=== PATIENT | female | born 1955 | race Caucasian/White ===

== ENCOUNTER 2016-10-06 10:25 | Observation (INO) | payer OTHER ==
[~2016-10-06] VITALS: Ht 157.5 cm; Wt 32.4 kg
[~2016-10-06 10:25] MED LIST: ACET-1256 PO; ALBUAER2 INH; ATRIN INH; LISI10TA PO; MOME200A INH; PRLSR20 PO
[2016-10-06] MEDS ORDERED: ESOM20CA PO (11:04)
[2016-10-06] MEDS ORDERED: PRVHFAIN INH (11:07)
[2016-10-06] MEDS ORDERED: SODIUM CHLORIDE 0.9% 1000ML 1,000 ML IV STA (11:31)
[2016-10-06] MEDS ORDERED: ASPIRIN 81 MG CHEW PO STA (11:31)
[2016-10-06 11:42] LABS: BASO % 0.4 %; BASO ABS # 0.04 K/uL (0-0.2); COMPLETE YES; EOS % 0.3 %; HEMATOCRIT 50.5 % (37-47); IG% 0.5 %; LYMPH % 17.8 %; LYMPH ABS # 1.95 K/uL (1.2-3.4); MEAN CELL VOLUME 87.5 fL (80-100); MEAN CORPUSCULAR HEMOGLOBIN 30.2 pg (25-34); MEAN CORPUSCULAR HGB CONC 34.5 g/dl (32-36); MEAN PLATELET VOLUME 8.8 fL (7.4-10.4); MONO % 5.7 %; NEUT % 75.3 %; PLATELET COUNT 388 K/uL (130-400); RED BLOOD COUNT 5.77 M/uL (4.2-5.4); WHITE BLOOD COUNT 10.97 K/uL (4.8-10.8)
[2016-10-06] MEDS ORDERED: NITROGLYCERIN 0.4 MG SL PER TAB CHARGE SL PRN ×2 (11:45→15:15)
--- NOTE | 2016-10-06 12:05 | DIAGNOSTIC IMAGING REPORT ---
CHEST ONE VIEW PORTABLE CLINICAL HISTORY: Chest pain and shortness of breath. COMPARISON STUDY: Chest CT July 19, 2016. FINDINGS: Nipple shadows project over the chest. Emphysema is noted. There is no consolidation to suggest pneumonia. Biapical opacities are unchanged and likely reflect scarring. Cardiac size is normal. Mediastinal contours are normal. There is no evidence of pulmonary edema. IMPRESSION: 1. No acute findings. 2. Emphysema. Electronically signed by: Kenny Marks M.D. 10/06/2016 12:04 PM Dictated Date/Time: 10/06/2016 12:03 PM
[2016-10-06 12:07] LABS: ALT/SGPT 19 U/L (12-78); AST/SGOT 15 U/L (15-37); BLOOD UREA NITROGEN 10 mg/dl (7-18); CALCIUM 9.7 mg/dl (8.5-10.1); CARBON DIOXIDE 24 mmol/L (21-32); CHLORIDE 104 mmol/L (98-107); CREATININE 0.96 mg/dl (0.60-1.20); GLUCOSE 83 mg/dl (70-99); POTASSIUM 4.2 mmol/L (3.5-5.1); SODIUM 139 mmol/L (136-145)
[2016-10-06 12:12] LABS: ALKALINE PHOSPHATASE 69 U/L (45-117); CKMB/CK RATIO 2.6 (0-3.0)
[2016-10-06] MEDS ORDERED: ONDANSETRON INJ 2 MG/ML 2 ML VIAL IV PRN (15:15)
[2016-10-06] MEDS ORDERED: ALBUTEROL HFA 8 GM INHALER INH PRN (15:30)
--- NOTE | 2016-10-06 15:46 | History and Physical ---
History & Physical Date & Time of Service: Oct 06, 2016 at 15:21 Chief Complaint: Chest Heaviness, Sob, Heavy Left Arm Primary Care Physician: Ana Park M.D. History of Present Illness Source: patient THis is a 61 y/o female with PMHx of mod COPD with ongoing tobacco use, GERD and other problems as outlined below who presents to the ED c/o chest heaviness that began this morning. Pt reports that she was on the commode this morning around 0730 when she developed palpitations/ heart racing. She then developed heaviness in the center of her chest. After about 15 minutes the palpitations resolved however the chest discomfort persisted. The chest discomfort was aggravated with exertion and alleviated with rest. It was assoc with SOB (worse than baseline) and lightheadedness/dizziness. She went to work despite her sxs however the discomfort was getting worse and began radiating down the L arm. She did not take anything for her sxs. She estimates that discomfort lasted over 2 hours until she received the nitro in the ED. Pt has a history of similar sxs 4-5 years ago. She states she had a negative stress test at that time and she has not had any further issues until this morning. She denies FmHx of cardiovascular disease. Pt is a current tobacco user. She has a history of HTN however she was taken off her lisinopril 2 weeks ago due to issues with hypotension. Pt denies fever/chills, diaphoresis, wheezing, abd pain, N/V, bowel or bladder issues, LE edema or calf pain. In the ED, vitals are stable. Trop neg. EKG no evidence of ischemia. CXR + emphysema. Pt received 1 nitro in the ED and she is currently chest pain free. Pt will be admitted for further evaluation and treatment. Past Medical/Surgical History Medical Problems: (1) Emphysema lung Status: Chronic (2) GERD (gastroesophageal reflux disease) Status: Chronic (3) Tobacco abuse Status: Chronic Surgical Problems: (1) History of partial hysterectomy Permanent Comment: pt has one ovary Status: Resolved Social History Smoking Status: Current Every Day Smoker (1 ppd x 48 years ) Alcohol Use: none Drug Use: none Marital Status: Housing status: lives with family Occupational Status: employed (Works at [employer] ) Allergies Coded Allergies: Amoxicillin (Verified Adverse Reaction, Unknown, DIARRHEA, 10/06/16) Home Medications Scheduled Esomeprazole Magnesium (Nexium), 20 MG PO DAILY Ipratropium [place] (Atrovent Hfa), 2 PUFFS INH QID Mometasone Furoate-Formoterol (Dulera 200/5 Mcg), 2 PUFFS INH BID Scheduled PRN Acetaminophen (Tylenol), 1 TAB PO Q8 PRN for Pain Albuterol (Ventolin Hfa), 2 PUFFS INH Q4 PRN for SOB/Wheezing Review of Systems Constitutional: No chills, No fatigue, No fever, No sweats, No weakness Eyes: No worsening of vision ENT: No hearing loss Respiratory: + cough (chronic), + shortness of breath (resolved) Cardiovascular: + chest pain, + palpitations, No claudication, No edema Abdomen: No GI bleeding, No constipation, No diarrhea, No nausea, No pain, No vomiting Musculoskeletal: No calf pain, No swelling Genitourinary - Female: No dysuria Neurologic: + problem reported (lightheaded: resolved), No weakness Psychiatric: No depression symptoms Endocrine: No fatigue Hematologic / Lymphatic: No abnormal bleeding/bruising Integumentary: No new/changing skin lesions Physical Exam Vital Signs Date Time Temp Pulse Resp B/P Pulse Ox O2 Delivery O2 Flow Rate FiO2 10/06/16 14:25 82 21 10/06/16 14:20 82 22 10/06/16 14:15 80 21 10/06/16 14:10 85 16 10/06/16 13:40 92 17 97 10/06/16 13:35 80 15 95 Room Air 10/06/16 13:34 142/90 10/06/16 13:30 83 15 95 Room Air 10/06/16 13:28 136/84 10/06/16 13:25 87 15 95 Room Air 10/06/16 13:24 125/77 10/06/16 13:20 88 16 95 Room Air 10/06/16 13:19 145/81 10/06/16 13:15 86 1 95 10/06/16 13:13 140/87 10/06/16 13:10 87 20 96 10/06/16 13:09 121/89 10/06/16 13:05 85 17 95 10/06/16 13:04 132/85 10/06/16 13:00 86 20 96 10/06/16 12:59 130/79 10/06/16 12:55 86 19 96 10/06/16 12:54 125/72 10/06/16 12:50 85 19 96 10/06/16 12:49 132/78 10/06/16 12:45 83 17 95 10/06/16 12:44 123/72 10/06/16 12:40 90 21 95 10/06/16 12:35 89 20 129/79 95 Room Air 10/06/16 12:34 132/84 10/06/16 12:32 147/83 10/06/16 12:30 82 16 98 Room Air 10/06/16 12:29 145/96 10/06/16 12:25 85 23 97 10/06/16 12:20 85 20 96 10/06/16 12:17 95 Room Air 10/06/16 12:15 85 23 95 10/06/16 12:11 81/45 10/06/16 12:10 92 94 10/06/16 12:05 89 94 10/06/16 12:03 146/84 10/06/16 12:02 146/84 10/06/16 12:01 146/84 10/06/16 12:00 95 146/84 95 10/06/16 11:59 146/84 10/06/16 11:58 146/84 10/06/16 11:57 146/84 10/06/16 11:56 146/84 10/06/16 11:55 89 146/84 95 10/06/16 11:54 146/84 10/06/16 11:53 146/84 10/06/16 11:52 146/84 10/06/16 11:51 146/84 10/06/16 11:50 91 146/84 96 10/06/16 11:49 146/84 10/06/16 11:48 146/84 10/06/16 11:45 89 22 94 10/06/16 11:40 92 21 95 10/06/16 11:35 95 18 95 10/06/16 11:30 94 19 95 10/06/16 11:27 96 10/06/16 11:25 94 15 96 10/06/16 11:21 93 20 146/84 97 Room Air 10/06/16 11:20 146/84 10/06/16 11:19 146/84 10/06/16 10:31 36.5 112 18 143/86 96 Room Air General Appearance: WD/WN, no apparent distress, + thin, + pertinent finding ( Pt is sitting in bed with at bedside ) Head: normocephalic, atraumatic Eyes: normal inspection ENT: hearing grossly normal Neck: supple Respiratory/Chest: chest non-tender, lungs clear, normal breath sounds, no respiratory distress Cardiovascular: regular rate, rhythm, no edema, no murmur Abdomen/GI: normal bowel sounds, non tender, soft Back: normal inspection Extremities/Musculoskelatal: normal inspection, no calf tenderness, no pedal edema Neurologic/Psych: alert, normal mood/affect, oriented x 3 Skin: normal color, warm/dry Diagnostics Laboratory Results Results Past 24 Hours Test 10/06/16 11:15 10/06/16 11:30 Range/Units White Blood Count 10.97 4.8-10.8 K/uL Red Blood Count 5.77 4.2-5.4 M/uL Hemoglobin 17.4 12.0-16.0 g/dL Hematocrit 50.5 37-47 % Mean Corpuscular Volume 87.5 80-100 fL Mean Corpuscular Hemoglobin 30.2 25-34 pg Mean Corpuscular Hemoglobin Concent 34.5 32-36 g/dl Platelet Count 388 130-400 K/uL Mean Platelet Volume 8.8 7.4-10.4 fL Neutrophils (%) (Auto) 75.3 % Lymphocytes (%) (Auto) 17.8 % Monocytes (%) (Auto) 5.7 % Eosinophils (%) (Auto) 0.3 % Basophils (%) (Auto) 0.4 % Neutrophils # (Auto) 8.26 1.4-6.5 K/uL Lymphocytes # (Auto) 1.95 1.2-3.4 K/uL Monocytes # (Auto) 0.63 0.11-0.59 K/uL Eosinophils # (Auto) 0.03 0-0.5 K/uL Basophils # (Auto) 0.04 0-0.2 K/uL RDW Standard Deviation 45.6 36.4-46.3 fL RDW Coefficient of Variation 14.2 11.5-14.5 % Immature Granulocyte % (Auto) 0.5 % Immature Granulocyte # (Auto) 0.06 0.00-0.02 K/uL Sodium Level 139 136-145 mmol/L Potassium Level 4.2 3.5-5.1 mmol/L Chloride Level 104 98-107 mmol/L Carbon Dioxide Level 24 21-32 mmol/L Anion Gap 11.0 3-11 mmol/L Blood Urea Nitrogen 10 7-18 mg/dl Creatinine 0.96 0.60-1.20 mg/dl Est Creatinine Clear Calc Drug Dose 31.8 ml/min Estimated GFR () 74.0 Estimated GFR (Non- 63.8 BUN/Creatinine Ratio 10.0 10-20 Random Glucose 83 70-99 mg/dl Calcium Level 9.7 8.5-10.1 mg/dl Total Bilirubin 0.4 0.2-1 mg/dl Direct Bilirubin < 0.1 0-0.2 mg/dl Aspartate Amino Transf (AST/SGOT) 15 15-37 U/L Alanine Aminotransferase (ALT/SGPT) 19 12-78 U/L Alkaline Phosphatase 69 45-117 U/L Total Creatine Kinase 57 26-192 U/L Creatine Kinase MB 1.5 0.5-3.6 ng/ml Creatine Kinase MB Ratio 2.6 0-3.0 Total Protein 7.9 6.4-8.2 gm/dl Albumin 3.7 3.4-5.0 gm/dl Lipase 318 73-393 U/L Bedside Troponin I 0.000 0-0.045 ng/ml Diagnostic Radiology CXR IMPRESSION: 1. No acute findings. 2. Emphysema. EKG EKG: NSR at 95 bpm with poss L atrial enlargement but no acute ischemic changes ; no change when compared to EKG from 02/01/13 Impression Assessment and Plan CHEST PAIN R/O ACS pt presented with exertional chest heaviness assoc with SOB -observation status to telemetry -RFs include HTN and lifelong tobacco use -EKG no acute ischemic changes;repeat EKG PRN chest pain and in AM -Initial troponin is negative; continue to monitor with serial cardiac enzymes q6h -obtain echo to r/o cardiac wall motion abnormalities -start ASA -consult cardiology, Dr. Regalado-pending input -pt is currently chest pain free -continue to monitor MODERATE COPD WITH ONGOING TOBACCO ABUSE -stable; no evidence of acute exacerbation -pt counseled regarding the importance of smoking cessation -NicoDerm patch provided while in hospital -cont home inhalers GERD -cont Nexium HTN -BP stable -stopped lisinopril 2 weeks ago due to hypotension -monitor DVT PROPHYLAXIS -subq heparin CODE STATUS -FULL CODE per discussion with patient upon admission DISPO Observation status until further workup is complete. Pt seen in collaboration with Dr. Loza. Please see his addendum for further details. Thanks! Of note: patient will be followed by Dr. Silva starting tomorrow AM. VTE Prophylaxis VTE Risk Assessment Done? Y/N: Yes Risk Level: Moderate Note ATTENDING ADDENDUM Record reviewed. Patient interviewed and examined. Care coordinated with Nelly Coulter PA-C. Please refer to her documentation for patient's history. Briefly, 61 YO female with COPD. Experienced palpitations followed by chest pressure this morning. Symptoms lasted for about 45 min. EXAM: General- no acute distress VS- as noted Neck- no JVD Lungs- diffuse mild wheezing Heart- RRR, no murmur or gallop appreciated Extremities- no pretibial edema or calf tenderness Neuro- alert DATA: Troponin 0. Other lab studies as noted. CXR- emphysematous changes, no acute disease. EKG performed at 10:32 reviewed and demonstrated NSR at 95 / minute, short MT ( 104 msec), possible age-indeterminant septal infarct. ASSESSMENT AND PLAN: Chest pain, preceded by palpitations. Underlying COPD. Check serial cardiac markers. Monitor for arrhythmias. TSH in clinic 03/16/16 was 0.61. Recheck. Consult Cardiology. Please refer to TAMMY Coulter's documentation for discussion of other issues. Eduardo Loza MD .
[2016-10-06] MEDS ORDERED: NICOTINE 21 MG/24 HR TDSY ONE (16:15)
[2016-10-06 17:10] VITALS: BP 141/67; PULSE 94; TEMP 37; O2SAT 95; Ht 157.5 cm; Wt 32.4 kg
[2016-10-06 18:57] LABS: PROTHROMBIN TIME (PATIENT) 10.8 SECONDS (9.0-12.0)
[2016-10-06 19:36] VITALS: BP 133/79; PULSE 79; TEMP 36.8; O2SAT 95
[2016-10-06] MEDS: IPRATROPIUM BROMIDE HFA INHALER INH SCH ×2 (19:51→21:00)
[2016-10-06] MEDS: HEPARIN SOD 5000 UNIT/0.5 ML CARP SQ SCH (19:52)
[2016-10-06] MEDS: ACETAMINOPHEN 325 MG TAB PO PRN (19:55)
[2016-10-06] MEDS ORDERED: IV FLUIDS COMPLETED PRN (20:30)
--- NOTE | 2016-10-06 21:37 | EMERGENCY ROOM VISIT NOTE ---
ED Visit Note First contact with patient: 11:07 Chief Complaint: Chest heaviness. History of Present Illness: Ms. Parrish is a 61year-old white female who ambulates into the ED accompanied by her complaining of chest discomfort. Historically patient reports no personal or family history of cardiovascular disease. She does have risk factors of tobacco use and hypertension. Patient reports a acute onset of sensations of heart racing followed closely with chest discomfort that started approximately 3 hours ago. Her sensations of heart racing has resolved by her sensation of chest discomfort has been constant. The pain is currently described as midsternal heaviness sensation. The pain is radiating into the left shoulder and down the left arm. She has not identified any aggravating or alleviating factors related to her discomfort. She has not taken a medication for her discomfort prior to arrival at the hospital. has been taken for pain and relief has been achieved. Associated with the pain there has been a productive cough for the last 2 weeks ; diagnosed with bronchitis 2 weeks ago and on a Z-Neel and prednisone with slight improvement of symptoms, mild shortness of breath with activity. Patient denies fevers, chills, sweats, skin eruptions, skin color changes, wheezing, orthopnea, dependent edema, previous clots, claudication, cramping, recent surgery/inactivity/extended travel, abdominal pain, nausea, vomiting, diarrhea, constipation, rectal bleeding, black/tarry stools, urinary symptoms, back/flank pain. Review of Systems: As noted above in history of present illness. All body systems were reviewed and found to be negative as noted above. Past Medical History: As previously noted, bronchitis, emphysema, GERD, status post partial hysterectomy. Current Medications: Medications Dose Route/Sig Max Daily Dose Days Date Category Ventolin Hfa (Albuterol) 60 Puffs/5400 Mcg Aers 2 Puffs INH Q4 PRN 10/06/16 Reported Nexium (Esomeprazole Magnesium) 20 Mg Capcr 20 Mg PO DAILY 10/06/16 Reported Tylenol (Acetaminophen) 500 Mg Tab 1 Tab PO Q8 PRN 10/29/15 Reported Atrovent Hfa (Ipratropium [place]) 200 Puffs/3400 Mcg Aers 2 Puffs INH QID 01/30/15 Reported Dulera 200/5 Mcg (Mometasone Furoate-Formoterol) 1 Aer Aer 2 Puffs INH BID 01/30/15 Reported Allergies to Medications: Amoxicillin. Social History: Patient is currently employed; she feels safe in her environment ; she admits to tobacco use and denies alcohol use. Physical Examination: Vital Signs: Date Time Temp Pulse Resp B/P Pulse Ox O2 Delivery O2 Flow Rate FiO2 10/06/16 14:25 82 21 10/06/16 14:20 82 22 10/06/16 14:15 80 21 10/06/16 14:10 85 16 10/06/16 13:40 92 17 97 10/06/16 13:35 80 15 95 Room Air 10/06/16 13:34 142/90 10/06/16 13:30 83 15 95 Room Air 10/06/16 13:28 136/84 10/06/16 13:25 87 15 95 Room Air 10/06/16 13:24 125/77 10/06/16 13:20 88 16 95 Room Air 10/06/16 13:19 145/81 10/06/16 13:15 86 1 95 10/06/16 13:13 140/87 10/06/16 13:10 87 20 96 10/06/16 13:09 121/89 10/06/16 13:05 85 17 95 10/06/16 13:04 132/85 10/06/16 13:00 86 20 96 10/06/16 12:59 130/79 10/06/16 12:55 86 19 96 10/06/16 12:54 125/72 10/06/16 12:50 85 19 96 10/06/16 12:49 132/78 10/06/16 12:45 83 17 95 10/06/16 12:44 123/72 10/06/16 12:40 90 21 95 10/06/16 12:35 89 20 129/79 95 Room Air 10/06/16 12:34 132/84 10/06/16 12:32 147/83 10/06/16 12:30 82 16 98 Room Air 10/06/16 12:29 145/96 10/06/16 12:25 85 23 97 10/06/16 12:20 85 20 96 10/06/16 12:17 95 Room Air 10/06/16 12:15 85 23 95 10/06/16 12:11 81/45 10/06/16 12:10 92 94 10/06/16 12:05 89 94 10/06/16 12:03 146/84 10/06/16 12:02 146/84 10/06/16 12:01 146/84 10/06/16 12:00 95 146/84 95 10/06/16 11:59 146/84 10/06/16 11:58 146/84 10/06/16 11:57 146/84 10/06/16 11:56 146/84 10/06/16 11:55 89 146/84 95 10/06/16 11:54 146/84 10/06/16 11:53 146/84 10/06/16 11:52 146/84 10/06/16 11:51 146/84 10/06/16 11:50 91 146/84 96 10/06/16 11:49 146/84 10/06/16 11:48 146/84 10/06/16 11:45 89 22 94 10/06/16 11:40 92 21 95 10/06/16 11:35 95 18 95 10/06/16 11:30 94 19 95 10/06/16 11:27 96 10/06/16 11:25 94 15 96 10/06/16 11:21 93 20 146/84 97 Room Air 10/06/16 11:20 146/84 10/06/16 11:19 146/84 10/06/16 10:31 36.5 112 18 143/86 96 Room Air GENERAL: 61-year-old female in mild distress due to symptoms, chronically ill appearing, afebrile and hemodynamically stable. NEUROLOGICAL: Awake, alert and oriented to person, place and time. Answering questions appropriately and following commands. Normal gait. Good hand eye coordination. SKIN: Warm, dry and pink. No soft tissue eruptions or trauma noted. HEENT: Atraumatic and normocephalic. PERRLA. Sclera white and conjunctiva pink. Oral cavity moist and pink. Pharynx is nonerythematous or edematous. Speech normal. No lymphadenopathy. Trachea midline. No jugular venous distention. No carotid bruits. BACK: No tenderness over the bony spine. No CVA tenderness. THORAX: Lungs sounds are clear to auscultation and equal bilaterally with symmetrical chest wall. No wheezing, rales or rhonchi. No crepitus, tenderness , subcutaneous air or deformities noted. HEART: Regular rate and rhythm. Soft systolic murmur heard over the apex of the heart. No gallops or rubs are appreciated. No lifts, heaves or thrills. PMI is not displaced. ABDOMEN: Flat, soft and nontender. Positive bowel sounds in all quadrants. No guarding, rigidity or organomegaly. EXTREMITIES: Moves all extremities well on command and with purpose. All distal neurovascular statuses are intact and equal bilaterally. No dependent edema or calf tenderness/cords. ED Course: Patient is assessed as noted above. Laboratory Testing: Test 10/06/16 11:15 10/06/16 11:30 Range/Units White Blood Count 10.97 4.8-10.8 K/uL Red Blood Count 5.77 4.2-5.4 M/uL Hemoglobin 17.4 12.0-16.0 g/dL Hematocrit 50.5 37-47 % Mean Corpuscular Volume 87.5 80-100 fL Mean Corpuscular Hemoglobin 30.2 25-34 pg Mean Corpuscular Hemoglobin Concent 34.5 32-36 g/dl Platelet Count 388 130-400 K/uL Mean Platelet Volume 8.8 7.4-10.4 fL Neutrophils (%) (Auto) 75.3 % Lymphocytes (%) (Auto) 17.8 % Monocytes (%) (Auto) 5.7 % Eosinophils (%) (Auto) 0.3 % Basophils (%) (Auto) 0.4 % Neutrophils # (Auto) 8.26 1.4-6.5 K/uL Lymphocytes # (Auto) 1.95 1.2-3.4 K/uL Monocytes # (Auto) 0.63 0.11-0.59 K/uL Eosinophils # (Auto) 0.03 0-0.5 K/uL Basophils # (Auto) 0.04 0-0.2 K/uL RDW Standard Deviation 45.6 36.4-46.3 fL RDW Coefficient of Variation 14.2 11.5-14.5 % Immature Granulocyte % (Auto) 0.5 % Immature Granulocyte # (Auto) 0.06 0.00-0.02 K/uL Sodium Level 139 136-145 mmol/L Potassium Level 4.2 3.5-5.1 mmol/L Chloride Level 104 98-107 mmol/L Carbon Dioxide Level 24 21-32 mmol/L Anion Gap 11.0 3-11 mmol/L Blood Urea Nitrogen 10 7-18 mg/dl Creatinine 0.96 0.60-1.20 mg/dl Est Creatinine Clear Calc Drug Dose 31.8 ml/min Estimated GFR () 74.0 Estimated GFR (Non- 63.8 BUN/Creatinine Ratio 10.0 10-20 Random Glucose 83 70-99 mg/dl Calcium Level 9.7 8.5-10.1 mg/dl Total Bilirubin 0.4 0.2-1 mg/dl Direct Bilirubin < 0.1 0-0.2 mg/dl Aspartate Amino Transf (AST/SGOT) 15 15-37 U/L Alanine Aminotransferase (ALT/SGPT) 19 12-78 U/L Alkaline Phosphatase 69 45-117 U/L Total Creatine Kinase 57 26-192 U/L Creatine Kinase MB 1.5 0.5-3.6 ng/ml Creatine Kinase MB Ratio 2.6 0-3.0 Total Protein 7.9 6.4-8.2 gm/dl Albumin 3.7 3.4-5.0 gm/dl Lipase 318 73-393 U/L Bedside Troponin I 0.000 0-0.045 ng/ml Chest X-Ray: Was read by myself and the radiologist showing no acute infiltrates , effusions or pneumothorax. Normal heart silhouette. Patient does have emphysema changes. EKG: Was read by myself and reviewed with Dr. Davis; shows normal sinus rhythm with ventricular rate of 95 bpm. Short [place] interval with signs of left atrial enlargement. No acute ischemic changes. No previous to compare. Patient was hydrated with normal saline and she received a 324 mg aspirin chew by mouth and 0.4 mg of nitroglycerin sublingually for chest pain; after 1 dose of the nitroglycerin she was pain-free. Patient was reassessed multiple times during her stay in the emergency department. Patient's case was reviewed with Dr. Davis; we agreed on diagnostic approach, treatment, disposition and plan. Patient's case was consulted with case management and Dr. Landry, [facility], for medical observation/admission. Patient was educated about tonight's findings. Clinical Impression: Acute chest pain. Decision-Making: Initially my differential diagnosis I considered acute coronary syndrome, thoracic aneurysm, pneumothorax, GERD exacerbation, COPD exacerbation, pneumonia, pulmonary embolism, pericarditis and other causes. Disposition and Plan: Patient be brought in the hospital by [facility]; please see their notes and orders for final disposition and plan.
[2016-10-06 23:49] VITALS: BP_SYST 143; BP_SYST 155; BP_DIAS 78; BP_DIAS 83; PULSE 75; TEMP 36.9; O2SAT 96
[2016-10-07] VITALS (16 sets, daily range): BP systolic 122–176; BP diastolic 70–96; PULSE 76–93; TEMP 36.2–37.1; O2SAT 91–95
[2016-10-07] MEDS: ACETAMINOPHEN 325 MG TAB PO PRN ×2 (04:50→15:24)
[2016-10-07] MEDS: HEPARIN SOD 5000 UNIT/0.5 ML CARP SQ SCH ×3 (05:48→21:04)
[2016-10-07 06:20] LABS: HEMATOCRIT 44.7 % (37-47); MEAN CORPUSCULAR HEMOGLOBIN 29.9 pg (25-34); MEAN PLATELET VOLUME 8.6 fL (7.4-10.4); PLATELET COUNT 327 K/uL (130-400); RED BLOOD COUNT 5.08 M/uL (4.2-5.4); WHITE BLOOD COUNT 7.38 K/uL (4.8-10.8)
[2016-10-07 06:46] LABS: BUN/CREATININE RATIO 10.5 (10-20); CALCIUM 8.9 mg/dl (8.5-10.1); CREATININE 0.98 mg/dl (0.60-1.20); MAGNESIUM 2.1 mg/dl (1.8-2.4); POTASSIUM 4.2 mmol/L (3.5-5.1)
[2016-10-07 06:57] LABS: THYROID STIMULATING HORMONE 0.823 uIu/ml (0.300-4.500)
[2016-10-07] MEDS: IPRATROPIUM BROMIDE HFA INHALER INH SCH ×4 (10:00→21:03)
[2016-10-07] MEDS: PANTOprazole SOD 40 MG TAB PO SCH (10:00)
[2016-10-07] MEDS: ASPIRIN 81 MG ECTAB PO SCH (10:00)
[2016-10-07] MEDS: NICOTINE 21 MG/24 HR TDSY TD SCH (10:01)
--- NOTE | 2016-10-07 10:32 | ECHOCARDIOGRAM REPORT ---
*NOTICE TO RECEIVING REPUBLICAN AGENCY This information is strictly Confidential and protected under [place] law. [place] law prohibits you from making any further disclosure of this information unless further disclosure is expressly permitted by the written consent of the person to whom it pertains or is authorized by law. A general authorization for the release of medical or other information is not sufficient for this purpose. Hospital accepts no responsibility if the information is made available to any other person, INCLUDING THE PATIENT. Interpretation Summary * Name: YVONNE DENNIS Study Date: 10/07/2016 07:21 AM BP: 149/88 mmHg * Patient Location: C.2T\S\S230\S\2 HR: 81 * : 1955 (M/d/yyyy) Gender: Female Height: 62 in * Age: 61 yrs Ethnicity: [place] Weight: 72 lb * Ordering Physician: Nelly Coulter * Referring Physician: No Doctor, Assigned * Performed By: Nain Diane RCS * * Reason For Study: Chest Pain * BSA: 1.2 m2 * -- Conclusions -- * Aortic valve sclerosis mild, without significant aortic valvular stenosis. * The left ventricular wall motion is normal. * Ejection Fraction = 55-60%. * Left ventricular systolic function is normal. * The right ventricle is normal size. * The right ventricular systolic function is normal as assessed by tricuspid annular plane systolic excursion (TAPSE) (normal >1.5 cm). * Grade I diastolic dysfunction, (abnormal relaxation pattern). * The tricuspid regurgitaiton envelope is insufficient to allow calculation of the pulmonary artery systolic pressures. * There is a trace loculated pericardial effusion adjacent to the right ventricle on the subcostal views. * There are no echocardiographic indications of cardiac tamponade. Procedure Details * A complete two-dimensional transthoracic echocardiogram was performed (2D, M-mode, Doppler and color flow Doppler). Left Ventricle * The left ventricle is normal in size. * There is normal left ventricular wall thickness. * Ejection Fraction = 55-60%. * Left ventricular systolic function is normal. * The left ventricular wall motion is normal. Right Ventricle * The right ventricle is normal size. * The right ventricular systolic function is normal as assessed by tricuspid annular plane systolic excursion (TAPSE) (normal >1.5 cm). Atria * The left atrial size is normal. * Right atrial size is normal. * There is no evidence of atrial septal defect, but resolution does not allow assessment for a patent foramen ovale. Mitral Valve * The mitral valve is normal. * There is no mitral valve stenosis. * Significant mitral regurgitation is absent. Tricuspid Valve * The tricuspid valve is normal. * There is no tricuspid stenosis. * Significant tricuspid regurgitation is absent. * The tricuspid regurgitaiton envelope is insufficient to allow calculation of the pulmonary artery systolic pressures. Aortic Valve * The aortic valve is trileaflet. * Aortic valve sclerosis mild, without significant aortic valvular stenosis. * Aortic stenosis is absent. * There is no significant aortic regurgitation. Pulmonic Valve * The pulmonary valve is not well seen, but the Doppler examination is normal without significant regurgitation or stenosis. Great Vessels * The aortic root and proximal ascending aorta are normal sized. Pericardium/Pleural * There is a trace loculated pericardial effusion adjacent to the right ventricle on the subcostal views. * There are no echocardiographic indications of cardiac tamponade. Great Vessels * Normal inferior vena cava diameter and respiratory variation suggests normal central venous pressure. * Normal inferior vena cava size and collapsability with sniff indicates a normal right atrial pressure of 3 mmHg Left Ventricular Diastolic Function * Grade I diastolic dysfunction, (abnormal relaxation pattern). MMode 2D Measurements and Calculations IVSd 0.89 cm IVSs 0.94 cm LVIDd 3.3 cm LVIDs 2.3 cm LVPWd 0.72 cm LVPWs 0.95 cm IVS/LVPW 1.2 FS 30.4 % EDV(Teich) 44.4 ml ESV(Teich) 18.1 ml EF(Teich) 59.1 % EDV(cubed) 36.2 ml ESV(cubed) 12.2 ml EF(cubed) 66.3 % % IVS thick 5.4 % % LVPW thick 31.5 % LV mass(C)d 69.3 grams LV mass(C)dI 56.0 grams/m\S\2 LV mass(C)s 51.4 grams LV mass(C)sI 41.5 grams/m\S\2 CO(Teich) 2.0 l/min CI(Teich) 1.6 l/min/m\S\2 SV(Teich) 26.3 ml SI(Teich) 21.2 ml/m\S\2 CO(cubed) 1.8 l/min CI(cubed) 1.5 l/min/m\S\2 SV(cubed) 24.0 ml SI(cubed) 19.4 ml/m\S\2 Ao root diam 2.6 cm Ao root area 5.4 cm\S\2 ACS 1.6 cm LA dimension 2.6 cm LA/Ao 0.99 LVAd ap4 20.3 cm\S\2 LVLd ap4 6.9 cm EDV(MOD-sp4) 50.0 ml LVAs ap4 11.8 cm\S\2 LVLs ap4 5.9 cm ESV(MOD-sp4) 20.0 ml EF(MOD-sp4) 60.0 % LVAd ap2 16.6 cm\S\2 LVLd ap2 6.7 cm EDV(MOD-sp2) 36.0 ml LVAs ap2 9.5 cm\S\2 LVLs ap2 5.2 cm ESV(MOD-sp2) 16.0 ml EF(MOD-sp2) 55.6 % CO(MOD-sp4) 2.3 l/min CI(MOD-sp4) 1.8 l/min/m\S\2 SV(MOD-sp4) 30.0 ml SI(MOD-sp4) 24.2 ml/m\S\2 CO(MOD-sp2) 1.5 l/min CI(MOD-sp2) 1.2 l/min/m\S\2 SV(MOD-sp2) 20.0 ml SI(MOD-sp2) 16.2 ml/m\S\2 Doppler Measurements and Calculations MV E max cindy 62.4 cm/sec MV A max cindy 55.9 cm/sec MV E/A 1.1 MV P1/2t max cindy 74.3 cm/sec MV P1/2t 79.9 msec MVA(P1/2t) 2.8 cm\S\2 MV dec slope 272.3 cm/sec\S\2 MV dec time 0.21 sec Ao V2 max 94.3 cm/sec Ao max PG 3.6 mmHg Ao max PG (full) 1.9 mmHg LV V1 max PG 1.6 mmHg LV V1 max 64.1 cm/sec PA V2 max 78.3 cm/sec PA max PG 2.5 mmHg
[2016-10-07] MEDS ORDERED: METOPROLOL TARTRATE 25 MG TAB PO ONE (10:36)
[2016-10-07] MEDS ORDERED: ATORVASTATIN 10 MG TAB PO ONE (10:45)
--- NOTE | 2016-10-07 10:46 | EXERCISE STRESS ECHO ---
*NOTICE TO RECEIVING DEMOCRAT AGENCY This information is strictly Confidential and protected under [place] law. [place] law prohibits you from making any further disclosure of this information unless further disclosure is expressly permitted by the written consent of the person to whom it pertains or is authorized by law. A general authorization for the release of medical or other information is not sufficient for this purpose. Hospital accepts no responsibility if the information is made available to any other person, INCLUDING THE PATIENT. Interpretation Summary * Name: YVONNE DENNIS Study Date: 10/07/2016 09:03 AM BP: 188/87 mmHg * Patient Location: C.2T\S\S230\S\2 HR: 90 * : 1955 (M/d/yyy) Gender: Female Height: 62 in * Age: 61 yrs Ethnicity: [place] Weight: 72 lb * Ordering Physician: Freddie Regalado * Referring Physician: No Doctor, Assigned * Performed By: Nain Diane RCS * * Reason For Study: Chest Pain * BSA: 1.2 m2 * -- Conclusions -- * The exercise stress echocardiogram is abnormal and consistent with inducible ischemia in the LAD coronary artery territory. * Two brief episodes of nonsustained ventricular tachycardia were observed. * The patient's exercise capacity is severely diminished. * The exercise test was terminated due to fatigue and shortness of breath. * The post exercise echo images were technically limited due to patient characterisitcs. Only the parasternal long axis and parasternal short axis views are of adequate diagnostic quality on the post exercise images, but were abnormal compared to the resting images and therefore the test is technically limited but adequate for the referral indication. * Results were discussed with Dr Silva by telephone. Procedure Details * ECHOEX, CPT #03859 * A contrast injection of Definity was performed to improve assessment of LV function. * Contrast was injected into an intravenous site in the left arm. * One vial of Definity ultrasound contrast was diluted in normal saline to a total volume of 10 ml. A total of '4' ml of solution was administered during imaging. * Lot # [id number] of Definity utilized for procedure. * Expiration date . * The attending nurse who injected the contrast agent was Theodore Romero RN. Left Ventricle * The left ventricle is normal in size. * The left ventricular wall motion is normal at rest. There is a moderate sized anteroseptal wall motion abnormality with hypokinesis of the segments on the stress images consistent with ischemia in the LAD coronary territory. * There is normal left ventricular wall thickness. * Left ventricular systolic function is normal. * Ejection Fraction = 55-60%. Stress Parameters * Normal baseline electrocardiogram. * The stress EKG revealed no significant ST depression. Two salvos of nonsustained ventricular tachycardia occured, one was 3 beats in duration and one was 7 beats in duration. * The stress portion of this study was personally supervised by the undersigned interpreting physician. * Rest heart rate was '90' BPM. * Rest blood pressure was '188/87' * Maximum heart rate achieved was 173 bpm. * Maximum heart rate was 108 % of maximum age-predicted heart rate. * Maximum blood pressure was '201/66' * Total exercise time was '2:27' * Maximum exercise MET level achieved was '4.6' METS * Maximum treadmill speed was '1.6' miles per hour. * Maximum treadmill elevation was '10'% grade. * Exercise was terminated due to 'fatigue'
--- NOTE | 2016-10-07 11:48 | CARDIOLOGY CONSULTATION ---
DATE OF CONSULTATION: 10/07/2016 HISTORY OF PRESENT ILLNESS: Jemal Parrish is a 61-year-old female seen in cardiology consultation per the request of Nelly Coulter PA-C for the evaluation of chest discomfort. The patient's primary care provider is Dr. Park of [facility]. She has not followed with cardiology in the past. The patient has a history of significant underlying lung disease and ongoing cigarette smoking. She was in her normal state of health yesterday when she was sitting on the commode, urinating at 07:30 in the morning and developed palpitations. The palpitations persisted for several minutes. She then developed associated chest heaviness in the center of her chest that lasted 15 minutes. The palpitations subsequently resolved, but the chest discomfort persisted with associated upper arm discomfort. She felt that the chest discomfort was worse when she got up and exerted herself. She felt more short of breath than her typical baseline. She went to work and had pain radiating down her left arm. She therefore presented to the Emergency Department. Her initial EKG revealed normal sinus rhythm with no significant ST segment changes. Cardiac enzymes have been drawn and her troponin was negative x2 overnight. The patient was seen by the undersigned in cardiopulmonary after her resting echocardiogram had revealed normal left ventricular wall motion. She was feeling well with no recurrence of her palpitations. It was determined that the next best course of action would be to proceed with an exercise stress echocardiogram. PAST MEDICAL HISTORY: 1. Chronic obstructive pulmonary disease/emphysema, with chronic cough and ongoing cigarette smoking. 2. Gastroesophageal reflux disease. PAST SURGICAL HISTORY: History of partial hysterectomy. SOCIAL HISTORY: The patient is a current every day smoker. She has smoked 1 pack per day for the last 48 years. She is and lives with her family. FAMILY HISTORY: Father with a history of COPD. COMPREHENSIVE REVIEW OF SYSTEMS: A 10-point review of systems was reviewed and is negative with the exception of palpitations and chronic cough and chronic shortness of breath. PHYSICAL EXAMINATION: VITAL SIGNS: Temperature 36.6, heart rate 78, blood pressure 156/88, and pulse oximetry 93%-96% on room air. GENERAL APPEARANCE: Awake and oriented x3 in no acute distress, the patient is thin and weighs 32.8 kilograms with a BMI of 13.2 kilograms per meter squared. GENERAL APPEARANCE: Appears somewhat frail and undernourished. NECK: No bruits. CARDIOVASCULAR: Regular rhythm. No murmurs. LUNGS: Coarse breath sounds at bases. ABDOMEN: Soft, nontender, and nondistended. EXTREMITIES: No clubbing, cyanosis or edema. NEUROLOGIC: No focal deficits. PSYCHIATRIC: Appropriate affect and insight. DIAGNOSTIC DATA: EKG performed on arrival revealed normal sinus rhythm at 95 beats per minute with short ME interval. Repeat EKG this morning revealed continued sinus rhythm with sinus arrhythmia. No significant ST changes. Troponin negative x2. Sodium 144, BUN 110, and creatinine 0.98. TSH within normal limits. Electrolytes within normal limits. Hemoglobin 15.2, hematocrit 44.7, and platelet count 327. Chest x-ray, no acute findings. Underlying emphysema. HOME MEDICATIONS: 1. Nexium. 2. Gabapentin. 3. Zithromax rescue pack. 4. Albuterol. 5. Atrovent. 6. Dulera. Exercise stress echocardiogram results: The patient exercised into stage I of the Alex protocol. Her exercise capacity was significantly diminished. Exercise was terminated due to fatigue and shortness of breath. Two episodes of nonsustained ventricular tachycardia were noted with exercise. No significant ST-segment depression is noted on the EKG. The resting wall motion on echocardiographic assessment was normal, the post-exercise assessment was technically limited, but the parasternal long axis and parasternal short axis were well visualized and were technically adequate revealing LAD territory wall motion abnormality suggestive of ischemia. FINAL IMPRESSION: A 61-year-old female, 1. Presented with palpitations, suggestive for possible atrial arrhythmia, although given 2 brief episodes of nonsustained ventricular tachycardia with exercise, ventricular arrhythmia must be entertained. Her palpitation symptoms were not reproduced with exercise. 2. Abnormal exercise stress echocardiogram at low level of exercise suggestive of LAD territory ischemia. 3. Significant underlying emphysematous lung disease, chronic cough. 4. Ongoing cigarette smoking. DISCUSSION AND RECOMMENDATIONS: The patient had a previous lipid panel performed in 2013, at which time her LDL cholesterol was 65 mg per deciliter. Given her findings on stress testing, however, I am going to start her on a low dose of atorvastatin. The patient will be started on aspirin therapy. We will initiate low-dose metoprolol tartrate, a cardioselective beta bernadine while she is in the hospital and we will watch her carefully for symptoms of increased wheezing given the significance of her underlying lung disease. It was recommended that the patient undergo a coronary angiography for definitive diagnosis of coronary artery disease during this hospital stay. She is agreeable. DELFIN
--- NOTE | 2016-10-07 12:38 | Progress Note ---
Subjective Date of Service: Oct 07, 2016. Subjective Pt evaluation today including: conversation w/ patient, conversation w/ family , physical exam, chart review, lab review, review of studies, conversation w/ cosmetic sales consultant, review of inpatient medication list Saw/examined the patient in room 230 She is a 61 year old female with PMH of COPD and current ongoing tobacco use presented with chest pain and palpitations. Had a stress echo done which revealed LAD ischemia; patient also had episodes of nonsustained VT. I saw the patient after the stress in the room, she is doing fine, denies chest pain or palpitations currently; no other symptoms at this time. Problem List Medical Problems: (1) Acute chest pain Status: Acute (2) Nausea Status: Acute (3) Right lower quadrant abdominal pain Status: Acute Review of Systems Constitutional: No chills, No fever Respiratory: + cough, + shortness of breath (baseline, chronic), + sputum, No dyspnea at rest, No dyspnea on exertion, No hemoptysis Cardiac: No chest pain (no chest pain currently), No edema, No palpitations Abdomen: No diarrhea, No nausea, No pain, No vomiting Heme: No abnormal bleeding/bruising Medications Current Inpatient Medications Medications (Trade) Dose Ordered Sig/[place] Route Start Time Stop Time Status Last Admin Dose Admin Heparin Sodium (Porcine) (Heparin Sq 5000 Unit/0.5ml) 5,000 unit Q8 SQ 10/06/16 22:00 11/05/16 21:59 Acetaminophen (Tylenol Tab) 650 mg Q4H PRN PO 10/06/16 15:15 11/05/16 15:14 10/07/16 04:50 650 MG Ondansetron HCl (Zofran Inj) 4 mg Q6H PRN IV 10/06/16 15:15 11/05/16 15:14 Nitroglycerin (Nitrostat Tab) 0.4 mg UD PRN SL 10/06/16 15:15 11/05/16 15:14 Albuterol (Ventolin Hfa Inhaler) 2 puffs Q4 PRN INH 10/06/16 15:30 11/05/16 15:29 Ipratropium [place] (Atrovent Hfa Inhaler) 2 puffs QID INH 10/06/16 17:00 11/05/16 16:59 10/07/16 10:00 2 PUFFS Pantoprazole Sodium (Protonix Tab) 40 mg DAILY PO 10/07/16 09:00 11/06/16 08:59 10/07/16 10:00 40 MG Miscellaneous Information (Order Awaiting Action) 1 ea QS N/A 10/07/16 00:00 11/06/16 00:00 Nicotine (Nicoderm Cq 21MG Patch) 1 patch QAM TD 10/07/16 09:00 11/06/16 08:59 10/07/16 10:01 1 PATCH Miscellaneous (Remove Nicoderm Patch) 1 ea HS N/A 10/06/16 21:00 11/05/16 20:59 10/07/16 10:01 1 EA Aspirin (Ecotrin Tab) 81 mg DAILY PO 10/07/16 09:00 11/06/16 08:59 10/07/16 10:00 81 MG Miscellaneous (Iv Fluids Completed) 1 ea PRN PRN N/A 10/06/16 20:30 10/06/17 20:29 Metoprolol Tartrate (Lopressor Tab) 12.5 mg BID PO 10/07/16 21:00 11/06/16 20:59 Atorvastatin Calcium (Lipitor Tab) 10 mg QAM PO 10/08/16 09:00 11/07/16 08:59 Objective Vital Signs Date Time Temp Pulse Resp B/P Pulse Ox O2 Delivery O2 Flow Rate FiO2 10/07/16 11:42 36.2 86 20 176/96 92 Room Air 10/07/16 08:01 36.6 78 18 156/88 93 Room Air 10/07/16 04:16 37.1 81 18 149/88 95 10/07/16 04:00 Room Air 10/07/16 00:00 Room Air 10/06/16 23:49 36.9 75 18 155/83 96 143/78 10/06/16 20:00 Room Air 10/06/16 19:36 36.8 79 16 133/79 95 Room Air 10/06/16 17:10 37.0 94 18 141/67 95 Room Air 10/06/16 17:10 37.0 94 18 141/67 95 Room Air 10/06/16 16:54 36.5 80 18 163/82 97 10/06/16 16:28 80 18 163/82 97 Room Air 10/06/16 14:25 82 21 10/06/16 14:20 82 22 10/06/16 14:15 80 21 10/06/16 14:10 85 16 10/06/16 13:40 92 17 97 10/06/16 13:35 80 15 95 Room Air 10/06/16 13:34 142/90 10/06/16 13:30 83 15 95 Room Air 10/06/16 13:28 136/84 10/06/16 13:25 87 15 95 Room Air 10/06/16 13:24 125/77 10/06/16 13:20 88 16 95 Room Air 10/06/16 13:19 145/81 10/06/16 13:15 86 1 95 10/06/16 13:13 140/87 10/06/16 13:10 87 20 96 10/06/16 13:09 121/89 10/06/16 13:05 85 17 95 10/06/16 13:04 132/85 10/06/16 13:00 86 20 96 10/06/16 12:59 130/79 10/06/16 12:55 86 19 96 10/06/16 12:54 125/72 10/06/16 12:50 85 19 96 10/06/16 12:49 132/78 10/06/16 12:45 83 17 95 10/06/16 12:44 123/72 10/06/16 12:40 90 21 95 10/06/16 12:35 89 20 129/79 95 Room Air 10/06/16 12:34 132/84 10/06/16 12:32 147/83 10/06/16 12:30 82 16 98 Room Air Physical Exam General Appearance: no apparent distress, + cachetic, + thin Respiratory/Chest: no respiratory distress, no accessory muscle use, + decreased breath sounds, + wheezing (diffuse) Cardiovascular: regular rate, rhythm, no edema, no murmur Abdomen: normal bowel sounds, non tender, soft Extremities: normal inspection, no pedal edema Neurologic/Psychiatric: no motor/sensory deficits, alert, normal mood/affect Skin: normal color Lymphatic: no adenopathy Laboratory Results Last 24 Hours Test 10/06/16 17:00 10/06/16 17:33 10/06/16 18:15 10/06/16 23:00 Creatine Kinase MB Ratio Creatine Kinase MB 1.3 ng/ml Troponin I < 0.015 ng/ml Prothrombin Time 10.8 SECONDS Prothromb Time International Ratio 1.0 Activated Partial Thromboplast Time 25.0 SECONDS Partial Thromboplastin Ratio 1.0 Test 10/06/16 23:15 10/07/16 05:40 Creatine Kinase MB 1.1 ng/ml Troponin I < 0.015 ng/ml White Blood Count 7.38 K/uL Red Blood Count 5.08 M/uL Hemoglobin 15.2 g/dL Hematocrit 44.7 % Mean Corpuscular Volume 88.0 fL Mean Corpuscular Hemoglobin 29.9 pg Mean Corpuscular Hemoglobin Concent 34.0 g/dl RDW Standard Deviation 46.2 fL RDW Coefficient of Variation 14.3 % Platelet Count 327 K/uL Mean Platelet Volume 8.6 fL Sodium Level 144 mmol/L Potassium Level 4.2 mmol/L Chloride Level 110 mmol/L Carbon Dioxide Level 26 mmol/L Anion Gap 8.0 mmol/L Blood Urea Nitrogen 10 mg/dl Creatinine 0.98 mg/dl Est Creatinine Clear Calc Drug Dose 31.2 ml/min Estimated GFR () 72.2 Estimated GFR (Non- 62.3 BUN/Creatinine Ratio 10.5 Random Glucose 74 mg/dl Calcium Level 8.9 mg/dl Magnesium Level 2.1 mg/dl Thyroid Stimulating Hormone (TSH) 0.823 uIu/ml Assessment and Plan This is a 61 year old female with PMH of COPD and ongoing tobacco use presents with chest pain/palpitations Chest Pain likely palpitations, as patient had some palpitations during stress echo, including possibly non-sustained v-tach stress echo abnormal - suggestive of LAD ischemia patient given aspirin, statin, b-bernadine plan is for cardiac cath either later today 10/07 or 10/08 AM monitor in tele for any ventricular arrhythmias TSH is wnl cardiac enzymes negative x 3 currently in NSR @ 80bpm COPD/Tobacco Use nicotine patch no acute exacerbation will monitor breathing status with b-bernadine use counseled on smoking cessation with both the patient and her DVT ppx Lovenox FULL CODE
[2016-10-07] MEDS ORDERED: HEPARIN SOD (PORCINE) 1000 UNIT/ML 10 ML VIAL ONE (14:17)
[2016-10-07] MEDS ORDERED: NiCARDipine HCL INJ 2.5 MG/ML 10 ML AMP ONE (14:17)
[2016-10-07] MEDS ORDERED: MIDAZOLAM HCL 1 MG/ML 2ML VIAL ONE (14:18)
[2016-10-07] MEDS ORDERED: FENTANYL CITRATE INJ 50 MCG/1 ML 2 ML VIAL ONE (14:18)
--- NOTE | 2016-10-07 15:07 | Procedure Note ---
Pre-Mod Sedation Assessment General Date of Moderate Sedation: Oct 07, 2016. Vital Signs: Vital Signs Past 12 Hours Date Time Temp Pulse Resp B/P Pulse Ox O2 Delivery O2 Flow Rate FiO2 10/07/16 15:03 75 16 144/83 99 Room Air 10/07/16 14:58 79 16 159/95 99 Room Air 10/07/16 13:05 Room Air 10/07/16 12:59 36.6 85 20 156/89 93 Room Air 10/07/16 12:00 Room Air 10/07/16 11:42 36.2 86 20 176/96 92 Room Air 10/07/16 08:01 36.6 78 18 156/88 93 Room Air 10/07/16 08:00 Room Air 10/07/16 04:16 37.1 81 18 149/88 95 10/07/16 04:00 Room Air Review Cardiovascular: regular rate, rhythm, no edema, no gallop Abdomen: normal bowel sounds, non tender, no organomegaly Lungs: chest non-tender, lungs clear Pre-Sedation Airway Assessment Oral Cavity: Dentures Smoking Status: Current Every Day Smoker Mallampati Classification: Class II ASA Classification: Class II Procedure Planning Contraindications-for Mod Sed: None Yes Notes The planned sedation has been discussed with the patient and consent obtained. I have identified the patient, determined the appropriateness of sedation and have assessed the patient immediately prior to the procedure. All medicine(s) and interventions are by my order.
--- NOTE | 2016-10-07 15:10 | Procedure Note ---
Post-Mod Sedation Assessment General Date of Moderate Sedation Oct 07, 2016. Vital Signs: Vital Signs Past 12 Hours Date Time Temp Pulse Resp B/P Pulse Ox O2 Delivery O2 Flow Rate FiO2 10/07/16 15:03 75 16 144/83 99 Room Air 10/07/16 14:58 79 16 159/95 99 Room Air 10/07/16 13:05 Room Air 10/07/16 12:59 36.6 85 20 156/89 93 Room Air 10/07/16 12:00 Room Air 10/07/16 11:42 36.2 86 20 176/96 92 Room Air 10/07/16 08:01 36.6 78 18 156/88 93 Room Air 10/07/16 08:00 Room Air 10/07/16 04:16 37.1 81 18 149/88 95 10/07/16 04:00 Room Air Review - Discharge Criteria Vital Signs Stable: Yes Alert/Oriented/Conversant: Yes Returned to Baseline Mental St: Yes Nausea Absent/Minimal: Yes Pain/Discomfort/Absent/Minimal: Yes Normal/Baseline Respirations: Yes Active Bleeding?: No Pt Received D/C Instructions: N/A Prescriptions Given: None Specific Proced. D/C Criteria Distal Pulses Present (Cardiac: Yes Groin site assessed-Card Cath: N/A Voided Prior To Discharge: N/A Discharged Patients Adult Escort/Transportation: N/A
--- NOTE | 2016-10-07 15:16 | Cardiac Catheterization ---
Procedure Note Procedure Date Oct 07, 2016. Pre-Procedure Diagnosis Angina, Positive Stress Test AUC Score 7 Post-Procedure Diagnosis Normal Coronary Arteries Procedure(s) Performed Coronary Angiography (Start time 1436, end time 1458), Left Heart Cath Master R[facility] Spec(s) Yoan RTR Estimated Blood Loss 5cc Medication(s) Fentanyl (12.5mcg), Heparin, Nicardipine, Nitroglycerin, Versed (1mg), Lidocaine 1% Summary of Findings Normal coronary arteries Hemodynamics Rest Ao: 148/89/115 Final Ao: 160/89/119 LV: 148/-4/3 Recommendations None Specimens None Radiation Exposure (mGy) 39 Contrast (mls) 45 Procedural Complication(s) None Disposition PCU ACC Data Cardiac Status Clinical evaluation leading to the procedure CAD Presntation: Positive Stress Test Anginal Classification: CCS II Heart Failure: No Stress Echocardiogram: Yes - Positive, Risk/Extent of Ischemia (Intermediate) Coronary Anatomy Dominant: Right Left Main (% Stenosis): Normal LAD (% Stenosis): Normal D1 (% Stenosis): Normal D2 (% Stenosis): Normal Circumflex (% Stenosis): Normal OM1 (% Stenosis): Normal OM2 (% Stenosis): Normal RCA (% Stenosis): Normal R PDA (% Stenosis): Normal R PL1 (% Stenosis): Normal R PL2 (% Stenosis): Normal AM (% Stenosis): Normal Diagnostic Status: Elective Closure Device Percutaneous Entry Location: Radial Closure Device: Radial Band Recommendations: None Intraprocedure Events Significant Dissection: No Perforation: No
--- NOTE | 2016-10-07 16:01 | Cardiology Progress Note ---
Cardiology Progress Note Date of Service Oct 07, 2016. Cardiology Progress Note No significant CAD on cardiac catheterization. Question if abnormal stress test was false positive or perhaps due to global myocardial ischemia from exercise induced hypoxia related to lung disease. Plan: remain on telemetry for arrhythmia overnight. A 14 day Zio digital production operator will be placed as outpt next week at [facility] to follow up arrhythmia. No emperic beta bernadine therapy due to concerns of bronchospasm with pt's significant lung disease, baseline cough, SOB, wheezing. I have arranged outpt cardiology follow up in about 1 month to review progress and digital production operator results.
[2016-10-07] MEDS ORDERED: METOPROLOL TARTRATE 25 MG TAB PO SCH (21:00)
[2016-10-08] MEDS: ACETAMINOPHEN 325 MG TAB PO PRN ×2 (00:06→11:15)
[2016-10-08 03:25] VITALS: BP 156/79; PULSE 76; TEMP 36.7; O2SAT 94
[2016-10-08] MEDS: HEPARIN SOD 5000 UNIT/0.5 ML CARP SQ SCH (05:42)
[2016-10-08 06:29] LABS: BUN/CREATININE RATIO 15.9 (10-20); CALCIUM 9.1 mg/dl (8.5-10.1); CREATININE 0.89 mg/dl (0.60-1.20); POTASSIUM 4.1 mmol/L (3.5-5.1)
[2016-10-08 06:32] LABS: CHOLESTEROL/HDL RATIO 2.2
[2016-10-08] MEDS: ASPIRIN 81 MG ECTAB PO SCH (07:59)
[2016-10-08] MEDS: IPRATROPIUM BROMIDE HFA INHALER INH SCH (07:59)
[2016-10-08] MEDS: NICOTINE 21 MG/24 HR TDSY TD SCH (08:00)
[2016-10-08] MEDS: PANTOprazole SOD 40 MG TAB PO SCH (08:00)
[2016-10-08 08:02] VITALS: BP 116/77; PULSE 81; TEMP 36.7; O2SAT 98
[2016-10-08] MEDS ORDERED: ATORVASTATIN 10 MG TAB PO SCH (09:00)
--- NOTE | 2016-10-08 10:14 | Progress Note ---
Subjective Date of Service: Oct 08, 2016. Subjective Pt evaluation today including: conversation w/ patient, physical exam, lab review, review of studies, review of inpatient medication list Saw/examined the patient in room 230 She is doing okay today; no chest pain/palpitations noted overnight had cath yesterday with no coronary artery disease found breathing status at baseline - using inhalers this morning Problem List Medical Problems: (1) Acute chest pain Status: Acute (2) Nausea Status: Acute (3) Right lower quadrant abdominal pain Status: Acute Review of Systems Respiratory: + shortness of breath (baseline), No cough, No dyspnea at rest, No dyspnea on exertion, No hemoptysis, No sputum, No wheezing Cardiac: No PND, No chest pain, No edema, No orthopnea, No palpitations Heme: No abnormal bleeding/bruising Medications Current Inpatient Medications Medications (Trade) Dose Ordered Sig/[place] Route Start Time Stop Time Status Last Admin Dose Admin Heparin Sodium (Porcine) (Heparin Sq 5000 Unit/0.5ml) 5,000 unit Q8 SQ 10/06/16 22:00 11/05/16 21:59 Acetaminophen (Tylenol Tab) 650 mg Q4H PRN PO 10/06/16 15:15 11/05/16 15:14 10/08/16 00:06 650 MG Ondansetron HCl (Zofran Inj) 4 mg Q6H PRN IV 10/06/16 15:15 11/05/16 15:14 10/07/16 15:23 4 MG Nitroglycerin (Nitrostat Tab) 0.4 mg UD PRN SL 10/06/16 15:15 11/05/16 15:14 Albuterol (Ventolin Hfa Inhaler) 2 puffs Q4 PRN INH 10/06/16 15:30 11/05/16 15:29 Ipratropium [place] (Atrovent Hfa Inhaler) 2 puffs QID INH 10/06/16 17:00 11/05/16 16:59 10/08/16 07:59 2 PUFFS Pantoprazole Sodium (Protonix Tab) 40 mg DAILY PO 10/07/16 09:00 11/06/16 08:59 10/08/16 08:00 40 MG Miscellaneous Information (Order Awaiting Action) 1 ea QS N/A 10/07/16 00:00 11/06/16 00:00 Nicotine (Nicoderm Cq 21MG Patch) 1 patch QAM TD 10/07/16 09:00 11/06/16 08:59 10/08/16 08:00 1 PATCH Miscellaneous (Remove Nicoderm Patch) 1 ea HS N/A 10/06/16 21:00 11/05/16 20:59 10/08/16 08:00 1 EA Aspirin (Ecotrin Tab) 81 mg DAILY PO 10/07/16 09:00 11/06/16 08:59 10/08/16 07:59 81 MG Miscellaneous (Iv Fluids Completed) 1 ea PRN PRN N/A 10/06/16 20:30 10/06/17 20:29 Atorvastatin Calcium (Lipitor Tab) 10 mg QAM PO 10/08/16 09:00 11/07/16 08:59 10/08/16 08:00 10 MG Objective Vital Signs Date Time Temp Pulse Resp B/P Pulse Ox O2 Delivery O2 Flow Rate FiO2 10/08/16 08:02 36.7 81 16 116/77 98 Room Air 10/08/16 05:44 Room Air 10/08/16 04:00 Room Air 10/08/16 03:25 36.7 76 16 156/79 94 Room Air 10/07/16 23:59 Room Air 10/07/16 23:15 36.8 83 16 150/78 94 Room Air 10/07/16 20:00 95 Room Air 10/07/16 19:19 36.7 93 16 146/76 93 Room Air 10/07/16 18:30 91 17 124/70 93 Room Air 10/07/16 17:30 86 18 122/70 93 Room Air 10/07/16 17:00 88 18 125/71 93 Room Air 10/07/16 16:30 82 18 143/82 94 Room Air 10/07/16 16:12 36.8 80 24 128/80 93 Room Air 10/07/16 16:00 94 Room Air 10/07/16 15:45 76 18 145/85 93 Room Air 10/07/16 15:30 80 17 138/91 91 Room Air 10/07/16 15:14 36.4 85 17 157/96 93 Room Air 10/07/16 15:03 75 16 144/83 99 Room Air 10/07/16 14:58 79 16 159/95 99 Room Air 10/07/16 13:05 Room Air 10/07/16 12:59 36.6 85 20 156/89 93 Room Air 10/07/16 12:00 Room Air 10/07/16 11:42 36.2 86 20 176/96 92 Room Air Physical Exam General Appearance: no apparent distress, + cachetic, + thin, + pertinent finding (appears older than stated age) Respiratory/Chest: lungs clear, normal breath sounds, no respiratory distress, no accessory muscle use Cardiovascular: regular rate, rhythm, no edema, no murmur Abdomen: normal bowel sounds, non tender, soft Extremities: normal range of motion, non-tender, normal inspection, no pedal edema, no calf tenderness Neurologic/Psychiatric: no motor/sensory deficits, alert, normal mood/affect Skin: normal color Lymphatic: no adenopathy Laboratory Results Last 24 Hours Test 10/08/16 05:10 Sodium Level 141 mmol/L Potassium Level 4.1 mmol/L Chloride Level 107 mmol/L Carbon Dioxide Level 26 mmol/L Anion Gap 8.0 mmol/L Blood Urea Nitrogen 14 mg/dl Creatinine 0.89 mg/dl Est Creatinine Clear Calc Drug Dose 34.0 ml/min Estimated GFR () 81.1 Estimated GFR (Non- 70.0 BUN/Creatinine Ratio 15.9 Random Glucose 75 mg/dl Calcium Level 9.1 mg/dl Triglycerides Level 136 mg/dl Cholesterol Level 155 mg/dl HDL Cholesterol 71 mg/dl LDL Cholesterol, Calculated 57 mg/dl VLDL Cholesterol, Calculated 27 mg/dl Cholesterol/HDL Ratio 2.2 Assessment and Plan This is a 61 year old female with PMH of COPD and ongoing tobacco use presents with chest pain/palpitations Chest Pain 10/08 cardiac cath performed, no CAD noted plan for d/c today, Zio patch as outpatient 10/07 likely palpitations, as patient had some palpitations during stress echo, including possibly non-sustained v-tach stress echo abnormal - suggestive of LAD ischemia patient given aspirin, statin, b-bernadine plan is for cardiac cath either later today 10/07 or 10/08 AM monitor in tele for any ventricular arrhythmias TSH is wnl cardiac enzymes negative x 3 currently in NSR @ 80bpm COPD/Tobacco Use nicotine patch no acute exacerbation will monitor breathing status with b-bernadine use counseled on smoking cessation with both the patient and her DVT ppx Lovenox FULL CODE
[2016-10-08] MEDS ORDERED: ASPEC81 PO (10:18)
[2016-10-08] MEDS ORDERED: LPT10 PO (10:18)
--- NOTE | 2016-10-08 10:29 | Discharge Instructions ---
Discharge Instructions Admission Reason for Admission: Acute Chest Pain Discharge Discharge Diagnosis / Problem: Palpitations/Chest Pain Discharge Goals Goal(s): Decrease discomfort, Improve function Activity Recommendations Activity Limitations: resume your previous activity . Instructions / Follow-Up Instructions / Follow-Up Please follow-up with Dr. Park on October 14 @ 10:50AM * You will be started on aspirin and Lipitor * continue your home inhalers * You must stop smoking * You will have a Zio patch (a heart monitor) placed for around 2 weeks Current Hospital Diet Patient's current hospital diet: AHA Diet (Heart Healthy) Discharge Diet Recommended Diet: AHA Diet (Heart Healthy) Pending Studies Studies pending at discharge: no Laboratory Results Lipid Panel Test 10/08/16 05:10 Range/Units Triglycerides Level 136 0-150 mg/dl Cholesterol Level 155 0-200 mg/dl HDL Cholesterol 71 mg/dl Cholesterol/HDL Ratio 2.2 LDL Cholesterol, Calculated 57 mg/dl Medical Emergencies . Who to Call and When: Medical Emergencies: If at any time you feel your situation is an emergency, please call 911 immediately. . Non-Emergent Contact Non-Emergency issues call your: Primary Care Provider . . "Provider Documentation" section prepared by Cadence Silva. VTE Core Measure Inpt VTE Proph given/why not?: Unfractionated heparin SQ
--- NOTE | 2016-10-08 10:30 | Discharge Summary ---
Discharge Summary Date of Service Oct 08, 2016. Discharge Summary Admission Date: Oct 06, 2016 at 15:12 Discharge Date: Oct 08, 2016 Discharge Disposition: Home Principal Diagnosis: Palpitations, Chest Pain; negative cardiac cath Medication Reconciliation New Medications: Aspirin (Aspirin EC Low Dose) 81 Mg Ectab 81 MG PO DAILY for 30 Days, #30 TABS Atorvastatin (Atorvastatin Calcium) 10 Mg Tab 10 MG PO QAM for 30 Days, #30 TAB Continued Medications: Acetaminophen (Tylenol) 500 Mg Tab 1 TAB PO Q8 PRN for Pain, TAB Albuterol (Ventolin Hfa) 60 Puffs/5400 Mcg Aers 2 PUFFS INH Q4 PRN for SOB/Wheezing Esomeprazole Magnesium (Nexium) 20 Mg Capcr 20 MG PO DAILY, CAP Ipratropium [place] (Atrovent Hfa) 200 Puffs/3400 Mcg Aers 2 PUFFS INH QID Mometasone Furoate-Formoterol (Dulera 200/5 Mcg) 1 Aer Aer 2 PUFFS INH BID Admission Information HPI (per Admitting provider): THis is a 61 y/o female with PMHx of mod COPD with ongoing tobacco use, GERD and other problems as outlined below who presents to the ED c/o chest heaviness that began this morning. Pt reports that she was on the commode this morning around 0730 when she developed palpitations/ heart racing. She then developed heaviness in the center of her chest. After about 15 minutes the palpitations resolved however the chest discomfort persisted. The chest discomfort was aggravated with exertion and alleviated with rest. It was assoc with SOB (worse than baseline) and lightheadedness/dizziness. She went to work despite her sxs however the discomfort was getting worse and began radiating down the L arm. She did not take anything for her sxs. She estimates that discomfort lasted over 2 hours until she received the nitro in the ED. Pt has a history of similar sxs 4-5 years ago. She states she had a negative stress test at that time and she has not had any further issues until this morning. She denies FmHx of cardiovascular disease. Pt is a current tobacco user. She has a history of HTN however she was taken off her lisinopril 2 weeks ago due to issues with hypotension. Pt denies fever/chills, diaphoresis, wheezing, abd pain, N/V, bowel or bladder issues, LE edema or calf pain. In the ED, vitals are stable. Trop neg. EKG no evidence of ischemia. CXR + emphysema. Pt received 1 nitro in the ED and she is currently chest pain free. Pt will be admitted for further evaluation and treatment. Physical Exam (per Admitting): General Appearance: WD/WN, no apparent distress, + thin, + pertinent finding (Pt is sitting in bed with at bedside ) Head: normocephalic, atraumatic Eyes: normal inspection ENT: hearing grossly normal Neck: supple Respiratory/Chest: chest non-tender, lungs clear, normal breath sounds, no respiratory distress Cardiovascular: regular rate, rhythm, no edema, no murmur Abdomen/GI: normal bowel sounds, non tender, soft Back: normal inspection Extremities/Musculoskelatal: normal inspection, no calf tenderness, no pedal edema Neurologic/Psych: alert, normal mood/affect, oriented x 3 Skin: normal color, warm/dry Hospital Course This is a 61 year old female with PMH of COPD and ongoing tobacco use presents with chest pain/palpitations Chest Pain 10/08 cardiac cath performed, no CAD noted plan for d/c today, Zio patch as outpatient 10/07 likely palpitations, as patient had some palpitations during stress echo, including possibly non-sustained v-tach stress echo abnormal - suggestive of LAD ischemia patient given aspirin, statin, b-bernadien plan is for cardiac cath either later today 10/07 or 10/08 AM monitor in tele for any ventricular arrhythmias TSH is wnl cardiac enzymes negative x 3 currently in NSR @ 80bpm COPD/Tobacco Use nicotine patch no acute exacerbation will monitor breathing status with b-bernadine use counseled on smoking cessation with both the patient and her DVT ppx Lovenox FULL CODE Total time spent on discharge = 25 minutes This includes examination of the patient, discharge planning, medication reconciliation, and communication with other providers. Discharge Instructions Please follow-up with Dr. Park on October 14 @ 10:50AM * You will be started on aspirin and Lipitor * continue your home inhalers * You must stop smoking * You will have a Zio patch (a heart monitor) placed for around 2 weeks
--- NOTE | 2016-10-08 11:34 | Cardiology Follow-Up ---
Subjective General Date of Service: Oct 08, 2016. Chief Complaint: follow up palpitations Pt evaluation today including: conversation w/ patient, physical exam History of Present Illness The patient is a 61 year old female seen in follow up. Pt felt well overnight. No chest pain or palpitations. No arrhythmias on telemetry. Allergies Coded Allergies: Amoxicillin (Verified Adverse Reaction, Unknown, DIARRHEA, 10/06/16) Social History Smoking Status: Current Every Day Smoker Hx Tobacco Use In Past Year?: Yes (CIGARETTES <1 PACK/DAY) Hx Alcohol Use - Type And Amou: No Hx Substance Use - Type And Am: No Problem List Medical Problems: (1) Acute chest pain Status: Acute (2) Nausea Status: Acute (3) Right lower quadrant abdominal pain Status: Acute Physical Exam Vital Signs Last Vital Signs Documentation Date Time Temp Pulse Resp B/P Pulse Ox O2 Delivery O2 Flow Rate FiO2 10/08/16 08:02 36.7 81 16 116/77 98 Room Air Physical Exam Constitutional: Level of Distress: NAD Neck: supple Lungs: Auscultation: no rales/crackles, pertinent finding (mild wheezing ) Cardiovascular: Heart Auscultation: RRR, no murmurs Extremities: no cyanosis, no edema Neurologic: Gait & Station: pertinent finding (no focal deficits) Additional Comments: Right radial artery catheterization site, clean dry and intact. Assessment and Plan Assessment and Plan Impression: 1. Chest pressure, normal cardiac cath. -abnormal stress echo, possibly false positive, or echo changes due global myocardial ischemia from underlying lung disease, hypoxia with excursion. 2. Palpitations, brief NSVT on stress test, no arrhythmias otherwise Plan: Stable for discharge. DC metoprolol, concerned it will cause worsening wheezing with her baseline severe COPD / emphysema / cough/ wheezing. Proceed with 2 week outpt Zio cafeteria monitor which I have arranged with office. Cardio follow up as outpt after monitor. Follow up BP as outpt. No statin, LDL is low. Laboratory Results Last 24 Hours Test 10/08/16 05:10 Sodium Level 141 mmol/L Potassium Level 4.1 mmol/L Chloride Level 107 mmol/L Carbon Dioxide Level 26 mmol/L Anion Gap 8.0 mmol/L Blood Urea Nitrogen 14 mg/dl Creatinine 0.89 mg/dl Est Creatinine Clear Calc Drug Dose 34.0 ml/min Estimated GFR () 81.1 Estimated GFR (Non- 70.0 BUN/Creatinine Ratio 15.9 Random Glucose 75 mg/dl Calcium Level 9.1 mg/dl Triglycerides Level 136 mg/dl Cholesterol Level 155 mg/dl HDL Cholesterol 71 mg/dl LDL Cholesterol, Calculated 57 mg/dl VLDL Cholesterol, Calculated 27 mg/dl Cholesterol/HDL Ratio 2.2
[2016-10-08 11:37] VITALS: BP 126/75; PULSE 88; TEMP 36.8; O2SAT 90
[2016-10-08 11:56] VITALS: BP 126/75; PULSE 88; TEMP 36.8; O2SAT 90
== END 2016-10-08 13:00 | disposition home or self-care (01) ==
LOC: ENRESERVDT → ENRESERVTM → C.EDB 10:28 → C.2T 15:12
PROVIDERS: ADMIT Hospitalist; ATTEND Family Medicine
DX: R07.9 Chest pain, unspecified (principal); R00.2 Palpitations; J44.9 Chronic obstructive pulmonary disease, unspecified; I10 Essential (primary) hypertension; K21.9 Gastro-esophageal reflux disease without esophagitis; F17.210 Nicotine dependence, cigarettes, uncomplicated; Z90.710 Acquired absence of both cervix and uterus

== ENCOUNTER 2017-08-09 09:38 | Inpatient (IN) | payer OTHER ==
[~2017-08-09] VITALS: Ht 157.5 cm; Wt 32.5 kg
[~2017-08-09 09:38] MED LIST changes: -ALBUAER2 INH; +ASPI-320 PO; +ESOM20CA PO; -LISI10TA PO; +LPT10 PO; -PRLSR20 PO; +PRVHFAIN INH
[2017-08-09] MEDS ORDERED: ALBUT/IPRATROP 3MG/0.5MG NEB 3 ML VIAL INH STA (10:01)
[2017-08-09] MEDS ORDERED: CEFTRIAXONE SOD INJ 1 GM ADDVIAL IV STA (10:01)
[2017-08-09] MEDS ORDERED: METHYLPREDNISOLONE 125 MG VIAL IV STA (10:01)
--- NOTE | 2017-08-09 10:16 | DIAGNOSTIC IMAGING REPORT ---
SINGLE VIEW CHEST CLINICAL HISTORY: Dyspnea. FINDINGS: An AP, portable, upright chest radiograph is compared to study dated 10/06/16 and correlated with chest CT 07/19/2016. The examination is degraded by portable technique and patient rotation. The cardiomediastinal silhouette is unremarkable. There is atherosclerotic calcification of the thoracic aorta. Advanced emphysema and chronic interstitial thickening are similar to previous. No airspace consolidation or pleural effusion is identified. Apical scarring is observed. No pneumothorax is seen. Nipple shadows project over the chest. The skeletal structures are osteopenic. The bony thorax is grossly intact. The patient is cachectic. IMPRESSION: Advanced emphysema with no acute cardiopulmonary abnormality. Electronically signed by: Alexis Russ M.D. 08/09/2017 10:14 AM Dictated Date/Time: 08/09/2017 10:13 AM
--- NOTE | 2017-08-09 10:40 | EMERGENCY ROOM VISIT NOTE ---
History Report prepared by Toyin: Guillaume Ch Under the Supervision of: Dr. Alexis Villaseñor M.D. First contact with patient: 09:54 Chief Complaint: SHORTNESS OF BREATH Stated Complaint: SOB Nursing Triage Summary: "I can't breathe. I was seen by my PCP this week, dx with bronchitis, started on Zpak and prednisone, no improvement". Current smoker, hx copd, does not wear O2 at home, sats 87-89% in triage. 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 She notes exertion worsens her breathing. She notes productive cough with yellow sputum. She went to her PCP who diagnosed her with bronchitis and prescribed her prednisone and Zithromax. She has a history of COPD. She notes that she has taken two doses of her inhaler today, though they have not provided any relief. She denies any hospitalizations for shortness of breath. She does not use at home oxygen. She notes possible sick contacts. She denies any fevers. She notes that she has not received the flu shot this year. 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 A total of 10 systems reviewed and were otherwise negative. Past Medical & Surgical Medical Problems: (1) Bronchitis (2) COPD exacerbation (3) Emphysema, unspecified (4) GERD (gastroesophageal reflux disease) (5) HTN (hypertension) (6) Hypertriglyceridemia (7) Pulmonary nodules (8) Stomach problems (9) Tobacco abuse (10) Urinary problem Surgical Problems: (1) History of partial hysterectomy Family History Cancer FHx: lung disease Hypertension Social History Smoking Status: Current Every Day Smoker Drug Use: none Marital Status: Housing Status: lives with family Occupation Status: employed Current/Historical Medications Scheduled Aspirin (Aspirin EC Low Dose), 81 MG PO DAILY Atorvastatin (Atorvastatin Calcium), 10 MG PO QAM Azithromycin (Zithromax), 1 TAB PO UD Cholecalciferol (Vitamin D), 1 TAB PO DAILY Esomeprazole Magnesium (Nexium), 20 MG PO DAILY Fexofenadine Hcl (Patrizia), 180 MG PO DAILY Ipratropium [place] (Atrovent Hfa), 2 PUFFS INH QID Lisinopril (Lisinopril), 5 MG PO DAILY Mometasone Furoate-Formoterol (Dulera 200/5 Mcg), 2 PUFFS INH BID Prednisone (Prednisone), 20 MG PO UD Scheduled PRN Acetaminophen (Tylenol), 1 TAB PO Q8 PRN for Pain Albuterol (Ventolin Hfa), 2 PUFFS INH Q4 PRN for SOB/Wheezing Ondansetron Hcl (Zofran), 4 MG PO Q8 PRN for Nausea Allergies Coded Allergies: Amoxicillin (Verified Adverse Reaction, Unknown, DIARRHEA, 08/09/17) Physical Exam Vital Signs Date Time Temp Pulse Resp B/P (MAP) Pulse Ox O2 Delivery O2 Flow Rate FiO2 08/09/17 11:50 92 Nasal Cannula 1.5 08/09/17 11:26 36.8 90 20 150/70 92 Nasal Cannula 1.5 08/09/17 10:31 Room Air 08/09/17 10:29 79 08/09/17 09:46 36.6 97 18 175/91 88 Room Air 08/09/17 09:46 87 Room Air Physical Exam GENERAL: Patient is in no acute distress. HEENT: No acute trauma, normocephalic atraumatic, mucous membranes moist, no nasal congestion, no scleral icterus. NECK: No stridor, no adenopathy, no meningismus, trachea is midline. LUNGS: Decreased breath sounds bilaterally, much worse on the right. Bilateral wheezing. Moist cough noted. HEART: Without murmurs gallops or rubs, regular rate and rhythm. ABDOMEN: Soft, nontender, bowel sounds positive, no hernias, no peritonitis. EXTREMITIES: No cyanosis or edema, full range of motion of all the joints without pain or difficulty, no signs for acute trauma. NEUROLOGIC: Oriented x 3, no acute motor or sensory deficits, no focal weakness. SKIN: No rash, no jaundice, no diaphoresis. Medical Decision & Procedures ER Provider Diagnostic Interpretation: Radiology results as stated below per my review and radiologist interpretation: SINGLE VIEW CHEST CLINICAL HISTORY: Dyspnea. FINDINGS: An AP, portable, upright chest radiograph is compared to study dated 10/06/16 and correlated with chest CT 07/19/2016. The examination is degraded by portable technique and patient rotation. The cardiomediastinal silhouette is unremarkable. There is atherosclerotic calcification of the thoracic aorta. Advanced emphysema and chronic interstitial thickening are similar to previous. No airspace consolidation or pleural effusion is identified. Apical scarring is observed. No pneumothorax is seen. Nipple shadows project over the chest. The skeletal structures are osteopenic. The bony thorax is grossly intact. The patient is cachectic. IMPRESSION: Advanced emphysema with no acute cardiopulmonary abnormality. Electronically signed by: Alexis Russ M.D. 08/09/2017 10:14 AM Dictated Date/Time: 08/09/2017 10:13 AM Laboratory Results 08/09/17 10:40 Red Blood Count 5.19, Mean Corpuscular Volume 89.8, Mean Corpuscular Hemoglobin 30.6, Mean Corpuscular Hemoglobin Concent 34.1, Mean Platelet Volume 9.4, Neutrophils (%) (Auto) 88.1, Lymphocytes (%) (Auto) 4.3, Monocytes (%) (Auto) 7.2, Eosinophils (%) (Auto) 0.0, Basophils (%) (Auto) 0.1, Neutrophils # (Auto) 12.57, Lymphocytes # (Auto) 0.61, Monocytes # (Auto) 1.02, Eosinophils # (Auto) 0.00, Basophils # (Auto) 0.01 08/09/17 10:40 Test 08/09/17 10:40 White Blood Count 14.25 K/uL (4.8-10.8) Red Blood Count 5.19 M/uL (4.2-5.4) Hemoglobin 15.9 g/dL (12.0-16.0) Hematocrit 46.6 % (37-47) Mean Corpuscular Volume 89.8 fL (80-100) Mean Corpuscular Hemoglobin 30.6 pg (25-34) Mean Corpuscular Hemoglobin Concent 34.1 g/dl (32-36) Platelet Count 291 K/uL (130-400) Mean Platelet Volume 9.4 fL (7.4-10.4) Neutrophils (%) (Auto) 88.1 % Lymphocytes (%) (Auto) 4.3 % Monocytes (%) (Auto) 7.2 % Eosinophils (%) (Auto) 0.0 % Basophils (%) (Auto) 0.1 % Neutrophils # (Auto) 12.57 K/uL (1.4-6.5) Lymphocytes # (Auto) 0.61 K/uL (1.2-3.4) Monocytes # (Auto) 1.02 K/uL (0.11-0.59) Eosinophils # (Auto) 0.00 K/uL (0-0.5) Basophils # (Auto) 0.01 K/uL (0-0.2) RDW Standard Deviation 46.3 fL (36.4-46.3) RDW Coefficient of Variation 14.0 % (11.5-14.5) Immature Granulocyte % (Auto) 0.3 % Immature Granulocyte # (Auto) 0.04 K/uL (0.00-0.02) Prothrombin Time 10.0 SECONDS (9.0-12.0) Prothromb Time International Ratio 1.0 (0.9-1.1) Activated Partial Thromboplast Time 23.1 SECONDS (21.0-31.0) Partial Thromboplastin Ratio 0.9 Anion Gap 10.0 mmol/L (3-11) Est Creatinine Clear Calc Drug Dose 38.6 ml/min Estimated GFR () 95.9 Estimated GFR (Non- 82.8 BUN/Creatinine Ratio 23.9 (10-20) Calcium Level 9.2 mg/dl (8.5-10.1) Total Bilirubin 0.4 mg/dl (0.2-1) Aspartate Amino Transf (AST/SGOT) 20 U/L (15-37) Alanine Aminotransferase (ALT/SGPT) 28 U/L (12-78) Alkaline Phosphatase 72 U/L (45-117) Troponin I < 0.015 ng/ml (0-0.045) Total Protein 7.4 gm/dl (6.4-8.2) Albumin 3.7 gm/dl (3.4-5.0) Globulin 3.7 gm/dl (2.5-4.0) Albumin/Globulin Ratio 1.0 (0.9-2) Influenza Type A (RT-PCR) Neg for Influ A (NEG) Influenza Type B (RT-PCR) Neg for Influ B (NEG) Laboratory results reviewed by me. Medications Administered Medications (Trade) Dose Ordered Sig/[place] Route Start Time Stop Time Status Last Admin Dose Admin Methylprednisolone Sodium Succinate (Solu-Medrol IV) 60 mg NOW STAT IV 08/09/17 10:01 08/09/17 10:03 DC 08/09/17 10:52 60 MG Albuterol/ Ipratropium (Duoneb) 12 ml NOW STAT INH 08/09/17 10:01 08/09/17 10:03 DC 08/09/17 10:30 12 ML Ceftriaxone Sodium (Rocephin Inj) 1 gm NOW STAT IV 08/09/17 10:01 08/09/17 10:03 DC 08/09/17 10:52 1 GM ECG Indication: SOB/dyspnea Rate (beats per minute): 78 Rhythm: normal sinus Findings: no acute ischemic change, no ectopy ED Course 0955: The patient was evaluated in room A9B. A complete history and physical exam was performed. 1001: Ordered Rocephin 1 gm IV, Duoneb 12 ml INH, and Solu-Medrol 60 mg IV 1135: I reassessed the patient at this time. She is resting comfortably. The patient will be further evaluated. 1150: I spoke with Chano Howe PA-C. We discussed the patients case. The patient will be evaluated by the [facility] for further management. Medical Decision The patient is a 62 year old female who presents to the ED with complaints of shortness of breath. Differential diagnoses considered include bronchitis, PNA , CHF, PNX, influenza, hypoxia, anemia, electrolyte imbalance, and cardiac ischemia. There is a mild leukocytosis at 14,000, this could be consistent with infection or her recent steroid use. No concerning anemia. No significant electrolyte abnormality, kidney failure or hepatitis. Chest x-ray shows COPD, no pneumonia or CHF, no pneumothorax. EKG shows a normal sinus rhythm, no acute ischemia. Cardiac enzyme testing 1 is not consistent with acute cardiac injury. Blood cultures are pending. Influenza testing is negative. The patient received a 1 hour DuoNeb, she received IV Solu-Medrol and IV ceftriaxone. She remains hypoxic despite the above treatment. She is requiring O2 supplementation. Given the failed outpatient treatment, given the hypoxia and her complaints, a hospital stay is warranted. She appears to have acute bronchitis with a flare of COPD. I did speak to the patient at length. The on-call hospitalist was consulted. Case management has been involved. Medication Reconcilliation Current Medication List: was personally reviewed by me Blood Pressure Screening Patient's blood pressure: Elevated blood pressure Blood pressure disposition: Referred to PCP Consults Time Called: 1140 Consulting Physician: Chano Howe PA-C Returned Call: 1150 I spoke with Chano Howe PA-C. We discussed the patients case. The patient will be evaluated by the [facility] for further management. Impression Primary Impression: Hypoxia Additional Impressions: Acute bronchitis COPD exacerbation Scribe Attestation The scribe's documentation has been prepared under my direction and personally reviewed by me in its entirety. I confirm that the note above accurately reflects all work, treatment, procedures, and medical decision making performed by me. Departure Information Dispostion Being Evaluated By Hospitalist Referrals Ana Park M.D. (PCP) Patient Instructions My [facility] Problem Qualifiers
[2017-08-09 11:08] LABS: BASO % 0.1 %; BASO ABS # 0.01 K/uL (0-0.2); HEMATOCRIT 46.6 % (37-47); HEMOGLOBIN 15.9 g/dL (12.0-16.0); IG# 0.04 K/uL (0.00-0.02); LYMPH % 4.3 %; LYMPH ABS # 0.61 K/uL (1.2-3.4); MEAN CELL VOLUME 89.8 fL (80-100); MEAN CORPUSCULAR HEMOGLOBIN 30.6 pg (25-34); MEAN CORPUSCULAR HGB CONC 34.1 g/dl (32-36); MEAN PLATELET VOLUME 9.4 fL (7.4-10.4); MONO % 7.2 %; MONO ABS # 1.02 K/uL (0.11-0.59); NEUT % 88.1 %; NEUT ABS # 12.57 K/uL (1.4-6.5); PLATELET COUNT 291 K/uL (130-400); RED CELL DISTRIBUTION WIDTH SD 46.3 fL (36.4-46.3); WHITE BLOOD COUNT 14.25 K/uL (4.8-10.8)
[2017-08-09 11:11] LABS: PTT PATIENT 23.1 SECONDS (21.0-31.0)
[2017-08-09] MEDS ORDERED: LISI-730 PO (11:11)
[2017-08-09] MEDS ORDERED: AZIT-60 PO (11:11)
[2017-08-09] MEDS ORDERED: PRED20TA PO (11:11)
[2017-08-09 11:25] LABS: ALBUMIN 3.7 gm/dl (3.4-5.0); ALT/SGPT 28 U/L (12-78); BLOOD UREA NITROGEN 18 mg/dl (7-18); CALCIUM 9.2 mg/dl (8.5-10.1); CARBON DIOXIDE 23 mmol/L (21-32); CREATININE 0.77 mg/dl (0.60-1.20); GLUCOSE 96 mg/dl (70-99); SODIUM 136 mmol/L (136-145)
[2017-08-09 11:29] LABS: ALKALINE PHOSPHATASE 72 U/L (45-117); AST/SGOT 20 U/L (15-37); TOTAL PROTEIN 7.4 gm/dl (6.4-8.2)
[2017-08-09 11:50] VITALS: O2SAT 92; Ht 157.5 cm; Wt 32.5 kg
--- NOTE | 2017-08-09 11:50 | NUR ---
A/ID: 62 year old female in ED. c/o worsening shortness of breath. Possible admission/observation. Admission Assessment done. Code Word/Fall Agreement reviewed with patient and daughter and completed. Continued care in ED by COLBY Pineda>
[2017-08-09] MEDS ORDERED: ACETAMINOPHEN 325 MG TAB PO PRN (12:15)
[2017-08-09] MEDS ORDERED: ONDANSETRON INJ 2 MG/ML 2 ML VIAL IV PRN (12:15)
[2017-08-09] MEDS ORDERED: FEXO1TAB46 PO (12:25)
[2017-08-09] MEDS ORDERED: CHOL100010 PO (12:25)
[2017-08-09] MEDS ORDERED: ONDA4TAB46 PO (12:25)
[2017-08-09] MEDS ORDERED: LEVALBUTEROL/IPRATROPIUM NEB INH PRN (12:30)
[2017-08-09] MEDS ORDERED: LEVALBUTEROL/IPRATROPIUM NEB INH SCH (13:00)
--- NOTE | 2017-08-09 13:22 | History and Physical ---
History & Physical Date & Time of Service: Aug 09, 2017 at 12:40 Chief Complaint: SOB Primary Care Physician: Ana Park M.D. History of Present Illness Source: patient, family, clinic records, hospital records Pt is 62 y/o F with PMH COPD, pulmonary nodules, HTN, hypertriglyceridemia, GERD presented to ER with c/o increased SOB and cough. Pt states over one week ago started with sore throat, rhinorrhea and cough. Sore throat resolved, still with some rhinorrhea. [place] feverish one day last week. for over one week with cough productive of yellow sputum. Reports hx chronic cough of white sputum, but cough increased and sputum production and color increased. Usually uses Albuterol inhaler 4 times a day with relief of SOB. States past couple of days only getting temporary relief from albuterol and has SOB, wheezing and chest tightness, with walking a few steps which is very unusual for her. Does not use home O2. Reports using her Dulera BID as directed. Hx pulmonary nodules and followed with Dr Hardwick -pulmonology yearly and has yearly Chest CT scan. Last CT one year ago. She saw PCP on 08/05/17 and was started on Zithromax and prednisone. Pt states continues with worsening symptoms. Reports daughter and granddaughter had some URI symptoms also. Denies diaphoresis, N/V/D/C, M[place]A, dizziness, syncope, vision changes, neck pain, orthopnea, palpitations, choking , otalgia, epistaxis, abdominal pain, paresthesias, weakness, extremity weakness , extremity edema, rashes, urinary symptoms. Denies influenza vaccine this season. In ER pt afebrile, O2 87% on RA increased to 92% on 2L NC. R: 20. BP: 150/70. WBC: 14, pending blood cultures and influenza swab. Negative troponin. CXR: no infiltrate. Pt given hour long duoneb tx, Rocephin, and Solumedrol 60mg IV. Past Medical/Surgical History Medical Problems: (1) Emphysema, unspecified Status: Chronic (2) GERD (gastroesophageal reflux disease) Status: Chronic (3) HTN (hypertension) Status: Chronic (4) Hypertriglyceridemia Status: Chronic (5) Pulmonary nodules Status: Chronic (6) Stomach problems Status: Chronic (7) Tobacco abuse Status: Chronic (8) Urinary problem Status: Chronic Surgical Problems: (1) History of partial hysterectomy Permanent Comment: pt has one ovary Status: Resolved Family History Cancer BROTHER (prostate CA) SISTER (cervical CA) FHx: lung disease FATHER (COPD) Hypertension MOTHER Social History Smoking Status: Current Every Day Smoker (1ppd x 45 years) Smokeless Tobacco Use: No Alcohol Use: none Drug Use: none Marital Status: Housing status: lives with family Occupational Status: employed Allergies Coded Allergies: Amoxicillin (Verified Adverse Reaction, Unknown, DIARRHEA, 08/09/17) Home Medications Scheduled Aspirin (Aspirin EC Low Dose), 81 MG PO DAILY Atorvastatin (Atorvastatin Calcium), 10 MG PO QAM Azithromycin (Zithromax), 1 TAB PO UD Cholecalciferol (Vitamin D), 1 TAB PO DAILY Esomeprazole Magnesium (Nexium), 20 MG PO DAILY Fexofenadine Hcl (Patrizia), 180 MG PO DAILY Ipratropium [place] (Atrovent Hfa), 2 PUFFS INH QID Lisinopril (Lisinopril), 5 MG PO DAILY Mometasone Furoate-Formoterol (Dulera 200/5 Mcg), 2 PUFFS INH BID Prednisone (Prednisone), 20 MG PO UD Scheduled PRN Acetaminophen (Tylenol), 1 TAB PO Q8 PRN for Pain Albuterol (Ventolin Hfa), 2 PUFFS INH Q4 PRN for SOB/Wheezing Ondansetron Hcl (Zofran), 4 MG PO Q8 PRN for Nausea Review of Systems Constitutional: + fatigue, No weight loss Eyes: No worsening of vision, No eye pain, No redness, No discharge ENT: + problem reported (see HPI), No hearing loss, No tinnitus, No trouble swallowing Respiratory: + wheezing, + problem reported (see HPI), No hemoptysis Cardiovascular: No chest pain, No orthopnea, No PND, No edema, No palpitations Abdomen: No pain, No nausea, No vomiting, No diarrhea, No constipation, No GI bleeding Musculoskeletal: No joint pain, No muscle pain, No swelling, No calf pain Genitourinary - Female: No dysuria, No urinary frequency, No urinary urgency, No urinary retention, No hematuria Neurologic: No memory loss, No paralysis, No numbness/tingling, No vertigo Psychiatric: No depression symptoms, No anxiety Endocrine: No excessive thirst, No excessive urination Hematologic / Lymphatic: + swollen lymph nodes, No abnormal bleeding/bruising, No clotting problems, No night sweats Integumentary: No rash, No itch Physical Exam Vital Signs Date Time Temp Pulse Resp B/P (MAP) Pulse Ox O2 Delivery O2 Flow Rate FiO2 08/09/17 12:30 121 08/09/17 11:26 36.8 90 20 150/70 92 Nasal Cannula 1.5 08/09/17 10:31 Room Air 08/09/17 10:29 79 08/09/17 09:46 36.6 97 18 175/91 88 Room Air 08/09/17 09:46 87 Room Air General Appearance: no apparent distress (sitting upright in bed with O2 NC on without apparent distress ), + thin Head: normocephalic, atraumatic Eyes: PERRL, EOMI, sclerae normal ENT: hearing grossly normal, pharynx normal, + pertinent finding (TM's dull, non-erythematous, non-bulging bilaterally. Nares mild erythema bilaterally, no significant rhinorrhea) Neck: supple, no adenopathy, no JVD, trachea midline Respiratory/Chest: chest non-tender, + decreased breath sounds (throughout, faint scattered wheezing throughout, no rales or rhonchi noted) Cardiovascular: regular rate, rhythm, no edema, normal peripheral pulses Abdomen/GI: normal bowel sounds, non tender, soft Extremities/Musculoskelatal: no calf tenderness, normal capillary refill, no pedal edema, normal range of motion, non-tender Neurologic/Psych: alert, normal mood/affect, oriented x 3 Skin: normal color, warm/dry, no rash Diagnostics Laboratory Results Results Past 24 Hours Test 08/09/17 10:40 Range/Units White Blood Count 14.25 4.8-10.8 K/uL Red Blood Count 5.19 4.2-5.4 M/uL Hemoglobin 15.9 12.0-16.0 g/dL Hematocrit 46.6 37-47 % Mean Corpuscular Volume 89.8 80-100 fL Mean Corpuscular Hemoglobin 30.6 25-34 pg Mean Corpuscular Hemoglobin Concent 34.1 32-36 g/dl Platelet Count 291 130-400 K/uL Mean Platelet Volume 9.4 7.4-10.4 fL Neutrophils (%) (Auto) 88.1 % Lymphocytes (%) (Auto) 4.3 % Monocytes (%) (Auto) 7.2 % Eosinophils (%) (Auto) 0.0 % Basophils (%) (Auto) 0.1 % Neutrophils # (Auto) 12.57 1.4-6.5 K/uL Lymphocytes # (Auto) 0.61 1.2-3.4 K/uL Monocytes # (Auto) 1.02 0.11-0.59 K/uL Eosinophils # (Auto) 0.00 0-0.5 K/uL Basophils # (Auto) 0.01 0-0.2 K/uL RDW Standard Deviation 46.3 36.4-46.3 fL RDW Coefficient of Variation 14.0 11.5-14.5 % Immature Granulocyte % (Auto) 0.3 % Immature Granulocyte # (Auto) 0.04 0.00-0.02 K/uL Prothrombin Time 10.0 9.0-12.0 SECONDS Prothromb Time International Ratio 1.0 0.9-1.1 Activated Partial Thromboplast Time 23.1 21.0-31.0 SECONDS Partial Thromboplastin Ratio 0.9 Sodium Level 136 136-145 mmol/L Potassium Level 4.0 3.5-5.1 mmol/L Chloride Level 103 98-107 mmol/L Carbon Dioxide Level 23 21-32 mmol/L Anion Gap 10.0 3-11 mmol/L Blood Urea Nitrogen 18 7-18 mg/dl Creatinine 0.77 0.60-1.20 mg/dl Est Creatinine Clear Calc Drug Dose 38.6 ml/min Estimated GFR () 95.9 Estimated GFR (Non- 82.8 BUN/Creatinine Ratio 23.9 10-20 Random Glucose 96 70-99 mg/dl Calcium Level 9.2 8.5-10.1 mg/dl Total Bilirubin 0.4 0.2-1 mg/dl Aspartate Amino Transf (AST/SGOT) 20 15-37 U/L Alanine Aminotransferase (ALT/SGPT) 28 12-78 U/L Alkaline Phosphatase 72 45-117 U/L Troponin I < 0.015 0-0.045 ng/ml Total Protein 7.4 6.4-8.2 gm/dl Albumin 3.7 3.4-5.0 gm/dl Globulin 3.7 2.5-4.0 gm/dl Albumin/Globulin Ratio 1.0 0.9-2 Microbiology Results 08/09/17 Blood Culture, Received Pending 08/09/17 Blood Culture, Ordered Pending Diagnostic Radiology CXR: IMPRESSION: Advanced emphysema with no acute cardiopulmonary abnormality. EKG EKG: NSR, rate 78, no ST elevations noted Impression Assessment and Plan COPD EXACERBATION/HYPOXIA/BRONCHITIS Pt with hx emphysema, Not home O2 dependent. increased productive purulent cough x 1 week. On Zithromax, prednisone out patient x 4 days without relief. Today in ER O2: 87% on RA, increases to 92% on 2L NC. R: 20. Pt SOB with walking to bathroom. WBC: 14.(pt was on prednisone) Negative Troponin. EKG: NSR , rate 78, no ST elevations noted. CXR: no infiltrate. Pt given Rocephin IV, hour long Duoneb treatment and Solumedrol 60mg IV in ER. -pending influenza swab -pending blood cultures -sputum culture -MRSA swab -NSS 100ml/hr -O2 per protocol -Solumedrol 40mg IV Q8H -Xopenex/Atrovent neb Q6H with prn Q2H -Levaquin IV -repeat CBC, prp in am -Continue Dulera -Consider pulmonology consult if no improvement or worsening HTN Stable, will continue to monitor -Continue lisinopril TOBACCO USE -smoking cessation encouraged -nicotine patch HYPERTRIGLYCERIDEMIA Lipid panel on 04/07/17 - Total: 150, LDL: 37, HDL: 94, Triglycerides: 94 -continue atorvastatin GERD -continue PPI -zofran prn nausea DVT PROPHYLAXIS -heparin SQ DISPOSITION -admit tele -Full Code as per discussion with pt -Follows with Dr Adhikari for routine care Pt was seen with Dr Adhikari. See addendum Attending Addendum: The patient was seen and examined Failed OP treatment for an Exacerbation of COPD Moderate SOB at Rest and severe SOB with minimal exertion No Fever ,has cough with yellowing sputum O/E Moderate distress at rest Chest-decreased breath sound bilaterally Very poor air entry No crackle Heart -regular Abdomen-benign,no masses,bowel sound present Extremities-no edema Labs and Imaging studies were reviewed Agree with the assessment and plan. Dr Clay Adhikari Level of Care Telemetry Resuscitation Status FULL RESUSCITATION VTE Prophylaxis VTE Risk Assessment Done? Y/N: Yes Risk Level: Moderate Given or contraindicated: Unfractionated heparin SQ Additional Copies To Ana Park M.D.
[2017-08-09 13:29] VITALS: BP 139/90; PULSE 86; TEMP 36.7; O2SAT 96
--- NOTE | 2017-08-09 13:30 | NUR ---
Patient arrives into room 222 from ED. AxOx4. BLAKELY. Telemetry lead applied. SR on the monitor. No edema. Lungs coarse on 2LNC. Desaturates with movement. Abdomen soft, non-tender. Voiding in the toilet. Skin intact. IV site intact, saline locked. Call vazquez within reach, encouraged to ring for assistance. Will continue to monitor.
[2017-08-09 13:47] LABS: INFLUENZA A PCR Neg for Influ A (NEG); INFLUENZA B PCR Neg for Influ B (NEG)
[2017-08-09] MEDS ORDERED: SODIUM CHLORIDE 0.9% 1000ML 1,000 ML IV SCH (13:59)
[2017-08-09] MEDS ORDERED: METHYLPREDNISOLONE IV 60 MG in SYRINGE 0 ML IV SCH (14:00)
[2017-08-09] MEDS ORDERED: IPRATROPIUM BROMIDE NEB SOLN 0.02% 2.5 ML VIAL INH PRN (14:15)
[2017-08-09] MEDS ORDERED: LEVALBUTEROL 0.63MG/3 ML NEB INH PRN (14:15)
[2017-08-09] MEDS: NICOTINE 14 MG/24 HR TDSY TD SCH (14:28)
[2017-08-09] MEDS: LEVALBUTEROL 1.25MG/0.5ML NEB INH SCH ×2 (14:38→19:32)
[2017-08-09] MEDS: IPRATROPIUM BROMIDE NEB SOLN 0.02% 2.5 ML VIAL INH SCH ×2 (14:38→19:32)
[2017-08-09 14:39] VITALS: PULSE 102; O2SAT 92
[2017-08-09] MEDS ORDERED: LEVOFLOXACIN / D5W 500 MG in PREMIXED IN D5W 100 ML IV SCH (15:00)
--- NOTE | 2017-08-09 15:15 | NUR ---
Notified by another RN that patient's IV site/vein reddened up entire arm after Levofloxacin infusion had started. Infusion stopped and flushed with NSS. No signs of respiratory distress. Zuleyka PALMER made aware. Stated to continue to monitor.
--- NOTE | 2017-08-09 15:20 | NUR ---
Spoke to pharmacist regarding new order for PO Levofloxacin and potential allergy from IV Levofloxacin. Stated she will speak to MINNIE
[2017-08-09 15:27] VITALS: BP 148/76; PULSE 101; TEMP 36.5; O2SAT 92
[2017-08-09] MEDS ORDERED: LEVOFLOXACIN 500 MG TAB PO SCH (15:45)
[2017-08-09] MEDS ORDERED: DULERA~ORDER AWAITING ACTION SCH (16:00)
--- NOTE | 2017-08-09 16:00 | NUR ---
Patient reassessed, see EMR for full details. VSS. Remains BLAKELY, on 1LNC. Call vazquez within reach. Will continue to monitor.
[2017-08-09] MEDS: METHYLPREDNISOLONE IV 40 MG in SYRINGE 0 ML IV SCH (17:29)
[2017-08-09 19:32] VITALS: PULSE 96; O2SAT 93
[2017-08-09 19:34] VITALS: BP 136/84; PULSE 97; TEMP 36.6; O2SAT 94
--- NOTE | 2017-08-09 20:00 | NUR ---
A/ID: Patient alert and oriented x4. Denies pain or SOB at this time. Complains of dyspnea with a lot of exertion. VSS. Wearing 1L NC O2, lungs are diminished. Harsh, non-productive, dry cough. Sinus rhythm on monitor. IV intact. NSS infusing at 100mL/hr. Please see EMR for further assessment documentation. All needs met, call vazquez within reach before leaving room, yellow socks on.
[2017-08-09] MEDS: DOXYCYCLINE IV 100 MG in DEXTROSE 5% 100ML 100 ML IV SCH (20:21)
[2017-08-09] MEDS: HEPARIN SOD 5000 UNIT/0.5 ML CARP SQ SCH (20:24)
--- NOTE | 2017-08-09 21:00 | NUR ---
Patient c/o pain at IV site. No redness or signs of infiltration or phlebitis noted. IV removed. New 22 gauge in the left anterior forearm placed with good blood return, flushed with ease. NSS infusing at 100mL/hr.
[2017-08-10] VITALS (11 sets, daily range): BP systolic 142–160; BP diastolic 78–91; PULSE 86–102; TEMP 36.8–36.9; O2SAT 90–97
--- NOTE | 2017-08-10 | NUR ---
Assessment completed; see emr. SR per telemetry. VSS. Denies chest pain or sob. Remains on R/A. Lungs diminished throughout. Resp even and unlabored at rest. Call vazquez within touch. Continue to monitor. Addendum: 08/11/17 at 0159 by Rukhsana Burciaga RN Singh amador note was for 1999 on 08/10/17.
--- NOTE | 2017-08-10 | NUR ---
A: Patient resting comfortably in bed at this time. Assessment remains unchanged. Please see EMR for further assessment documentation. All needs met, call vazquez within reach before leaving room.
[2017-08-10] MEDS: IPRATROPIUM BROMIDE NEB SOLN 0.02% 2.5 ML VIAL INH SCH ×4 (02:15→19:20)
[2017-08-10] MEDS: LEVALBUTEROL 1.25MG/0.5ML NEB INH SCH ×4 (02:15→19:20)
[2017-08-10] MEDS: METHYLPREDNISOLONE IV 40 MG in SYRINGE 0 ML IV SCH ×3 (02:44→20:23)
--- NOTE | 2017-08-10 04:00 | NUR ---
A: Patient requests Tylenol for headache. Otherwise, assessment remains unchanged. Please see EMR for further assessment documentation. All needs met, call vazquez within reach before leaving room.
[2017-08-10 05:43] LABS: HEMATOCRIT 43.7 % (37-47); HEMOGLOBIN 14.8 g/dL (12.0-16.0); IG# 0.04 K/uL (0.00-0.02); LYMPH % 5.8 %; LYMPH ABS # 0.58 K/uL (1.2-3.4); MEAN CELL VOLUME 89.9 fL (80-100); MEAN CORPUSCULAR HEMOGLOBIN 30.5 pg (25-34); MEAN CORPUSCULAR HGB CONC 33.9 g/dl (32-36); MEAN PLATELET VOLUME 9.1 fL (7.4-10.4); MONO % 4.2 %; MONO ABS # 0.42 K/uL (0.11-0.59); NEUT % 89.6 %; NEUT ABS # 9.02 K/uL (1.4-6.5); PLATELET COUNT 255 K/uL (130-400); WHITE BLOOD COUNT 10.06 K/uL (4.8-10.8)
[2017-08-10 06:18] LABS: CALCIUM 8.9 mg/dl (8.5-10.1); CREATININE 0.86 mg/dl (0.60-1.20); POTASSIUM 4.3 mmol/L (3.5-5.1)
--- NOTE | 2017-08-10 08:00 | NUR ---
A/ID: AxOx4. Denies pain at this time. SR - ST on the monitor. No edema. Lungs coarse on room air. BLAKELY. Abdomen soft, non-tender. Voiding clear, yellow urine. Skin intact. IV site intact, saline locked. Call vazquez within reach, encouraged to ring for assistance. Will continue to monitor.
[2017-08-10] MEDS: FEXOFENADINE HCL 180 MG TAB PO SCH (08:14)
[2017-08-10] MEDS: CHOLECALCIFEROL 1000 INTER.UNIT TAB PO SCH (08:14)
[2017-08-10] MEDS: DOXYCYCLINE IV 100 MG in DEXTROSE 5% 100ML 100 ML IV SCH (08:14)
[2017-08-10] MEDS: ATORVASTATIN 10 MG TAB PO SCH (08:14)
[2017-08-10] MEDS: ASPIRIN 81 MG ECTAB PO SCH (08:15)
[2017-08-10] MEDS: MOMETASONE/FORMOTEROL (DULERA) INH INH SCH ×2 (08:15→20:23)
[2017-08-10] MEDS: LISINOPRIL 5 MG TAB PO SCH (08:15)
[2017-08-10] MEDS: PANTOprazole SOD 40 MG TAB PO SCH (08:16)
[2017-08-10] MEDS: NICOTINE 14 MG/24 HR TDSY TD SCH (08:16)
[2017-08-10] MEDS: HEPARIN SOD 5000 UNIT/0.5 ML CARP SQ SCH ×2 (08:25→20:27)
[2017-08-10] MEDS ORDERED: LEVOFLOXACIN 250 MG TAB PO SCH (11:00)
--- NOTE | 2017-08-10 11:17 | Pulmonary Consultation ---
History General Date of Service: Aug 10, 2017. Stated Complaint: Bronchitis,Copd Exacerbation HPI Patient is a 62 yo female with history of COPD with emphysema, HTN, Hypertriglyceridemia, GERD, and increasing cough and SOB prior to admission. She states that approximately 1 weeks ago, she began to feel very ill with sore throat, SOB, and cough. The patient was evaluated by her PCP at the time and was given PO Prednisone and a Z-Neel. She feels that her symptoms slightly improved but overall did not get better. She continued to have worsening nasal congestion, green/yellow nasal discharge, yellow/white sputum production with cough, and SOB. Patient states that she has been told she has allergies but is unsure of what her allergies are. She does have a dog and cat at home. She denies exposure to brick dust or asbestos. She did have a coal stove when she was a little girl. She has smoked cigarettes since she was 13 years old and smoked approximately 1 PPD. She has not smoked for about 1 week. She denies history of TB exposure or of recent travel. She does work in the public, and her grandson & daughter had been sick recently so she may have had sick contacts. She states that when she is up moving around, she feels very short of breath. She is not SOB at rest currently. The nebulizer treatments she has been receiving do not seem to improve her symptoms. She has never used nasal sprays at home. She has been using her albuterol inhaler 4 times per day at home without much relief. She does not use home O2. She also uses Dulera BID and had previously been seeing Dr. Hardwick for Pulmonary problems. Chest X-Ray 08/09: Viewed by me Advanced emphysema with no acute disease PFTs 08/17/16: Severe obstruction with no change in air flow after albuterol Air trapping and reduced DLCO. Consistent with severe emphysema. PRE POST FVC 2.40/85% 2.42/85% FEV1 1.16/51% 1.18/49% FEV1/FVC 48% 49% RV/TLC 52/130% ERV 0.96/124% DLCO 28% DL/VA 86% CT of Chest 10/05/16: No suspicious pulmonary nodules. Previous RLL density seen was noted to be consistent with possible prominent costal cartilage. Extensive centrilobular emphysema noted. Historian: patient Review of Systems Constitutional: reports: chills (one day last week), other (night sweats- severe one night last week) Eyes: denies: eye pain, itching ENT: denies: loss of hearing Cardiovascular: denies: chest pain, chest pressure, chest tightness, edema Respiratory: reports: cough, shortness of breath, sputum production, BLAKELY Gastrointestinal: denies: diarrhea, nausea, vomiting Genitourinary - Female: denies: dysuria Integumentary: denies: rash Neurologic: reports: headache (band-like across forehead last night), general weakness All Other Symptoms All Other Systems: Reviewed and Negative Past Medical History Past Medical History: Medical Problems: (1) Bronchitis (2) COPD exacerbation (3) Emphysema, unspecified (4) GERD (gastroesophageal reflux disease) (5) HTN (hypertension) (6) Hypertriglyceridemia (7) Pulmonary nodules (8) Stomach problems (9) Tobacco abuse (10) Urinary problem Surgical Problems: (1) History of partial hysterectomy Family History Cancer BROTHER (prostate CA) SISTER (cervical CA) FHx: lung disease FATHER (COPD) Hypertension MOTHER Social History Hx Tobacco Use In Past Year?: Yes (CIGARETTES <1 PACK/DAY) Smoking Status: Current Every Day Smoker (1ppd x 45 years) Marital status: Housing status: lives with family Occupational Status: employed Allergies Coded Allergies: Amoxicillin (Verified Adverse Reaction, Mild, DIARRHEA, 08/09/17) Levofloxacin (Verified Adverse Reaction, Mild, Erythema at IV site, ) Current Medications Reported Home Medications Medications Dose Route/Sig Max Daily Dose Days Date Category Zofran (Ondansetron HCl) 4 Mg Tab 4 Mg PO Q8 PRN 08/09/17 Reported Patrizia (Fexofenadine Hcl) 180 Mg Tab 180 Mg PO DAILY 08/09/17 Reported Vitamin D (Cholecalciferol) 1,000 Unit Tab 1 Tab PO DAILY 08/09/17 Reported Lisinopril 5 Mg Tab 5 Mg PO DAILY 08/09/17 Reported Prednisone 20 Mg Tab 20 Mg PO UD 08/09/17 Reported Zithromax (Azithromycin) 250 Mg Tab 1 Tab PO UD 08/09/17 Reported Aspirin EC Low Dose (Aspirin) 81 Mg Ectab 81 Mg PO DAILY 30 10/08/16 Rx Atorvastatin Calcium (Atorvastatin) 10 Mg Tab 10 Mg PO QAM 30 10/08/16 Rx Ventolin Hfa (Albuterol) 60 Puffs/5400 Mcg Aers 2 Puffs INH Q4 PRN 10/06/16 Reported Nexium (Esomeprazole Magnesium) 20 Mg Capcr 20 Mg PO DAILY 10/06/16 Reported Tylenol (Acetaminophen) 500 Mg Tab 1 Tab PO Q8 PRN 10/29/15 Reported Atrovent Hfa (Ipratropium Jewell) 200 Puffs/3400 Mcg Aers 2 Puffs INH QID 01/30/15 Reported Dulera 200/5 Mcg (Mometasone Furoate-Formoterol) 1 Aer Aer 2 Puffs INH BID 01/30/15 Reported Physical Physical Exam Vital Signs: Date Time Temp Pulse Resp B/P (MAP) Pulse Ox O2 Delivery O2 Flow Rate FiO2 08/10/17 08:00 Room Air 08/10/17 07:42 36.8 90 24 160/81 (107) 92 Room Air 08/10/17 07:06 98 16 95 Nasal Cannula 1.0 08/10/17 04:00 Nasal Cannula 1.0 08/10/17 03:45 36.8 94 17 160/83 (108) 95 Nasal Cannula 2.0 08/10/17 02:15 91 16 97 Nasal Cannula 1.0 08/10/17 00:18 36.9 86 17 142/79 (100) 95 Nasal Cannula 2.0 08/10/17 00:00 Nasal Cannula 1.0 08/09/17 20:00 Nasal Cannula 1.0 08/09/17 19:34 36.6 97 22 136/84 (101) 94 Nasal Cannula 0.5 08/09/17 19:32 96 16 93 Nasal Cannula 1.0 08/09/17 16:00 Nasal Cannula 1.0 08/09/17 15:27 36.5 101 22 148/76 (100) 92 Nasal Cannula 1.0 08/09/17 14:39 102 16 92 Nasal Cannula 1.0 08/09/17 13:29 36.8 121 20 150/70 92 08/09/17 13:29 36.7 86 18 139/90 (106) 96 Nasal Cannula 2.0 08/09/17 12:30 121 08/09/17 11:50 92 Nasal Cannula 1.5 08/09/17 11:26 36.8 90 20 150/70 92 Nasal Cannula 1.5 General Appearance: NO APPARENT DISTRESS, cachetic Head: NORMOCEPHALIC, ATRAUMATIC Eyes: NO DISCHARGE, SCLERAE NORMAL Neck: NORMAL RANGE OF MOTION, TRACHEA MIDLINE, NO STRIDOR Respiratory: other (decreased breath sounds throughout b/l lungs. No adventitious sounds noted otherwise. ) Cardiovasular: REGULAR RATE/RHYTHM, NO MURMUR Abdomen: NORMAL BOWEL SOUNDS Back: NORMAL INSPECTION Upper Extremities: NO EDEMA Lower Extremities: NO EDEMA Neuro: ALERT Psychiatric: NORMAL AFFECT Diagnostics Labs Results Past 24 Hours Test 08/10/17 05:21 Range/Units White Blood Count 10.06 4.8-10.8 K/uL Red Blood Count 4.86 4.2-5.4 M/uL Hemoglobin 14.8 12.0-16.0 g/dL Hematocrit 43.7 37-47 % Mean Corpuscular Volume 89.9 80-100 fL Mean Corpuscular Hemoglobin 30.5 25-34 pg Mean Corpuscular Hemoglobin Concent 33.9 32-36 g/dl Platelet Count 255 130-400 K/uL Mean Platelet Volume 9.1 7.4-10.4 fL Neutrophils (%) (Auto) 89.6 % Lymphocytes (%) (Auto) 5.8 % Monocytes (%) (Auto) 4.2 % Eosinophils (%) (Auto) 0.0 % Basophils (%) (Auto) 0.0 % Neutrophils # (Auto) 9.02 1.4-6.5 K/uL Lymphocytes # (Auto) 0.58 1.2-3.4 K/uL Monocytes # (Auto) 0.42 0.11-0.59 K/uL Eosinophils # (Auto) 0.00 0-0.5 K/uL Basophils # (Auto) 0.00 0-0.2 K/uL RDW Standard Deviation 46.0 36.4-46.3 fL RDW Coefficient of Variation 14.0 11.5-14.5 % Immature Granulocyte % (Auto) 0.4 % Immature Granulocyte # (Auto) 0.04 0.00-0.02 K/uL Sodium Level 137 136-145 mmol/L Potassium Level 4.3 3.5-5.1 mmol/L Chloride Level 105 98-107 mmol/L Carbon Dioxide Level 26 21-32 mmol/L Anion Gap 6.0 3-11 mmol/L Blood Urea Nitrogen 16 7-18 mg/dl Creatinine 0.86 0.60-1.20 mg/dl Est Creatinine Clear Calc Drug Dose 34.6 ml/min Estimated GFR () 83.9 Estimated GFR (Non- 72.4 BUN/Creatinine Ratio 18.1 10-20 Random Glucose 108 70-99 mg/dl Calcium Level 8.9 8.5-10.1 mg/dl Microbiology Results 08/09/17 Blood Culture, Received Pending 08/09/17 MRSA DNA Surveillance Screen - Final, Complete Specimen Negative for MRSA by DNA Probe Diagnostic Radiology CLINICAL HISTORY: Dyspnea. FINDINGS: An AP, portable, upright chest radiograph is compared to study dated 10/06/16 and correlated with chest CT 07/19/2016. The examination is degraded by portable technique and patient rotation. The cardiomediastinal silhouette is unremarkable. There is atherosclerotic calcification of the thoracic aorta. Advanced emphysema and chronic interstitial thickening are similar to previous. No airspace consolidation or pleural effusion is identified. Apical scarring is observed. No pneumothorax is seen. Nipple shadows project over the chest. The skeletal structures are osteopenic. The bony thorax is grossly intact. The patient is cachectic. IMPRESSION: Advanced emphysema with no acute cardiopulmonary abnormality. EKG Normal sinus rhythm noted. EKG viewed. Impression Assessment and Plan COPD Severe Emphysema Rhinosinusitis- Allergic? Infectious? Shortness of breath with hypoxia- resolved Chronic tobacco use Patient with continued nasal congestion, post nasal drip, throat clearing, cough , and mild headache who appears to have persistent symptoms since admission. Feel that this patient may have sinusitis causing her persistent cough and continued SOB. She does not appear to have pneumonia on CXR or exam. Recommend starting Flonase nasal spray. Will change IV Doxycycline to PO Doxycycline as it may be irritating the patient's arm in IV form and continue coverage for atypical infection. Will add IV Clindamycin for concerns of anaerobic/sinus infection. Recommend checking X-Ray of the sinuses Continue nebulizers scheduled and PRN pending further workup and improvement. Continue O2 supplementation PRN to maintain SaO2 >90% or for worsening SOB. Will begin tapering steroids. Decreased to IV SoluMedrol 40 mg Q12h today. Likely can transition to PO prednisone tomorrow. Pulmonary will follow.
[2017-08-10] MEDS: CLINDAMYCIN IV 600 MG in DEXTROSE 5% 50ML 50 ML IV SCH ×2 (11:44→20:22)
--- NOTE | 2017-08-10 12:00 | NUR ---
Patient reassessed, see EMR for full details. VSS. Call vazquez within reach. Will continue to monitor.
--- NOTE | 2017-08-10 13:17 | NUR ---
PT screen: pt was completely independ at admission. no acute PT needs indicated at this time
--- NOTE | 2017-08-10 16:00 | NUR ---
Patient reassessed, see EMR for full details. VSS. Call vazquez within reach. Will continue to monitor.
--- NOTE | 2017-08-10 17:10 | NUR ---
RD At Risk Screen completed, see linked note for details. Level of care I. Addendum: 08/10/17 at [address] Amended: Links added.
--- NOTE | 2017-08-10 17:59 | Progress Note ---
Internal Med Progress Note Date of Service: Aug 10, 2017. Provider Documentation: SUBJECTIVE: Patient has been comfortable and breathing on room air while at the bed. She reports that she has been able to ambulate from her room to hallway of hospital OBJECTIVE: Exam: General- no acute distress Eyes- EOMI Neck- trachea midline, no JVD Lungs-CTABL, no wheezing Heart- Regular rate Abdomen- soft, nontender, + bowel sounds Extremities- no edema Neuro- no focal neurological deficits ASSESSMENT & PLAN: COPD EXACERBATION/HYPOXIA/BRONCHITIS Pt with hx emphysema, Not home O2 dependent. increased productive purulent cough x 1 week. On Zithromax, prednisone out patient x 4 days without relief. Today in ER O2: 87% on RA, increases to 92% on 2L NC. R: 20. Pt SOB with walking to bathroom. WBC: 14.(pt was on prednisone) Negative Troponin. EKG: NSR , rate 78, no ST elevations noted. CXR: no infiltrate. Pt given Rocephin IV, hour long Duoneb treatment and Solumedrol 60mg IV in ER. Pulmonary consultation 08/10/17 "Recommend starting Flonase nasal spray. Will change IV Doxycycline to PO Doxycycline as it may be irritating the patient's arm in IV form and continue coverage for atypical infection. Will add IV Clindamycin for concerns of anaerobic/sinus infection. Recommend checking X-Ray of the sinuses Continue nebulizers scheduled and PRN pending further workup and improvement. Continue O2 supplementation PRN to maintain SaO2 >90% or for worsening SOB. Will begin tapering steroids. Decreased to IV SoluMedrol 40 mg Q12h today. Likely can transition to PO prednisone tomorrow" Following pulmonary recommendations, will re-assess patient tomorrow TOBACCO USE -smoking cessation encouraged -nicotine patch HTN Stable, will continue to monitor -Continue lisinopril HYPERTRIGLYCERIDEMIA Lipid panel on 04/07/17 - Total: 150, LDL: 37, HDL: 94, Triglycerides: 94 -continue atorvastatin GERD -continue PPI -zofran prn nausea DVT PROPHYLAXIS -heparin SQ Vital Signs: Date Time Temp Pulse Resp B/P (MAP) Pulse Ox O2 Delivery O2 Flow Rate FiO2 08/10/17 16:00 Room Air 08/10/17 15:29 36.8 101 22 147/84 (105) 90 Room Air 08/10/17 14:26 102 16 94 Room Air 08/10/17 12:00 Room Air 08/10/17 11:30 36.9 96 20 153/78 (103) 91 Room Air Nasal Cannula 08/10/17 11:21 97 16 93 Room Air 08/10/17 08:00 Room Air 08/10/17 07:42 36.8 90 24 160/81 (107) 92 Room Air 08/10/17 07:06 98 16 95 Nasal Cannula 1.0 08/10/17 04:00 Nasal Cannula 1.0 08/10/17 03:45 36.8 94 17 160/83 (108) 95 Nasal Cannula 2.0 08/10/17 02:15 91 16 97 Nasal Cannula 1.0 08/10/17 00:18 36.9 86 17 142/79 (100) 95 Nasal Cannula 2.0 08/10/17 00:00 Nasal Cannula 1.0 08/09/17 20:00 Nasal Cannula 1.0 08/09/17 19:34 36.6 97 22 136/84 (101) 94 Nasal Cannula 0.5 08/09/17 19:32 96 16 93 Nasal Cannula 1.0 Lab Results: Results Past 24 Hours Test 08/10/17 05:21 Range/Units White Blood Count 10.06 4.8-10.8 K/uL Red Blood Count 4.86 4.2-5.4 M/uL Hemoglobin 14.8 12.0-16.0 g/dL Hematocrit 43.7 37-47 % Mean Corpuscular Volume 89.9 80-100 fL Mean Corpuscular Hemoglobin 30.5 25-34 pg Mean Corpuscular Hemoglobin Concent 33.9 32-36 g/dl Platelet Count 255 130-400 K/uL Mean Platelet Volume 9.1 7.4-10.4 fL Neutrophils (%) (Auto) 89.6 % Lymphocytes (%) (Auto) 5.8 % Monocytes (%) (Auto) 4.2 % Eosinophils (%) (Auto) 0.0 % Basophils (%) (Auto) 0.0 % Neutrophils # (Auto) 9.02 1.4-6.5 K/uL Lymphocytes # (Auto) 0.58 1.2-3.4 K/uL Monocytes # (Auto) 0.42 0.11-0.59 K/uL Eosinophils # (Auto) 0.00 0-0.5 K/uL Basophils # (Auto) 0.00 0-0.2 K/uL RDW Standard Deviation 46.0 36.4-46.3 fL RDW Coefficient of Variation 14.0 11.5-14.5 % Immature Granulocyte % (Auto) 0.4 % Immature Granulocyte # (Auto) 0.04 0.00-0.02 K/uL Sodium Level 137 136-145 mmol/L Potassium Level 4.3 3.5-5.1 mmol/L Chloride Level 105 98-107 mmol/L Carbon Dioxide Level 26 21-32 mmol/L Anion Gap 6.0 3-11 mmol/L Blood Urea Nitrogen 16 7-18 mg/dl Creatinine 0.86 0.60-1.20 mg/dl Est Creatinine Clear Calc Drug Dose 34.6 ml/min Estimated GFR () 83.9 Estimated GFR (Non- 72.4 BUN/Creatinine Ratio 18.1 10-20 Random Glucose 108 70-99 mg/dl Calcium Level 8.9 8.5-10.1 mg/dl
[2017-08-10] MEDS: FLUTICASONE PROPIONATE NA SPR 16 GM BTL NAE SCH (20:22)
[2017-08-10] MEDS: DOXYCYCLINE HYCLATE 100 MG CAP PO SCH (20:24)
--- NOTE | 2017-08-10 21:28 | DIAGNOSTIC IMAGING REPORT ---
PARANASAL SINUSES 4 VIEWS CLINICAL HISTORY: Sinus congestion. FINDINGS: 4 views of the paranasal sinuses are obtained. No prior studies are available for comparison at the time of dictation. The bony orbits are grossly intact. There is a large air-fluid level present within the right maxillary antrum. The remaining paranasal sinuses are clear as imaged. The mastoid air cells appear well-pneumatized. The visualized calvarium appears intact. IMPRESSION: There is a large air-fluid level in the right maxillary antrum. Correlate clinically for evidence of acute sinusitis. Electronically signed by: Alexis Russ M.D. 08/10/2017 9:26 PM Dictated Date/Time: 08/10/2017 9:26 PM
[2017-08-11] VITALS (8 sets, daily range): BP systolic 139–160; BP diastolic 76–83; PULSE 80–100; TEMP 36.7–37; O2SAT 92–98
--- NOTE | 2017-08-11 | NUR ---
Pt awake. Assessment completed; see emr. SR per telemetry. VSS. Lungs remains diminished throughout. No resp distress present; resp even and unlabored at rest. No needs voiced. Call vazquez within touch. Continue to monitor.
[2017-08-11] MEDS: LEVALBUTEROL 1.25MG/0.5ML NEB INH SCH ×3 (01:46→14:05)
[2017-08-11] MEDS: IPRATROPIUM BROMIDE NEB SOLN 0.02% 2.5 ML VIAL INH SCH ×3 (01:46→14:05)
[2017-08-11] MEDS: CLINDAMYCIN IV 600 MG in DEXTROSE 5% 50ML 50 ML IV SCH ×2 (03:57→11:58)
--- NOTE | 2017-08-11 04:00 | NUR ---
Pt awake. Assessment completed; see emr. SR per telemetry. VSS. Pt reports BLAKELY continues with some improvement. Lungs remain diminished. remains on R/A. Call vazquez within touch. Continue to monitor.
--- NOTE | 2017-08-11 08:00 | NUR ---
Pt in bed, alert and oriented. No complaints at this time. Assessment complete, for details see EMR. NSR on cardiac strip. Call vazquez within reach, encouraged to ring for assistance. Will continue to monitor.
[2017-08-11] MEDS: CHOLECALCIFEROL 1000 INTER.UNIT TAB PO SCH (09:33)
[2017-08-11] MEDS: PANTOprazole SOD 40 MG TAB PO SCH (09:33)
[2017-08-11] MEDS: MOMETASONE/FORMOTEROL (DULERA) INH INH SCH (09:33)
[2017-08-11] MEDS: ATORVASTATIN 10 MG TAB PO SCH (09:33)
[2017-08-11] MEDS: ASPIRIN 81 MG ECTAB PO SCH (09:33)
[2017-08-11] MEDS: FEXOFENADINE HCL 180 MG TAB PO SCH (09:34)
[2017-08-11] MEDS: NICOTINE 14 MG/24 HR TDSY TD SCH (09:34)
[2017-08-11] MEDS: METHYLPREDNISOLONE IV 40 MG in SYRINGE 0 ML IV SCH (09:34)
[2017-08-11] MEDS: DOXYCYCLINE HYCLATE 100 MG CAP PO SCH (09:34)
[2017-08-11] MEDS: FLUTICASONE PROPIONATE NA SPR 16 GM BTL NAE SCH (09:34)
[2017-08-11] MEDS: LISINOPRIL 5 MG TAB PO SCH (09:34)
[2017-08-11] MEDS: HEPARIN SOD 5000 UNIT/0.5 ML CARP SQ SCH (09:36)
--- NOTE | 2017-08-11 12:00 | NUR ---
Pt in bed, alert and oriented. No complaints. Call vazquez within reach, will continue to monitor.
--- NOTE | 2017-08-11 12:23 | PULMONARY PROGRESS NOTE ---
DATE: 08/11/2017 DATE: 08/11/2017 TIME: 11:50 a.m. SUBJECTIVE: The patient generally feels better. She is less short of breath. She has less cough. She is still afraid of having a panic attack from getting short of breath. That had been happening at home apparently. OBJECTIVE: GENERAL: The patient looks comfortable. Temperature was 36.7. She has been afebrile for at least 48 hours. EARS, NOSE, THROAT: Unremarkable. VITAL SIGNS: Heart rate is 93 per minute. The rhythm is regular. Blood pressure 139/78. CHEST: Auscultation of the lung sierra revealed them to be severely diminished. No active wheezing was heard. There was prolongation to the expiratory phase of respiration. Oxygen saturation on room air was 96%. EXTREMITIES: Showed no cyanosis, clubbing or edema. X-ray of the sinuses showed a large air-fluid level in the right maxillary antrum. She likely has acute sinusitis. This may be exacerbating her respiratory status. No laboratory studies were done today. IMPRESSIONS: 1. Chronic obstructive pulmonary disease with exacerbation. 2. Severe emphysema. 3. Nicotine addiction. 4. Sinusitis. COMMENTS AND RECOMMENDATIONS: The patient seems to be doing reasonably well. She likely can be discharged soon. I would change the steroids to oral. Would taper these slowly as an outpatient. Perhaps 40 mg daily for 3 days, 30 for 3, etc. Would send her home with doxycycline and with oral clindamycin for 7-10 days for the sinus infection. The patient takes Dulera at home. I would suggest the Dulera be the 200/5 dosage to be taken 2 puffs b.i.d. She has Atrovent inhaler that she has been using about 3 times per day. She likely would be better served with Spiriva Respimat 2 puffs daily. She states she would be willing to get this if her insurance will pay. She does have an appointment to follow back up with me a week from tomorrow. She was tentatively scheduled for a CAT scan of the chest, which was made by Dr. Hardwick a year ago. However, she subsequently had another CAT scan through [facility] as an outpatient last September. This did not show any nodules reported at all. Thus, she likely does not need another CAT scan done at present. She may ultimately be a candidate for low dose screening CT based upon her smoking history.
[2017-08-11] MEDS ORDERED: SPRIN INH (14:13)
[2017-08-11] MEDS ORDERED: CLC150 PO (14:13)
[2017-08-11] MEDS ORDERED: FLNIN NAE (14:13)
[2017-08-11] MEDS ORDERED: DXY100 PO (14:13)
[2017-08-11] MEDS ORDERED: PRD20 PO (14:17)
--- NOTE | 2017-08-11 14:36 | Progress Note ---
Internal Med Progress Note Date of Service: Aug 11, 2017. Provider Documentation: SUBJECTIVE: Patient has been comfortable and breathing on room air while at the bed. Also ambulating on room air OBJECTIVE: Exam: General- no acute distress Eyes- EOMI Neck- trachea midline, no JVD Lungs-CTABL, no wheezing Heart- Regular rate Abdomen- soft, nontender, + bowel sounds Extremities- no edema Neuro- no focal neurological deficits ASSESSMENT & PLAN: Pt with hx emphysema, Not home O2 dependent. increased productive purulent cough x 1 week. On Zithromax, prednisone out patient x 4 days without relief. Today in ER O2: 87% on RA, increases to 92% on 2L NC. R: 20. Pt SOB with walking to bathroom. WBC: 14.(pt was on prednisone) Negative Troponin. EKG: NSR , rate 78, no ST elevations noted. CXR: no infiltrate. Pt given Rocephin IV, hour long Duoneb treatment and Solumedrol 60mg IV in ER. Chest X ray: Advanced emphysema with no acute cardiopulmonary abnormality Sinus X ray: There is a large air-fluid level in the right maxillary antrum. Sinusitis Patient was evaluated in the hospital for COPD exacerbation and while patient has history of COPD and Emphysema, she likely has exacerbation of the breathing with sinus infection Patient has been given Doxycycline and Clindamycin in the hospital and to be discharged with 7 day prescription to complete the antibiotics Patient also to be discharged with Flonase Nasal [place] for sinusitis In the hospital, patient was given IV solumedrol for dyspnea; Patient to be discharged home with prescription for prednisone taper 40 mg daily for 3 days, 30 mg daily for 3 days, 20 mg daily for 3 days, and 10 mg daily for 3 days. Patient can take Spiriva in place of Atrovent Patient should avoid tobacco products Patient was seen and evaluated by the [facility] Pulmonology team and will follow up with Dr. Silver in the first week of August 2017 Patient should also follow up with primary care doctor 08/16/2017 11:00 AM Ana Park MD Internal Medicine [facility] Patient also had prior scheduled appointment for 09/09/2017 2:00 PM Kandis Watters PA-C Rheumatology [facility] Vital Signs: Date Time Temp Pulse Resp B/P (MAP) Pulse Ox O2 Delivery O2 Flow Rate FiO2 08/11/17 14:06 100 16 94 Room Air 08/11/17 12:00 Room Air 08/11/17 11:44 36.7 93 18 139/78 (98) 96 Room Air 08/11/17 08:00 37.0 90 20 144/76 (98) 98 Room Air 08/11/17 08:00 Room Air 08/11/17 07:04 94 16 94 Room Air 08/11/17 04:00 Room Air 08/11/17 03:57 37.0 87 17 160/83 (108) 92 Room Air 08/11/17 01:48 80 16 93 Room Air 08/11/17 00:31 36.7 97 17 150/80 (103) 94 Room Air 08/11/17 00:00 Room Air 08/10/17 20:00 Room Air 08/10/17 19:21 95 16 93 Room Air 08/10/17 19:16 36.8 95 22 156/91 (112) 91 Room Air 08/10/17 16:00 Room Air 08/10/17 15:29 36.8 101 22 147/84 (105) 90 Room Air
--- NOTE | 2017-08-11 14:41 | Discharge Instructions ---
Discharge Instructions Date of Service Aug 11, 2017. Admission Reason for Admission: Bronchitis,Copd Exacerbation Discharge Discharge Diagnosis / Problem: COPD exacerbation, Sinusitis, Emphysema Discharge Goals Goal(s): Improve function, Improve disease control Activity Recommendations Activity Limitations: per Instructions/Follow-up section Lifting Limitations: until after follow-up appointment Exercise/Sports Limitations: until after follow-up appointment Shower/Bathe: no limitations . Instructions / Follow-Up Instructions / Follow-Up Pt with hx emphysema, Not home O2 dependent. increased productive purulent cough x 1 week. On Zithromax, prednisone out patient x 4 days without relief. Today in ER O2: 87% on RA, increases to 92% on 2L NC. R: 20. Pt SOB with walking to bathroom. WBC: 14.(pt was on prednisone) Negative Troponin. EKG: NSR , rate 78, no ST elevations noted. CXR: no infiltrate. Pt given Rocephin IV, hour long Duoneb treatment and Solumedrol 60mg IV in ER. Chest X ray: Advanced emphysema with no acute cardiopulmonary abnormality Sinus X ray: There is a large air-fluid level in the right maxillary antrum. Sinusitis Patient was evaluated in the hospital for COPD exacerbation and while patient has history of COPD and Emphysema, she likely has exacerbation of the breathing with sinus infection Patient has been given Doxycycline and Clindamycin in the hospital and to be discharged with 7 day prescription to complete the antibiotics Patient also to be discharged with Flonase Nasal [place] for sinusitis In the hospital, patient was given IV solumedrol for dyspnea; Patient to be discharged home with prescription for prednisone taper 40 mg daily for 3 days, 30 mg daily for 3 days, 20 mg daily for 3 days, and 10 mg daily for 3 days. Patient can take Spiriva in place of Atrovent Patient should avoid tobacco products Patient was seen and evaluated by the [facility] Pulmonology team and will follow up with Dr. Silver in the first week of August 2017 Patient should also follow up with primary care doctor 08/16/2017 11:00 AM Ana Park MD Internal Medicine [facility] Patient also had prior scheduled appointment for 09/09/2017 2:00 PM Kandis Watters PA-C Rheumatology [facility] Current Hospital Diet Patient's current hospital diet: AHA Diet (Heart Healthy) Discharge Diet Recommended Diet: AHA Diet (Heart Healthy) Pending Studies Studies pending at discharge: no Laboratory Results 08/10/17 05:21 Red Blood Count 4.86, Mean Corpuscular Volume 89.9, Mean Corpuscular Hemoglobin 30.5, Mean Corpuscular Hemoglobin Concent 33.9, Mean Platelet Volume 9.1, Neutrophils (%) (Auto) 89.6, Lymphocytes (%) (Auto) 5.8, Monocytes (%) (Auto) 4.2, Eosinophils (%) (Auto) 0.0, Basophils (%) (Auto) 0.0, Neutrophils # (Auto) 9.02, Lymphocytes # (Auto) 0.58, Monocytes # (Auto) 0.42, Eosinophils # (Auto) 0.00, Basophils # (Auto) 0.00 08/10/17 05:21 Test 08/09/17 10:40 08/10/17 05:21 Prothrombin Time 10.0 SECONDS (9.0-12.0) Prothromb Time International Ratio 1.0 (0.9-1.1) Activated Partial Thromboplast Time 23.1 SECONDS (21.0-31.0) Partial Thromboplastin Ratio 0.9 Total Bilirubin 0.4 mg/dl (0.2-1) Aspartate Amino Transf (AST/SGOT) 20 U/L (15-37) Alanine Aminotransferase (ALT/SGPT) 28 U/L (12-78) Alkaline Phosphatase 72 U/L (45-117) Troponin I < 0.015 ng/ml (0-0.045) Total Protein 7.4 gm/dl (6.4-8.2) Albumin 3.7 gm/dl (3.4-5.0) Globulin 3.7 gm/dl (2.5-4.0) Albumin/Globulin Ratio 1.0 (0.9-2) Influenza Type A (RT-PCR) Neg for Influ A (NEG) Influenza Type B (RT-PCR) Neg for Influ B (NEG) White Blood Count 10.06 K/uL (4.8-10.8) Red Blood Count 4.86 M/uL (4.2-5.4) Hemoglobin 14.8 g/dL (12.0-16.0) Hematocrit 43.7 % (37-47) Mean Corpuscular Volume 89.9 fL (80-100) Mean Corpuscular Hemoglobin 30.5 pg (25-34) Mean Corpuscular Hemoglobin Concent 33.9 g/dl (32-36) Platelet Count 255 K/uL (130-400) Mean Platelet Volume 9.1 fL (7.4-10.4) Neutrophils (%) (Auto) 89.6 % Lymphocytes (%) (Auto) 5.8 % Monocytes (%) (Auto) 4.2 % Eosinophils (%) (Auto) 0.0 % Basophils (%) (Auto) 0.0 % Neutrophils # (Auto) 9.02 K/uL (1.4-6.5) Lymphocytes # (Auto) 0.58 K/uL (1.2-3.4) Monocytes # (Auto) 0.42 K/uL (0.11-0.59) Eosinophils # (Auto) 0.00 K/uL (0-0.5) Basophils # (Auto) 0.00 K/uL (0-0.2) RDW Standard Deviation 46.0 fL (36.4-46.3) RDW Coefficient of Variation 14.0 % (11.5-14.5) Immature Granulocyte % (Auto) 0.4 % Immature Granulocyte # (Auto) 0.04 K/uL (0.00-0.02) Anion Gap 6.0 mmol/L (3-11) Est Creatinine Clear Calc Drug Dose 34.6 ml/min Estimated GFR () 83.9 Estimated GFR (Non- 72.4 BUN/Creatinine Ratio 18.1 (10-20) Calcium Level 8.9 mg/dl (8.5-10.1) Date/Time Source Procedure Growth Status 08/09/17 12:55 Blood Blood Culture - Preliminary NO GROWTH TO DATE. Resulted 08/09/17 14:35 Nasal MRSA DNA Surveillance Screen - Final Specimen Negative for MRSA by DNA Probe Complete Medical Emergencies . Who to Call and When: Medical Emergencies: If at any time you feel your situation is an emergency, please call 911 immediately. . Non-Emergent Contact Non-Emergency issues call your: Primary Care Provider, Fun House Operator . . "Provider Documentation" section prepared by Orestes Nguyen. . VTE Core Measure Inpt VTE Proph given/why not?: Unfractionated heparin SQ
--- NOTE | 2017-08-11 14:42 | Discharge Summary ---
Discharge Summary Date of Service Aug 11, 2017. Discharge Summary Admission Date: Aug 09, 2017 at 12:17 Discharge Date: Aug 11, 2017 Discharge Disposition: Home Principal Diagnosis: Chronic obstructive pulmonary disease with exacerbation. Emphysema. Sinusitis. Consultations: pulmonary Medication Reconciliation New Medications: Clindamycin HCl (Clindamycin HCl) 150 Mg Cap 150 MG PO Q6 for 7 Days, #28 CAP Doxycycline Hyclate (Doxycycline Hyclate) 100 Mg Cap 100 MG PO BID for 7 Days, #14 CAP Fluticasone Propionate (Fluticasone Propionate) 50 Mcg/Act Spr 2 SPRAYS NATY BID for 10 Days, #1 BTL Prednisone (Prednisone) 20 Mg Tab 20 MG PO DIRECTED for 9 Days, #15 TAB Tiotropium [place] (Spiriva Handihaler) 5 Puff/90 Mcg Aerp 2 PUFF INH QAM for 30 Days, #1 INHALER 1 Refill Continued Medications: Acetaminophen (Tylenol) 500 Mg Tab 1 TAB PO Q8 PRN for Pain, TAB Albuterol (Ventolin Hfa) 60 Puffs/5400 Mcg Aers 2 PUFFS INH Q4 PRN for SOB/Wheezing Aspirin (Aspirin EC Low Dose) 81 Mg Ectab 81 MG PO DAILY for 30 Days, #30 TABS Atorvastatin (Atorvastatin Calcium) 10 Mg Tab 10 MG PO QAM for 30 Days, #30 TAB Cholecalciferol (Vitamin D) 1,000 Unit Tab 1 TAB PO DAILY Esomeprazole Magnesium (Nexium) 20 Mg Capcr 20 MG PO DAILY, CAP Fexofenadine Hcl (Patrizia) 180 Mg Tab 180 MG PO DAILY, TAB Lisinopril (Lisinopril) 5 Mg Tab 5 MG PO DAILY Mometasone Furoate-Formoterol (Dulera 200/5 Mcg) 1 Aer Aer 2 PUFFS INH BID Ondansetron Hcl (Zofran) 4 Mg Tab 4 MG PO Q8 PRN for Nausea, TAB Discontinued Medications: Azithromycin (Zithromax) 250 Mg Tab 1 TAB PO UD Ipratropium Eden (Atrovent Hfa) 200 Puffs/3400 Mcg Aers 2 PUFFS INH QID Prednisone (Prednisone) 20 Mg Tab 20 MG PO UD Admission Information HPI (per Admitting provider): Pt is 62 y/o F with PMH COPD, pulmonary nodules, HTN, hypertriglyceridemia, GERD presented to ER with c/o increased SOB and cough. Pt states over one week ago started with sore throat, rhinorrhea and cough. Sore throat resolved, still with some rhinorrhea. [place] feverish one day last week. for over one week with cough productive of yellow sputum. Reports hx chronic cough of white sputum, but cough increased and sputum production and color increased. Usually uses Albuterol inhaler 4 times a day with relief of SOB. States past couple of days only getting temporary relief from albuterol and has SOB, wheezing and chest tightness, with walking a few steps which is very unusual for her. Does not use home O2. Reports using her Dulera BID as directed. Hx pulmonary nodules and followed with Dr Hardwick -pulmonology yearly and has yearly Chest CT scan. Last CT one year ago. She saw PCP on 08/05/17 and was started on Zithromax and prednisone. Pt states continues with worsening symptoms. Reports daughter and granddaughter had some URI symptoms also. Denies diaphoresis, N/V/D/C, [place], dizziness, syncope, vision changes, neck pain, orthopnea, palpitations, choking , otalgia, epistaxis, abdominal pain, paresthesias, weakness, extremity weakness , extremity edema, rashes, urinary symptoms. Denies influenza vaccine this season. In ER pt afebrile, O2 87% on RA increased to 92% on 2L NC. R: 20. BP: 150/70. WBC: 14, pending blood cultures and influenza swab. Negative troponin. CXR: no infiltrate. Pt given hour long duoneb tx, Rocephin, and Solumedrol 60mg IV. Physical Exam (per Admitting): General Appearance: no apparent distress (sitting upright in bed with O2 NC on without apparent distress ), + thin Head: normocephalic, atraumatic Eyes: PERRL, EOMI, sclerae normal ENT: hearing grossly normal, pharynx normal, + pertinent finding (TM's dull , non-erythematous, non-bulging bilaterally. Nares mild erythema bilaterally, no significant rhinorrhea) Neck: supple, no adenopathy, no JVD, trachea midline Respiratory/Chest: chest non-tender, + decreased breath sounds (throughout, faint scattered wheezing throughout, no rales or rhonchi noted) Cardiovascular: regular rate, rhythm, no edema, normal peripheral pulses Abdomen/GI: normal bowel sounds, non tender, soft Extremities/Musculoskelatal: no calf tenderness, normal capillary refill, no pedal edema, normal range of motion, non-tender Neurologic/Psych: alert, normal mood/affect, oriented x 3 Skin: normal color, warm/dry, no rash Hospital Course Pt with hx emphysema, Not home O2 dependent. increased productive purulent cough x 1 week. On Zithromax, prednisone out patient x 4 days without relief. Today in ER O2: 87% on RA, increases to 92% on 2L NC. R: 20. Pt SOB with walking to bathroom. WBC: 14.(pt was on prednisone) Negative Troponin. EKG: NSR , rate 78, no ST elevations noted. CXR: no infiltrate. Pt given Rocephin IV, hour long Duoneb treatment and Solumedrol 60mg IV in ER. Chest X ray: Advanced emphysema with no acute cardiopulmonary abnormality Sinus X ray: There is a large air-fluid level in the right maxillary antrum. Sinusitis Patient was evaluated in the hospital for COPD exacerbation and while patient has history of COPD and Emphysema, she likely has exacerbation of the breathing with sinus infection Patient has been given Doxycycline and Clindamycin in the hospital and to be discharged with 7 day prescription to complete the antibiotics Patient also to be discharged with Flonase Nasal [place] for sinusitis In the hospital, patient was given IV solumedrol for dyspnea; Patient to be discharged home with prescription for prednisone taper 40 mg daily for 3 days, 30 mg daily for 3 days, 20 mg daily for 3 days, and 10 mg daily for 3 days. Patient can take Spiriva in place of Atrovent Patient should avoid tobacco products Patient was seen and evaluated by the [facility] Pulmonology team and will follow up with Dr. Silver in the first week of August 2017 Patient should also follow up with primary care doctor 08/16/2017 11:00 AM Ana Park MD Internal Medicine [facility] Patient also had prior scheduled appointment for 09/09/2017 2:00 PM Kandis Watters PA-C Rheumatology [facility] Total time spent on discharge = 60 minutes This includes examination of the patient, discharge planning, medication reconciliation, and communication with other providers. Discharge Instructions see above
--- NOTE | 2017-08-11 15:45 | NUR ---
A: Discharge instructions provided to patient. All medications reviewed. New prescriptions given. Nasal spray and inhalers given to patient. All questions answered. Saline lock and surveillance system monitor removed. Awaiting arrival of family member for discharge home.
[2017-08-11] MEDS ORDERED: CLINDAMYCIN HCL 150 MG CAP PO SCH (18:00)
[2017-08-12] MEDS ORDERED: TIOTROPIUM BROMIDE 5 PUFF/90 MCG INH INH SCH (09:00)
== END 2017-08-11 16:21 | disposition home or self-care (01) | DRG 192 ==
LOC: C.EDB 09:40 → C.2T 12:17 → ENRESERV 12:42
PROVIDERS: ADMIT Internal Medicine; ATTEND Hospitalist
DX: J44.1 Chronic obstructive pulmonary disease with (acute) exacerbation (principal); R09.02 Hypoxemia; J32.9 Chronic sinusitis, unspecified; I10 Essential (primary) hypertension; K21.9 Gastro-esophageal reflux disease without esophagitis; E78.1 Pure hyperglyceridemia; L27.1 Localized skin eruption due to drugs and medicaments taken internally; F17.210 Nicotine dependence, cigarettes, uncomplicated; T36.8X5A Adverse effect of other systemic antibiotics, initial encounter; Z79.52 Long term (current) use of systemic steroids; Z79.82 Long term (current) use of aspirin; Z79.899 Other long term (current) drug therapy; Z88.1 Allergy status to other antibiotic agents

== ENCOUNTER 2021-04-12 22:47 | Inpatient (IN) ==
[2021-04-12] MEDS ORDERED: ONDANSETRON INJ 2 MG/ML 2 ML VIAL IV STA (23:52)
[2021-04-12] MEDS ORDERED: SODIUM CHLORIDE 0.9% 500 ML IV STA (23:52)
[2021-04-13 00:01] LABS: Basophils # (auto) 0.02 K/uL (0-0.2); Basophils % (auto) 0.2 %; Eosinophils # (auto) 0.13 K/uL (0-0.5); Eosinophils % (auto) 1.2 %; Hematocrit (blood only) 42.5 % (37-47); Hemoglobin 13.9 g/dL (12.0-16.0); Immature Granulocytes # (auto) 0.03 K/uL (0.00-0.02); Immature Granulocytes % (auto) 0.3 %; Lymphocytes # (auto) 0.74 K/uL (1.2-3.4); Lymphocytes % (auto) 6.7 %; Mean Corpuscular Hemoglobin 26.6 pg (25-34); Mean Corpuscular Hgb Conc 32.7 g/dL (32-36); Mean Corpuscular Volume 81.4 fL (80-100); Mean Platelet Volume 9.8 fL (7.4-10.4); Monocytes # (auto) 0.91 K/uL (0.11-0.59); Monocytes % (auto) 8.2 %; Neutrophils # (auto) 9.27 K/uL (1.4-6.5); Neutrophils % (auto) 83.4 %; Platelet Count 337 K/uL (130-400); RDW Coefficient of Variation 16.8 % (11.5-14.5); RDW Standard Deviation 50.1 fL (36.4-46.3); Red Blood Count 5.22 M/uL (4.2-5.4)
[2021-04-13 00:03] LABS: Appearance Urine Clear (Clear); Bacteria Urine Automated Negative (Negative); Bilirubin Urine Negative (Negative); Blood Urine Negative (Negative); Color Urine Yellow; Glucose Urine UA Negative (Negative); Ketones Urine 1+ (Negative); Leukocyte Esterase Urine Negative (Negative); Nitrite Urine Negative (Negative); RBC Urine Automated 0-4 /hpf (0-4); Specific Gravity Urine 1.012 (1.000-1.030); Urobilinogen Urine Negative (Negative); WBC Urine Automated 0 /hpf (0-5); pH Urine 7.5 (4.5-7.5)
[2021-04-13 00:06] LABS: Protein Urine Trace (Negative)
[2021-04-13 00:16] LABS: Albumin Globulin Ratio 0.8 (0.9-2); Albumin Level 3.2 gm/dl (3.4-5.0); BUN Creatinine Ratio 13.2 (10-20); Bilirubin,Total 0.6 mg/dl (0.2-1); Creatinine Clr Calc Pharmacy 46.5 ml/min; Est GFR (African American) 111.5 ml/min; Est GFR (Non-African American) 96.2 ml/min; Globulin 4.1 gm/dl (2.5-4.0); Total Protein 7.3 gm/dl (6.4-8.2)
[2021-04-13] MEDS ORDERED: OPTIRAY 320 100ml IV ONE (00:47)
--- NOTE | 2021-04-13 02:38 | Emergency Department Note ---
ED Visit Note ED Physician Sign Out Note: 65 yr old female with colonoscopy 4 days ago arrived with continued abdominal pain and discomfort left abdomen. Initial work-up and evaluation by Dr Bird. Initial CT read concern for perforation/abscess however requested rectal contrast admission. Signed out to me pending this second CT a/p with rectal contrast. Repeat CT notes concern for neoplasm. Patient just had Colonscopy with no report of concern for neoplasm. I am concerned that what is being read as neoplasm is actually perforation with abscess. Gen Surg evaluated patient and are equally concerned. We will start IV abx, given fluids, keep NPO and admit. Given complex PMH hospitalist consulted for admission. I ordered pre-op labs/i maging/xray as well. Per My Interpretation: Indication Pre-Op: NSR 85 bpm, qtc 461. No Ectopy. No Ischemia. Compared to EKG 08/11/17, no significant changes. Thor Hanson MD
--- NOTE | 2021-04-13 02:47 | Emergency Department Note ---
History of Present Illness General Chief complaint: GI Assessment Stated complaint: STOMACH PAINS Time Seen by Provider: 04/12/21 23:44 History of Present Illness Maximum Pain Intensity: 8 65-year-old female who presents to the ED with a chief complaint of lower abdominal pain on the left. Her symptoms started after a colonoscopy. The patient states that she had some associated nausea. Her pain is worse with pushing on the area. No vomiting. No diarrhea. No blood in the stools. No additional complaints at this time. Nothing makes her symptoms better. The patient's colonoscopy was normal. Home Medications Medication Instructions Recorded Confirmed Type albuterol sulfate 90 mcg/actuation 2 puffs INHALATION Q4H PRN gm 03/27/19 04/13/21 History aerosol inhaler mometasone-formoterol HFA 200 2 puffs INHALATION BID gm 03/27/19 04/13/21 History mcg-5 mcg/actuation aerosol inhaler famotidine 20 mg tablet (Pepcid) 20 mg PO PM 09/25/19 04/13/21 History tiotropium bromide 2.5 2 puff INHALATION QAM #3 inhaler 11/12/20 04/13/21 Rx mcg/actuation mist for inhalation (Spiriva Respimat) acetaminophen 500 mg tablet 500 - 1,000 mg PO Q6H PRN 04/13/21 04/13/21 History (Tylenol Extra Strength) atorvastatin 10 mg tablet 10 mg PO DAILY 04/13/21 04/13/21 History esomeprazole magnesium 20 mg 20 mg PO BID 04/13/21 04/13/21 History capsule,delayed release lisinopril 5 mg tablet 5 mg PO DAILY 04/13/21 04/13/21 History Allergies Allergy/AdvReac Type Severity Reaction Status Date / Time latex Allergy Mild blisters Verified 04/13/21 01:21 amoxicillin AdvReac Mild DIARRHEA Verified 04/13/21 01:21 levofloxacin AdvReac Mild Erythema Verified 04/13/21 01:21 at IV site Past Med/Surg History Medical History Abdominal pain COPD (chronic obstructive pulmonary disease) inhaler daily/prn GERD (gastroesophageal reflux disease) History of anesthesia reaction DIFFICULT TO AWAKEN, N/V History of nicotine dependence History of osteoporosis HTN (hypertension) Pulmonary emphysema Severely underweight adult only weighs 69lbs Surgical History H/O colonoscopy H/O: hysterectomy History of cardiac cath NEGATIVE OG 2015- DR. WEST History of cataract surgery BOTH EYES History of esophagogastroduodenoscopy (EGD) (~07/08/20) Family History Mother Hypertension Sister Epilepsy Family history of reaction to anesthesia nausea/vomiting, difficulty waking Family/Other Osteoporosis Social History Smoking Status: Current every day smoker Age Started Using Tobacco: 13; packs per day: 1.0; Years Smoked: 51; Cigarettes Per Day: less than 20 a day; Second Hand Exposure: No; Hx Alcohol Use: No Hx Substance Use: No Preferred Language: Yoruba Communication Ability: Effective Associate Professor Of English Required: No Beliefs That Will Affect Care: None Current Living Situation: Spouse Feels Safe at Home: Yes Assistive Devices: Denture - Upper and Glasses Review of Systems A total of 10 systems reviewed and were otherwise negative Physical Exam Vital Signs Vital Signs - 24 hr 04/12/21 22:49 04/12/21 23:26 04/12/21 23:30 Temperature 37.5 C 37.1 C Temperature Source Temporal Artery Scan Oral Pulse Rate 98 H 87 Pulse Rate [Right Finger] 88 Pulse Rate from SpO2 Sensor Pulse Rhythm [Right Finger] Regular Pulse Strength [Right Finger] Normal Respiratory Rate 20 18 24 Respiratory Effort / Characteristics Non-Labored Spontaneous Non-Labored Spontaneous Respiratory Depth Normal Normal Respiratory Pattern Regular Regular Blood Pressure 177/89 H 168/84 H Blood Pressure [Left Arm] 181/88 H Blood Pressure Mean 118 112 Blood Pressure Mean [Left Arm] 119 Blood Pressure Position [Left Arm] Sitting Pulse Oximetry 93 93 94 Oxygen Delivery Method Room Air Room Air Sepsis Recent Fever Within 48 Hours No Sepsis New/Unexplained Change in Mental Status No Sepsis Action Taken by Nursing No Action Required 04/12/21 23:54 04/13/21 00:00 04/13/21 00:37 Temperature Temperature Source Pulse Rate 88 93 H Pulse Rate [Right Finger] Pulse Rate from SpO2 Sensor 88 93 H Pulse Rhythm [Right Finger] Pulse Strength [Right Finger] Respiratory Rate 21 22 Respiratory Effort / Characteristics Respiratory Depth Respiratory Pattern Blood Pressure 191/81 H Blood Pressure [Left Arm] Blood Pressure Mean 117 Blood Pressure Mean [Left Arm] Blood Pressure Position [Left Arm] Pulse Oximetry 95 94 93 Oxygen Delivery Method Room Air Sepsis Recent Fever Within 48 Hours Sepsis New/Unexplained Change in Mental Status Sepsis Action Taken by Nursing 04/13/21 01:00 04/13/21 01:30 Temperature Temperature Source Pulse Rate 89 Pulse Rate [Right Finger] Pulse Rate from SpO2 Sensor 89 87 Pulse Rhythm [Right Finger] Pulse Strength [Right Finger] Respiratory Rate 24 20 Respiratory Effort / Characteristics Respiratory Depth Respiratory Pattern Blood Pressure 174/82 H 192/94 H Blood Pressure [Left Arm] Blood Pressure Mean 112 126 Blood Pressure Mean [Left Arm] Blood Pressure Position [Left Arm] Pulse Oximetry 94 93 Oxygen Delivery Method Sepsis Recent Fever Within 48 Hours Sepsis New/Unexplained Change in Mental Status Sepsis Action Taken by Nursing CONSTITUTIONAL/VITAL SIGNS: Reviewed / noted above. GENERAL: Non-toxic in appearance. INTEGUMENTARY: Warm, dry, and [place]. HEAD: Normocephalic. EYES: without scleral icterus or trauma. ENT/OROPHARYNX: clear and moist. LYMPHADENOPATHY/NECK: Is supple without lymphadenopathy or meningismus. RESPIRATORY: Clear to auscultation bilaterally. No increased work of breathing. CARDIOVASCULAR: Regular rate and rhythm. GI/ABDOMEN: Soft and tender in the left lower quadrant. No organomegaly or pulsatile mass. EXTREMITIES: Warm and well perfused. BACK: No CVA tenderness. NEUROLOGICAL: Intact without focal deficits. PSYCHIATRIC: normal affect. MUSCULOSKELETAL: Normally developed with good muscle tone. TRIAGE NURSING DOCUMENTATION REVIEWED. Course Administered Medications Discontinued Medications Sodium Chloride (Nss) 500 mls @ 999 mls/hr IV .Q31M STA Stop: 04/13/21 00:22 Last Infusion: 04/13/21 00:36 Dose: 0 mls/hr Documented by: [id number] Admin: 04/12/21 23:59 Dose: 999 mls/hr Documented by: [id number] Ioversol (Optiray 320 100ml) 100 ml IV ONCE ONE Stop: 04/13/21 00:48 Last Admin: 04/13/21 00:48 Dose: 93 ml Documented by: [id number] Ondansetron HCl (Ondansetron Inj 2 Mg/Ml 2 Ml Vial) 4 mg IV NOW STA Stop: 04/12/21 23:53 Last Admin: 04/12/21 23:59 Dose: 4 mg Documented by: [id number] Medical Decision Making Differential Diagnosis Differential considered: pancreatitis, hepatitis, acute cholecystitis, AAA, UTI, pyelonephritis, kidney stones, appendicitis, diverticulitis, shingles, bowel obstruction, mesenteric ischemia, intussusception,hernia. Medical Records Attestation: I reviewed the patient's medical records. Home Medications Current Medication List: was personally reviewed by me Laboratory Data Attestation: I reviewed the patient's lab results. Result diagrams: 04/12/21 23:25 04/12/21 23:25 Lab Results 04/12/21 04/12/21 04/12/21 Range/Units 23:20 23:25 23:25 WBC 11.10 H (4.8-10.8) K/uL RBC 5.22 (4.2-5.4) M/uL Hgb 13.9 (12.0-16.0) g/dL Hct 42.5 (37-47) % MCV 81.4 (80-100) fL MCH 26.6 (25-34) pg MCHC 32.7 (32-36) g/dL RDW Std Deviation 50.1 H (36.4-46.3) fL RDW Coeff of Millicent 16.8 H (11.5-14.5) % Plt Count 337 (130-400) K/uL MPV 9.8 (7.4-10.4) fL Immature Gran % (Auto) 0.3 % Neut % (Auto) 83.4 % Lymph % (Auto) 6.7 % [place] % (Auto) 8.2 % Eos % (Auto) 1.2 % Baso % (Auto) 0.2 % Neut # (Auto) 9.27 H (1.4-6.5) K/uL Lymph # (Auto) 0.74 L (1.2-3.4) K/uL [place] # (Auto) 0.91 H (0.11-0.59) K/uL Eos # (Auto) 0.13 (0-0.5) K/uL Baso # (Auto) 0.02 (0-0.2) K/uL Immature Gran # (Auto) 0.03 H (0.00-0.02) K/uL Sodium 139 (136-145) mmol/L Potassium (3.5-5.1) mmol/L Chloride 106 (98-107) mmol/L Carbon Dioxide 24 (21-32) mmol/L Anion Gap 9.0 (3-11) BUN 8 (7-18) mg/dl Creatinine 0.59 L (0.6-1.2) mg/dl Est Cr Clr Drug Dosing 46.5 ml/min Est GFR ( Amer) 111.5 ml/min Est GFR (Non-Af Amer) 96.2 ml/min BUN/Creatinine Ratio 13.2 (10-20) Glucose 93 (70-99) mg/dl Calcium 9.0 (8.5-10.1) mg/dl Total Bilirubin 0.6 (0.2-1) mg/dl AST (15-37) U/L ALT 15 (12-78) U/L Alkaline Phosphatase 81 (45-117) U/L Total Protein 7.3 (6.4-8.2) gm/dl Albumin 3.2 L (3.4-5.0) gm/dl Globulin 4.1 H (2.5-4.0) gm/dl Albumin/Globulin Ratio 0.8 L (0.9-2) Lipase 121 (73-393) U/L Urine Color Yellow Urine Appearance Clear (Clear) Urine pH 7.5 (4.5-7.5) Ur Specific [place] 1.012 (1.000-1.030) Urine Protein Trace H (Negative) Urine Glucose (UA) Negative (Negative) Urine Ketones 1+ H (Negative) Urine Blood Negative (Negative) Urine Nitrite Negative (Negative) Urine Bilirubin Negative (Negative) Urine Urobilinogen Negative (Negative) Ur Leukocyte Esterase Negative (Negative) Urine WBC (Auto) 0 (0-5) /hpf Urine RBC (Auto) 0-4 (0-4) /hpf U Hyaline Cast (Auto) 1-5 (0-5) /lpf U Epithel Cells (Auto) 5-10 H (0-5) /lpf Urine Bacteria (Auto) Negative (Negative) Imaging Data Radiologist's Impression: CT scan of the abdomen pelvis with IV contrast. Thickened irregular descending colon on the left lower quadrant. 4 cm irregular shaped fluid containing structure with some gas bubbles. May be part of the descending colon versus an abscess adjacent to the descending colon. Recommended a study with rectal contrast to help delineate structures. MDM Narrative Patient presents with some left lower quadrant abdominal pain following colonoscopy on . CT scan as noted above. CBC and chemistry panel was unremarkable. Urine did not show infection. A CT scan with rectal contrast was ordered. This was signed out to Dr. Hanson. Impression & Plan Abdominal pain, LLQ Discharge Plan Visit Data Chief Complaint: GI Assessment Stated Complaint: STOMACH PAINS ED Provider: Addi Bird Discharge Problem: Abdominal pain, LLQ Forms Stand Alone Forms: [facility] [place] [employer] Prescriptions Prescriptions: No Action famotidine [Pepcid] 20 mg tablet 20 mg PO PM RF: 0 mometasone-formoterol 200-5 mcg/actuation HFA aerosol inhaler 2 puffs inhalation BID RF: 0 albuterol sulfate 90 mcg/actuation HFA aerosol inhaler 2 puffs inhalation Q4H PRN (Reason: shortness of breath or wheezing) RF: 0 Spiriva Respimat 2.5 mcg/actuation mist 2 puff inhalation QAM Qty: 3 RF: 1 atorvastatin 10 mg tablet 10 mg PO DAILY RF: 0 acetaminophen [Tylenol Extra Strength] 500 mg Tablet 500 - 1,000 mg PO Q6H PRN (Reason: Pain) RF: 0 lisinopril 5 mg tablet 5 mg PO DAILY RF: 0 esomeprazole magnesium 20 mg capsule,delayed release(DR/EC) 20 mg PO BID RF: 0 Referrals Referrals: Ana Park MD [Primary Care Provider] -
[2021-04-13] MEDS ORDERED: fentaNYL citrate 100 MCG/2 ML VIAL IV STA (04:05)
[2021-04-13] MEDS ORDERED: PIPERACILLIN/TAZOBACTAM 4.5 GM/120 ML BAG IV ONE (04:57)
[2021-04-13] MEDS ORDERED: PIPERACILL/TAZOBAC CONSULT ACTIVE PRN (04:57)
[2021-04-13] MEDS ORDERED: SODIUM CHLORIDE 0.9% 1000ML 1,000 ML IV SCH (05:15)
--- NOTE | 2021-04-13 05:25 | Surgery Consultation ---
Date of Consultation April 13, 2021 Assessment & Plan (1) Abdominal pain, LLQ: Due to the patient's abdominal pain to be admitted to the hospital. Certainly there is concern the patient has a colonic perforation with intra- abdominal abscess. We will proceed as follows: -Due to the patient's underlying medical comorbidities we will asked the hospitalist to admit the patient -We are currently awaiting the CT scan with rectal contrast for a more definitive delineation if the patient does indeed have a perforation and abscess -We will keep the patient n.p.o. -We will hydrate the patient with IV fluids -We will provide antibiotics. Zosyn has been initiated -A Covid test has been performed which is pending -We will check a baseline EKG -We will check a baseline chest x-ray -We will repeat a PRP as the patient's potassium was hemolyzed -We will check a lactic acid level I discussed the case with my attending physician Dr. Gillette. He agrees with the above plan and who will arrive shortly to personally review the CAT scan and discuss potential treatment options with this patient which may include conservative measures with fluids and antibiotics, potential drainage of abscess with interventional radiology, or potential surgical intervention. pt seen. relatively comfortable. LLQ specific discomfort. no peritonitis. +BM just this AM. vss. afebrile. no peritoneal signs reviewed CT with Drs. Russ and Francisca. no major free air...likely micro perforation with approx 3-4 cm abcess....not amenable to IR drainage. I do not believe she needs emergent OR...would like to try conservative approach similar to a diverticular abcess....will keep npo/ivf/antibiotics....if worsens may need laparoscopic washout vs knight's procedure. medicine to admit. will follow along closely. History of Present Illness Reason for Consultation: Colon perforation with abscess History of Present Illness This is a 65-year-old female who presented to [facility] emergency department secondary to abdominal pain. Patient notes that approximately 4 days ago she underwent a routine screening colonoscopy. She verified that this colonoscopy was a screening colonoscopy was not done to any underlying problems or pathology. The colonoscopy port was reviewed and patient's entire colon and rectal exam were noted to be normal. No biopsies were taken no polyps were excised. Patient notes that following her colonoscopy she immediately had pain in her upper abdomen following the procedure. Patient was ultimately discharged home and over the ensuing time since today's presentation she noted worsening abdominal pain. She notes that the pain does not radiate. She says it the pain is worse with moving and is slightly better when she lies still but no other palliative or provocative factors are identified. She has had nausea without vomiting. She notes that since her procedure she has introduced solid foods back in her diet but she has not had a bowel movement since her procedure. She denies any fevers, shakes, chills. Because of her worsening abdominal pain she presented to the emergency department. It is noteworthy to mention that the patient has had prior abdominal surgery in the form of a hysterectomy. In the emergency department patient did have labs and imaging which I independently reviewed. She did have a CT scan of the abdomen pelvis that did show concern for potential fluid-containing structure with gas bubbles in the descending colon. This was felt to potentially represent a small perforation and a potential abscess. She also had labs were CBC revealed her white blood cell count was 11.1. Her hemoglobin, hematocrit, and platelet count were all within the normal range. A chemistry profile showed her sodium was within the normal range. Her BUN was within normal range and her creatinine was actually low at 0.5. Potassium levels unable to be obtained as the specimen was reported to be hemolyzed. Urinalysis was not indicative of infection. A Covid test has been performed and is pending. As the interpreting radiologist could not definitively say if the patient had a perforation or abscess who suggested the patient undergo a CT scan with rectal contrast which was performed and is pending. I did question the patient about her activities of daily living. Patient notes that she is a current every day smoker smoking less than half pack a day but at her where she did smoke up to 2 pack cigarettes per day. She says that she is active at home able to walk around her house and yard which is limited by shortness of breath which is a chronic condition. She specifically denies any chest pain with her activities of daily living. At the time of my interview the patient was resting comfortably in bed. She did have some abdominal pain but was in no overt distress. Allergies Allergy/AdvReac Type Severity Reaction Status Date / Time latex Allergy Mild blisters Verified 04/13/21 01:21 amoxicillin AdvReac Mild DIARRHEA Verified 04/13/21 01:21 levofloxacin AdvReac Mild Erythema Verified 04/13/21 01:21 at IV site Home Medications Medication Instructions Recorded Confirmed Type albuterol sulfate 90 mcg/actuation 2 puffs INHALATION Q4H PRN gm 03/27/19 04/13/21 History aerosol inhaler mometasone-formoterol HFA 200 2 puffs INHALATION BID gm 03/27/19 04/13/21 History mcg-5 mcg/actuation aerosol inhaler famotidine 20 mg tablet (Pepcid) 20 mg PO PM 09/25/19 04/13/21 History tiotropium bromide 2.5 2 puff INHALATION QAM #3 inhaler 11/12/20 04/13/21 Rx mcg/actuation mist for inhalation (Spiriva Respimat) acetaminophen 500 mg tablet 500 - 1,000 mg PO Q6H PRN 04/13/21 04/13/21 History (Tylenol Extra Strength) atorvastatin 10 mg tablet 10 mg PO DAILY 04/13/21 04/13/21 History esomeprazole magnesium 20 mg 20 mg PO BID 04/13/21 04/13/21 History capsule,delayed release lisinopril 5 mg tablet 5 mg PO DAILY 04/13/21 04/13/21 History Patient History Medical History Abdominal pain COPD (chronic obstructive pulmonary disease) inhaler daily/prn GERD (gastroesophageal reflux disease) History of anesthesia reaction DIFFICULT TO AWAKEN, N/V History of nicotine dependence History of osteoporosis HTN (hypertension) Pulmonary emphysema Severely underweight adult only weighs 69lbs Surgical History H/O colonoscopy H/O: hysterectomy History of cardiac cath NEGATIVE [place] 2014- DR. 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 Required: No Beliefs That Will Affect Care: None Current Living Situation: Spouse Feels Safe at Home: Yes Assistive Devices: Denture - Upper and Glasses Review of Systems Constitutional: no fever and no chills Eyes: no diplopia Ear, Nose, Mouth, Throat: no ear pain Respiratory: no cough Cardiovascular: no chest pain Gastrointestinal: + abdominal pain and + nausea; no vomiting Genitourinary: no dysuria Musculoskeletal: no back pain Integumentary: no rash Neurologic: no localized weakness Physical Exam Constitutional: + thin; no acute distress Eyes: no corneal abnormality ENMT: Ears: no hearing impairment Mouth: no lip abnormality Neck: trachea midline Respiratory: normal respiratory effort; no respiratory distress and no labored breathing Cardiovascular: Rate/Rhythm: regular rate and regular rhythm Vessels: dorsalis pedis pulses present and radial pulses present Gastrointestinal (Abdomen): Patient's abdomen has slight distention. Her abdomen appears somewhat rigid. Bowel sounds are hypoactive to absent. Patient is tender to palpation in the right lower and left lower quadrants. The tenderness is greatest in the left lower quadrant. There is rebound tenderness with palpation noted in the left lower quadrant. The patient had a well-healed Pfannenstiel incision from previous hysterectomy. Musculoskeletal: No gross orthopedic abnormalities. No calf tenderness Skin: no rashes Neurologic: moves all extremities Results & Data ([facility] Vital Signs (Past 12 Hours) Vital Signs Temp Pulse Pulse Resp BP BP Pulse Ox 04/13/21 04:19 90 22 180/98 H 92 04/13/21 03:00 94 H 22 186/89 H 04/13/21 02:30 86 24 162/87 H 92 04/13/21 01:30 20 192/94 H 93 04/13/21 01:00 89 24 174/82 H 94 04/13/21 00:37 93 H 22 93 04/13/21 00:00 88 21 191/81 H 94 04/12/21 23:54 95 04/12/21 23:30 87 24 168/84 H 94 04/12/21 23:26 37.1 C 88 18 181/88 H 93 04/12/21 22:49 37.5 C 98 H 20 177/89 H 93 PG Care Time/CCT Total # of Minutes Spent Total Time Spent with Patient: Total time spent is greater than 50% in coordination of care (as documented) at patient's floor/unit and/or counseling patient: Coding Level of Care Code 37051 Inpt Consult Level 5 Diagnoses Abdominal pain, LLQ R10.32
[2021-04-13 05:44] LABS: Basophils # (auto) 0.02 K/uL (0-0.2); Basophils % (auto) 0.2 %; Eosinophils # (auto) 0.08 K/uL (0-0.5); Eosinophils % (auto) 0.7 %; Hematocrit (blood only) 40.7 % (37-47); Hemoglobin 13.3 g/dL (12.0-16.0); Immature Granulocytes # (auto) 0.03 K/uL (0.00-0.02); Immature Granulocytes % (auto) 0.3 %; Lymphocytes # (auto) 0.73 K/uL (1.2-3.4); Lymphocytes % (auto) 6.7 %; Mean Corpuscular Hemoglobin 26.6 pg (25-34); Mean Corpuscular Hgb Conc 32.7 g/dL (32-36); Mean Corpuscular Volume 81.4 fL (80-100); Mean Platelet Volume 9.1 fL (7.4-10.4); Monocytes # (auto) 0.79 K/uL (0.11-0.59); Monocytes % (auto) 7.2 %; Neutrophils # (auto) 9.29 K/uL (1.4-6.5); Neutrophils % (auto) 84.9 %; Platelet Count 315 K/uL (130-400); RDW Coefficient of Variation 16.7 % (11.5-14.5); RDW Standard Deviation 50.2 fL (36.4-46.3); White Blood Count 10.94 K/uL (4.8-10.8)
[2021-04-13] MEDS ORDERED: hydrALAZINE HCL 20 MG/ML VIAL IV STA (05:47)
[2021-04-13 05:56] LABS: Partial Thromboplastin Time 26.8 Seconds (21.0-31.0); Prothrombin Time 10.2 Seconds (9.0-12.0)
[2021-04-13 06:02] LABS: BUN Creatinine Ratio 10.9 (10-20); Calcium 8.4 mg/dl (8.5-10.1); Creatinine Clr Calc Pharmacy 43.6 ml/min; Est GFR (African American) 109.1 ml/min; Est GFR (Non-African American) 94.1 ml/min; Potassium 3.6 mmol/L (3.5-5.1)
[2021-04-13 06:12] LABS: Thyroid Stimulating Hormone 0.503 uIu/ml (0.300-4.500)
--- NOTE | 2021-04-13 06:17 | History & Physical Report ---
Date of Service April 13, 2021 Assessment & Plan (1) Asymptomatic hypertensive urgency: Plan: Secondary to abdominal pain from possible intra-abdominal abscess on initial CT read Possible colon perforation, recent outpatient colonoscopy COPD, pulmonary status at baseline ongoing tobacco abuse GERD, stable on regimen Malnutrition (low BMI) Medical telemetry given uncontrolled BP Analgesia IV Hydralazine as needed SBP > 160 while patient strictly n.p.o. due to concerns for bowel perforation Bowel rest, Zosyn Follow official CT read Surgery consult Re: Abnormal CT abdomen pelvis (Patient already seen at the ER by surgery provider spinneret person.) Nutrition consult once patient diet advanced for low BMI DVT prophylaxis. Heparin subcu Full code Text document was generated using [employer] voice recognition software. It may contain grammatical or spelling errors. Kindly contact undersigned for clarification of any documentation item in question. History of Present Illness Chief Complaint: Abdominal pain Primary Care Provider: Ana Park MD History obtained from patient, family, and records. Medical history significant for hypertension, hyperlipidemia, COPD, ongoing tobacco abuse, GERD. Last confinement 2016 for COPD exacerbation. Patient underwent outpatient surveillance colonoscopy at [facility] 4 days ago. Patient has history of adenomatous polyps and family history of colon cancer. Normal colon as per report. Hemorrhoids noted. Postprocedure, patient noted achy lower abdominal pain more on the left which patient found unusual. No fever no chills. No BM. Some nausea, no emesis. Patient denies chest pain, S OB, headache symptoms. Patient consulted ER last night for worsening symptoms. IV Zosyn given at the ER for a possible intra-abdominal abscess on CT initial read. 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 Allergies Allergy/AdvReac Type Severity Reaction Status Date / Time latex Allergy Mild blisters Verified 04/13/21 01:21 amoxicillin AdvReac Mild DIARRHEA Verified 04/13/21 01:21 levofloxacin AdvReac Mild Erythema Verified 04/13/21 01:21 at IV site Home Medications Medication Instructions Recorded Confirmed Type albuterol sulfate 90 mcg/actuation 2 puffs INHALATION Q4H PRN gm 03/27/19 04/13/21 History aerosol inhaler mometasone-formoterol HFA 200 2 puffs INHALATION BID gm 03/27/19 04/13/21 History mcg-5 mcg/actuation aerosol inhaler famotidine 20 mg tablet (Pepcid) 20 mg PO PM 09/25/19 04/13/21 History tiotropium bromide 2.5 2 puff INHALATION QAM #3 inhaler 11/12/20 04/13/21 Rx mcg/actuation mist for inhalation (Spiriva Respimat) acetaminophen 500 mg tablet 500 - 1,000 mg PO Q6H PRN 04/13/21 04/13/21 History (Tylenol Extra Strength) atorvastatin 10 mg tablet 10 mg PO DAILY 04/13/21 04/13/21 History esomeprazole magnesium 20 mg 20 mg PO BID 04/13/21 04/13/21 History capsule,delayed release lisinopril 5 mg tablet 5 mg PO DAILY 04/13/21 04/13/21 History Past Med/Surg History Medical History Abdominal pain COPD (chronic obstructive pulmonary disease) inhaler daily/prn GERD (gastroesophageal reflux disease) History of anesthesia reaction DIFFICULT TO AWAKEN, N/V History of nicotine dependence History of osteoporosis HTN (hypertension) Pulmonary emphysema Severely underweight adult only weighs 69lbs Surgical History H/O colonoscopy H/O: hysterectomy History of cardiac cath NEGATIVE OG 2014- DR. WEST History of cataract surgery BOTH EYES History of esophagogastroduodenoscopy (EGD) (~07/08/20) Family History Mother Hypertension Sister Epilepsy Family history of reaction to anesthesia nausea/vomiting, difficulty waking Family/Other Osteoporosis Social History Smoking Status: Current every day smoker Age Started Using Tobacco: 13; packs per day: 1.0; Years Smoked: 51; Cigarettes Per Day: less than 20 a day; Second Hand Exposure: No; Hx Alcohol Use: No Hx Substance Use: No Preferred Language: Moldovan Communication Ability: Effective Senior Principal Software Engineer Required: No Beliefs That Will Affect Care: None Current Living Situation: Spouse Feels Safe at Home: Yes Assistive Devices: Denture - Upper and Glasses Review of Systems Review of Systems: As per HPI, all 10 systems reviewed, all other ROS negative Physical Exam Physical Exam: GENERAL: Comfortable, underweight, no respiratory distress SKIN: Normal color, warm HEENT: Bespectacled, Martorell palpebral conjunctivae, no ptosis, dry buccal mucosa NECK : Supple, no tenderness CHEST : Decreased breath sounds, no tenderness HEART : RRR, no obvious murmurs ABDOMEN: Some distention, Hypogastric tenderness EXTREMITIES : No LE swelling/tenderness, no other conspicuous deformities noted NEUROLOGIC : Coherent, no facial asymmetry, no other gross focality Results & Data Results & Data ([facility]) Vital Signs (Past 12 Hours) Vital Signs Temp Pulse Pulse Resp BP BP Pulse Ox 04/13/21 05:30 87 22 174/90 H 93 04/13/21 05:20 85 20 178/102 H 93 04/13/21 05:00 94 H 24 189/94 H 94 04/13/21 04:30 86 18 179/88 H 91 04/13/21 04:19 90 22 180/98 H 92 04/13/21 03:00 94 H 22 186/89 H 04/13/21 02:30 86 24 162/87 H 92 04/13/21 01:30 20 192/94 H 93 04/13/21 01:00 89 24 174/82 H 94 04/13/21 00:37 93 H 22 93 04/13/21 00:00 88 21 191/81 H 94 04/12/21 23:54 95 04/12/21 23:30 87 24 168/84 H 94 04/12/21 23:26 37.1 C 88 18 181/88 H 93 04/12/21 22:49 37.5 C 98 H 20 177/89 H 93 Laboratory Results Laboratory Results WBC 10.94 K/uL (4.8-10.8) H 04/13/21 05:33 RBC 5.00 M/uL (4.2-5.4) 04/13/21 05:33 Hgb 13.3 g/dL (12.0-16.0) 04/13/21 05:33 Hct 40.7 % (37-47) 04/13/21 05:33 MCV 81.4 fL (80-100) 04/13/21 05:33 MCH 26.6 pg (25-34) 04/13/21 05:33 MCHC 32.7 g/dL (32-36) 04/13/21 05:33 RDW Std Deviation 50.2 fL (36.4-46.3) H 04/13/21 05:33 RDW Coeff of Millicent 16.7 % (11.5-14.5) H 04/13/21 05:33 Plt Count 315 K/uL (130-400) 04/13/21 05:33 MPV 9.1 fL (7.4-10.4) 04/13/21 05:33 Immature Gran % (Auto) 0.3 % 04/13/21 05:33 Neut % (Auto) 84.9 % 04/13/21 05:33 Lymph % (Auto) 6.7 % 04/13/21 05:33 Rankin % (Auto) 7.2 % 04/13/21 05:33 Eos % (Auto) 0.7 % 04/13/21 05:33 Baso % (Auto) 0.2 % 04/13/21 05:33 Neut # (Auto) 9.29 K/uL (1.4-6.5) H 04/13/21 05:33 Lymph # (Auto) 0.73 K/uL (1.2-3.4) L 04/13/21 05:33 Rankin # (Auto) 0.79 K/uL (0.11-0.59) H 04/13/21 05:33 Eos # (Auto) 0.08 K/uL (0-0.5) 04/13/21 05:33 Baso # (Auto) 0.02 K/uL (0-0.2) 04/13/21 05:33 Immature Gran # (Auto) 0.03 K/uL (0.00-0.02) H 04/13/21 05:33 PT 10.2 Seconds (9.0-12.0) 04/13/21 05:33 INR 1.0 (0.9-1.1) 04/13/21 05:33 APTT 26.8 Seconds (21.0-31.0) 04/13/21 05:33 PTT Ratio 1.0 04/13/21 05:33 Sodium 136 mmol/L (136-145) 04/13/21 05:33 Potassium 3.6 mmol/L (3.5-5.1) 04/13/21 05:33 Chloride 108 mmol/L (98-107) H 04/13/21 05:33 Carbon Dioxide 26 mmol/L (21-32) 04/13/21 05:33 Anion Gap 2.0 (3-11) L 04/13/21 05:33 BUN 7 mg/dl (7-18) 04/13/21 05:33 Creatinine 0.63 mg/dl (0.6-1.2) 04/13/21 05:33 Est Cr Clr Drug Dosing 43.6 ml/min 04/13/21 05:33 Est GFR ( Amer) 109.1 ml/min 04/13/21 05:33 Est GFR (Non-Af Amer) 94.1 ml/min 04/13/21 05:33 BUN/Creatinine Ratio 10.9 (10-20) 04/13/21 05:33 Glucose 109 mg/dl (70-99) H 04/13/21 05:33 Lactate 0.9 mmol/L (0.4-2.0) 04/13/21 05:33 Calcium 8.4 mg/dl (8.5-10.1) L 04/13/21 05:33 Magnesium 2.0 mg/dl (1.8-2.4) 04/13/21 05:33 Total Bilirubin 0.6 mg/dl (0.2-1) 04/12/21 23:25 AST U/L (15-37) 04/12/21 23:25 ALT 15 U/L (12-78) 04/12/21 23:25 Alkaline Phosphatase 81 U/L (45-117) 04/12/21 23:25 Total Protein 7.3 gm/dl (6.4-8.2) 04/12/21 23:25 Albumin 3.2 gm/dl (3.4-5.0) L 04/12/21 23:25 Globulin 4.1 gm/dl (2.5-4.0) H 04/12/21 23:25 Albumin/Globulin Ratio 0.8 (0.9-2) L 04/12/21 23:25 Lipase 121 U/L (73-393) 04/12/21 23:25 TSH 0.503 uIu/ml (0.300-4.500) 04/13/21 05:33 Urine Color Yellow 04/12/21 23:20 Urine Appearance Clear (Clear) 04/12/21 23:20 Urine pH 7.5 (4.5-7.5) 04/12/21 23:20 Ur Specific [place] 1.012 (1.000-1.030) 04/12/21 23:20 Urine Protein Trace (Negative) H 04/12/21 23:20 Urine Glucose (UA) Negative (Negative) 04/12/21 23:20 Urine Ketones 1+ (Negative) H 04/12/21 23:20 Urine Blood Negative (Negative) 04/12/21 23:20 Urine Nitrite Negative (Negative) 04/12/21 23:20 Urine Bilirubin Negative (Negative) 04/12/21 23:20 Urine Urobilinogen Negative (Negative) 04/12/21 23:20 Ur Leukocyte Esterase Negative (Negative) 04/12/21 23:20 Urine WBC (Auto) 0 /hpf (0-5) 04/12/21 23:20 Urine RBC (Auto) 0-4 /hpf (0-4) 04/12/21 23:20 U Hyaline Cast (Auto) 1-5 /lpf (0-5) 04/12/21 23:20 U Epithel Cells (Auto) 5-10 /lpf (0-5) H 04/12/21 23:20 Urine Bacteria (Auto) Negative (Negative) 04/12/21 23:20 COVID-19 Eval Order Covid19 at [facility] 04/13/21 05:[address] abdomen pelvis with IV contrast initial read: Querythickened irregular descending colon in the left lower quadrant. Approximately4 cmirregular shaped fluid containing structure with some gas bubbles. Maybe part of the descending colon versus an abscess adjacent to the descending colon. Difficult to followthe loops. mild adjacent fat stranding adjacent to the above described structure between the left psoas and iliacus musculature in the left pelvis. Series 2, images 38, 43 etc. Queryextraluminal gas bubble in this area. Series 2 image 45. DDX includes diverticulitis/malignancy/other etiologywith perforation and adjacent abscess. Alternativelyfluid containing structure maybe part of colonic loop. Recommend further workup. Studywith rectal contrast mayhelp to delineate structures. Hyperdense material/enhancement at the anorectal junction. Maycorrelate with hemorrhoids Emphysema CT of pelvis with oral contrast initial read: Concern for neoplasminvolving the inferior aspect of the descending colon as described. Follow-up with colonoscopyrecommended. Normal cardiac size. Emphysematous changeswith otherwise clear lung bases. Normal liver, gallbladder and biliarysystem. Normal spleen and visualized pancreas and bilateral adrenal glands. Normal bilateral kidneys. Unremarkable stomach. Nonspecific small bowel. The colon is distended with questionable area of marked narrowing along the descending colon raising the concern of the apple core lesion/neoplasm. This is seen on axial images 37 through 40, series 3 and 4 mm43 8 through 38, series 4. Calcified atherosclerotic disease of aorta. Contrast within the urinarybladder is normallydistended. Arectal tube in place. Multiple confluent small bowel loops in the posterior pelvis seen difficult to distinguish. EKG as per my interpretation rate 85, NSR, normal axis, T wave flattening septal leads, low voltage
[2021-04-13] MEDS ORDERED: POTASSIUM CHLORIDE 40 MEQ in SODIUM CHLORIDE 0.9% 1000ML 1,000 ML IV SCH (07:00)
--- NOTE | 2021-04-13 07:14 | CT Scan Report ---
CT SCAN OF THE ABDOMEN AND PELVIS WITH IV CONTRAST CLINICAL HISTORY: Generalized abdominal pain. Recent colonoscopy. COMPARISON STUDY: Abdominal CT dated 07/19/2015. TECHNIQUE: Following the IV administration of 93 cc of Optiray 320, CT scan of the abdomen and pelvi s is performed from the lung bases to the proximal femora. Images are reviewed in the axial, sagittal , and coronal planes. IV contrast was administered without complication. A dose lowering technique wa s utilized adhering to the principles of ALARA. CT DOSE: 226.57 mGy.cm FINDINGS: Lung bases: The heart is normal in size and without pericardial effusion. Advanced emphysematous bey ge is noted at the lung bases. There is no airspace consolidation or pleural effusion. Liver: The contrast-enhanced liver is normal in size, contour, and attenuation. There is no intrahepa tic biliary ductal dilatation. The hepatic veins and portal veins are patent. Gallbladder: Unremarkable. Spleen: Normal in size and attenuation. Pancreas: Unremarkable. Adrenal glands: Unremarkable. Kidneys: The contrast enhanced kidneys are normal in size and without hydronephrosis. The kidneys enh ance symmetrically. There is a 6 mm nonobstructing calculus noted on the right. Abdominal vasculature: The abdominal aorta is normal in course and caliber noting moderate atheroscle rotic calcification. Bowel: There is an approximately 2 x 4.5 x 4 cm gas and fluid containing collection seen along the po sterior aspect of the descending colon on image #189. This likely represents abscess. There is surrou nding inflammation and trace fluid. The adjacent colon appears inflamed and hyperemic. The upstream r ight colon is distended with gas and stool. The small bowel loops are normal in caliber. The appendix is not visualized. Peritoneum: A tiny focus of intraperitoneal free air are suggested within a left inguinal hernia on i mage #[id number]. An additional focus of intraperitoneal free air is suggested in the left lower quadrant on image #222. There is no abdominal ascites.. Lymphadenopathy: None. Pelvic viscera: The bladder is normal as visualized. The uterus is surgically absent. No adnexal lesi on is seen. Skeletal structures: The skeletal structures are osteopenic. Mild lumbosacral spondylosis is noted. T here is grade 1 anterolisthesis at L4-L5. No lytic or blastic lesions are seen. Soft tissues: The patient is cachectic. IMPRESSION: 1. There is a 4.5 cm gas and fluid containing collection seen along the posterior aspect of the desce nding colon typical in appearance for abscess. Additionally, there are tiny foci of intraperitoneal f ree air. Given the history of a recent colonoscopy the abscess is likely related to a contained perfo ration. Underlying mass lesion is considered much less likely. Correlate with the colonoscopy finding s. 2. The left colon is inflamed and hyperemic, and there is infiltration and trace fluid around the col lection. 3. The upstream colon is dilated and filled with gas/stool. This likely represents mild colonic obstr uction secondary to the perforation/abscess. The small bowel is normal in caliber. 4. Right-sided nephrolithiasis. 5. Advanced emphysema. 6. Additional findings as above. ACT 112: Negative or not required by law. Electronically signed by: Alexis Russ M.D. 04/13/2021 7:13 AM
--- NOTE | 2021-04-13 07:23 | CT Scan Report ---
CT SCAN OF THE ABDOMEN AND PELVIS WITHOUT IV CONTRAST CLINICAL HISTORY: Generalized abdominal pain. Recent colonoscopy. COMPARISON STUDY: Abdominal CT performed earlier the same day 04/13/2021. TECHNIQUE: Unenhanced CT scan of the abdomen and pelvis is performed from the lung bases to the proxi mal femora. Images are reviewed in the axial, sagittal, and coronal planes. IV contrast was not admin istered for this examination. Rectal contrast was utilized. A dose lowering technique was utilized ad jose raul to the principles of ALARA. CT DOSE: 235.02 mGy.cm FINDINGS: Lung bases: The heart is normal in size and without pericardial effusion. Advanced emphysematous bey ge is noted at the lung bases. There is no airspace consolidation or pleural effusion. Liver: The unenhanced liver is normal in size, contour, and attenuation. There is no intrahepatic zay iary ductal dilatation. Gallbladder: Unremarkable. Spleen: Normal in size and attenuation. Pancreas: Unremarkable. Adrenal glands: Unremarkable. Kidneys: The unenhanced kidneys are normal in size and without hydronephrosis. No evidence of contour deforming mass lesion is seen. The renal collecting system is filled with excreted IV contrast. A 6 mm nonobstructing calculus is again seen on the right. Abdominal vasculature: The abdominal aorta is normal in course and caliber noting moderate atheroscle rotic calcification. Bowel: A rectal tube is in place, and the left colon is well opacified with enteric contrast. Again s een is an approximately 2 x 4.5 x 4 cm gas and fluid containing collection seen along the posterior a spect of the descending colon adjacent to the left psoas muscle on image #[id number]. This likely represents abscess. There is surrounding inflammation and trace fluid. The adjacent colon appears is thick-wall ed and inflamed. The upstream right colon is distended with gas and stool. The small bowel loops are normal in caliber. The appendix is not visualized. Peritoneum: Small foci of intraperitoneal free air are seen in the left lower quadrant and within a l eft inguinal hernia. There is no abdominal ascites.. Lymphadenopathy: None. Pelvic viscera: The bladder is normal as visualized, and filled with excreted IV contrast. The uterus is surgically absent. No adnexal lesion is seen. Skeletal structures: The skeletal structures are osteopenic. Mild lumbosacral spondylosis is noted. T here is grade 1 anterolisthesis at L4-L5. No lytic or blastic lesions are seen. Soft tissues: The patient is cachectic. IMPRESSION: 1. Again seen is a 4.5 cm gas and fluid containing collection seen along the posterior aspect of the descending colon as detailed above typical in appearance for abscess. Additionally, there are tiny fo ci of intraperitoneal free air. Given the history of a recent colonoscopy the abscess is likely relat ed to a contained perforation. Underlying mass lesion is considered much less likely. Correlate with the colonoscopy findings. 2. The left colon is thick-walled and inflamed with surrounding infiltration and fluid. 3. The upstream colon is dilated and filled with gas/stool. This likely represents mild colonic obstr uction secondary to the perforation/abscess. The small bowel is normal in caliber. 4. Right-sided nephrolithiasis. 5. Advanced emphysema. 6. Additional findings as above. ACT 112: Negative or not required by law. Electronically signed by: Alexis Russ M.D. 04/13/2021 7:21 AM
[2021-04-13] MEDS ORDERED: PROMETHAZINE HCL 6.25 MG in SODIUM CHLORIDE 0.9% 50 ML IV PRN (09:17)
[2021-04-13] MEDS ORDERED: XOPENEX/ATROVENT 1.25mg/0.5MG NEB COMBO NEB PRN (09:17)
[2021-04-13] MEDS ORDERED: MoRPHine SULFATE 2 MG/ML CARP IV PRN (09:17)
[2021-04-13] MEDS: PANTOprazole 40 MG in SYRINGE 0 ML IV SCH ×2 (10:46→20:15)
[2021-04-13] MEDS: PIPERACILLIN/TAZOBACTAM 3.375 GM in DEXTROSE 5% 100 ML IV SCH ×2 (10:47→18:17)
[2021-04-13] MEDS: FLUTICASONE/VILANTEROL 200/25MCG 14 PUFFS/INHALER INH SCH (10:49)
[2021-04-13] MEDS: SODIUM CHLORIDE 0.9% 500 ML IV SCH ×3 (11:10→19:02)
--- NOTE | 2021-04-13 11:44 | XRay Report ---
XR chest 1V portable CLINICAL HISTORY: pre-op COMPARISON STUDY: August 09, 2017 FINDINGS: No pneumothorax. No pleural effusion. No large infiltrates or consolidative lesions are seen. Lung volumes are increased with flattening of right and left hemidiaphragm. Few linear densities are seen at the left base which is unchanged sinc e 2017 and likely represent scarring. Cardiomediastinal silhouette is within normal limits in size. No significant pulmonary vascular congestion.. Osseous structures: unremarkable IMPRESSION: 1. COPD pattern. ACT 112: Negative or not required by law. The above report was generated using voice recognition software. It may contain grammatical, syntax o r spelling errors. Electronically signed by: Blanca Solis DO 04/13/2021 11:43 AM
--- NOTE | 2021-04-13 12:41 | Electrocardiogram Report ---
Test Reason : Blood Pressure : / mmHG Vent. Rate : 085 BPM Atrial Rate : 086 BPM P-R Int : 124 ms QRS Dur : 098 ms QT Int : 388 ms P-R-T Axes : 073 070 068 degrees QTc Int : 461 ms Normal sinus rhythm Normal ECG When compared with ECG of 11-AUG-2017 06:34, QT has lengthened Confirmed by Kendrick Gutiérrez ([id number]) on 04/13/2021 12:41:25 PM Referred By: REFERRED SELF Confirmed By:Kendrick Gutiérrez
[2021-04-13] MEDS: ACETAMINOPHEN 65 ML IV PRN ×2 (12:54→22:30)
[2021-04-13] MEDS: HEPARIN SOD 5,000 UNIT/0.5 ML VIAL SQ SCH ×2 (14:18→21:44)
[2021-04-13] MEDS: IPRATROPIUM BROMIDE NEB SOLN 0.02% 2.5 ML VIAL INH PRN ×2 (15:30→21:48)
[2021-04-13] MEDS: LEVALBUTEROL 1.25MG/0.5ML NEB INH PRN ×2 (15:30→21:48)
--- NOTE | 2021-04-13 15:47 | Communication Note ---
Date of Service: April 13, 2021 Patient was seen and examined this morning. Reports currently her abdominal pain is better. Denies any nausea or vomiting. Denies any diarrhea. Continue conservative management. N.p.o. except meds. We will continue maintenance IV fluids. Continue with Zosyn. Surgery on board.
[2021-04-13] MEDS: POTASSIUM CHLORIDE 40 MEQ in SODIUM CHLORIDE 0.9% 1000ML 1,000 ML IV SCH ×2 (20:17→23:54)
[2021-04-13] MEDS ORDERED: traMADol HCL 50 MG TABLET PO PRN (22:42)
[2021-04-14] MEDS: PIPERACILLIN/TAZOBACTAM 3.375 GM in DEXTROSE 5% 100 ML IV SCH ×3 (01:05→17:28)
[2021-04-14] MEDS ORDERED: Nursing to Pharmacy Communication SCH (04:45)
[2021-04-14] MEDS: HEPARIN SOD 5,000 UNIT/0.5 ML VIAL SQ SCH ×3 (05:33→21:41)
[2021-04-14] MEDS: LEVALBUTEROL 1.25MG/0.5ML NEB INH PRN ×2 (05:40→16:20)
[2021-04-14] MEDS: IPRATROPIUM BROMIDE NEB SOLN 0.02% 2.5 ML VIAL INH PRN ×2 (05:40→16:21)
[2021-04-14 06:54] LABS: Basophils # (auto) 0.02 K/uL (0-0.2); Basophils % (auto) 0.3 %; Eosinophils # (auto) 0.09 K/uL (0-0.5); Eosinophils % (auto) 1.2 %; Hematocrit (blood only) 39.2 % (37-47); Hemoglobin 12.8 g/dL (12.0-16.0); Immature Granulocytes # (auto) 0.04 K/uL (0.00-0.02); Immature Granulocytes % (auto) 0.5 %; Lymphocytes # (auto) 0.93 K/uL (1.2-3.4); Lymphocytes % (auto) 12.4 %; Mean Corpuscular Hemoglobin 26.7 pg (25-34); Mean Corpuscular Hgb Conc 32.7 g/dL (32-36); Mean Corpuscular Volume 81.8 fL (80-100); Mean Platelet Volume 9.6 fL (7.4-10.4); Monocytes # (auto) 0.65 K/uL (0.11-0.59); Monocytes % (auto) 8.7 %; Neutrophils # (auto) 5.76 K/uL (1.4-6.5); Neutrophils % (auto) 76.9 %; Platelet Count 298 K/uL (130-400); RDW Coefficient of Variation 16.8 % (11.5-14.5); RDW Standard Deviation 50.6 fL (36.4-46.3); Red Blood Count 4.79 M/uL (4.2-5.4); White Blood Count 7.49 K/uL (4.8-10.8)
[2021-04-14 07:29] LABS: BUN Creatinine Ratio 11.9 (10-20); Calcium 8.5 mg/dl (8.5-10.1); Creatinine Clr Calc Pharmacy 48.2 ml/min; Est GFR (African American) 111.5 ml/min; Est GFR (Non-African American) 96.2 ml/min; Potassium 4.8 mmol/L (3.5-5.1)
[2021-04-14] MEDS ORDERED: DEXTROSE 50% 50 ML SYRINGE IV STA (07:34)
--- NOTE | 2021-04-14 08:23 | Surgery Progress Note ---
Date of Service April 14, 2021 Assessment & Plan (1) Perforation of colon as colonoscopy complication: Plan: doing well clinically wbc now normal. pain improved. afebrile will let her have clears.... consider repeat ct tomorrow or . Admission and Anticipated Discharge Date Admission Date: April 13, 2021 Subjective pt seen. abdominal pain improved. Physical Exam Constitutional: WD/WN, vitals as above no acute distress and not ill appear ing Eyes: PERRL, conjunctivae normal, anicteric sclerae EOM intact bilaterally ENMT: external ear and nose normal, oropharynx normal Ears: no hearing impairment Neck: trachea midline, no thyromegaly Respiratory: normal respiratory effort; no respiratory distress and does not use accessory muscles Cardiovascular: Rate/Rhythm: regular rate and regular rhythm Gastrointestinal (Abdomen): soft. mild LLQ ttp. no g/r/r. improved from yesterday. Skin: no rashes, warm and dry Psychiatric: Orientation: alert, oriented x 3 and cooperative Results & Data ([facility]) Vital Signs (Past 12 Hours) Vital Signs Temp Pulse Pulse Resp BP BP Pulse Ox 04/14/21 08:01 36.5 C 95 H 20 165/79 H 93 04/14/21 07:00 89 04/14/21 05:40 89 12 94 04/14/21 03:17 36.8 C 89 16 151/78 H 94 04/13/21 22:29 37 C 90 18 145/74 H 92 04/13/21 22:19 89 04/13/21 21:50 88 20 94 PG Care Time/CCT Total # of Minutes Spent Total Time Spent with Patient: Total time spent is greater than 50% in coordination of care (as documented) at patient's floor/unit and/or counseling patient: Coding Level of Care Code 99028 Subseq Hosp Care Lvl 3 Diagnoses Perforation of colon as colonoscopy complication K63.1; K91.71
[2021-04-14] MEDS: UMECLIDINIUM BROMIDE 62.5MCG/BLISTER 7 PUFFS/INHALER INH SCH (09:00)
[2021-04-14] MEDS: FLUTICASONE/VILANTEROL 200/25MCG 14 PUFFS/INHALER INH SCH (09:00)
[2021-04-14] MEDS: PANTOprazole 40 MG TAB PO SCH ×2 (09:01→21:39)
[2021-04-14] MEDS: lisinopril 5 MG TAB PO SCH (09:01)
[2021-04-14] MEDS: ATORVASTATIN 10 MG TAB PO SCH (09:01)
[2021-04-14] MEDS: ACETAMINOPHEN 325 MG TAB PO PRN ×2 (09:04→17:31)
[2021-04-14] MEDS: POTASSIUM CHLORIDE 40 MEQ in SODIUM CHLORIDE 0.9% 1000ML 1,000 ML IV SCH (10:20)
--- NOTE | 2021-04-14 12:03 | Hospitalist Progress Note ---
Date of Service April 14, 2021 Assessment & Plan (1) Asymptomatic hypertensive urgency: Plan: Secondary to abdominal pain from possible intra-abdominal abscess on initial CT read Possible colonic perforation with intra-abdominal abscess with recent colonoscopy Hypoglycemic this morning - resolved COPD, pulmonary status at baseline Ongoing tobacco abuse GERD, stable on regimen Malnutrition (low BMI) History of recent C. difficile Overall patient appears to be doing okay. Hemodynamically doing fine. WBC is within normal limit. Patient remains afebrile. Appreciate general surgery input. Continue conservative management. Plan for repeat CT tomorrow or as per surgery. Continue with Zosyn. Continue clear liquid diet. Discontinue IV fluids today. Will consult nutrition given low BMI. DVT prophylaxis. Heparin subcu Full code Text document was generated using [employer] voice recognition software. It may contain grammatical or spelling errors. Kindly contact undersigned for clarification of any documentation item in que stion. Admission and Anticipated Discharge Date Admission Date: April 13, 2021 Subjective Patient reports she is doing okay. However does have 5 out of 10 central abdominal pain. Patient denies any radiation. Denies any episodes of nausea or vomiting. Not had a bowel movement. Tolerating clear liquid diet. Patient was hypoglycemic this morning. Review of Systems Review of Systems: All systems reviewed & are unremarkable except as noted in HPI & below Physical Exam Physical Exam: General: A&Ox3 HENT: NCAT, MMM, EOMI Eyes: PERRLA Neck: Supple, normal range of motion CVS: normal rate and rhythm Resp: b/l good breath sounds Abdomen: Soft, nondistended, minimal central tenderness Extremities: No c/c/e Neuro: face symmetric, no focal deficit Skin: warm and dry, no rashes/lesions/errythema MSK: normal ROM, no joint swelling/erythema Results & Data Results & Data ([facility]) Vital Signs (Past 12 Hours) Vital Signs Temp Pulse Pulse Resp BP Pulse Ox 04/14/21 11:40 37.0 C 84 20 144/75 H 93 04/14/21 08:01 36.5 C 95 H 20 165/79 H 93 04/14/21 07:00 89 04/14/21 05:40 89 12 94 04/14/21 03:17 36.8 C 89 16 151/78 H 94
[2021-04-14] MEDS: FAMOTIDINE 20 MG TAB PO SCH (21:39)
[2021-04-15] MEDS ORDERED: hydrALAZINE HCL 20 MG/ML VIAL IV ONE ×2 (02:41→05:30)
[2021-04-15] MEDS: PIPERACILLIN/TAZOBACTAM 3.375 GM in DEXTROSE 5% 100 ML IV SCH ×4 (02:46→17:24)
[2021-04-15] MEDS: HEPARIN SOD 5,000 UNIT/0.5 ML VIAL SQ SCH ×3 (05:47→22:12)
[2021-04-15] MEDS: ACETAMINOPHEN 325 MG TAB PO PRN ×3 (05:53→19:41)
[2021-04-15 06:11] LABS: Hematocrit (blood only) 40.8 % (37-47); Hemoglobin 13.1 g/dL (12.0-16.0); Mean Corpuscular Hemoglobin 26.1 pg (25-34); Mean Corpuscular Hgb Conc 32.1 g/dL (32-36); Mean Corpuscular Volume 81.3 fL (80-100); Mean Platelet Volume 9.2 fL (7.4-10.4); Platelet Count 327 K/uL (130-400); RDW Coefficient of Variation 16.9 % (11.5-14.5); RDW Standard Deviation 50.2 fL (36.4-46.3); Red Blood Count 5.02 M/uL (4.2-5.4); White Blood Count 7.72 K/uL (4.8-10.8)
[2021-04-15 06:50] LABS: Phosphorus 2.5 mg/dl (2.5-4.9)
[2021-04-15 06:52] LABS: BUN Creatinine Ratio 7.2 (10-20); Calcium 8.8 mg/dl (8.5-10.1); Creatinine Clr Calc Pharmacy 41.1 ml/min; Est GFR (African American) 107.4 ml/min; Est GFR (Non-African American) 92.7 ml/min
[2021-04-15] MEDS: IPRATROPIUM BROMIDE NEB SOLN 0.02% 2.5 ML VIAL INH PRN ×2 (06:56→21:21)
[2021-04-15] MEDS: LEVALBUTEROL 1.25MG/0.5ML NEB INH PRN ×2 (06:56→21:21)
--- NOTE | 2021-04-15 08:41 | Hospitalist Progress Note ---
Date of Service April 15, 2021 Assessment & Plan (1) Asymptomatic hypertensive urgency: Plan: Secondary to abdominal pain from possible intra-abdominal abscess Possible colonic perforation with intra-abdominal abscess with recent colonoscopy CT abd./ pelvis IMPRESSION: 1. Again seen is a 4.5 cm gas and fluid containing collection seen along the posterior aspect of the descending colon as detailed above typical in appearance for abscess. Additionally, there are tiny foci of intraperitoneal free air. Given the history of a recent colonoscopy the abscess is likely related to a contained perforation. Underlying mass lesion is considered much less likely. Correlate with the colonoscopy findings. 2. The left colon is thick-walled and inflamed with surrounding infiltration and fluid. 3. The upstream colon is dilated and filled with gas/stool. This likely represents mild colonic obstruction secondary to the perforation/abscess. The small bowel is normal in caliber. 4. Right-sided nephrolithiasis. 5. Advanced emphysema. Surgery consulted and following - repeat CT abd./ pelvis today (04/15) Currently patient improving, no surgical intervention at this time planned Continue with IV Zosyn. WBC is within normal limit. Currently on clear liquid diet, seems to be tolerating Hypoglycemic yesterday AM - resolved COPD, - pulmonary status at baseline - stable on regimen - Ongoing tobacco abuse, counseling provided Malnutrition (low BMI) - consult nutrition given low BMI - Pt reports always being thin, her whole life History of recent C. difficile - s/p treatment DVT prophylaxis. Heparin subcu Full code Admission and Anticipated Discharge Date Admission Date: April 13, 2021 Subjective Patient seen in follow-up of abdominal pain, concern for perforation, intra- abdominal abscess Currently sitting up in bed, in no acute distress, eating breakfast, she is on clear liquid diet, tolerating Small liquid BM yesterday Reports 3 out of 10 central abdominal pain/ LLQ pain, reports this is much improved since her admission No chest pain shortness of breath, however she does have COPD and gets short of breath with mild exertion-reports this is her normal Denies any episodes of nausea or vomiting. Surgery following, plan to repeat CT today Review of Systems Review of Systems: All systems reviewed & are unremarkable except as noted in Subjective Physical Exam Physical Exam: General: A&Ox3, thin F in NAD HEENT: NCAT, MMM, EOMI, PERRL Neck: Supple, normal range of motion CVS: normal rate and rhythm Resp: decreased breath sounds Abdomen: Soft, nondistended, minimal central / LLQ tenderness to palp. Extremities: No c/c/e Neuro: face symmetric, no focal deficit Skin: warm and dry, no rashes/lesions/erythema MSK: normal ROM, no joint swelling/erythema Results & Data Results & Data ([facility]) Vital Signs (Past 12 Hours) Vital Signs Temp Pulse Pulse Resp BP BP Pulse Ox 04/15/21 07:50 36.7 C 77 18 156/77 H 91 04/15/21 07:00 71 04/15/21 06:56 78 18 94 04/15/21 03:22 36.7 C 76 17 172/84 H 92 04/15/21 03:01 74 04/14/21 22:28 37 C 74 18 145/75 H 94 Laboratory Results 04/15/21 04/15/21 04/15/21 Range/Units 05:44 05:44 05:44 WBC 7.72 (4.8-10.8) K/uL RBC 5.02 (4.2-5.4) M/uL Hgb 13.1 (12.0-16.0) g/dL Hct 40.8 (37-47) % MCV 81.3 (80-100) fL MCH 26.1 (25-34) pg MCHC 32.1 (32-36) g/dL RDW Std Deviation 50.2 H (36.4-46.3) fL RDW Coeff of Millicent 16.9 H (11.5-14.5) % Plt Count 327 (130-400) K/uL MPV 9.2 (7.4-10.4) fL Sodium 137 (136-145) mmol/L Potassium 4.0 D (3.5-5.1) mmol/L Chloride 109 H (98-107) mmol/L Carbon Dioxide 23 (21-32) mmol/L Anion Gap 5.0 (3-11) BUN 5 L (7-18) mg/dl Creatinine 0.66 (0.6-1.2) mg/dl Est Cr Clr Drug Dosing 41.1 ml/min Est GFR ( Amer) 107.4 ml/min Est GFR (Non-Af Amer) 92.7 ml/min BUN/Creatinine Ratio 7.2 L (10-20) Glucose 77 (70-99) mg/dl Calcium 8.8 (8.5-10.1) mg/dl Phosphorus 2.5 (2.5-4.9) mg/dl Magnesium 2.0 (1.8-2.4) mg/dl Medications Administered Current Inpatient Medications Acetaminophen (Acetaminophen 325 Mg Tab) 325 mg PO Q6H PRN PRN Reason: Mild Pain Stop: 05/13/21 22:40 Last Admin: 04/15/21 05:53 Dose: 325 mg Documented by: Atorvastatin Calcium (Atorvastatin 10 Mg Tab) 10 mg PO DAILY MARIANNE Stop: 05/14/21 08:59 Last Admin: 04/14/21 09:01 Dose: 10 mg Documented by: Famotidine (Famotidine 20 Mg Tab) 20 mg PO PM MARIANNE Stop: 05/14/21 20:59 Last Admin: 04/14/21 21:39 Dose: 20 mg Documented by: Fluticasone/Vilanterol (Fluticasone/Vilanterol 200/25mcg 14 Puffs/Inhaler) 1 puffs INH DAILY MARIANNE Stop: 05/13/21 09:59 Last Admin: 04/14/21 09:00 Dose: 1 puffs Documented by: Heparin Sodium (Porcine) (Heparin Sod 5,000 Unit/0.5 Ml Vial) 5,000 units SQ Q8 MARIANNE Stop: 05/13/21 13:59 Last Admin: 04/15/21 05:47 Dose: 5,000 units Documented by: Promethazine HCl 6.25 mg/ (Sodium Chloride) 50.25 mls @ 201 mls/hr IV Q6H PRN PRN Reason: Nausea And Vomiting Stop: 05/13/21 09:16 Piperacillin Sod/Tazobactam (Sod 3.375 gm/ Dextrose) 115 mls @ 28.75 mls/hr IV Q8H MARIANNE; Protocol Stop: 04/23/21 09:44 Last Infusion: 04/15/21 07:42 Dose: Infused Documented by: Ipratropium Woodland (Ipratropium [place] Neb Soln 0.02% 2.5 Ml Vial) 0.5 mg INH Q4R PRN PRN Reason: Shortness Of Breath Or Wheezing Stop: 05/13/21 09:16 Last Admin: 04/15/21 06:56 Dose: 0.5 mg Documented by: Levalbuterol HCl (Levalbuterol 1.25mg/0.5ml Neb) 1.25 mg INH Q4R PRN PRN Reason: Shortness Of Breath Or Wheezing Stop: 05/13/21 09:16 Last Admin: 04/15/21 06:56 Dose: 1.25 mg Documented by: Lisinopril (Lisinopril 5 Mg Tab) 5 mg PO DAILY MARIANNE Stop: 05/14/21 08:59 Last Admin: 04/14/21 09:01 Dose: 5 mg Documented by: Miscellaneous Information (Piperacill/Tazobac Consult Active) 1 ea N/A UD PRN PRN Reason: Consult Stop: 05/13/21 04:56 Morphine Sulfate (Morphine Sulfate 2 Mg/Ml Carp) 2 mg IV Q3H PRN PRN Reason: Pain Stop: 04/27/21 09:16 Pantoprazole Sodium (Pantoprazole 40 Mg Tab) 40 mg PO BID [facility]; Protocol Stop: 05/14/21 08:59 Last Admin: 04/14/21 21:39 Dose: 40 mg Documented by: Tramadol HCl (Tramadol Hcl 50 Mg Tablet) 25 - 50 mg PO Q4H PRN PRN Reason: Pain Stop: 05/13/21 22:41 Last Admin: 04/14/21 18:29 Dose: 25 mg Documented by: Umeclidinium Woodland (Umeclidinium [place]land 62.5mcg/Blister 7 Puffs/Inhaler) 1 puffs INH QAM [facility]; Protocol Stop: 05/14/21 08:59 Last Admin: 04/14/21 09:00 Dose: 1 puffs Documented by:
[2021-04-15] MEDS: UMECLIDINIUM BROMIDE 62.5MCG/BLISTER 7 PUFFS/INHALER INH SCH (08:51)
[2021-04-15] MEDS: FLUTICASONE/VILANTEROL 200/25MCG 14 PUFFS/INHALER INH SCH (08:51)
[2021-04-15] MEDS: PANTOprazole 40 MG TAB PO SCH ×2 (08:52→20:43)
[2021-04-15] MEDS: ATORVASTATIN 10 MG TAB PO SCH (08:52)
[2021-04-15] MEDS: lisinopril 5 MG TAB PO SCH (08:52)
--- NOTE | 2021-04-15 08:53 | Surgery Progress Note ---
Date of Service April 15, 2021 Assessment & Plan (1) Perforation of colon as colonoscopy complication: Plan: stable. will repeat ct scan to evaluate injured portion of colon/abcess wbc normal afebrile no indication for urgent OR. continue conservative management. Admission and Anticipated Discharge Date Admission Date: April 13, 2021 Subjective pt seen. having some mid-abd "crampy" type pain....was worse after eating last night. states it is still much better than when she came in. Physical Exam Physical Exam: alert. nad abd: soft. mild LLQ ttp. no peritoneal signs. Results & Data ([facility]) Vital Signs (Past 12 Hours) Vital Signs Temp Pulse Pulse Resp BP BP Pulse Ox 04/15/21 07:50 36.7 C 77 18 156/77 H 91 04/15/21 07:00 71 04/15/21 06:56 78 18 94 04/15/21 03:22 36.7 C 76 17 172/84 H 92 04/15/21 03:01 74 04/14/21 22:28 37 C 74 18 145/75 H 94 PG Care Time/CCT Total # of Minutes Spent Total Time Spent with Patient: Total time spent is greater than 50% in coordination of care (as documented) at patient's floor/unit and/or counseling patient: Coding Level of Care Code 53508 Subseq Hosp Care Lvl 3 Diagnoses Perforation of colon as colonoscopy complication K63.1; K91.71
[2021-04-15] MEDS ORDERED: OPTIRAY 320 100ml IV ONE (11:24)
--- NOTE | 2021-04-15 12:18 | CT Scan Report ---
CT OF THE ABDOMEN AND PELVIS WITH CONTRAST CLINICAL HISTORY: evaluate colon perforation/abscess COMPARISON STUDY: CT of the abdomen and pelvis April 13, 2021. TECHNIQUE: Following IV administration of 94 mL of Optiray, axial images of the abdomen and pelvis we re obtained from the lung bases to the proximal femurs. Images were reviewed in the axial, sagittal, and coronal planes. IV contrast was administered without complication. Automated exposure control wa s utilized for the study. A dose lowering technique was utilized adhering to the principles of ALARA . Oral contrast was administered. CT DOSE: 190.71 mGycm FINDINGS: Emphysema is noted within the lung bases. No pneumatosis, free air or portal venous gas is present. Small bilateral adrenal nodules are unchanged since CT of July 19, 2015. These are benign . The liver, spleen, adrenal glands, kidneys and pancreas are unremarkable with the exception of righ t renal calculi. There is no biliary or pancreatic ductal dilatation. Note is again made of a fluid a nd gas containing collection along the posterior aspect of the mid descending colon with peripheral e nhancement. This collection measures 3.4 x 3.3 cm. This has mildly decreased in size since initial CT of April 13, 2021 when it measured 4.4 x 3.8 cm. Adjacent inflammation has also mildly decreased. T here is persistent mild colonic dilatation. There is no evidence for a high-grade obstruction. No add itional fluid collections are present. Moderate plaque of the abdominal aorta is noted. There is no l ymphadenopathy. IMPRESSION: Mild decrease in size of a peripherally enhancing fluid and gas containing collection al ryan the posterior wall of the descending colon, measuring 3.4 x 3.3 cm. This may reflect a contained colonic perforation with abscess. Interval decrease in adjacent inflammation. Persistent mild colonic dilatation. ACT 112: Negative or not required by law. Electronically signed by: Kenny Marks M.D. 04/15/2021 12:17 PM
[2021-04-15] MEDS: FAMOTIDINE 20 MG TAB PO SCH (20:42)
[2021-04-16] MEDS: PIPERACILLIN/TAZOBACTAM 3.375 GM in DEXTROSE 5% 100 ML IV SCH ×3 (01:47→17:41)
[2021-04-16] MEDS: HEPARIN SOD 5,000 UNIT/0.5 ML VIAL SQ SCH ×3 (05:45→21:42)
[2021-04-16 07:23] LABS: Hematocrit (blood only) 39.7 % (37-47); Hemoglobin 12.8 g/dL (12.0-16.0); Mean Corpuscular Hgb Conc 32.2 g/dL (32-36); Mean Corpuscular Volume 80.5 fL (80-100); Platelet Count 306 K/uL (130-400); RDW Coefficient of Variation 16.9 % (11.5-14.5); RDW Standard Deviation 49.2 fL (36.4-46.3); Red Blood Count 4.93 M/uL (4.2-5.4); White Blood Count 7.84 K/uL (4.8-10.8)
[2021-04-16] MEDS: IPRATROPIUM BROMIDE NEB SOLN 0.02% 2.5 ML VIAL INH PRN ×2 (07:24→20:36)
[2021-04-16] MEDS: LEVALBUTEROL 1.25MG/0.5ML NEB INH PRN ×2 (07:24→20:36)
[2021-04-16 07:59] LABS: BUN Creatinine Ratio 5.4 (10-20); Est GFR (African American) 89.7 ml/min; Est GFR (Non-African American) 77.4 ml/min; Magnesium 1.9 mg/dl (1.8-2.4); Potassium 3.6 mmol/L (3.5-5.1)
[2021-04-16 08:03] LABS: Phosphorus 3.7 mg/dl (2.5-4.9)
[2021-04-16] MEDS: ATORVASTATIN 10 MG TAB PO SCH (08:30)
[2021-04-16] MEDS: FLUTICASONE/VILANTEROL 200/25MCG 14 PUFFS/INHALER INH SCH (08:30)
[2021-04-16] MEDS: UMECLIDINIUM BROMIDE 62.5MCG/BLISTER 7 PUFFS/INHALER INH SCH (08:30)
[2021-04-16] MEDS: lisinopril 5 MG TAB PO SCH (08:30)
[2021-04-16] MEDS ORDERED: POTASSIUM CHLORIDE CRTAB 20 MEQ TABCR PO STA (08:33)
--- NOTE | 2021-04-16 08:33 | Hospitalist Progress Note ---
Date of Service April 16, 2021 Assessment & Plan (1) Asymptomatic hypertensive urgency: Plan: Secondary to abdominal pain from possible intra-abdominal abscess Possible colonic perforation with intra-abdominal abscess with recent colonoscopy CT abd./ pelvis IMPRESSION: 1. Again seen is a 4.5 cm gas and fluid containing collection seen along the posterior aspect of the descending colon as detailed above typical in appearance for abscess. Additionally, there are tiny foci of intraperitoneal free air. Given the history of a recent colonoscopy the abscess is likely related to a contained perforation. Underlying mass lesion is considered much less likely. Correlate with the colonoscopy findings. 2. The left colon is thick-walled and inflamed with surrounding infiltration and fluid. 3. The upstream colon is dilated and filled with gas/stool. This likely represents mild colonic obstruction secondary to the perforation/abscess. The small bowel is normal in caliber. 4. Right-sided nephrolithiasis. 5. Advanced emphysema. Surgery consulted and following - repeat CT abd./ pelvis (04/15) Currently patient improving, no surgical intervention at this time planned Continue with IV Zosyn. WBC is within normal limit. Currently on clear liquid diet,tolerating, advance to full liquid COPD, - pulmonary status at baseline - stable on regimen - Ongoing tobacco abuse, counseling provided Malnutrition (low BMI) - consult nutrition given low BMI - Pt reports always being thin, her whole life History of recent C. difficile - s/p treatment DVT prophylaxis. Heparin subcu Full code Admission and Anticipated Discharge Date Admission Date: April 13, 2021 Subjective Patient seen in follow-up of abdominal pain, concern for perforation, intra-abdominal abscess Currently sitting up in bed, in no acute distress She is tolerating clear liquid diet, will advance to full liquid Had some loose stools yesterday and this morning, likely from contrast LLQ pain resolved, reports some tenderness in the suprapubic area, says that has been bothering her even before endoscopy reports this is much improved since her admission No chest pain shortness of breath, however she does have COPD and gets short of breath with mild exertion-reports this is her normal Denies any episodes of nausea or vomiting. Surgery following, repeated CT yesterday Review of Systems Review of Systems: All systems reviewed & are unremarkable except as noted in Subjective Physical Exam Physical Exam: General: A&Ox3, thin F in NAD HEENT: NCAT, MMM, EOMI, PERRL Neck: Supple, normal range of motion CVS: normal rate and rhythm Resp: decreased breath sounds Abdomen: Soft, nondistended, minimal central/ suprapubic tenderness to palp. Extremities: No c/c/e Neuro: face symmetric, no focal deficit Skin: warm and dry, no rashes/lesions/erythema MSK: normal ROM, no joint swelling/erythema Results & Data Results & Data ([facility]) Vital Signs (Past 12 Hours) Vital Signs Temp Pulse Pulse Resp BP Pulse Ox 04/16/21 07:25 91 H 16 95 04/16/21 07:00 78 04/16/21 06:59 37.0 C 88 20 124/64 97 04/16/21 04:03 37.2 C 80 20 123/53 L 94 04/15/21 23:39 36.6 C 96 H 20 111/64 92 04/15/21 23:00 79 04/15/21 21:23 82 18 92 Laboratory Results 04/16/21 04/16/21 04/16/21 Range/Units 07:35 07:10 07:10 WBC 7.84 (4.8-10.8) K/uL RBC 4.93 (4.2-5.4) M/uL Hgb 12.8 (12.0-16.0) g/dL Hct 39.7 (37-47) % MCV 80.5 (80-100) fL MCH 26.0 (25-34) pg MCHC 32.2 (32-36) g/dL RDW Std Deviation 49.2 H (36.4-46.3) fL RDW Coeff of Millicent 16.9 H (11.5-14.5) % Plt Count 306 (130-400) K/uL MPV 9.0 (7.4-10.4) fL Sodium 139 (136-145) mmol/L Potassium 3.6 (3.5-5.1) mmol/L Chloride 107 (98-107) mmol/L Carbon Dioxide 24 (21-32) mmol/L Anion Gap 8.0 (3-11) BUN 4 L (7-18) mg/dl Creatinine 0.80 (0.6-1.2) mg/dl Est Cr Clr Drug Dosing 34.0 ml/min Est GFR ( Amer) 89.7 ml/min Est GFR (Non-Af Amer) 77.4 ml/min BUN/Creatinine Ratio 5.4 L (10-20) Glucose 75 (70-99) mg/dl POC Glucose 85 (70-99) mg/dl Calcium 9.0 (8.5-10.1) mg/dl Phosphorus 3.7 D (2.5-4.9) mg/dl Magnesium 1.9 (1.8-2.4) mg/dl 04/15/21 Range/Units 20:31 WBC (4.8-10.8) K/uL RBC (4.2-5.4) M/uL Hgb (12.0-16.0) g/dL Hct (37-47) % MCV (80-100) fL MCH (25-34) pg MCHC (32-36) g/dL RDW Std Deviation (36.4-46.3) fL RDW Coeff of Millicent (11.5-14.5) % Plt Count (130-400) K/uL MPV (7.4-10.4) fL Sodium (136-145) mmol/L Potassium (3.5-5.1) mmol/L Chloride (98-107) mmol/L Carbon Dioxide (21-32) mmol/L Anion Gap (3-11) BUN (7-18) mg/dl Creatinine (0.6-1.2) mg/dl Est Cr Clr Drug Dosing ml/min Est GFR ( Amer) ml/min Est GFR (Non-Af Amer) ml/min BUN/Creatinine Ratio (10-20) Glucose (70-99) mg/dl POC Glucose 90 (70-99) mg/dl Calcium (8.5-10.1) mg/dl Phosphorus (2.5-4.9) mg/dl Magnesium (1.8-2.4) mg/dl Medications Administered Current Inpatient Medications Acetaminophen (Acetaminophen 325 Mg Tab) 325 mg PO Q6H PRN PRN Reason: Mild Pain Stop: 05/13/21 22:40 Last Admin: 04/15/21 19:41 Dose: 325 mg Documented by: Atorvastatin Calcium (Atorvastatin 10 Mg Tab) 10 mg PO DAILY [facility]IANNE Stop: 05/14/21 08:59 Last Admin: 04/16/21 08:30 Dose: 10 mg Documented by: Famotidine (Famotidine 20 Mg Tab) 20 mg PO PM MARIANNE Stop: 05/14/21 20:59 Last Admin: 04/15/21 20:42 Dose: 20 mg Documented by: Fluticasone/Vilanterol (Fluticasone/Vilanterol 200/25mcg 14 Puffs/Inhaler) 1 puffs INH DAILY [facility] Stop: 05/13/21 09:59 Last Admin: 04/16/21 08:30 Dose: 1 puffs Documented by: Heparin Sodium (Porcine) (Heparin Sod 5,000 Unit/0.5 Ml Vial) 5,000 units SQ Q8 MARIANNE Stop: 05/13/21 13:59 Last Admin: 04/16/21 05:45 Dose: 5,000 units Documented by: Promethazine HCl 6.25 mg/ (Sodium Chloride) 50.25 mls @ 201 mls/hr IV Q6H PRN PRN Reason: Nausea And Vomiting Stop: 05/13/21 09:16 Piperacillin Sod/Tazobactam (Sod 3.375 gm/ Dextrose) 115 mls @ 28.75 mls/hr IV Q8H [facility]; Protocol Stop: 04/23/21 09:44 Last Infusion: 04/16/21 05:44 Dose: Infused Documented by: Ipratropium [place] (Ipratropium [place] Neb Soln 0.02% 2.5 Ml Vial) 0.5 mg INH Q4R PRN PRN Reason: Shortness Of Breath Or Wheezing Stop: 05/13/21 09:16 Last Admin: 04/16/21 07:24 Dose: 0.5 mg Documented by: Levalbuterol HCl (Levalbuterol 1.25mg/0.5ml Neb) 1.25 mg INH Q4R PRN PRN Reason: Shortness Of Breath Or Wheezing Stop: 05/13/21 09:16 Last Admin: 04/16/21 07:24 Dose: 1.25 mg Documented by: Lisinopril (Lisinopril 5 Mg Tab) 5 mg PO DAILY [facility] Stop: 05/14/21 08:59 Last Admin: 04/16/21 08:30 Dose: 5 mg Documented by: Miscellaneous Information (Piperacill/Tazobac Consult Active) 1 ea N/A UD PRN PRN Reason: Consult Stop: 05/13/21 04:56 Morphine Sulfate (Morphine Sulfate 2 Mg/Ml Carp) 2 mg IV Q3H PRN PRN Reason: Pain Stop: 04/27/21 09:16 Pantoprazole Sodium (Pantoprazole 40 Mg Tab) 40 mg PO BID [facility]; Protocol Stop: 05/14/21 08:59 Last Admin: 04/15/21 20:43 Dose: 40 mg Documented by: Tramadol HCl (Tramadol Hcl 50 Mg Tablet) 25 - 50 mg PO Q4H PRN PRN Reason: Pain Stop: 05/13/21 22:41 Last Admin: 04/14/21 18:29 Dose: 25 mg Documented by: Umeclidinium [place] (Umeclidinium [place] 62.5mcg/Blister 7 Puffs/Inhaler) [facility] Protocol Stop: 05/14/21 08:59 Last Admin: 04/16/21 08:30 Dose: 1 puffs Documented by:
[2021-04-16] MEDS: ACETAMINOPHEN 325 MG TAB PO PRN ×2 (08:53→17:42)
[2021-04-16] MEDS: PANTOprazole 40 MG TAB PO SCH ×2 (09:05→21:59)
--- NOTE | 2021-04-16 10:23 | Surgery Progress Note ---
Date of Service April 16, 2021 Assessment & Plan (1) Perforation of colon as colonoscopy complication: Plan: clinically continues to improve will try full liquid diet CT shows slight improvement continue IV antibiotics. if she continues to improve could consider d/c home sat on oral antibiotics will consult director of medicare for home low residue diet instruction Admission and Anticipated Discharge Date Admission Date: April 13, 2021 Subjective doing well. no major complaints. abdomen continues to improve. mild suprapubic "pressure" at times. Physical Exam Constitutional: WD/WN, vitals as above no acute distress and not ill appearing Eyes: PERRL, conjunctivae normal, anicteric sclerae EOM intact bilaterally ENMT: external ear and nose normal, oropharynx normal Ears: no hearing impairment Neck: trachea midline, no thyromegaly Respiratory: normal respiratory effort; no respiratory distress and does not use accessory muscles Cardiovascular: Rate/Rhythm: regular rate and regular rhythm Gastrointestinal (Abdomen): soft. mild suprapubic ttp. no peritoneal signs. Skin: no rashes, warm and dry Psychiatric: Orientation: alert, oriented x 3 and cooperative Results & Data ([facility]) Vital Signs (Past 12 Hours) Vital Signs Temp Pulse Pulse Resp BP Pulse Ox 04/16/21 07:25 91 H 16 95 04/16/21 07:00 78 04/16/21 06:59 37.0 C 88 20 124/64 97 04/16/21 04:03 37.2 C 80 20 123/53 L 94 04/15/21 23:39 36.6 C 96 H 20 111/64 92 04/15/21 23:00 79 PG Care Time/CCT Total # of Minutes Spent Total Time Spent with Patient: Total time spent is greater than 50% in coordination of care (as documented) at patient's floor/unit and/or counseling patient: Coding Level of Care Code 01246 Subseq Hosp Care Lvl 2 Diagnoses Perforation of colon as colonoscopy complication K63.1; K91.71
[2021-04-16] MEDS: FAMOTIDINE 20 MG TAB PO SCH (21:23)
[2021-04-17] MEDS: PIPERACILLIN/TAZOBACTAM 3.375 GM in DEXTROSE 5% 100 ML IV SCH ×3 (02:00→17:34)
[2021-04-17] MEDS: ACETAMINOPHEN 325 MG TAB PO PRN ×3 (04:37→20:15)
[2021-04-17] MEDS: HEPARIN SOD 5,000 UNIT/0.5 ML VIAL SQ SCH ×3 (06:21→20:11)
[2021-04-17 06:38] LABS: Hematocrit (blood only) 39.5 % (37-47); Hemoglobin 12.5 g/dL (12.0-16.0); Mean Corpuscular Hemoglobin 25.8 pg (25-34); Mean Corpuscular Hgb Conc 31.6 g/dL (32-36); Mean Corpuscular Volume 81.4 fL (80-100); Mean Platelet Volume 9.3 fL (7.4-10.4); Platelet Count 356 K/uL (130-400); RDW Coefficient of Variation 17.1 % (11.5-14.5); RDW Standard Deviation 50.9 fL (36.4-46.3); Red Blood Count 4.85 M/uL (4.2-5.4)
[2021-04-17 07:05] LABS: BUN Creatinine Ratio 4.5 (10-20); Calcium 8.6 mg/dl (8.5-10.1); Creatinine Clr Calc Pharmacy 31.7 ml/min; Est GFR (African American) 84.5 ml/min; Est GFR (Non-African American) 72.9 ml/min; Magnesium 2.1 mg/dl (1.8-2.4); Phosphorus 4.2 mg/dl (2.5-4.9); Potassium 3.7 mmol/L (3.5-5.1)
[2021-04-17] MEDS ORDERED: POTASSIUM CHLORIDE CRTAB 20 MEQ TABCR PO STA (08:07)
--- NOTE | 2021-04-17 08:07 | Hospitalist Progress Note ---
Date of Service April 17, 2021 Assessment & Plan (1) Asymptomatic hypertensive urgency: Plan: Secondary to abdominal pain from possible intra-abdominal abscess Possible colonic perforation with intra-abdominal abscess with recent colonoscopy CT abd./ pelvis IMPRESSION: 1. Again seen is a 4.5 cm gas and fluid containing collection seen along the posterior aspect of the descending colon as detailed above typical in appearance for abscess. Additionally, there are tiny foci of intraperitoneal free air. Given the history of a recent colonoscopy the abscess is likely related to a contained perforation. Underlying mass lesion is considered much less likely. Correlate with the colonoscopy findings. 2. The left colon is thick-walled and inflamed with surrounding infiltration and fluid. 3. The upstream colon is dilated and filled with gas/stool. This likely represents mild colonic obstruction secondary to the perforation/abscess. The small bowel is normal in caliber. 4. Right-sided nephrolithiasis. 5. Advanced emphysema. Surgery consulted and following - repeat CT abd./ pelvis (04/15) Currently patient improving, no surgical intervention at this time planned Continue with IV Zosyn. WBC is within normal limit. Currently tolerating full liquid diet, advance to low fiber diet Patient clinically much improved, likely discharge tomorrow on p.o. antibiotics, follow-up with surgery within 2 weeks COPD, - pulmonary status at baseline - stable on regimen - Ongoing tobacco abuse, counseling provided Malnutrition (low BMI) - consult nutrition given low BMI - Pt reports always being thin, her whole life History of recent C. difficile - s/p treatment DVT prophylaxis. Heparin subcu Full code Admission and Anticipated Discharge Date Admission Date: April 13, 2021 Subjective Patient seen in follow-up of abdominal pain, concern for perforation, intra- abdominal abscess Currently sitting up in bed, in no acute distress She is tolerating full liquid, advance to low fiber LLQ pain resolved, reports some mild tenderness in the suprapubic area, says that has been bothering her even before endoscopy Reports feeling much improved since her admission No chest pain shortness of breath, however she does have COPD and gets short of breath with mild exertion-reports this is her normal Denies any episodes of nausea or vomiting. Surgery following Plan for likely discharge tomorrow, patient feels comfortable with the plan Review of Systems Review of Systems: All systems reviewed & are unremarkable except as noted in Subjective Physical Exam Physical Exam: General: A&Ox3, thin F in NAD HEENT: NCAT, MMM, EOMI, PERRL Neck: Supple, normal range of motion CVS: normal rate and rhythm Resp: decreased breath sounds Abdomen: Soft, nondistended, minimal central/ suprapubic tenderness to palp. Extremities: No c/c/e Neuro: face symmetric, no focal deficit Skin: warm and dry, no rashes/lesions/erythema MSK: normal ROM, no joint swelling/erythema Results & Data Results & Data ([facility]) Vital Signs (Past 12 Hours) Vital Signs Temp Pulse Pulse Resp BP BP Pulse Ox 04/17/21 07:40 36.6 C 81 18 148/80 H 91 04/17/21 03:05 36.9 C 74 18 137/71 94 04/17/21 01:30 68 04/16/21 22:57 36.9 C 76 18 122/69 93 04/16/21 20:36 77 18 96 Laboratory Results 04/17/21 04/17/21 04/16/21 Range/Units 05:33 05:33 20:08 WBC 5.40 (4.8-10.8) K/uL RBC 4.85 (4.2-5.4) M/uL Hgb 12.5 (12.0-16.0) g/dL Hct 39.5 (37-47) % MCV 81.4 (80-100) fL MCH 25.8 (25-34) pg MCHC 31.6 L (32-36) g/dL RDW Std Deviation 50.9 H (36.4-46.3) fL RDW Coeff of Millicent 17.1 H (11.5-14.5) % Plt Count 356 (130-400) K/uL MPV 9.3 (7.4-10.4) fL Sodium 141 (136-145) mmol/L Potassium 3.7 (3.5-5.1) mmol/L Chloride 111 H (98-107) mmol/L Carbon Dioxide 26 (21-32) mmol/L Anion Gap 4.0 (3-11) BUN 4 L (7-18) mg/dl Creatinine 0.84 (0.6-1.2) mg/dl Est Cr Clr Drug Dosing 31.7 ml/min Est GFR ( Amer) 84.5 ml/min Est GFR (Non-Af Amer) 72.9 ml/min BUN/Creatinine Ratio 4.5 L (10-20) Glucose 80 (70-99) mg/dl POC Glucose 98 (70-99) mg/dl Calcium 8.6 (8.5-10.1) mg/dl Phosphorus 4.2 (2.5-4.9) mg/dl Magnesium 2.1 (1.8-2.4) mg/dl 04/16/21 Range/Units 11:39 WBC (4.8-10.8) K/uL RBC (4.2-5.4) M/uL Hgb (12.0-16.0) g/dL Hct (37-47) % MCV (80-100) fL MCH (25-34) pg MCHC (32-36) g/dL RDW Std Deviation (36.4-46.3) fL RDW Coeff of Millicent (11.5-14.5) % Plt Count (130-400) K/uL MPV (7.4-10.4) fL Sodium (136-145) mmol/L Potassium (3.5-5.1) mmol/L Chloride (98-107) mmol/L Carbon Dioxide (21-32) mmol/L Anion Gap (3-11) BUN (7-18) mg/dl Creatinine (0.6-1.2) mg/dl Est Cr Clr Drug Dosing ml/min Est GFR ( Amer) ml/min Est GFR (Non-Af Amer) ml/min BUN/Creatinine Ratio (10-20) Glucose (70-99) mg/dl POC Glucose 77 (70-99) mg/dl Calcium (8.5-10.1) mg/dl Phosphorus (2.5-4.9) mg/dl Magnesium (1.8-2.4) mg/dl Medications Administered Current Inpatient Medications Acetaminophen (Acetaminophen 325 Mg Tab) 325 mg PO Q6H PRN PRN Reason: Mild Pain Stop: 05/13/21 22:40 Last Admin: 04/17/21 04:37 Dose: 325 mg Documented by: Atorvastatin Calcium (Atorvastatin 10 Mg Tab) 10 mg PO DAILY [facility] Stop: 05/14/21 08:59 Last Admin: 04/16/21 08:30 Dose: 10 mg Documented by: Famotidine (Famotidine 20 Mg Tab) 20 mg PO PM [facility]NE Stop: 05/14/21 20:59 Last Admin: 04/16/21 21:23 Dose: 20 mg Documented by: Fluticasone/Vilanterol (Fluticasone/Vilanterol 200/25mcg 14 Puffs/Inhaler) 1 puffs INH DAILY [facility] Stop: 05/13/21 09:59 Last Admin: 04/16/21 08:30 Dose: 1 puffs Documented by: Heparin Sodium (Porcine) (Heparin Sod 5,000 Unit/0.5 Ml Vial) 5,000 units SQ Q8 [facility]NE Stop: 05/13/21 13:59 Last Admin: 04/17/21 06:21 Dose: 5,000 units Documented by: Promethazine HCl 6.25 mg/ (Sodium Chloride) 50.25 mls @ 201 mls/hr IV Q6H PRN PRN Reason: Nausea And Vomiting Stop: 05/13/21 09:16 Piperacillin Sod/Tazobactam (Sod 3.375 gm/ Dextrose) 115 mls @ 28.75 mls/hr IV Q8H [facility]; Protocol Stop: 04/23/21 09:44 Last Infusion: 04/17/21 06:43 Dose: Infused Documented by: Ipratropium [place] (Ipratropium [place] Neb Soln 0.02% 2.5 Ml Vial) 0.5 mg INH Q4R PRN PRN Reason: Shortness Of Breath Or Wheezing Stop: 05/13/21 09:16 Last Admin: 04/16/21 20:36 Dose: 0.5 mg Documented by: Levalbuterol HCl (Levalbuterol 1.25mg/0.5ml Neb) 1.25 mg INH Q4R PRN PRN Reason: Shortness Of Breath Or Wheezing Stop: 05/13/21 09:16 Last Admin: 04/16/21 20:36 Dose: 1.25 mg Documented by: Lisinopril (Lisinopril 5 Mg Tab) 5 mg PO DAILY [facility] Stop: 05/14/21 08:59 Last Admin: 04/16/21 08:30 Dose: 5 mg Documented by: Miscellaneous Information (Piperacill/Tazobac Consult Active) 1 ea N/A UD PRN PRN Reason: Consult Stop: 05/13/21 04:56 Morphine Sulfate (Morphine Sulfate 2 Mg/Ml Carp) 2 mg IV Q3H PRN PRN Reason: Pain Stop: 04/27/21 09:16 Pantoprazole Sodium (Pantoprazole 40 Mg Tab) 40 mg PO BID [facility]; Protocol Stop: 05/14/21 08:59 Last Admin: 04/16/21 21:59 Dose: 40 mg Documented by: Tramadol HCl (Tramadol Hcl 50 Mg Tablet) 25 - 50 mg PO Q4H PRN PRN Reason: Pain Stop: 05/13/21 22:41 Last Admin: 04/14/21 18:29 Dose: 25 mg Documented by: Umeclidinium [place] (Umeclidinium [place] 62.5mcg/Blister 7 Puffs/Inhaler) [facility] Protocol Stop: 05/14/21 08:59 Last Admin: 04/16/21 08:30 Dose: 1 puffs Documented by:
--- NOTE | 2021-04-17 08:55 | Surgery Progress Note ---
Date of Service April 17, 2021 Assessment & Plan (1) Perforation of colon as colonoscopy complication: Plan: stable WBC 5 continue IV antibiotics advance to low fiber diet prior to d/c as above. doing well. advance diet. if tolerates, can be d/c'd tomorrow from my standpoint f/u with me in [address] Gupta from [facility] surgeons covering for weekend. Admission and Anticipated Discharge Date Admission Date: April 13, 2021 Subjective having loose BMs after meals, no pain but overall feels back to baseline with some suprapubic pressure and loose BMs Physical Exam Gastrointestinal (Abdomen): Inspection/Auscultation: abdomen not distended Percussion/Palpation: abdomen soft; abdomen nontender Results & Data ([facility]) Vital Signs (Past 12 Hours) Vital Signs Temp Pulse Pulse Resp BP BP Pulse Ox 04/17/21 07:40 36.6 C 81 18 148/80 H 91 04/17/21 03:05 36.9 C 74 18 137/71 94 04/17/21 01:30 68 04/16/21 22:57 36.9 C 76 18 122/69 93 PG Care Time/CCT Total # of Minutes Spent Total Time Spent with Patient: Total time spent is greater than 50% in coordination of care (as documented) at patient's floor/unit and/or counseling patient: Coding Level of Care Code 35973 Subseq Hosp Care Lvl 2 Diagnoses Perforation of colon as colonoscopy complication K63.1; K91.71
[2021-04-17] MEDS: LEVALBUTEROL 1.25MG/0.5ML NEB INH PRN ×2 (09:06→20:37)
[2021-04-17] MEDS: IPRATROPIUM BROMIDE NEB SOLN 0.02% 2.5 ML VIAL INH PRN ×2 (09:06→20:37)
[2021-04-17] MEDS: UMECLIDINIUM BROMIDE 62.5MCG/BLISTER 7 PUFFS/INHALER INH SCH (09:45)
[2021-04-17] MEDS: PANTOprazole 40 MG TAB PO SCH ×2 (09:46→20:10)
[2021-04-17] MEDS: ATORVASTATIN 10 MG TAB PO SCH (09:46)
[2021-04-17] MEDS: lisinopril 5 MG TAB PO SCH (09:47)
[2021-04-17] MEDS: FLUTICASONE/VILANTEROL 200/25MCG 14 PUFFS/INHALER INH SCH (09:47)
[2021-04-17] MEDS: FAMOTIDINE 20 MG TAB PO SCH (20:11)
[2021-04-18] MEDS: PIPERACILLIN/TAZOBACTAM 3.375 GM in DEXTROSE 5% 100 ML IV SCH ×2 (01:57→09:17)
[2021-04-18] MEDS: HEPARIN SOD 5,000 UNIT/0.5 ML VIAL SQ SCH (05:44)
[2021-04-18 06:47] LABS: Hematocrit (blood only) 40.8 % (37-47); Hemoglobin 12.9 g/dL (12.0-16.0); Mean Corpuscular Hemoglobin 25.7 pg (25-34); Mean Corpuscular Hgb Conc 31.6 g/dL (32-36); Mean Corpuscular Volume 81.4 fL (80-100); Mean Platelet Volume 8.9 fL (7.4-10.4); Platelet Count 351 K/uL (130-400); RDW Coefficient of Variation 17.1 % (11.5-14.5); RDW Standard Deviation 50.8 fL (36.4-46.3); Red Blood Count 5.01 M/uL (4.2-5.4); White Blood Count 6.51 K/uL (4.8-10.8)
[2021-04-18 07:20] LABS: BUN Creatinine Ratio 8.8 (10-20); Calcium 9.3 mg/dl (8.5-10.1); Est GFR (Non-African American) 75.1 ml/min; Magnesium 1.9 mg/dl (1.8-2.4); Phosphorus 4.1 mg/dl (2.5-4.9); Potassium 4.1 mmol/L (3.5-5.1)
[2021-04-18] MEDS: ACETAMINOPHEN 325 MG TAB PO PRN (07:39)
[2021-04-18] MEDS: LEVALBUTEROL 1.25MG/0.5ML NEB INH PRN (07:43)
[2021-04-18] MEDS: IPRATROPIUM BROMIDE NEB SOLN 0.02% 2.5 ML VIAL INH PRN (07:43)
--- NOTE | 2021-04-18 08:37 | Hospitalist Progress Note ---
Date of Service April 18, 2021 Assessment & Plan (1) Asymptomatic hypertensive urgency: Plan: Secondary to abdominal pain from possible intra-abdominal abscess Possible colonic perforation with intra-abdominal abscess with recent colonoscopy CT abd./ pelvis IMPRESSION: 1. Again seen is a 4.5 cm gas and fluid containing collection seen along the posterior aspect of the descending colon as detailed above typical in appearance for abscess. Additionally, there are tiny foci of intraperitoneal free air. Given the history of a recent colonoscopy the abscess is likely related to a contained perforation. Underlying mass lesion is considered much less likely. Correlate with the colonoscopy findings. 2. The left colon is thick-walled and inflamed with surrounding infiltration and fluid. 3. The upstream colon is dilated and filled with gas/stool. This likely represents mild colonic obstruction secondary to the perforation/abscess. The small bowel is normal in caliber. 4. Right-sided nephrolithiasis. 5. Advanced emphysema. Surgery consulted and following - repeated CT abd./ pelvis (04/15) Currently patient improving, no surgical intervention at this time planned Continue with IV Zosyn. WBC is within normal limit. Currently tolerating low fiber diet Patient to be discharged today on p.o. antibiotics (Augmentin), and follow-up with surgery within 2 weeks COPD, - pulmonary status at baseline - stable on regimen - Ongoing tobacco abuse, counseling provided Malnutrition (low BMI) - consult nutrition given low BMI - Pt reports always being thin, her whole life History of recent C. difficile - s/p treatment DVT prophylaxis. Heparin subcu Full code Admission and Anticipated Discharge Date Admission Date: April 13, 2021 Subjective Patient seen in follow-up of abdominal pain, concern for perforation, intra- abdominal abscess Currently sitting up in bed, in no acute distress She is tolerating low fiber LLQ pain resolved Reports feeling much improved since her admission No chest pain shortness of breath Denies any episodes of nausea or vomiting. Surgery following Plan for DC today Review of Systems Review of Systems: All systems reviewed & are unremarkable except as noted in Subjective Physical Exam Physical Exam: General: A&Ox3, thin F in NAD HEENT: NCAT, MMM, EOMI, PERRL Neck: Supple, normal range of motion CVS: normal rate and rhythm Resp: decreased breath sounds, no wheezing, rhonchi, crackles Abdomen: Soft, nondistended, minimal central/ suprapubic tenderness to palp. Extremities: No c/c/e Neuro: face symmetric, no focal deficit Skin: warm and dry, no rashes/lesions/erythema MSK: normal ROM, no joint swelling/erythema Results & Data Results & Data ([facility]) Vital Signs (Past 12 Hours) Vital Signs Temp Pulse Pulse Resp BP BP Pulse Ox 04/18/21 07:45 81 18 92 04/18/21 07:24 36.7 C 80 20 148/75 H 93 04/18/21 04:21 36.6 C 71 18 123/60 93 04/17/21 23:40 91 H 04/17/21 23:38 36.8 C 78 18 108/60 94 04/17/21 20:38 70 16 95 Laboratory Results 04/18/21 04/18/21 04/18/21 Range/Units 07:43 06:26 06:26 WBC 6.51 (4.8-10.8) K/uL RBC 5.01 (4.2-5.4) M/uL Hgb 12.9 (12.0-16.0) g/dL Hct 40.8 (37-47) % MCV 81.4 (80-100) fL MCH 25.7 (25-34) pg MCHC 31.6 L (32-36) g/dL RDW Std Deviation 50.8 H (36.4-46.3) fL RDW Coeff of Millicent 17.1 H (11.5-14.5) % Plt Count 351 (130-400) K/uL MPV 8.9 (7.4-10.4) fL Sodium 139 (136-145) mmol/L Potassium 4.1 (3.5-5.1) mmol/L Chloride 107 (98-107) mmol/L Carbon Dioxide 26 (21-32) mmol/L Anion Gap 6.0 (3-11) BUN 7 (7-18) mg/dl Creatinine 0.82 (0.6-1.2) mg/dl Est Cr Clr Drug Dosing 33.0 ml/min Est GFR ( Amer) 87.0 ml/min Est GFR (Non-Af Amer) 75.1 ml/min BUN/Creatinine Ratio 8.8 L (10-20) Glucose 78 (70-99) mg/dl POC Glucose 83 (70-99) mg/dl Calcium 9.3 (8.5-10.1) mg/dl Phosphorus 4.1 (2.5-4.9) mg/dl Magnesium 1.9 (1.8-2.4) mg/dl 04/17/21 Range/Units 16:33 WBC (4.8-10.8) K/uL RBC (4.2-5.4) M/uL Hgb (12.0-16.0) g/dL Hct (37-47) % MCV (80-100) fL MCH (25-34) pg MCHC (32-36) g/dL RDW Std Deviation (36.4-46.3) fL RDW Coeff of Millicent (11.5-14.5) % Plt Count (130-400) K/uL MPV (7.4-10.4) fL Sodium (136-145) mmol/L Potassium (3.5-5.1) mmol/L Chloride (98-107) mmol/L Carbon Dioxide (21-32) mmol/L Anion Gap (3-11) BUN (7-18) mg/dl Creatinine (0.6-1.2) mg/dl Est Cr Clr Drug Dosing ml/min Est GFR ( Amer) ml/min Est GFR (Non-Af Amer) ml/min BUN/Creatinine Ratio (10-20) Glucose (70-99) mg/dl POC Glucose 110 H (70-99) mg/dl Calcium (8.5-10.1) mg/dl Phosphorus (2.5-4.9) mg/dl Magnesium (1.8-2.4) mg/dl Medications Administered Current Inpatient Medications Acetaminophen (Acetaminophen 325 Mg Tab) 325 mg PO Q6H PRN PRN Reason: Mild Pain Stop: 05/13/21 22:40 Last Admin: 04/18/21 07:39 Dose: 325 mg Documented by: Atorvastatin Calcium (Atorvastatin 10 Mg Tab) 10 mg PO DAILY MARIANNE Stop: 05/14/21 08:59 Last Admin: 04/17/21 09:46 Dose: 10 mg Documented by: Famotidine (Famotidine 20 Mg Tab) 20 mg PO PM MARIANNE Stop: 05/14/21 20:59 Last Admin: 04/17/21 20:11 Dose: 20 mg Documented by: Fluticasone/Vilanterol (Fluticasone/Vilanterol 200/25mcg 14 Puffs/Inhaler) 1 puffs INH DAILY [facility] Stop: 05/13/21 09:59 Last Admin: 04/17/21 09:47 Dose: 1 puffs Documented by: Heparin Sodium (Porcine) (Heparin Sod 5,000 Unit/0.5 Ml Vial) 5,000 units SQ Q8 MARIANNE Stop: 05/13/21 13:59 Last Admin: 04/18/21 05:44 Dose: 5,000 units Documented by: Promethazine HCl 6.25 mg/ (Sodium Chloride) 50.25 mls @ 201 mls/hr IV Q6H PRN PRN Reason: Nausea And Vomiting Stop: 05/13/21 09:16 Piperacillin Sod/Tazobactam (Sod 3.375 gm/ Dextrose) 115 mls @ 28.75 mls/hr IV Q8H [facility]; Protocol Stop: 04/23/21 09:44 Last Infusion: 04/18/21 06:05 Dose: Infused Documented by: Ipratropium Jal (Ipratropium Jal Neb Soln 0.02% 2.5 Ml Vial) 0.5 mg INH Q4R PRN PRN Reason: Shortness Of Breath Or Wheezing Stop: 05/13/21 09:16 Last Admin: 04/18/21 07:43 Dose: 0.5 mg Documented by: Levalbuterol HCl (Levalbuterol 1.25mg/0.5ml Neb) 1.25 mg INH Q4R PRN PRN Reason: Shortness Of Breath Or Wheezing Stop: 05/13/21 09:16 Last Admin: 04/18/21 07:43 Dose: 1.25 mg Documented by: Lisinopril (Lisinopril 5 Mg Tab) 5 mg PO DAILY [facility] Stop: 05/14/21 08:59 Last Admin: 04/17/21 09:47 Dose: 5 mg Documented by: Miscellaneous Information (Piperacill/Tazobac Consult Active) 1 ea N/A UD PRN PRN Reason: Consult Stop: 05/13/21 04:56 Morphine Sulfate (Morphine Sulfate 2 Mg/Ml Carp) 2 mg IV Q3H PRN PRN Reason: Pain Stop: 04/27/21 09:16 Pantoprazole Sodium (Pantoprazole 40 Mg Tab) 40 mg PO BID [facility]; Protocol Stop: 05/14/21 08:59 Last Admin: 04/17/21 20:10 Dose: 40 mg Documented by: Tramadol HCl (Tramadol Hcl 50 Mg Tablet) 25 - 50 mg PO Q4H PRN PRN Reason: Pain Stop: 05/13/21 22:41 Last Admin: 04/14/21 18:29 Dose: 25 mg Documented by: Umeclidinium Jal (Umeclidinium Jal 62.5mcg/Blister 7 Puffs/Inhaler) 1 puffs INH [facility]; Protocol Stop: 05/14/21 08:59 Last Admin: 04/17/21 09:45 Dose: 1 puffs Documented by:
[2021-04-18] MEDS: lisinopril 5 MG TAB PO SCH (08:53)
[2021-04-18] MEDS: PANTOprazole 40 MG TAB PO SCH (08:53)
[2021-04-18] MEDS: FLUTICASONE/VILANTEROL 200/25MCG 14 PUFFS/INHALER INH SCH (08:53)
[2021-04-18] MEDS: ATORVASTATIN 10 MG TAB PO SCH (08:53)
[2021-04-18] MEDS: UMECLIDINIUM BROMIDE 62.5MCG/BLISTER 7 PUFFS/INHALER INH SCH (08:54)
--- NOTE | 2021-04-18 09:57 | Discharge Summary ---
Date of Service April 18, 2021 Admission HPI Per Admitting Provider History obtained from patient, family, and records. Medical history significant for hypertension, hyperlipidemia, COPD, ongoing tobacco abuse, GERD. Last confinement 2016 for COPD exacerbation. Patient underwent outpatient surveillance colonoscopy at [facility] 4 days ago. Patient has history of adenomatous polyps and family history of colon cancer. Normal colon as per report. Hemorrhoids noted. Postprocedure, patient noted achy lower abdominal pain more on the left which patient found unusual. No fever no chills. No BM. Some nausea, no emesis. Patient denies chest pain, S OB, headache symptoms. Patient consulted ER last night for worsening symptoms. IV Zosyn given at the ER for a possible intra-abdominal abscess on CT initial read. 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 Admission Exam Per Admitting Provider GENERAL: Comfortable, underweight, no respiratory distress SKIN: Normal color, warm HEENT: Bespectacled, [place] palpebral conjunctivae, no ptosis, dry buccal mucosa NECK : Supple, no tenderness CHEST : Decreased breath sounds, no tenderness HEART : RRR, no obvious murmurs ABDOMEN: Some distention, Hypogastric tenderness EXTREMITIES : No LE swelling/tenderness, no other conspicuous deformities noted NEUROLOGIC : Coherent, no facial asymmetry, no other gross focality Principal Diagnosis Bowel perforation, intra-abdominal abscess, status post colonoscopy Discharge Exam General: A&Ox3, thin F in NAD HEENT: NCAT, MMM, EOMI, PERRL Neck: Supple, normal range of motion CVS: normal rate and rhythm Resp: decreased breath sounds, no wheezing, rhonchi, crackles Abdomen: Soft, nondistended, minimal central/ suprapubic tenderness to palp. Extremities: No c/c/e Neuro: face symmetric, no focal deficit Skin: warm and dry, no rashes/lesions/erythema MSK: normal ROM, no joint swelling/erythema Discharge Data Allergies Allergy/AdvReac Type Severity Reaction Status Date / Time latex Allergy Mild blisters Verified 04/13/21 01:21 amoxicillin AdvReac Mild DIARRHEA Verified 04/13/21 01:21 levofloxacin AdvReac Mild Erythema Verified 04/13/21 01:21 at IV site Consultations 04/13/21 05:07 Consult General Surgery Stat 04/13/21 05:28 ED Decision to Admit Stat Ordered Studies 04/12/21 23:52 CT abd pelvis IV con only Urgent IMPRESSION: 1. There is a 4.5 cm gas and fluid containing collection seen along the post erior aspect of the descending colon typical in appearance for abscess. Additionally, there are tiny foci of intraperitoneal free air. Given the history of a recent colonoscopy the abscess is likely related to a contained perforation. Underlying mass lesion is considered much less likely. Correlate with the colonoscopy findings. 2. The left colon is inflamed and hyperemic, and there is infiltration and trace fluid around the collection. 3. The upstream colon is dilated and filled with gas/stool. This likely represents mild colonic obstruction secondary to the perforation/abscess. The small bowel is normal in caliber. 4. Right-sided nephrolithiasis. 5. Advanced emphysema. 6. Additional findings in full report. 04/13/21 02:34 CT abd pelvis oral con only Stat IMPRESSION: 1. Again seen is a 4.5 cm gas and fluid containing collection seen along the posterior aspect of the descending colon as detailed above typical in appearance for abscess. Additionally, there are tiny foci of intraperitoneal free air. Given the history of a recent colonoscopy the abscess is likely related to a contained perforation. Underlying mass lesion is considered much less likely. Correlate with the colonoscopy findings. 2. The left colon is thick-walled and inflamed with surrounding infiltration and fluid. 3. The upstream colon is dilated and filled with gas/stool. This likely represents mild colonic obstruction secondary to the perforation/abscess. The small bowel is normal in caliber. 4. Right-sided nephrolithiasis. 5. Advanced emphysema. 6. Additional findings in full report. 04/15/21 08:49 CT abd pelvis oral and IV con Routine IMPRESSION: Mild decrease in size of a peripherally enhancing fluid and gas containing collection along the posterior wall of the descending colon, measuring 3.4 x 3.3 cm. This may reflect a contained colonic perforation with abscess. Interval decrease in adjacent inflammation. Persistent mild colonic d ilatation. Hospital Course (1) Asymptomatic hypertensive urgency: Secondary to abdominal pain from possible intra-abdominal abscess Possible colonic perforation with intra-abdominal abscess with recent colonoscopy CT abd./ pelvis IMPRESSION: 1. Again seen is a 4.5 cm gas and fluid containing collection seen along the posterior aspect of the descending colon as detailed above typical in appearance for abscess. Additionally, there are tiny foci of intraperitoneal free air. Given the history of a recent colonoscopy the abscess is likely related to a contained perforation. Underlying mass lesion is considered much less likely. Correlate with the colonoscopy findings. 2. The left colon is thick-walled and inflamed with surrounding infiltration and fluid. 3. The upstream colon is dilated and filled with gas/stool. This likely represents mild colonic obstruction secondary to the perforation/abscess. The small bowel is normal in caliber. 4. Right-sided nephrolithiasis. 5. Advanced emphysema. Surgery consulted and following - repeated CT abd./ pelvis (04/15) Currently patient improving, no surgical intervention at this time planned Continue with IV Zosyn. WBC is within normal limit. Currently tolerating low fiber diet Patient to be discharged today on p.o. antibiotics (Augmentin), and follow-up with surgery within 2 weeks COPD, - pulmonary status at baseline - stable on regimen - Ongoing tobacco abuse, counseling provided Malnutrition (low BMI) - consult nutrition given low BMI - Pt reports always being thin, her whole life History of recent C. difficile - s/p treatment Total Time Total Time Spent Total Time Spent (In Minutes): 35 Discharge Plan Discharge Items Patient Disposition: Home - Self-Care Reason For Visit: HTN URG,POSS INRAAB ABSCESS Discharge Diagnosis: Bowel perforation, intra-abdominal abscess, status post colonoscopy Activity: Per Instructions section Non-emergency contact: Primary Care Provider and Surgeon Call non-emergency contact if: you have any medication questions and your symptoms worsen Follow-up/Referrals: Connor Gillette, [Surgeon] - (Please call to make an appt in 1-2 weeks ) Ana Park MD [Primary Care Provider] - (Date & Time 04/24/2021 12:00 PM Provider Ana Park MD Department Family Medicine [facility] ) Diet: Low Fiber Addtl Attending Provider Instructions: Follow-up with your primary care doctor, the prescription for you for April 24. You will also need to follow-up with a surgeon, Dr. Gillette, within 2 weeks. In the meantime make sure you continue antibiotics, Augmentin, as prescribed. Recommend to continue with low fiber diet until instructed otherwise by your health care providers. Pending Studies at Discharge: No Stand-Alone Forms: My [facility] [address], Smoking Cessation Medications and DC Order Prescriptions: New amoxicillin-pot clavulanate [Augmentin] 875-125 mg tablet 1 tab PO BID 14 Days Qty: 28 RF: 0 Continued famotidine [Pepcid] 20 mg tablet 20 mg PO PM RF: 0 mometasone-formoterol 200-5 mcg/actuation HFA aerosol inhaler 2 puffs inhalation BID RF: 0 albuterol sulfate 90 mcg/actuation HFA aerosol inhaler 2 puffs inhalation Q4H PRN (Reason: shortness of breath or wheezing) RF: 0 Spiriva Respimat 2.5 mcg/actuation mist 2 puff inhalation QAM Qty: 3 RF: 1 atorvastatin 10 mg tablet 10 mg PO DAILY RF: 0 acetaminophen [Tylenol Extra Strength] 500 mg Tablet 500 - 1,000 mg PO Q6H PRN (Reason: Pain) RF: 0 lisinopril 5 mg tablet 5 mg PO DAILY RF: 0 esomeprazole magnesium 20 mg capsule,delayed release(DR/EC) 20 mg PO BID RF: 0 Discharge Orders: Discharge Order (Routine); Ordered 04/18/21 Ordered By: Stephon Zelaya Admission Data Admit Date/Time: 04/13/21 06:51 Attending Provider: Stephon Zelaya Admit Provider: Jonathon Bartlett Primary Care Provider: Ana Park Other Providers: Jonathon Bartlett ; Connor Gillette ; Mely Lopez
--- NOTE | 2021-04-18 10:19 | Surgery Progress Note ---
Date of Service April 18, 2021 Assessment & Plan (1) Perforation of colon as colonoscopy complication: (2) Abdominal pain, LLQ: Plan: She is doing well. She is tolerating her diet without nausea or vomiting. White count is normal. She denies any pain and has a benign exam. She has been on 6 days of antibiotics. Discharge to home today, follow-up with Dr. Gillette in 1 to 2 weeks. Admission and Anticipated Discharge Date Admission Date: April 13, 2021 Subjective 65-year-old woman with contained abscess status post colonoscopy last week. This morning she is tolerating her diet. She denies any pain or tenderness. She denies nausea and vomiting. She denies fevers and chills. She is anxious to go home. Review of Systems Review of Systems: All systems reviewed & are unremarkable except as noted in Subjective Physical Exam Constitutional: WD/WN, vitals as above Eyes: PERRL, conjunctivae normal, anicteric sclerae Gastrointestinal (Abdomen): normal bowel sounds, soft, nontender, no hepatosplenomegaly Musculoskeletal: Extremities: no cyanosis and no clubbing Skin: no rashes, warm and dry Psychiatric: A+Ox3, euthymic affect Results & Data ([facility]) Vital Signs (Past 12 Hours) Vital Signs Temp Pulse Pulse Resp BP BP Pulse Ox 04/18/21 07:45 81 18 92 04/18/21 07:24 36.7 C 80 20 148/75 H 93 04/18/21 04:21 36.6 C 71 18 123/60 93 04/17/21 23:40 91 H 04/17/21 23:38 36.8 C 78 18 108/60 94 Laboratory Results 04/18/21 04/18/21 04/18/21 Range/Units 07:43 06:26 06:26 WBC 6.51 (4.8-10.8) K/uL RBC 5.01 (4.2-5.4) M/uL Hgb 12.9 (12.0-16.0) g/dL Hct 40.8 (37-47) % MCV 81.4 (80-100) fL MCH 25.7 (25-34) pg MCHC 31.6 L (32-36) g/dL RDW Std Deviation 50.8 H (36.4-46.3) fL RDW Coeff of Millicent 17.1 H (11.5-14.5) % Plt Count 351 (130-400) K/uL MPV 8.9 (7.4-10.4) fL Sodium 139 (136-145) mmol/L Potassium 4.1 (3.5-5.1) mmol/L Chloride 107 (98-107) mmol/L Carbon Dioxide 26 (21-32) mmol/L Anion Gap 6.0 (3-11) BUN 7 (7-18) mg/dl Creatinine 0.82 (0.6-1.2) mg/dl Est Cr Clr Drug Dosing 33.0 ml/min Est GFR ( Amer) 87.0 ml/min Est GFR (Non-Af Amer) 75.1 ml/min BUN/Creatinine Ratio 8.8 L (10-20) Glucose 78 (70-99) mg/dl POC Glucose 83 (70-99) mg/dl Calcium 9.3 (8.5-10.1) mg/dl Phosphorus 4.1 (2.5-4.9) mg/dl Magnesium 1.9 (1.8-2.4) mg/dl 04/17/21 Range/Units 16:33 WBC (4.8-10.8) K/uL RBC (4.2-5.4) M/uL Hgb (12.0-16.0) g/dL Hct (37-47) % MCV (80-100) fL MCH (25-34) pg MCHC (32-36) g/dL RDW Std Deviation (36.4-46.3) fL RDW Coeff of Millicent (11.5-14.5) % Plt Count (130-400) K/uL MPV (7.4-10.4) fL Sodium (136-145) mmol/L Potassium (3.5-5.1) mmol/L Chloride (98-107) mmol/L Carbon Dioxide (21-32) mmol/L Anion Gap (3-11) BUN (7-18) mg/dl Creatinine (0.6-1.2) mg/dl Est Cr Clr Drug Dosing ml/min Est GFR ( Amer) ml/min Est GFR (Non-Af Amer) ml/min BUN/Creatinine Ratio (10-20) Glucose (70-99) mg/dl POC Glucose 110 H (70-99) mg/dl Calcium (8.5-10.1) mg/dl Phosphorus (2.5-4.9) mg/dl Magnesium (1.8-2.4) mg/dl
== END 2021-04-18 12:41 | disposition home or self-care (01) | DRG 920 ==
LOC: ED 22:47 → 2N 04-13 06:51 → SUATTDRO 04-13 06:51 → 2N 04-13 08:00

== ENCOUNTER 2022-01-02 15:33 | Inpatient (IN) ==
[2022-01-02] MEDS ORDERED: dexAMETHasone**PF** 10 MG/ML VIAL IV ONE (15:56)
[2022-01-02 16:10] LABS: Basophils # (auto) 0.03 K/uL (0-0.2); Basophils % (auto) 0.3 %; Eosinophils # (auto) 0.05 K/uL (0-0.5); Eosinophils % (auto) 0.6 %; Hemoglobin 16.9 g/dL (12.0-16.0); Immature Granulocytes # (auto) 0.04 K/uL (0.00-0.02); Immature Granulocytes % (auto) 0.5 %; Lymphocytes % (auto) 11.4 %; Mean Corpuscular Hemoglobin 28.8 pg (25-34); Mean Corpuscular Hgb Conc 33.1 g/dL (32-36); Mean Corpuscular Volume 86.9 fL (80-100); Mean Platelet Volume 9.8 fL (7.4-10.4); Monocytes # (auto) 0.69 K/uL (0.11-0.59); Monocytes % (auto) 7.8 %; Neutrophils # (auto) 6.98 K/uL (1.4-6.5); Neutrophils % (auto) 79.4 %; Platelet Count 174 K/uL (130-400); RDW Coefficient of Variation 17.9 % (11.5-14.5); RDW Standard Deviation 57.3 fL (36.4-46.3); Red Blood Count 5.87 M/uL (4.2-5.4); White Blood Count 8.79 K/uL (4.8-10.8)
[2022-01-02 16:33] LABS: Albumin Globulin Ratio 1.4 (0.9-2); BUN Creatinine Ratio 12.3 (10-20); Bilirubin,Total 0.4 mg/dl (0.2-1.0); Calcium 9.1 mg/dl (8.5-10.1); Creatinine Clr Calc Pharmacy 41.9 ml/min; Est GFR (African American) 99.5 ml/min; Est GFR (Non-African American) 85.8 ml/min; Globulin 2.9 gm/dl (2.5-4.0); Magnesium 2.1 mg/dl (1.7-2.4); Potassium 3.9 mmol/L (3.5-5.1); Total Protein 6.9 gm/dl (6.0-8.3)
--- NOTE | 2022-01-02 17:36 | XRay Report ---
XR chest 2V PA/lateral CLINICAL HISTORY: Dyspnea COMPARISON STUDY: Chest CT September 18, 2020. Chest radiograph November 15, 2021. FINDINGS: Lung hyperexpansion with underlying emphysema is noted. There is no pneumothorax or pleural effusion. No consolidation to suggest pneumonia. There is no evidence for pulmonary edema. Nipple sh adows project over the chest. Cardiac size is normal. Mediastinal contours are normal. Appearance of the chest is unchanged. IMPRESSION: No acute cardiopulmonary findings. Emphysema. ACT 112: Negative or not required by law. Electronically signed by: Kenny Marks M.D. 01/02/2022 5:35 PM
[2022-01-02] MEDS ORDERED: ALBUT/IPRATROP 3MG/0.5MG NEB 3 ML VIAL NEB STA (17:41)
--- NOTE | 2022-01-02 17:41 | Emergency Department Note ---
ED Visit Note I was consulted by the Advanced Practice Provider, Mario Alberto Allen PA-C. I saw the patient personally and performed a substantive portion of the visit. This includes aspects of the HPI, MDM, diagnostic interpretations, and disposition/plan. Patient presented due to concern for shortness of breath and likely COPD with a known history of emphysema. The patient did have blood work completed and was treated symptomatically with neb treatments. Patient did have difficulty with breathing and dyspnea on exertion and where the patient may benefit from inpatient treatment continue nebs and steroids. Patient is agreeable to this plan. Patient was admitted to the hospitalist service. .
[2022-01-02 17:57] LABS: Appearance Urine Clear (Clear); Bacteria Urine Automated Negative (Negative); Bilirubin Urine Negative (Negative); Blood Urine Negative (Negative); Color Urine Yellow; Glucose Urine UA Negative (Negative); Ketones Urine Trace (Negative); Leukocyte Esterase Urine Negative (Negative); Nitrite Urine Negative (Negative); Protein Urine 1+ (Negative); RBC Urine Automated 0-4 /hpf (0-4); Specific Gravity Urine 1.018 (1.000-1.030); Urobilinogen Urine Negative (Negative)
[2022-01-02 18:57] LABS: Influenza A virus by PCR Negative (Neg); Influenza B virus by PCR Negative (Neg); RSV by PCR Negative (Neg); SARS CoV2 RNA(COVID-19) InHosp NEGATIVE (Negative)
--- NOTE | 2022-01-02 20:39 | Emergency Department Note ---
History of Present Illness General Chief complaint: Shortness of Breath/Dyspnea Time Seen by Provider: 01/02/22 15:49 History of Present Illness This 66-year-old female, with a known history of emphysema, COPD, hypertension, history of colon polyps, tobacco abuse, GERD, elevated triglycerides, and dysphagia, presented to the ED with increasing shortness of breath over the last several days. Patient was admitted here in early November for shortness of breath. She states today's symptoms feel identical. She was doing well until earlier this week. She states her granddaughter developed some sort of cold with a cough. On Tuesday her daughter and the patient developed similar symptoms. She has been battling it all week, but states it has gotten worse. She normally wears oxygen 2 L at home, but has had to increase it to 3 L. Symptoms are worse with activity. She has had hypoxia at home, with reported O2 sats as low as 85%. She has been using her albuterol inhaler solution at home without improvement. She arrives by [facility] ambulance. She describes a nonproductive cough as well as shortness of breath. She denies any chest pain. No nausea or vomiting. No abdominal pain. She continues to smoke. Home Medications Medication Instructions Recorded Confirmed Type famotidine 20 mg tablet (Pepcid) 20 mg PO PM 09/25/19 01/02/22 History atorvastatin 10 mg tablet 10 mg PO QAM 04/13/21 01/02/22 History esomeprazole magnesium 20 mg 20 mg PO BID 04/13/21 01/02/22 History capsule,delayed release albuterol sulfate 2.5 mg INHALATION Q4 PRN 11/15/21 01/02/22 History fluticasone fur. 100 mcg-umeclid 1 ea INHALATION QAM 11/15/21 01/02/22 History 62.5 mcg-vilant 25 mcg inhalat.powder (Trelegy Ellipta) lisinopril 5 mg tablet 5 mg PO QAM 11/17/21 01/02/22 History albuterol sulfate 90 mcg/actuation 2 puff INHALATION Q4 PRN 01/02/22 01/02/22 History aerosol inhaler azithromycin 250 mg tablet 250 mg PO UD PRN 01/02/22 01/02/22 History loratadine 10 mg tablet 10 mg PO DAILY 01/02/22 01/02/22 History prednisone 20 mg tablet 40 mg PO QAM PRN 01/02/22 01/02/22 History Allergies Allergy/AdvReac Type Severity Reaction Status Date / Time latex Allergy Mild blisters Verified 01/02/22 16:21 amoxicillin AdvReac Mild DIARRHEA Verified 01/02/22 16:21 levofloxacin AdvReac Mild Erythema Verified 01/02/22 16:21 at IV site Past Med/Surg History Medical History Abdominal pain COPD (chronic obstructive pulmonary disease) inhaler daily/prn GERD (gastroesophageal reflux disease) History of anesthesia reaction DIFFICULT TO AWAKEN, N/V History of nicotine dependence History of osteoporosis HTN (hypertension) Pulmonary emphysema Severely underweight adult only weighs 69lbs Surgical History H/O colonoscopy - Dr. Radha Henning H/O: hysterectomy History of cardiac cath NEGATIVE [place] 2014- DR. WEST History of cataract surgery BOTH EYES History of esophagogastroduodenoscopy (EGD) (~07/08/20) Family History Mother Hypertension Sister Epilepsy Family history of reaction to anesthesia nausea/vomiting, difficulty waking Family/Other Osteoporosis Social History Smoking Status: Current every day smoker Tobacco Type: Cigarettes Age Started Using Tobacco: 13; packs per day: 1.0; Years Smoked: 53; Cigarettes Per Day: less than 20 a day; Second Hand Exposure: No; Hx Alcohol Use: No Hx Substance Use: No Preferred Language: Slovak Communication Ability: Effective Academy Director Required: No Beliefs That Will Affect Care: None Current Living Situation: Spouse current occupational status: retired How many Children do You have: 3 Feels Safe at Home: Yes Assistive Devices: Oxygen - Continuous Review of Systems A total of 10 systems reviewed and were otherwise negative Physical Exam Vital Signs Vital Signs - 24 hr 01/02/22 15:46 01/02/22 16:22 01/02/22 17:36 Temperature 37 C Temperature Source Oral Pulse Rate 92 H 79 Pulse Rate [Apical] Pulse Rhythm Regular Pulse Strength Normal Respiratory Rate 22 18 18 Respiratory Effort / Characteristics Non-Labored Non-Labored Respiratory Depth Normal Normal Respiratory Pattern Regular Blood Pressure 167/96 H Blood Pressure [Left Arm] 163/93 H Blood Pressure Mean 119 Blood Pressure Mean [Left Arm] 116 Blood Pressure Position Sitting Pulse Oximetry 96 96 96 Oxygen Delivery Method Nasal Cannula Nasal Cannula Nasal Cannula Oxygen Flow Rate 2 2 2 Sepsis Recent Fever Within 48 Hours No Sepsis New/Unexplained Change in Mental Status No Sepsis Action Taken by Nursing No Action Required Oxygen Flow Rate - Titration 2 Pulse Oximetry Post Tiitration 96 01/02/22 19:00 Temperature Temperature Source Pulse Rate Pulse Rate [Apical] 89 Pulse Rhythm Pulse Strength Respiratory Rate 22 Respiratory Effort / Characteristics Respiratory Depth Respiratory Pattern Blood Pressure Blood Pressure [Left Arm] 158/73 H Blood Pressure Mean Blood Pressure Mean [Left Arm] 101 Blood Pressure Position Pulse Oximetry 95 Oxygen Delivery Method Nasal Cannula Oxygen Flow Rate Sepsis Recent Fever Within 48 Hours Sepsis New/Unexplained Change in Mental Status Sepsis Action Taken by Nursing Oxygen Flow Rate - Titration Pulse Oximetry Post Tiitration General: Well-developed, frail, elderly white female, in no acute distress. Sitting on a bed. Alert and oriented. Wearing a nasal cannula. She does not appear toxic. Skin: Warm and dry with fair turgor. No rashes or lesions. No ecchymosis or erythema. No intra-articular effusions. HEENT: Normocephalic atraumatic. Eyes PERRLA, EOMI. No conjunctiva or scleral injection. Ears TMs intact bilaterally with good light reflexes. No erythema or bulging. No hemotympanum. Canals are patent. Nares patent bilaterally without turbinate enlargement. No significant drainage. No epistaxis. Oropharynx without erythema or exudate. Uvula midline, oral mucosa moist. No lesions present. Lungs: Lungs are clear to auscultation. No crackles rhonchi or wheezing. Fair air movement. The patient is able to take a deep breath. Heart: Heart RRR. No MGR. Peripheral pulses are 2+. Abdomen: Abdomen was inspected, auscultated, and palpated. Bowel sounds present x 4. Soft, nontender to palpation. No hepato-splenomegaly. No masses noted. No rebound. Musculoskeletal: Gross motor function of the upper and lower extremities is intact and unremarkable. Neurologic: Gross sensation is intact across the upper and lower extremities by soft touch. Course Administered Medications Discontinued Medications Albuterol (Albut/Ipratrop 3mg/0.5mg Neb 3 Ml Vial) 3 ml NEB NOW STA; Protocol Stop: 01/02/22 17:42 Last Admin: 01/02/22 17:58 Dose: 3 ml Documented by: [id number] Dexamethasone Sodium Phosphate (DexamethasonePf 10 Mg/Ml Vial) 10 mg IV NOW ONE Stop: 01/02/22 15:57 Last Admin: 01/02/22 16:37 Dose: 10 mg Documented by: [id number] Medical Decision Making Differential Diagnosis COPD exacerbation, asthma exacerbation, pneumonia, COVID-19, pneumonitis, viral illness Medical Records Attestation: I reviewed the patient's medical records. Home Medications Current Medication List: was personally reviewed by me Laboratory Data CBC, BNP, and PRP were obtained today. There is no elevation in white count. Very slight elevation in H&H at 16.9 and 51.0. Chemistry panel was unremarkable. BNP is normal at 32. UA is unremarkable. Bio fire is negative for RSV, COVID, and influenza. Result diagrams: 01/02/22 15:42 01/02/22 15:42 Lab Results 01/02/22 01/02/22 01/02/22 Range/Units 15:42 15:42 15:42 WBC 8.79 (4.8-10.8) K/uL RBC 5.87 H (4.2-5.4) M/uL Hgb 16.9 H (12.0-16.0) g/dL Hct 51.0 H (37-47) % MCV 86.9 (80-100) fL MCH 28.8 (25-34) pg MCHC 33.1 (32-36) g/dL RDW Std Deviation 57.3 H (36.4-46.3) fL RDW Coeff of Millicent 17.9 H (11.5-14.5) % Plt Count 174 (130-400) K/uL MPV 9.8 (7.4-10.4) fL Immature Gran % (Auto) 0.5 % Neut % (Auto) 79.4 % Lymph % (Auto) 11.4 % [place] % (Auto) 7.8 % Eos % (Auto) 0.6 % Baso % (Auto) 0.3 % Neut # (Auto) 6.98 H (1.4-6.5) K/uL Lymph # (Auto) 1.00 L (1.2-3.4) K/uL [place] # (Auto) 0.69 H (0.11-0.59) K/uL Eos # (Auto) 0.05 (0-0.5) K/uL Baso # (Auto) 0.03 (0-0.2) K/uL Immature Gran # (Auto) 0.04 H (0.00-0.02) K/uL Sodium 140 (136-145) mmol/L Potassium 3.9 (3.5-5.1) mmol/L Chloride 104 (98-107) mmol/L Carbon Dioxide 27 (21-32) mmol/L Anion Gap 9 (3-11) BUN 9 (6-23) mg/dl Creatinine 0.73 (0.6-1.2) mg/dl Est Cr Clr Drug Dosing 41.9 ml/min Est GFR ( Amer) 99.5 ml/min Est GFR (Non-Af Amer) 85.8 ml/min BUN/Creatinine Ratio 12.3 (10-20) Glucose 80 (70-99(Fasting)) mg/dl Calcium 9.1 (8.5-10.1) mg/dl Magnesium 2.1 (1.7-2.4) mg/dl Total Bilirubin 0.4 (0.2-1.0) mg/dl AST 16 (13-39) U/L ALT 14 (7-52) U/L Alkaline Phosphatase 63 (34-104) U/L Troponin I High Sens (0-14) pg/ml B-Natriuretic Peptide 32 (0-100) pg/ml Total Protein 6.9 (6.0-8.3) gm/dl Albumin 4.0 (3.4-5.0) gm/dl Globulin 2.9 (2.5-4.0) gm/dl Albumin/Globulin Ratio 1.4 (0.9-2) Urine Color Urine Appearance (Clear) Urine pH (4.5-7.5) Ur Specific [place] (1.000-1.030) Urine Protein (Negative) Urine Glucose (UA) (Negative) Urine Ketones (Negative) Urine Blood (Negative) Urine Nitrite (Negative) Urine Bilirubin (Negative) Urine Urobilinogen (Negative) Ur Leukocyte Esterase (Negative) Urine WBC (Auto) (0-5) /hpf Urine RBC (Auto) (0-4) /hpf U Hyaline Cast (Auto) (0-5) /lpf U Epithel Cells (Auto) (0-5) /lpf Urine Bacteria (Auto) (Negative) SARS-CoV-2 (PCR) (Negative) Influenza Type A (PCR) (Neg) Influenza Type B (PCR) (Neg) RSV (RT-PCR) (Neg) 01/02/22 01/02/22 01/02/22 Range/Units 15:42 18:02 Unknown WBC (4.8-10.8) K/uL RBC (4.2-5.4) M/uL Hgb (12.0-16.0) g/dL Hct (37-47) % MCV (80-100) fL MCH (25-34) pg MCHC (32-36) g/dL RDW Std Deviation (36.4-46.3) fL RDW Coeff of Millicent (11.5-14.5) % Plt Count (130-400) K/uL MPV (7.4-10.4) fL Immature Gran % (Auto) % Neut % (Auto) % Lymph % (Auto) % [place] % (Auto) % Eos % (Auto) % Baso % (Auto) % Neut # (Auto) (1.4-6.5) K/uL Lymph # (Auto) (1.2-3.4) K/uL [place] # (Auto) (0.11-0.59) K/uL Eos # (Auto) (0-0.5) K/uL Baso # (Auto) (0-0.2) K/uL Immature Gran # (Auto) (0.00-0.02) K/uL Sodium (136-145) mmol/L Potassium (3.5-5.1) mmol/L Chloride (98-107) mmol/L Carbon Dioxide (21-32) mmol/L Anion Gap (3-11) BUN (6-23) mg/dl Creatinine (0.6-1.2) mg/dl Est Cr Clr Drug Dosing ml/min Est GFR ( Amer) ml/min Est GFR (Non-Af Amer) ml/min BUN/Creatinine Ratio (10-20) Glucose (70-99(Fasting)) mg/dl Calcium (8.5-10.1) mg/dl Magnesium (1.7-2.4) mg/dl Total Bilirubin (0.2-1.0) mg/dl AST (13-39) U/L ALT (7-52) U/L Alkaline Phosphatase (34-104) U/L Troponin I High Sens 4.1 (0-14) pg/ml B-Natriuretic Peptide (0-100) pg/ml Total Protein (6.0-8.3) gm/dl Albumin (3.4-5.0) gm/dl Globulin (2.5-4.0) gm/dl Albumin/Globulin Ratio (0.9-2) Urine Color Yellow Urine Appearance Clear (Clear) Urine pH 7.0 (4.5-7.5) Ur Specific [place] 1.018 (1.000-1.030) Urine Protein 1+ H (Negative) Urine Glucose (UA) Negative (Negative) Urine Ketones Trace H (Negative) Urine Blood Negative (Negative) Urine Nitrite Negative (Negative) Urine Bilirubin Negative (Negative) Urine Urobilinogen Negative (Negative) Ur Leukocyte Esterase Negative (Negative) Urine WBC (Auto) 1-5 (0-5) /hpf Urine RBC (Auto) 0-4 (0-4) /hpf U Hyaline Cast (Auto) 1-5 (0-5) /lpf U Epithel Cells (Auto) 10-20 H (0-5) /lpf Urine Bacteria (Auto) Negative (Negative) SARS-CoV-2 (PCR) NEGATIVE (Negative) Influenza Type A (PCR) Negative (Neg) Influenza Type B (PCR) Negative (Neg) RSV (RT-PCR) Negative (Neg) Imaging Data My Impression: Chest x-ray obtained today was reviewed by me and read by radiology. Emphysema changes are noted. No acute findings. No evidence for pneumonia. Radiologist's Impression: Chest X-Ray 01/02/22 15:56 XR chest 2V PA/lateral CLINICAL HISTORY: Dyspnea COMPARISON STUDY: Chest CT September 18, 2020. Chest radiograph November 15, 2021. FINDINGS: Lung hyperexpansion with underlying emphysema is noted. There is no pneumothorax or pleural effusion. No consolidation to suggest pneumonia. There is no evidence for pulmonary edema. Nipple shadows project over the chest. Cardiac size is normal. Mediastinal contours are normal. Appearance of the chest is unchanged. IMPRESSION: No acute cardiopulmonary findings. Emphysema. ACT 112: Negative or not required by law. Electronically signed by: Kenny Marks M.D. 01/02/2022 5:35 PM ECG Data Additional Comments: EKG obtained today was reviewed with Dr. Robin. It shows a sinus rhythm with PACs. Previous septal infarct. PACs are now present compared to his EKG from November 15. Rate of 83. No acute ST or T wave changes. Patient was placed on the cardiac rn upon initial presentation, and remained on the monitor during the admission. Heart rate remained between 100 and 115. Prescription Drug Monitoring [place] Drug Monitoring Program reviewed and no issues identified Blood Pressure Blood Pressure Findings: Elevated blood pressure Blood Pressure Disposition: elevated BP felt to be situational MDM Narrative Patient was evaluated in room B3. Conservative care measures were discussed. IV was established. Labs were obtained. EKG was also obtained along with chest x-ray. These were reviewed with Dr. Robin. Chest x-ray was unremarkable. EKG did not show any acute changes. Patient did stop her oxygen use and ambulate to the bathroom. Upon doing so, her O2 sat dropped to 87% and she became significantly short of breath. She was placed back on the O2 by nasal cannula. Patient is concerned that her O2 sats are dropping considerably with activity. This is the same scenario she experienced in November there required admission. She is afebrile. COVID swab was obtained. I do think she would be better with some observation and a slight tune up. [facility]. Please see that dictation for final management. Patient was seen in conjunction with Dr. Robin, who also evaluated the patient and concurred with today's diagnosis and treatment plan. Impression & Plan COPD with acute exacerbation Patient was educated regarding today's findings. She did receive 2 nebulizer treatments in the ambulance. She received a third in the ER. She was also given Decadron 10 mg IV. Her oxygen demand remained elevated at 3 L by nasal cannula. She remained hypoxic with any ambulation activity. Because of this, I do think the patient would benefit from admission. [facility] Please see that dictation for final management. She remained stable while in the ED. Discharge Plan Visit Data Chief Complaint: Shortness of Breath/Dyspnea ED Provider: Dylon Robin ED Midlevel Provider: Mario Alberto Tee Discharge Problem: COPD with acute exacerbation Forms Stand Alone Forms: [facility] Prescriptions Prescriptions: No Action famotidine [Pepcid] 20 mg tablet 20 mg PO PM RF: 0 albuterol sulfate 2.5 mg /3 mL (0.083 %) solution for nebulization 2.5 mg inhalation Q4 PRN (Reason: Shortness Of Breath Or Wheezing) RF: 0 Trelegy Ellipta 100-62.5-25 mcg blister with device 1 ea INHALATION QAM RF: 0 lisinopril 5 mg tablet 5 mg PO QAM RF: 0 atorvastatin 10 mg tablet 10 mg PO QAM RF: 0 esomeprazole magnesium 20 mg capsule,delayed release(DR/EC) 20 mg PO BID RF: 0 azithromycin 250 mg tablet 250 mg PO UD PRN (Reason: COPD rescue kit) RF: 0 prednisone 20 mg tablet 40 mg PO QAM PRN (Reason: COPD rescue kit) RF: 0 albuterol sulfate 90 mcg/actuation Hfa Aerosol Inhaler 2 puff INHALATION Q4 PRN (Reason: Shortness Of Breath Or Wheezing) RF: 0 loratadine 10 mg Tablet 10 mg PO DAILY RF: 0 Referrals Referrals: Ana Park MD [Primary Care Provider] -
[2022-01-02] MEDS ORDERED: POLYETHYLENE (MIRALAX) 17 GM PACK PO PRN (22:16)
[2022-01-02] MEDS ORDERED: NITROGLYCERIN SL 0.4 MG/TAB TAB SL PRN (22:16)
[2022-01-02] MEDS ORDERED: ALBUTEROL HFA 8 GM INHALER INH PRN (22:16)
--- NOTE | 2022-01-02 22:40 | History and Physical Report ---
DATE OF ADMISSION: 01/02/2022. CHIEF COMPLAINT: Shortness of breath. HISTORY OF PRESENT ILLNESS: This is a 66-year-old female with past medical history significant for hyperlipidemia, COPD, chronic respiratory failure, on home oxygen, allergic rhinitis, history of multiple lung nodules, hypertension, aortic valve sclerosis, severe protein-calorie malnutrition, GERD, irritable bowel syndrome with diarrhea, osteoporosis, tobacco use disorder, presents with shortness of breath. The patient says a couple of days ago, she started to get short of breath and progressively it got worse today. She uses oxygen on and off, but since yesterday using oxygen all the time, having dry cough. Denies any fevers, no chest pain, no nausea, no vomiting, no abdominal pain, normal bowel and bladder movements. No swelling in the legs. Walking short distance making her short of breath. Denies any headache. No blurred visions, no earache. Has some runny nose and some sore throat from congestion. Feeling hungry, wants to eat. ALLERGIES: LATEX, AMOXICILLIN, LEVAQUIN. PAST MEDICAL HISTORY: As mentioned above. PAST SURGICAL HISTORY: Bilateral breast lesion excision, breast surgery for fibroid lesion, colonoscopy, EGDs, partial hysterectomy. MEDICATIONS: The patient is on albuterol 2.5 mg inhalation q.4 hours p.r.n., albuterol nebulization q.4 hours p.r.n., atorvastatin 10 mg p.o. a.m., azithromycin p.r.n., esomeprazole 20 mg p.o. b.i.d., famotidine 20 mg p.o. p.m., lisinopril 5 mg p.o. a.m., loratadine 10 mg p.o. daily, prednisone p.r.n., Trelegy Ellipta 1 inhalation daily. FAMILY HISTORY: Significant for brother had prostate cancer; father has osteoporosis, lung disorder; mother has hypertension; sister has cervical cancer, epilepsy. SOCIAL HISTORY: . Currently smoking 10-12 cigarettes daily. No alcohol use. No drug use. REVIEW OF SYSTEMS: As per HPI. Rest of the review of systems is negative. PHYSICAL EXAMINATION: GENERAL: The patient is thin and frail, not in acute distress. VITAL SIGNS: Temperature 37, pulse 89, respiratory rate 22, blood pressure 158/73, oxygen 95% on room air. HEENT: Pupils equal, round and reactive to light. Oral mucosa moist. NECK: No JVD, no neck masses. CARDIOVASCULAR: S1 and S2 heard. Regular rate and rhythm. No murmur, no gallop. RESPIRATORY SYSTEM: Normal AP diameter. No accessory muscle use. Bilateral diminished breath sounds, occasional rhonchi. No wheezing. ABDOMEN: Soft. Bowel sounds are present, nontender, no distention. CENTRAL NERVOUS SYSTEM: Cranial nerves II-XII grossly intact, nonfocal. EXTREMITIES: No edema, no erythema. LABORATORIES: WBC 8.7, hemoglobin 16.9, hematocrit 51, platelets 174. Sodium 140, potassium 3.9, chloride 104, bicarbonate 27, BUN 9, creatinine 0.7, serum glucose 80, calcium 9.1, magnesium 2.1, total bilirubin 0.4, AST 16, ALT 14, alkaline phosphatase 63. Troponin I high sensitivity 4.1. BNP 32. Urinalysis negative. SARS-CoV-2 PCR negative. Influenza A and B PCR negative. RSV PCR negative. IMAGING: Chest x-ray: No acute cardiopulmonary findings and emphysema. EKG: Sinus rhythm with PACs at a rate of 83. ASSESSMENT AND PLAN: This is a 66-year-old female who presents with shortness of breath. 1. Shortness of breath, chronic obstructive pulmonary disease exacerbation: Has diminished breath sounds, some occasional rhonchi, has dry cough. Chest x- ray, no obvious infiltrates. We will treat her with Solu-Medrol 40 mg t.i.d., nebulizers around the clock and home nebulizers p.r.n., p.o. doxycycline. Monitor in the hospital. 2. History of hyperlipidemia: Continue statin. 3. Gastroesophageal reflux disease: Continue omeprazole, famotidine. 4. Hypertension: Continue lisinopril. 5. Deep venous thrombosis prophylaxis: Heparin subcutaneously. DISPOSITION: Closely monitor in the med tele. PT/OT prior to discharge. Social Service to help with discharge planning. Job ID: [id number] [facility]
[2022-01-02] MEDS: methylPREDNISolone 40 MG in SYRINGE 0 ML IV SCH (23:09)
[2022-01-02] MEDS: PANTOprazole 40 MG TAB PO SCH (23:10)
[2022-01-02] MEDS: DOXYCYCLINE HYCLATE 100 MG CAP PO SCH (23:10)
[2022-01-02] MEDS: FAMOTIDINE 20 MG TAB PO SCH (23:11)
[2022-01-02] MEDS: HEPARIN SOD 5,000 UNIT/0.5 ML VIAL SQ SCH (23:12)
[2022-01-03] MEDS: LEVALBUTEROL 1.25MG/0.5ML NEB INH SCH ×5 (00:02→19:13)
[2022-01-03] MEDS: IPRATROPIUM BROMIDE NEB SOLN 0.02% 2.5 ML VIAL INH SCH ×5 (00:04→19:13)
[2022-01-03] MEDS ORDERED: XOPENEX/ATROVENT 1.25mg/0.5MG NEB COMBO NEB SCH (01:00)
[2022-01-03 06:10] LABS: Hematocrit (blood only) 47.6 % (37-47); Hemoglobin 15.4 g/dL (12.0-16.0); Immature Granulocytes # (auto) 0.02 K/uL (0.00-0.02); Immature Granulocytes % (auto) 0.6 %; Lymphocytes # (auto) 0.44 K/uL (1.2-3.4); Lymphocytes % (auto) 12.9 %; Mean Corpuscular Hemoglobin 28.2 pg (25-34); Mean Corpuscular Hgb Conc 32.4 g/dL (32-36); Mean Corpuscular Volume 87.2 fL (80-100); Mean Platelet Volume 9.9 fL (7.4-10.4); Monocytes # (auto) 0.09 K/uL (0.11-0.59); Monocytes % (auto) 2.6 %; Neutrophils # (auto) 2.85 K/uL (1.4-6.5); Neutrophils % (auto) 83.9 %; Platelet Count 175 K/uL (130-400); RDW Coefficient of Variation 17.5 % (11.5-14.5); RDW Standard Deviation 56.3 fL (36.4-46.3); Red Blood Count 5.46 M/uL (4.2-5.4)
[2022-01-03 06:40] LABS: BUN Creatinine Ratio 24.2 (10-20); Calcium 8.9 mg/dl (8.5-10.1); Creatinine Clr Calc Pharmacy 41.1 ml/min; Est GFR (African American) 108.9 ml/min; Magnesium 2.1 mg/dl (1.7-2.4); Potassium 3.8 mmol/L (3.5-5.1)
[2022-01-03] MEDS ORDERED: NON-FORMULARY MEDICATION (Fluticasone-Umeclidin-Vilanter [Trelegy Ellipta] 100-62.5-25 mcg INH SCH (09:00)
[2022-01-03] MEDS ORDERED: lisinopril 5 MG TAB PO SCH (09:00)
[2022-01-03] MEDS: HEPARIN SOD 5,000 UNIT/0.5 ML VIAL SQ SCH ×2 (09:03→20:56)
[2022-01-03] MEDS: DOXYCYCLINE HYCLATE 100 MG CAP PO SCH ×2 (09:03→20:56)
[2022-01-03] MEDS: PANTOprazole 40 MG TAB PO SCH ×2 (09:03→20:56)
[2022-01-03] MEDS: methylPREDNISolone 40 MG in SYRINGE 0 ML IV SCH ×3 (09:03→19:48)
[2022-01-03] MEDS: ATORVASTATIN 10 MG TAB PO SCH (09:03)
[2022-01-03] MEDS: LORATADINE 10 MG TAB PO SCH (09:03)
[2022-01-03] MEDS: UMECLIDINIUM/VILANTEROL 62.5/25MCG 7 PUFFS/INHALER INH SCH (09:04)
[2022-01-03] MEDS: FLUTICASONE FUROATE 100MCG 14 PUFFS/INHALER INH SCH (09:04)
[2022-01-03] MEDS ORDERED: CALCIUM CARBONATE 500 MG CHEWABLE TAB PO ONE (14:00)
--- NOTE | 2022-01-03 14:58 | Electrocardiogram Report ---
Test Reason : Blood Pressure : / mmHG Vent. Rate : 083 BPM Atrial Rate : 083 BPM P-R Int : 130 ms QRS Dur : 092 ms QT Int : 384 ms P-R-T Axes : 084 090 085 degrees QTc Int : 451 ms Sinus rhythm with Premature atrial complexes Rightward axis Septal infarct (cited on or before 15-NOV-2021) Abnormal ECG When compared with ECG of 15-NOV-2021 09:49, Premature atrial complexes are now Present Confirmed by Best León ([id number]) on 01/03/2022 2:58:26 PM Referred By: REFERRED SELF Confirmed By:Best León
[2022-01-03] MEDS: SODIUM CHLOR 7% 4 ML NEB NEB SCH ×2 (19:15)
[2022-01-03] MEDS ORDERED: LABETALOL HCL IV 5 MG/ML 20ML IV STA (20:31)
[2022-01-03] MEDS ORDERED: lisinopril 5 MG TAB PO ONE (20:34)
[2022-01-03] MEDS: LORazepam 2 MG/1 ML VIAL IV PRN (20:59)
[2022-01-03] MEDS: FAMOTIDINE 20 MG TAB PO SCH (21:54)
--- NOTE | 2022-01-03 22:52 | Hospitalist Progress Note ---
Date of Service January 03, 2022 Assessment & Plan (1) COPD with acute exacerbation: Plan: Present on admission with worsening SOB CXR showed no acute cardiopulmonary findings. Doxycycline starting on admisssion Continue Solumedrol 40mg IV TID Continue neb treatment with duoneb Continue flutter valve and incentive spirometry Continue oxygen supplement Hyperlipidemia: Continue statin. Gastroesophageal reflux disease: Continue omeprazole, famotidine. Hypertension: Continue lisinopril. Deep venous thrombosis prophylaxis on Heparin subcutaneously. Code status Full code Admission and Anticipated Discharge Date Admission Date: January 02, 2022 Subjective Pt was seen and examined for follow of SOB Lying in bed with no acute distress Pt said that she is coughing but nothing come out Denies any chest pain,palpitation and fever Review of Systems Review of Systems: All systems reviewed & are unremarkable except as noted in Subjective Physical Exam Physical Exam: General- No acute distress Head- atraumatic Eyes- PERRL, EOMI, ENT- oropharynx clear Neck- supple, no JVD Lungs- +Wheezing Heart- regular rhythm; no murmur Abdomen- normal bowel sounds, soft, nontender Extremities- no calf tenderness Neuro- alert, oriented x 3; PERRL, EOMI; no facial palsy; no dysarthria Skin- warm & dry Results & Data Results & Data ([facility]) Vital Signs (Past 12 Hours) Vital Signs Temp Pulse Pulse Resp BP BP Pulse Ox 01/03/22 20:19 36.6 C 104 H 32 H 215/109 H 94 01/03/22 19:16 93 H 18 95 01/03/22 16:07 36.6 C 90 18 166/83 H 92 01/03/22 15:00 88 01/03/22 12:29 92 H 20 92 01/03/22 11:52 36.3 C L 78 18 145/71 H 96
[2022-01-04] MEDS: LEVALBUTEROL 1.25MG/0.5ML NEB INH SCH ×4 (00:36→19:21)
[2022-01-04] MEDS: IPRATROPIUM BROMIDE NEB SOLN 0.02% 2.5 ML VIAL INH SCH ×4 (00:36→19:21)
[2022-01-04] MEDS ORDERED: COUGH DROP (SUGAR FREE) LOZ 24 LOZ/1 BOX BUCCAL ONE (01:52)
[2022-01-04] MEDS: SODIUM CHLORIDE 0.9% NEBU SOLN 3 ML NEB SCH ×2 (07:05→19:21)
[2022-01-04] MEDS: LORATADINE 10 MG TAB PO SCH (08:50)
[2022-01-04] MEDS: ATORVASTATIN 10 MG TAB PO SCH (08:50)
[2022-01-04] MEDS: DOXYCYCLINE HYCLATE 100 MG CAP PO SCH ×2 (08:50→21:20)
[2022-01-04] MEDS: lisinopril 10 MG TAB PO SCH (08:50)
[2022-01-04] MEDS: PANTOprazole 40 MG TAB PO SCH ×2 (08:50→21:19)
[2022-01-04] MEDS: HEPARIN SOD 5,000 UNIT/0.5 ML VIAL SQ SCH ×2 (08:51→20:35)
[2022-01-04] MEDS: FLUTICASONE FUROATE 100MCG 14 PUFFS/INHALER INH SCH (08:51)
[2022-01-04] MEDS: methylPREDNISolone 40 MG in SYRINGE 0 ML IV SCH ×3 (08:52→20:20)
[2022-01-04] MEDS: UMECLIDINIUM/VILANTEROL 62.5/25MCG 7 PUFFS/INHALER INH SCH (08:52)
[2022-01-04] MEDS: LORazepam 2 MG/1 ML VIAL IV PRN ×2 (15:24→20:29)
[2022-01-04] MEDS: FAMOTIDINE 20 MG TAB PO SCH (21:19)
--- NOTE | 2022-01-04 21:53 | Hospitalist Progress Note ---
Date of Service January 04, 2022 Assessment & Plan (1) COPD with acute exacerbation: Plan: Present on admission with worsening SOB CXR showed no acute cardiopulmonary findings. Doxycycline starting on admisssion Continue Solumedrol 40mg IV TID, will transition to PO prednisone in am Continue neb treatment with duoneb Continue flutter valve and incentive spirometry Continue oxygen supplement Hyperlipidemia: Continue statin. Gastroesophageal reflux disease: Continue omeprazole, famotidine. Hypertension: Continue lisinopril. Deep venous thrombosis prophylaxis on Heparin subcutaneously. Code status Full code Admission and Anticipated Discharge Date Admission Date: January 02, 2022 Subjective Pt was seen and examined for follow of SOB Lying in bed with no acute distress Pt said that she is coughing but nothing come out She did not tolerate the hypertonic saline neb Denies any chest pain,palpitation and fever Review of Systems Review of Systems: All systems reviewed & are unremarkable except as noted in Subjective Physical Exam Physical Exam: General- No acute distress Head- atraumatic Eyes- PERRL, EOMI, ENT- oropharynx clear Neck- supple, no JVD Lungs- +Wheezing Heart- regular rhythm; no murmur Abdomen- normal bowel sounds, soft, nontender Extremities- no calf tenderness Neuro- alert, oriented x 3; PERRL, EOMI; no facial palsy; no dysarthria Skin- warm & dry Results & Data Results & Data ([facility]) Vital Signs (Past 12 Hours) Vital Signs Temp Pulse Pulse Resp BP Pulse Ox 01/04/22 19:27 84 20 96 01/04/22 15:59 36.6 C 81 20 127/72 97 01/04/22 14:20 93 H 01/04/22 13:18 94 H 20 96 01/04/22 12:17 36.8 C 79 20 131/67 94
[2022-01-05] MEDS: IPRATROPIUM BROMIDE NEB SOLN 0.02% 2.5 ML VIAL INH SCH ×3 (00:09→12:54)
[2022-01-05] MEDS: LEVALBUTEROL 1.25MG/0.5ML NEB INH SCH ×3 (00:09→12:54)
[2022-01-05] MEDS: SODIUM CHLORIDE 0.9% NEBU SOLN 3 ML NEB SCH (07:15)
[2022-01-05] MEDS: UMECLIDINIUM/VILANTEROL 62.5/25MCG 7 PUFFS/INHALER INH SCH (07:51)
[2022-01-05] MEDS: methylPREDNISolone 40 MG in SYRINGE 0 ML IV SCH ×2 (07:51→20:19)
[2022-01-05] MEDS: HEPARIN SOD 5,000 UNIT/0.5 ML VIAL SQ SCH ×2 (07:51→20:20)
[2022-01-05] MEDS: FLUTICASONE FUROATE 100MCG 14 PUFFS/INHALER INH SCH (07:52)
[2022-01-05] MEDS: LORazepam 2 MG/1 ML VIAL IV PRN ×2 (07:53→20:03)
[2022-01-05] MEDS: PANTOprazole 40 MG TAB PO SCH ×2 (09:53→20:21)
[2022-01-05] MEDS: lisinopril 10 MG TAB PO SCH (09:53)
[2022-01-05] MEDS: DOXYCYCLINE HYCLATE 100 MG CAP PO SCH (09:53)
[2022-01-05] MEDS: ATORVASTATIN 10 MG TAB PO SCH (09:54)
[2022-01-05] MEDS: LORATADINE 10 MG TAB PO SCH (09:54)
--- NOTE | 2022-01-05 13:26 | Hospitalist Progress Note ---
Date of Service January 05, 2022 Assessment & Plan (1) COPD with acute exacerbation: Plan: Present on admission with worsening SOB CXR showed no acute cardiopulmonary findings. Doxycycline starting on admission Solumedrol 40mg titrate to BID, will transition to PO prednisone in am Continue neb treatment with duoneb Continue flutter valve and incentive spirometry Spoke to daughter over the phone and would like her to be seen by in house pulm Pulm consulted Echo ordered by pulm to look for RV failure pulm changed inhaler to performist and budesonide Continue oxygen supplement Hyperlipidemia: Continue statin. Gastroesophageal reflux disease: Continue omeprazole, famotidine. Hypertension: Continue lisinopril. Deep venous thrombosis prophylaxis on Heparin subcutaneously. Code status Full code Admission and Anticipated Discharge Date Admission Date: January 02, 2022 Subjective Pt was seen and examined for follow of SOB Lying in bed with no acute distress Pt said that she is not feeling better. She continues to unable to bring the phlegm up Respiratory therapy said that she is unable to tolerate the hypertonic saline neb and the chest PT I spoke to daughter Christi who works at the OB unit Denies any chest pain,palpitation and fever Review of Systems Review of Systems: All systems reviewed & are unremarkable except as noted in Subjective Physical Exam Physical Exam: General- No acute distress Head- atraumatic Eyes- PERRL, EOMI, ENT- oropharynx clear Neck- supple, no JVD Lungs- Diminished Breath sound Heart- regular rhythm; no murmur Abdomen- normal bowel sounds, soft, nontender Extremities- no calf tenderness Neuro- alert, oriented x 3; PERRL, EOMI; no facial palsy; no dysarthria Skin- warm & dry Results & Data Results & Data ([facility]) Vital Signs (Past 12 Hours) Vital Signs Temp Pulse Pulse Resp BP BP Pulse Ox 01/05/22 12:54 84 18 97 01/05/22 12:33 36.6 C 102 H 21 164/81 H 91 01/05/22 09:59 169/91 H 01/05/22 09:00 75 01/05/22 08:12 36.7 C 95 H 20 193/90 H 91 01/05/22 07:07 81 18 96 01/05/22 04:17 36.9 C 82 18 169/92 H 96
--- NOTE | 2022-01-05 13:46 | Pulmonary Consultation ---
Date of Consultation January 05, 2022 Assessment & Plan (1) COPD with acute exacerbation: Patient with frequent COPD exacerbations. Agree with IV steroids at this time and transition to p.o. steroids starting tomorrow. We will start the patient on azithromycin every Tuesday, Tuesday and Tuesday for immunomodulatory effects. We will trial her on this for 6 to 8 weeks. We will also transition her off maintenance inhalers and start her on maintenance nebulizer therapy such as Brovana and budesonide twice daily. She has poor inspiratory capacity. Her prior ABG does not suggest chronic hypercapnic respiratory failure. She is not a candidate for lung transplantation at this time given her continued tobacco abuse and low weight. She is not completely interested in quitting smoking. She is willing to give nicotine patches a try. She did note that previously, 6 years ago, the nicotine patches seem to bother her skin. She may be a candidate for pulmonary rehab when she is out of the acute flare. She notes that travel is an issue, but she does live near [facility] which I believe does have a pulmonary rehab center. Echo obtained to evaluate for RV failure or pulmonary hypertension. (2) Oxygen dependent: Continue supplemental oxygen to maintain saturations of 88 to 92%. Recommend avoiding hyperoxia. (3) Pulmonary cachexia due to chronic obstructive pulmonary disease: Recommend nutrition consultation given her weight loss and increased calorie need due to her chronic dyspnea. Incentive spirometer ordered to prevent atelectasis. (4) Chronic cough: The cough is related to her COPD and made worse by tobacco abuse. Smoking cessation strongly encouraged. Lisinopril may also be playing a role. Would recommend discontinuing lisinopril. Flutter valve ordered to promote mucociliary clearance. (5) Tobacco abuse: We discussed barriers to her smoking cessation. She notes that she uses tobacco as a tool to control her anxiety. She has poor coping mechanisms. I encouraged her to take deep breaths when she is feeling anxious and listen to calming music. She should also consider talking to a behavioral therapist and/or starting an antidepressant. We discussed managing her symptoms and realistic goals. (6) Pulmonary nodules: Prior CT reviewed which demonstrated small multiple pulmonary nodules. She qualifies for low-dose CT lung cancer screening and consents to screening. We will set her up for lung cancer screening with low-dose CT as an outpatient. Thank you for allowing me to participate in the care of this patient. Please call with questions. History of Present Illness Reason for Consultation: COPD exacerbation Attending Physician: Vinnie Briscoe MD History of Present Illness 66-year-old female with a past medical history of COPD, oxygen dependence, GERD and tobacco abuse who presented to the hospital 01/02/2022 due to a COPD exacerbation. She was just discharged from the hospital on 11/19/2021 for COPD exacerbation. She also had a viral gastroenteritis during that time. Patient uses oxygen intermittently. She notes that walking short distances makes her short of breath. She also has complaints of allergic rhinitis type symptoms. She denies any fevers or chills presently. She used to follow with TAMMY Houston in the pulmonary clinic. She last saw him on 11/12/2020. She was previously on Dulera, but is now on Trelegy. She also notes a history of esophageal dysmotility. Her last PFT was 10/23/2020 which revealed an FEV1/FVC of 42. FEV1 0.82 L, 38%. 8% increase postbronchodilator in FEV1. Lung volumes were incomplete. DLCO was 18% predicted and improved to 24% predicted when corrected for alveolar volume. She had a chest x-ray on the which demonstrated hyperinflation and emphysema. No acute findings were noted. CT of her chest was completed 09/18/2020 which revealed advanced centrilobular emphysema and several pulmonary nodules measuring up to 6 mm. The nodules in the upper lobes and right middle lobes were unchanged but new compared to a study from 2017. CBC from 2 days ago notes leukopenia with a white count of 3400. No significant peripheral eosinophilia noted on her labs. ABG from 11/15/2021 revealed respiratory alkalosis. pH 7.46/PCO2 36. Renal function and chemistries within normal limits. Bicarbonate level 27. No recent echo available for review. She is currently on doxycycline and azithromycin. She is also receiving methylprednisolone 40 mg twice daily. Allergies Allergy/AdvReac Type Severity Reaction Status Date / Time latex Allergy Mild blisters Verified 01/02/22 16:21 amoxicillin AdvReac Mild DIARRHEA Verified 01/02/22 16:21 levofloxacin AdvReac Mild Erythema Verified 01/02/22 16:21 at IV site Home Medications Medication Instructions Recorded Confirmed Type famotidine 20 mg tablet (Pepcid) 20 mg PO PM 09/25/19 01/02/22 History atorvastatin 10 mg tablet 10 mg PO QAM 04/13/21 01/02/22 History esomeprazole magnesium 20 mg 20 mg PO BID 04/13/21 01/02/22 History capsule,delayed release albuterol sulfate 2.5 mg INHALATION Q4 PRN 11/15/21 01/02/22 History fluticasone fur. 100 mcg-umeclid 1 ea INHALATION QAM 11/15/21 01/02/22 History 62.5 mcg-vilant 25 mcg inhalat.powder (Trelegy Ellipta) lisinopril 5 mg tablet 5 mg PO QAM 11/17/21 01/02/22 History albuterol sulfate 90 mcg/actuation 2 puff INHALATION Q4 PRN 01/02/22 01/02/22 History aerosol inhaler azithromycin 250 mg tablet 250 mg PO UD PRN 01/02/22 01/02/22 History loratadine 10 mg tablet 10 mg PO DAILY 01/02/22 01/02/22 History prednisone 20 mg tablet 40 mg PO QAM PRN 01/02/22 01/02/22 History Patient History Medical History (Updated 01/05/22 @ 14:18 by Parish Herrera MD) Abdominal pain Chronic cough COPD (chronic obstructive pulmonary disease) inhaler daily/prn GERD (gastroesophageal reflux disease) History of anesthesia reaction DIFFICULT TO AWAKEN, N/V History of nicotine dependence History of osteoporosis HTN (hypertension) Oxygen dependent Pulmonary cachexia due to chronic obstructive pulmonary disease Pulmonary emphysema Severely underweight adult only weighs 69lbs Surgical History H/O colonoscopy - Dr. Radha Henning H/O: hysterectomy History of cardiac cath NEGATIVE [place] 2014- DR. WEST History of cataract surgery BOTH EYES History of esophagogastroduodenoscopy (EGD) (~07/08/20) Family History Mother Hypertension Sister Epilepsy Family history of reaction to anesthesia nausea/vomiting, difficulty waking Family/Other Osteoporosis Social History Smoking Status: Current every day smoker Tobacco Type: Cigarettes Age Started Using Tobacco: 13; packs per day: 1.0; Years Smoked: 53; Cigarettes Per Day: less than 20 a day; Second Hand Exposure: Yes; Do You Dip or Chew Tobacco: No; Tobacco Cessation Education Requested by Patient: No Hx Alcohol Use: No Hx Substance Use: No Preferred Language: Turkish Communication Ability: Effective Obstetrics Tech Required: No Beliefs That Will Affect Care: None marital status: Current Living Situation: Spouse current occupational status: retired How many Children do You have: 3 Other Information That Helps Us Care for You: No Feels Safe at Home: Yes Safety Concerns: Feels Safe At This Time Assistive Devices: Oxygen - Continuous Review of Systems Review of Systems: All systems reviewed & are unremarkable except as noted in HPI & below Physical Exam Constitutional: Thin and frail appearing female in no apparent distress Eyes: PERRL, conjunctivae normal, anicteric sclerae Respiratory: Severely diminished lung sounds bilaterally. Prolonged phase of exhalation. No wheeze. Cardiovascular: RRR, no murmur, no edema Gastrointestinal (Abdomen): normal bowel sounds, soft, nontender, no hepatosplenomegaly Neurologic: PERRL, EOMI, accommodation nl, no face palsy, no dysarthria Psychiatric: A+Ox3, euthymic affect Results & Data Results & Data ([facility]) Vital Signs (Past 12 Hours) Vital Signs Temp Pulse Pulse Resp BP BP Pulse Ox 01/05/22 12:54 84 18 97 01/05/22 12:33 36.6 C 102 H 21 164/81 H 91 01/05/22 09:59 169/91 H 01/05/22 09:00 75 01/05/22 08:12 36.7 C 95 H 20 193/90 H 91 01/05/22 07:07 81 18 96 01/05/22 04:17 36.9 C 82 18 169/92 H 96 PG Care Time/CCT Total # of Minutes Spent Total Time Spent with Patient: Total time spent is greater than 50% in coordination of care (as documented) at patient's floor/unit and/or counseling patient: Coding Level of Care Code 54182 Initial Inpt Care Lvl 3 Diagnoses COPD with acute exacerbation J44.1 Oxygen dependent Z99.81 Pulmonary cachexia due to chronic obstructive pulmonary disease J44.9; R64 Chronic cough R05.3 Tobacco abuse Z72.0 Pulmonary nodules R91.8
[2022-01-05] MEDS: NICOTINE 14 MG/24 HR PATCH TD SCH (16:00)
[2022-01-05] MEDS: BUDESONIDE 0.5 MG/2 ML VIAL (PULMICORT) NEB SCH (19:40)
[2022-01-05] MEDS: FORMOTEROL 20 MCG/2 ML VIAL NEB SCH (19:40)
[2022-01-05] MEDS: FAMOTIDINE 20 MG TAB PO SCH (20:22)
[2022-01-06] MEDS: hydrALAZINE HCL 20 MG/ML VIAL IV PRN ×2 (04:32→11:52)
[2022-01-06] MEDS: BUDESONIDE 0.5 MG/2 ML VIAL (PULMICORT) NEB SCH ×2 (07:16→19:42)
[2022-01-06] MEDS: FORMOTEROL 20 MCG/2 ML VIAL NEB SCH ×2 (07:16→19:42)
[2022-01-06] MEDS: LORazepam 2 MG/1 ML VIAL IV PRN ×3 (07:47→19:24)
[2022-01-06] MEDS: methylPREDNISolone 40 MG in SYRINGE 0 ML IV SCH ×2 (09:04→20:32)
[2022-01-06] MEDS: lisinopril 10 MG TAB PO SCH (09:04)
[2022-01-06] MEDS: AZITHROMYCIN 250 MG TAB PO SCH (09:05)
[2022-01-06] MEDS: HEPARIN SOD 5,000 UNIT/0.5 ML VIAL SQ SCH ×2 (09:05→20:33)
[2022-01-06] MEDS: LORATADINE 10 MG TAB PO SCH (09:05)
[2022-01-06] MEDS: PANTOprazole 40 MG TAB PO SCH ×2 (09:08→20:32)
[2022-01-06] MEDS: ATORVASTATIN 10 MG TAB PO SCH (09:08)
--- NOTE | 2022-01-06 10:22 | Pulmonology Progress Note ---
Date of Service January 06, 2022 Assessment & Plan (1) COPD with acute exacerbation: Plan: Patient with frequent COPD exacerbations. Agree with IV steroids at this time and transition to p.o. steroids starting tomorrow. We will start the patient on azithromycin every Tuesday, Tuesday and Tuesday for immunomodulatory effects. We will trial her on this for 6 to 8 weeks. We will also transition her off maintenance inhalers and start her on maintenance nebulizer therapy such as Brovana and budesonide twice daily. She has poor inspiratory capacity. Her prior ABG does not suggest chronic hypercapnic respiratory failure. She is not a candidate for lung transplantation at this time given her continued tobacco abuse and low weight. She is not completely interested in quitting smoking. She is willing to give nicotine patches a try. She did note that previously, 6 years ago, the nicotine patches seem to bother her skin. She may be a candidate for pulmonary rehab when she is out of the acute flare. She notes that travel is an issue, but she does live near [facility] which I believe does have a pulmonary rehab center. Echo obtained to evaluate for RV failure or pulmonary hypertension. Echo read is pending. (2) Oxygen dependent: Plan: Continue supplemental oxygen to maintain saturations of 88 to 92%. Recommend avoiding hyperoxia. (3) Pulmonary cachexia due to chronic obstructive pulmonary disease: Plan: Recommend nutrition consultation given her weight loss and increased calorie need due to her chronic dyspnea. Incentive spirometer ordered to prevent atelectasis. (4) Chronic cough: Plan: The cough is related to her COPD and made worse by tobacco abuse. Smoking cessation strongly encouraged. Lisinopril may also be playing a role. Would recommend discontinuing lisinopril. Flutter valve ordered to promote mucoci liary clearance. (5) Tobacco abuse: Plan: We discussed barriers to her smoking cessation. She notes that she uses tobacco as a tool to control her anxiety. She has poor coping mechanisms. I encouraged her to take deep breaths when she is feeling anxious and listen to calming music. She should also consider talking to a behavioral therapist and/or starting an antidepressant. We discussed managing her symptoms and realistic goals. (6) Pulmonary nodules: Plan: Prior CT reviewed which demonstrated small multiple pulmonary nodules. She qualifies for low-dose CT lung cancer screening and consents to screening. We will set her up for lung cancer screening with low-dose CT as an outpatient. (7) Allergic rhinitis: Plan: Flonase and saline nasal spray as ordered. Plan: Thank you for allowing me to participate in the care of this patient. Please call with questions. Admission and Anticipated Discharge Date Admission Date: January 02, 2022 Subjective Patient seen and examined. Symptoms stable compared to yesterday. Still continues to have postnasal drip and cough. No fevers or chills. Oxygen level stable on 2 L of nasal cannula. Review of Systems Review of Systems: All systems reviewed & are unremarkable except as noted in HPI & below Physical Exam Constitutional: Thin and frail appearing female in no apparent distress Eyes: PERRL, conjunctivae normal, anicteric sclerae Respiratory: Severely diminished lung sounds bilaterally. Prolonged phase of exhalation. No wheeze. Cardiovascular: RRR, no murmur, no edema Gastrointestinal (Abdomen): normal bowel sounds, soft, nontender, no hepatosplenomegaly Neurologic: PERRL, EOMI, accommodation nl, no face palsy, no dysarthria Psychiatric: A+Ox3, euthymic affect Results & Data Results & Data ([facility]) Vital Signs (Past 12 Hours) Vital Signs Temp Pulse Pulse Pulse Resp BP BP 01/06/22 08:59 96 H 175/91 H 01/06/22 07:40 36.8 C 104 H 22 207/105 H 01/06/22 07:16 91 H 18 01/06/22 04:28 87 23 175/99 H 01/06/22 02:53 36.6 C 86 18 170/97 H 01/05/22 23:31 98 H 01/05/22 23:26 36.8 C 91 H 20 154/90 H Pulse Ox 01/06/22 08:59 01/06/22 07:40 93 01/06/22 07:16 95 01/06/22 04:28 95 01/06/22 02:53 96 01/05/22 23:31 01/05/22 23:26 94 PG Care Time/CCT Total # of Minutes Spent Total Time Spent with Patient: Total time spent is greater than 50% in coordination of care (as documented) at patient's floor/unit and/or counseling patient: Coding Level of Care Code 48461 Subseq Hosp Care Lvl 2 Diagnoses COPD with acute exacerbation J44.1 Oxygen dependent Z99.81 Pulmonary cachexia due to chronic obstructive pulmonary disease J44.9; R64 Chronic cough R05.3 Tobacco abuse Z72.0 Pulmonary nodules R91.8 Allergic rhinitis J30.9
[2022-01-06] MEDS: SODIUM CHLORIDE 0.65% NA SOLN 45 ML (OCEAN) SCH ×4 (11:22→20:35)
[2022-01-06] MEDS: FLUTICASONE PROPIONATE NA SPR 16 GM BTL SCH ×2 (11:22→20:34)
[2022-01-06] MEDS: ALBUTEROL 0.083% NEBU SOLN 3 ML VIAL INH PRN (12:45)
[2022-01-06] MEDS: NICOTINE 14 MG/24 HR PATCH TD SCH (15:23)
[2022-01-06] MEDS: FAMOTIDINE 20 MG TAB PO SCH (20:33)
[2022-01-06] MEDS: ACETAMINOPHEN 325 MG TAB PO PRN (20:34)
--- NOTE | 2022-01-06 23:01 | Hospitalist Progress Note ---
Date of Service January 06, 2022 Assessment & Plan (1) COPD with acute exacerbation: Plan: Present on admission with worsening SOB CXR showed no acute cardiopulmonary findings. Doxycycline started on admission Solumedrol 40mg titrate to BID, will transition to PO prednisone in am Continue neb treatment with duoneb Continue flutter valve and incentive spirometry Pt's daughter would like the pt to be seen by in house pulm Pulmonary medicine consulted Echo ordered Study was technically limited. Grossly normal valvular structure and function. There is mild concentric LVH. LV systolic function is normal. EF 65 to 70%. RV systolic function is moderately reduced. There is no evidence of pulmonary hypertension. The PA systolic pressure is less than 36 mmHg. Start Azithromycin 250 mg M, , (trial for 6-8 weeks) Pulm changed inhaler to Perforomist and Budesonide Nebs Flonase + saline nasal spray - for allergic rhinitis Flutter valve, IS, mucinex Continue oxygen supplement , goal 88-92% She may be a candidate for pulmonary rehab when she is out of the acute flare. Pulmonary nodules Prior CT reviewed which demonstrated small multiple pulmonary nodules. She qualifies for low-dose CT lung cancer screening and consents to screening. We will set her up for lung cancer screening with low-dose CT as an outpatient. Hyperlipidemia: Continue statin. Gastroesophageal reflux disease: Continue omeprazole, famotidine. Hypertension: Continue lisinopril. - make contribute to cough, consider switching DVT prophylaxis on Heparin subcutaneously. Code status Full code Admission and Anticipated Discharge Date Admission Date: January 02, 2022 Subjective Pt seen in follow up of COPD exacerbation, hypoxia Currently sitting up in bed in NAD Cont. to use suppl. O2 Feels she has not improved much since being in the hospital Denies fever, chills, chest pain She has some cough Reports anxiety after neb treatments Pulmonary medicine consulted Review of Systems Review of Systems: All systems reviewed & are unremarkable except as noted in Subjective Physical Exam Physical Exam: General- thin, frail F, + chronically ill-appearing, in no acute distress, on suppl. O2 Head- atraumatic Eyes- PERRL, EOMI, ENT- oropharynx clear Neck- supple, no JVD Lungs- Diminished Breath sound, no wheezing Heart- regular rhythm; no murmur Abdomen- normal bowel sounds, soft, nontender Extremities- no calf tenderness Neuro- alert, oriented x 3; PERRL, EOMI; no facial palsy; no dysarthria, moves extremities Skin- warm & dry Results & Data Results & Data ([facility]) Vital Signs (Past 12 Hours) Vital Signs Temp Pulse Resp BP Pulse Ox 01/06/22 19:42 102 H 22 93 01/06/22 19:33 36.3 C L 92 H 22 160/82 H 93 01/06/22 15:37 36.3 C L 103 H 17 156/77 H 93 01/06/22 12:51 107 H 24 93
[2022-01-07] MEDS: BUDESONIDE 0.5 MG/2 ML VIAL (PULMICORT) NEB SCH ×2 (07:27→19:54)
[2022-01-07] MEDS: FORMOTEROL 20 MCG/2 ML VIAL NEB SCH ×2 (07:27→19:54)
[2022-01-07] MEDS: LORazepam 2 MG/1 ML VIAL IV PRN ×3 (07:30→19:45)
[2022-01-07] MEDS: PANTOprazole 40 MG TAB PO SCH ×2 (08:21→19:57)
[2022-01-07] MEDS: LORATADINE 10 MG TAB PO SCH (08:22)
[2022-01-07] MEDS: methylPREDNISolone 40 MG in SYRINGE 0 ML IV SCH (08:22)
[2022-01-07] MEDS: FLUTICASONE PROPIONATE NA SPR 16 GM BTL SCH ×2 (08:22→19:56)
[2022-01-07] MEDS: ATORVASTATIN 10 MG TAB PO SCH (08:22)
[2022-01-07] MEDS: lisinopril 10 MG TAB PO SCH (08:22)
[2022-01-07] MEDS: HEPARIN SOD 5,000 UNIT/0.5 ML VIAL SQ SCH ×2 (08:23→19:57)
[2022-01-07] MEDS: SODIUM CHLORIDE 0.65% NA SOLN 45 ML (OCEAN) SCH ×4 (08:23→19:57)
[2022-01-07 09:24] LABS: Hematocrit (blood only) 53.6 % (37-47); Hemoglobin 17.6 g/dL (12.0-16.0); Mean Corpuscular Hemoglobin 28.3 pg (25-34); Mean Corpuscular Hgb Conc 32.8 g/dL (32-36); Mean Corpuscular Volume 86.2 fL (80-100); Mean Platelet Volume 9.9 fL (7.4-10.4); Platelet Count 239 K/uL (130-400); RDW Coefficient of Variation 17.4 % (11.5-14.5); RDW Standard Deviation 55.2 fL (36.4-46.3); Red Blood Count 6.22 M/uL (4.2-5.4); White Blood Count 9.21 K/uL (4.8-10.8)
[2022-01-07 09:38] LABS: BUN Creatinine Ratio 34.3 (10-20); Calcium 9.6 mg/dl (8.5-10.1); Creatinine Clr Calc Pharmacy 37.4 ml/min; Est GFR (African American) 104.6 ml/min; Est GFR (Non-African American) 90.3 ml/min; Magnesium 2.2 mg/dl (1.7-2.4); Phosphorus 4.4 mg/dl (2.5-4.9); Potassium 4.8 mmol/L (3.5-5.1)
--- NOTE | 2022-01-07 10:47 | Pulmonology Progress Note ---
Date of Service January 07, 2022 Assessment & Plan (1) COPD with acute exacerbation: Plan: Patient with frequent COPD exacerbations. Transition to p.o. steroids. Continueazithromycin every Tuesday, Tuesday and Tuesday for immunomodulatory effects. We will trial her on this for 6 to 8 weeks. We will also transition her off maintenance inhalers and start her on maintenance nebulizer therapy such as Brovana and budesonide twice daily. She has poor inspiratory capacity. Her prior ABG does not suggest chronic hypercapnic respiratory failure. She is not a candidate for lung transplantation at this time given her continued tobacco abuse and low weight. She is not completely interested in quitting smoking. She is willing to give nicotine patches a try. She did note that previously, 6 years ago, the nicotine patches seem to bother her skin. She may be a candidate for pulmonary rehab when she is out of the acute flare. She notes that travel is an issue, but she does live near [facility] which I believe does have a pulmonary rehab center. Echo from this hospitalization unremarkable without evidence of pulmonary hypertension. (2) Oxygen dependent: Plan: Continue supplemental oxygen to maintain saturations of 88 to 92%. Recommend avoiding hyperoxia. (3) Pulmonary cachexia due to chronic obstructive pulmonary disease: Plan: Recommend nutrition consultation given her weight loss and increased calorie need due to her chronic dyspnea. Incentive spirometer ordered to prevent atelectasis. (4) Chronic cough: Plan: The cough is related to her COPD and made worse by tobacco abuse. Smoking cessation strongly encouraged. Lisinopril may also be playing a role. Would recommend discontinuing lisinopril. Flutter valve ordered to promote mucociliary clearance. (5) Tobacco abuse: Plan: We discussed barriers to her smoking cessation. She notes that she uses tobacco as a tool to control her anxiety. She has poor coping mechanisms. I encouraged her to take deep breaths when she is feeling anxious and listen to calming music. She should also consider talking to a behavioral therapist and/or starting an antidepressant. We discussed managing her symptoms and realistic goals. (6) Pulmonary nodules: Plan: Prior CT reviewed which demonstrated small multiple pulmonary nodules. She qu alifies for low-dose CT lung cancer screening and consents to screening. We will set her up for lung cancer screening with low-dose CT as an outpatient. (7) Allergic rhinitis: Plan: Flonase and saline nasal spray as ordered. Plan: Thank you for allowing me to participate in the care of this patient. Admission and Anticipated Discharge Date Admission Date: January 02, 2022 Subjective Patient's cough is still persistent. She has had limited mobility remains in her hospital bed for the most part. She feels that she has improved slightly since yesterday. She denies any chest pain, but she does have a productive cough. Hemodynamically stable. Requiring supplemental oxygen. No fevers or chills. Review of Systems Review of Systems: All systems reviewed & are unremarkable except as noted in HPI & below Physical Exam Constitutional: Thin and frail appearing female in no apparent distress Eyes: PERRL, conjunctivae normal, anicteric sclerae Respiratory: Severely diminished lung sounds bilaterally. Prolonged phase of exhalation. No wheeze. Cardiovascular: RRR, no murmur, no edema Gastrointestinal (Abdomen): normal bowel sounds, soft, nontender, no hepatosplenomegaly Neurologic: PERRL, EOMI, accommodation nl, no face palsy, no dysarthria Psychiatric: A+Ox3, euthymic affect Results & Data Results & Data ([facility]) Vital Signs (Past 12 Hours) Vital Signs Temp Pulse Pulse Resp BP BP Pulse Ox 01/07/22 07:27 76 18 94 01/07/22 06:37 36.6 C 70 18 163/93 H 97 01/07/22 03:32 36.5 C 82 16 157/87 H 95 01/07/22 01:51 85 01/07/22 01:20 36.5 C 90 18 162/86 H 90 01/06/22 23:40 90 PG Care Time/CCT Total # of Minutes Spent Total Time Spent with Patient: Total time spent is greater than 50% in coordination of care (as documented) at patient's floor/unit and/or counseling patient: Coding Level of Care Code 33869 Subseq Hosp Care Lvl 2 Diagnoses COPD with acute exacerbation J44.1 Oxygen dependent Z99.81 Pulmonary cachexia due to chronic obstructive pulmonary disease J44.9; R64 Chronic cough R05.3 Tobacco abuse Z72.0 Pulmonary nodules R91.8 Allergic rhinitis J30.9
[2022-01-07] MEDS: ALBUTEROL 0.083% NEBU SOLN 3 ML VIAL INH PRN (12:03)
[2022-01-07] MEDS: NICOTINE 14 MG/24 HR PATCH TD SCH (15:14)
--- NOTE | 2022-01-07 18:55 | Hospitalist Progress Note ---
Date of Service January 07, 2022 Assessment & Plan (1) COPD with acute exacerbation: Plan: Present on admission with worsening SOB CXR showed no acute cardiopulmonary findings. Doxycycline started on admission Continued IV Solumedrol, will transition to PO prednisone in am Continue neb treatment with duoneb Continue flutter valve and incentive spirometry Pt's daughter would like the pt to be seen by in house pulm Pulmonary medicine consulted Echo ordered Study was technically limited. Grossly normal valvular structure and function. There is mild concentric LVH. LV systolic function is normal. EF 65 to 70%. RV systolic function is moderately reduced. There is no evidence of pulmonary hypertension. The PA systolic pressure is less than 36 mmHg. Start Azithromycin 250 mg M, W, (trial for 6-8 weeks) Pulm changed maintenance inhaler to Perforomist and Budesonide Nebs Flonase + saline nasal spray - for allergic rhinitis Flutter valve, IS, mucinex Continue oxygen supplement , goal 88-92% She may be a candidate for pulmonary rehab when she is out of the acute flare. Pulmonary nodules Prior CT reviewed which demonstrated small multiple pulmonary nodules. She qualifies for low-dose CT lung cancer screening and consents to screening. We will set her up for lung cancer screening with low-dose CT as an outpatient. Hyperlipidemia: Continue statin. Gastroesophageal reflux disease: Continue omeprazole, famotidine. Hypertension: Continued home lisinopril. - may contribute to cough, will switch to losartan - cont. to monitor BP and poss. improvement in cough DVT prophylaxis on Heparin subq Code status Full code Admission and Anticipated Discharge Date Admission Date: January 02, 2022 Subjective Pt seen in follow up of COPD exacerbation, hypoxia Currently sitting up in bed in NAD Cont. to use suppl. O2 Feels slight improvement, however reports that she is very short of breath even with very mild ambulation, such as to bedside commode Denies fever, chills, chest pain She has some cough, unable to cough anything up though Reports anxiety after neb treatments Pulmonary medicine consulted Review of Systems Review of Systems: All systems reviewed & are unremarkable except as noted in Subjective Physical Exam Physical Exam: General- thin, frail F, + chronically ill-appearing, in no acute distress, on suppl. O2 Head- atraumatic Eyes- PERRL, EOMI, ENT- oropharynx clear Neck- supple, no JVD Lungs- very diminished Breath sounds, no wheezing Heart- regular rhythm; no murmur Abdomen- normal bowel sounds, soft, nontender Extremities- no calf tenderness Neuro- alert, oriented x 3; PERRL, EOMI; no facial palsy; no dysarthria, moves extremities Skin- warm & dry Results & Data Results & Data ([facility]) Vital Signs (Past 12 Hours) Vital Signs Temp Pulse Pulse Resp BP Pulse Ox 01/07/22 14:46 36.4 C L 93 H 18 147/84 H 92 01/07/22 14:19 102 H 01/07/22 12:04 98 H 18 95 01/07/22 11:55 36.9 C 98 H 20 151/78 H 92 01/07/22 07:27 76 18 94 Laboratory Results 01/07/22 01/07/22 Range/Units 08:36 08:36 WBC 9.21 (4.8-10.8) K/uL RBC 6.22 H (4.2-5.4) M/uL Hgb 17.6 H (12.0-16.0) g/dL Hct 53.6 H (37-47) % MCV 86.2 (80-100) fL MCH 28.3 (25-34) pg MCHC 32.8 (32-36) g/dL RDW Std Deviation 55.2 H (36.4-46.3) fL RDW Coeff of Millicent 17.4 H (11.5-14.5) % Plt Count 239 (130-400) K/uL MPV 9.9 (7.4-10.4) fL Sodium 134 L (136-145) mmol/L Potassium 4.8 (3.5-5.1) mmol/L Chloride 96 L (98-107) mmol/L Carbon Dioxide 29 (21-32) mmol/L Anion Gap 9 (3-11) BUN 24 H (6-23) mg/dl Creatinine 0.70 (0.6-1.2) mg/dl Est Cr Clr Drug Dosing 37.4 ml/min Est GFR ( Amer) 104.6 ml/min Est GFR (Non-Af Amer) 90.3 ml/min BUN/Creatinine Ratio 34.3 H (10-20) Glucose 141 H (70-99(Fasting)) mg/dl Calcium 9.6 (8.5-10.1) mg/dl Phosphorus 4.4 (2.5-4.9) mg/dl Magnesium 2.2 (1.7-2.4) mg/dl Medications Administered Current Inpatient Medications Acetaminophen (Acetaminophen 325 Mg Tab) 650 mg PO Q4H PRN PRN Reason: Pain or Fever Stop: 02/01/22 22:15 Last Admin: 01/06/22 20:34 Dose: 650 mg Documented by: Albuterol (Albuterol 0.083% Nebu Soln 3 Ml Vial) 2.5 mg INH Q4 PRN; Protocol PRN Reason: Shortness Of Breath Or Wheezing Stop: 02/01/22 22:15 Last Admin: 01/07/22 12:03 Dose: 2.5 mg Documented by: Atorvastatin Calcium (Atorvastatin 10 Mg Tab) 10 mg PO QAM [facility] Stop: 02/02/22 08:59 Last Admin: 01/07/22 08:22 Dose: 10 mg Documented by: Azithromycin (Azithromycin 250 Mg Tab) 250 mg PO MoWeFr@0900 [facility] Stop: 02/17/22 08:59 Last Admin: 01/06/22 09:05 Dose: 250 mg Documented by: Budesonide (Budesonide 0.5 Mg/2 Ml Vial (Pulmicort)) 0.5 mg NEB BIDR [facility] Stop: 02/04/22 18:59 Last Admin: 01/07/22 07:27 Dose: 0.5 mg Documented by: Famotidine (Famotidine 20 Mg Tab) 20 mg PO PM [facility] Stop: 02/01/22 22:15 Last Admin: 01/06/22 20:33 Dose: 20 mg Documented by: Fluticasone Propionate (Fluticasone Propionate Na Spr 16 Gm Btl) 2 sprays NA BID [facility] Stop: 02/05/22 10:59 Last Admin: 01/07/22 08:22 Dose: 2 sprays Documented by: Formoterol Fumarate (Formoterol 20 Mcg/2 Ml Vial) 20 mcg NEB BIDR [facility] Stop: 02/04/22 18:59 Last Admin: 01/07/22 07:27 Dose: 20 mcg Documented by: Heparin Sodium (Porcine) (Heparin Sod 5,000 Unit/0.5 Ml Vial) 5,000 units SQ Q12 [facility] Stop: 02/01/22 22:15 Last Admin: 05/26/22 08:23 Dose: 5,000 units Documented by: Hydralazine HCl (Hydralazine Hcl 20 Mg/Ml Vial) 5 mg IV Q6H PRN PRN Reason: SBP >170 Stop: 02/04/22 08:29 Last Admin: 01/06/22 11:52 Dose: 5 mg Documented by: Methylprednisolone 40 mg/ (Syringe) 0.64 mls @ 1.5 mls/min IV BID [facility] Stop: 02/04/22 20:59 Last Admin: 01/07/22 08:22 Dose: 1.5 mls/min Documented by: Lisinopril (Lisinopril 10 Mg Tab) 10 mg PO QAM [facility] Stop: 02/03/22 08:59 Last Admin: 01/07/22 08:22 Dose: 10 mg Documented by: Loratadine (Loratadine 10 Mg Tab) 10 mg PO DAILY [facility] Stop: 02/02/22 08:59 Last Admin: 01/07/22 08:22 Dose: 10 mg Documented by: Lorazepam (Lorazepam 2 Mg/1 Ml Vial) 0.25 mg IV Q4H PRN PRN Reason: Anxiety Stop: 02/02/22 20:30 Last Admin: 01/07/22 11:59 Dose: 0.25 mg Documented by: Losartan Potassium (Losartan Potassium 25 Mg Tab) 25 mg PO QAM [facility] Stop: 02/07/22 08:59 Miscellaneous (Remove Nicoderm Patch) 1 ea N/A DAILY@0859 [facility] Stop: 02/05/22 08:58 Last Admin: 01/07/22 08:23 Dose: 1 ea Documented by: Nicotine (Nicotine 14 Mg/24 Hr Patch) 14 mg TD DAILY@1500 [facility] Stop: 02/04/22 14:59 Last Admin: 01/07/22 15:14 Dose: 14 mg Documented by: Nitroglycerin (Nitroglycerin Sl 0.4 Mg/Tab Tab) 0.4 mg SL Q5M PRN PRN Reason: Chest Pain Stop: 02/01/22 22:15 Pantoprazole Sodium (Pantoprazole 40 Mg Tab) 40 mg PO BID [facility] Stop: 02/01/22 22:15 Last Admin: 01/07/22 08:21 Dose: 40 mg Documented by: Polyethylene Glycol (Polyethylene (Miralax) 17 Gm Pack) 17 gm PO DAILY PRN PRN Reason: Constipation Stop: 02/01/22 22:15 Prednisone (Prednisone 50 Mg Tab) 50 mg PO QAM [facility] Stop: 02/07/22 08:59 Sodium Chloride (Sodium Chloride 0.65% Na Soln 45 Ml ([place])) 2 sprays NA QID [facility] Stop: 02/05/22 10:29 Last Admin: 01/07/22 16:54 Dose: 2 sprays Documented by:
[2022-01-07] MEDS: FAMOTIDINE 20 MG TAB PO SCH (19:56)
[2022-01-08] MEDS: LORazepam 2 MG/1 ML VIAL IV PRN ×3 (07:15→20:36)
[2022-01-08] MEDS: FORMOTEROL 20 MCG/2 ML VIAL NEB SCH ×2 (07:25→20:03)
[2022-01-08] MEDS: BUDESONIDE 0.5 MG/2 ML VIAL (PULMICORT) NEB SCH ×2 (07:25→20:03)
[2022-01-08 08:15] LABS: BUN Creatinine Ratio 35.4 (10-20); Calcium 9.7 mg/dl (8.5-10.1); Creatinine Clr Calc Pharmacy 66.2 ml/min; Est GFR (African American) 90.4 ml/min; Magnesium 2.1 mg/dl (1.7-2.4); Phosphorus 3.8 mg/dl (2.5-4.9); Potassium 4.9 mmol/L (3.5-5.1)
[2022-01-08] MEDS ORDERED: predniSONE 50 MG TAB PO SCH (09:00)
[2022-01-08] MEDS: LOSARTAN POTASSIUM 25 MG TAB PO SCH (09:48)
[2022-01-08] MEDS: AZITHROMYCIN 250 MG TAB PO SCH (09:49)
[2022-01-08] MEDS: LORATADINE 10 MG TAB PO SCH (09:49)
[2022-01-08] MEDS: PANTOprazole 40 MG TAB PO SCH ×2 (09:49→20:28)
[2022-01-08] MEDS: ATORVASTATIN 10 MG TAB PO SCH (09:49)
[2022-01-08] MEDS: SODIUM CHLORIDE 0.65% NA SOLN 45 ML (OCEAN) SCH ×4 (09:50→20:28)
[2022-01-08] MEDS: HEPARIN SOD 5,000 UNIT/0.5 ML VIAL SQ SCH ×2 (09:50→20:29)
[2022-01-08] MEDS: FLUTICASONE PROPIONATE NA SPR 16 GM BTL SCH ×2 (09:50→20:26)
[2022-01-08] MEDS: ALBUTEROL 0.083% NEBU SOLN 3 ML VIAL INH PRN (11:55)
[2022-01-08] MEDS: guaiFENesin 600 MG TABCR PO SCH ×2 (12:18→20:29)
--- NOTE | 2022-01-08 15:17 | Hospitalist Progress Note ---
Date of Service January 08, 2022 Assessment & Plan (1) COPD with acute exacerbation: Plan: Present on admission with worsening SOB CXR showed no acute cardiopulmonary findings. Doxycycline started on admission Continued IV Solumedrol, will transition to PO prednisone in am Continue neb treatment with duoneb Continue flutter valve and incentive spirometry Pt's daughter would like the pt to be seen by in house pulm Pulmonary medicine consulted Echo ordered Study was technically limited. Grossly normal valvular structure and function. There is mild concentric LVH. LV systolic function is normal. EF 65 to 70%. RV systolic function is moderately reduced. There is no evidence of pulmonary hypertension. The PA systolic pressure is less than 36 mmHg. Start Azithromycin 250 mg M, W, (trial for 6-8 weeks) Pulm changed maintenance inhaler to Perforomist and Budesonide Nebs Flonase + saline nasal spray - for allergic rhinitis Flutter valve, IS, mucinex Continue oxygen supplement , goal 88-92% She may be a candidate for pulmonary rehab when she is out of the acute flare. Pulmonary nodules Prior CT reviewed which demonstrated small multiple pulmonary nodules. She qualifies for low-dose CT lung cancer screening and consents to screening. We will set her up for lung cancer screening with low-dose CT as an outpatient. Hyperlipidemia: Continue statin. Gastroesophageal reflux disease: Continue omeprazole, famotidine. Hypertension: Continued home lisinopril. - may contribute to cough, switched to losartan - cont. to monitor BP and poss. improvement in cough DVT prophylaxis on Heparin subq Code status Full code Admission and Anticipated Discharge Date Admission Date: January 02, 2022 Subjective Pt seen in follow up of COPD exacerbation, hypoxia Currently sitting up in bed in NAD Cont. to use suppl. O2 Feels slight improvement, however reports that she is very short of breath even with very mild ambulation, such as to bedside commode Denies fever, chills, chest pain She has some cough, unable to cough anything up though Reports anxiety after neb treatments Pulmonary medicine consulted Patient is worried about going home, and is interested in SNF. Patient's updated over the phone. Review of Systems Review of Systems: All systems reviewed & are unremarkable except as noted in Subjective Physical Exam Physical Exam: General- thin, frail F, + chronically ill-appearing, in no acute distress, on suppl. O2 Head- atraumatic Eyes- PERRL, EOMI, ENT- oropharynx clear Neck- supple, no JVD Lungs- very diminished Breath sounds, no wheezing Heart- regular rhythm; no murmur Abdomen- normal bowel sounds, soft, nontender Extremities- no calf tenderness Neuro- alert, oriented x 3; PERRL, EOMI; no facial palsy; no dysarthria, moves extremities Skin- warm & dry Results & Data Results & Data ([facility]) Vital Signs (Past 12 Hours) Vital Signs Temp Pulse Pulse Resp BP BP Pulse Ox 01/08/22 13:39 01/08/22 12:00 36.4 C L 107 H 20 158/87 H 93 01/08/22 11:56 94 H 22 90 01/08/22 11:23 90 01/08/22 07:44 36.4 C L 85 97 H 20 157/87 H 97 01/08/22 07:25 90 20 90 01/08/22 03:16 36.8 C 70 16 143/85 H 97 Pulse Ox Pulse Ox 01/08/22 13:39 90 89 L 01/08/22 12:00 01/08/22 11:56 01/08/22 11:23 01/08/22 07:44 01/08/22 07:25 01/08/22 03:16 Laboratory Results 01/08/22 Range/Units 07:24 Sodium 134 L (136-145) mmol/L Potassium 4.9 (3.5-5.1) mmol/L Chloride 97 L (98-107) mmol/L Carbon Dioxide 31 (21-32) mmol/L Anion Gap 6 (3-11) BUN 28 H (6-23) mg/dl Creatinine 0.79 (0.6-1.2) mg/dl Est Cr Clr Drug Dosing 66.2 ml/min Est GFR ( Amer) 90.4 ml/min Est GFR (Non-Af Amer) 78.0 ml/min BUN/Creatinine Ratio 35.4 H (10-20) Glucose 98 (70-99(Fasting)) mg/dl Calcium 9.7 (8.5-10.1) mg/dl Phosphorus 3.8 (2.5-4.9) mg/dl Magnesium 2.1 (1.7-2.4) mg/dl Medications Administered Current Inpatient Medications Acetaminophen (Acetaminophen 325 Mg Tab) 650 mg PO Q4H PRN PRN Reason: Pain or Fever Stop: 02/01/22 22:15 Last Admin: 01/06/22 20:34 Dose: 650 mg Documented by: Albuterol (Albuterol 0.083% Nebu Soln 3 Ml Vial) 2.5 mg INH Q4 PRN; Protocol PRN Reason: Shortness Of Breath Or Wheezing Stop: 02/01/22 22:15 Last Admin: 01/08/22 11:55 Dose: 2.5 mg Documented by: Atorvastatin Calcium (Atorvastatin 10 Mg Tab) 10 mg PO QAM [facility] Stop: 02/02/22 08:59 Last Admin: 01/08/22 09:49 Dose: 10 mg Documented by: Azithromycin (Azithromycin 250 Mg Tab) 250 mg PO MoWeFr@0900 [facility] Stop: 02/17/22 08:59 Last Admin: 01/08/22 09:49 Dose: 250 mg Documented by: Budesonide (Budesonide 0.5 Mg/2 Ml Vial (Pulmicort)) 0.5 mg NEB BIDR [facility] Stop: 02/04/22 18:59 Last Admin: 01/08/22 07:25 Dose: 0.5 mg Documented by: Famotidine (Famotidine 20 Mg Tab) 20 mg PO PM [facility] Stop: 02/01/22 22:15 Last Admin: 01/07/22 19:56 Dose: 20 mg Documented by: Fluticasone Propionate (Fluticasone Propionate Na Spr 16 Gm Btl) 2 sprays NA BID [facility] Stop: 02/05/22 10:59 Last Admin: 01/08/22 09:50 Dose: 2 sprays Documented by: Formoterol Fumarate (Formoterol 20 Mcg/2 Ml Vial) 20 mcg NEB BIDR [facility] Stop: 02/04/22 18:59 Last Admin: 01/08/22 07:25 Dose: 20 mcg Documented by: Guaifenesin (Guaifenesin 600 Mg Tabcr) 600 mg PO Q12 [facility] Stop: 02/07/22 11:29 Last Admin: 01/08/22 12:18 Dose: 600 mg Documented by: Heparin Sodium (Porcine) (Heparin Sod 5,000 Unit/0.5 Ml Vial) 5,000 units SQ Q12 [facility] Stop: 02/01/22 22:15 Last Admin: 01/08/22 09:50 Dose: 5,000 units Documented by: Hydralazine HCl (Hydralazine Hcl 20 Mg/Ml Vial) 5 mg IV Q6H PRN PRN Reason: SBP >170 Stop: 02/04/22 08:29 Last Admin: 01/06/22 11:52 Dose: 5 mg Documented by: Lisinopril (Lisinopril 10 Mg Tab) [facility] [place] Stop: 02/03/22 08:59 Last Admin: 01/07/22 08:22 Dose: 10 mg Documented by: Loratadine (Loratadine 10 Mg Tab) 10 mg PO DAILY [facility] Stop: 02/02/22 08:59 Last Admin: 01/08/22 09:49 Dose: 10 mg Documented by: Lorazepam (Lorazepam 2 Mg/1 Ml Vial) 0.25 mg IV Q4H PRN PRN Reason: Anxiety Stop: 02/02/22 20:30 Last Admin: 01/08/22 12:18 Dose: 0.25 mg Documented by: Losartan Potassium (Losartan Potassium 25 Mg Tab) 25 mg PO [facility] Stop: 02/07/22 08:59 Last Admin: 01/08/22 09:48 Dose: 25 mg Documented by: Miscellaneous (Remove Nicoderm Patch) 1 ea N/A DAILY@0859 [facility] Stop: 02/05/22 08:58 Last Admin: 01/08/22 09:51 Dose: 1 ea Documented by: Nicotine (Nicotine 14 Mg/24 Hr Patch) 14 mg TD DAILY@1500 [facility] Stop: 02/04/22 14:59 Last Admin: 01/07/22 15:14 Dose: 14 mg Documented by: Nitroglycerin (Nitroglycerin Sl 0.4 Mg/Tab Tab) 0.4 mg SL Q5M PRN PRN Reason: Chest Pain Stop: 02/01/22 22:15 Pantoprazole Sodium (Pantoprazole 40 Mg Tab) 40 mg PO BID [facility] Stop: 02/01/22 22:15 Last Admin: 01/08/22 09:49 Dose: 40 mg Documented by: Polyethylene Glycol (Polyethylene (Miralax) 17 Gm Pack) 17 gm PO DAILY PRN PRN Reason: Constipation Stop: 02/01/22 22:15 Prednisone (Prednisone 50 Mg Tab) 50 mg PO [facility] Stop: 02/07/22 08:59 Last Admin: 01/08/22 09:48 Dose: 50 mg Documented by: Sodium Chloride (Sodium Chloride 0.65% Na Soln 45 Ml ([place])) 2 sprays NA QID [facility] Stop: 02/05/22 10:29 Last Admin: 01/08/22 12:21 Dose: 2 sprays Documented by:
[2022-01-08] MEDS: NICOTINE 14 MG/24 HR PATCH TD SCH (15:52)
[2022-01-08] MEDS: FAMOTIDINE 20 MG TAB PO SCH (20:29)
[2022-01-09] MEDS: FORMOTEROL 20 MCG/2 ML VIAL NEB SCH ×2 (07:19→19:52)
[2022-01-09] MEDS: BUDESONIDE 0.5 MG/2 ML VIAL (PULMICORT) NEB SCH ×2 (07:19→19:52)
--- NOTE | 2022-01-09 07:52 | Hospitalist Progress Note ---
Date of Service January 09, 2022 Assessment & Plan (1) COPD with acute exacerbation: Plan: Present on admission with worsening SOB CXR showed no acute cardiopulmonary findings. Doxycycline started on admission Continued IV Solumedrol, will transition to PO prednisone in am Continue neb treatment with duoneb Continue flutter valve and incentive spirometry Pt's daughter would like the pt to be seen by in house pulm Pulmonary medicine consulted Echo ordered Study was technically limited. Grossly normal valvular structure and function. There is mild concentric LVH. LV systolic function is normal. EF 65 to 70%. RV systolic function is moderately reduced. There is no evidence of pulmonary hypertension. The PA systolic pressure is less than 36 mmHg. Start Azithromycin 250 mg M, W, (trial for 6-8 weeks) Pulm changed maintenance inhaler to Perforomist and Budesonide Nebs Flonase + saline nasal spray - for allergic rhinitis Flutter valve, IS, mucinex Continue oxygen supplement , goal 88-92% She may be a candidate for pulmonary rehab when she is out of the acute flare. Pulmonary nodules Prior CT reviewed which demonstrated small multiple pulmonary nodules. She qualifies for low-dose CT lung cancer screening and consents to screening. We will set her up for lung cancer screening with low-dose CT as an outpatient. Hyperlipidemia: Continue statin. Gastroesophageal reflux disease: Continue omeprazole, famotidine. Hypertension: Continued home lisinopril. - may contribute to cough, switched to losartan - cont. to monitor BP and poss. improvement in cough DVT prophylaxis on Heparin subq Code status Full code Admission and Anticipated Discharge Date Admission Date: January 02, 2022 Subjective Pt seen in follow up of COPD exacerbation, hypoxia Currently sitting up in bed in NAD Cont. to use suppl. O2 Feels slight improvement, however reports that she is very short of breath even with very mild ambulation, such as to bedside commode Denies fever, chills, chest pain She has some cough, unable to cough anything up though Reports anxiety after neb treatments Pulmonary medicine consulted Patient is worried about going home, and is interested in SNF. Patient's updated over the phone yesterday. Review of Systems Review of Systems: All systems reviewed & are unremarkable except as noted in Subjective Physical Exam Physical Exam: General- thin, frail F, + chronically ill-appearing, in no acute distress, on suppl. O2 Head- atraumatic Eyes- PERRL, EOMI, ENT- oropharynx clear Neck- supple, no JVD Lungs- very diminished Breath sounds, no wheezing Heart- regular rhythm; no murmur Abdomen- normal bowel sounds, soft, nontender Extremities- no calf tenderness Neuro- alert, oriented x 3; PERRL, EOMI; no facial palsy; no dysarthria, moves extremities Skin- warm & dry Results & Data Results & Data ([facility]) Vital Signs (Past 12 Hours) Vital Signs Temp Pulse Pulse Resp BP BP Pulse Ox 01/09/22 07:44 36.7 C 87 20 145/85 H 95 01/09/22 07:21 99 H 20 92 01/09/22 03:18 36.6 C 85 18 125/82 98 01/08/22 23:06 36.6 C 83 18 130/82 96 01/08/22 23:00 83 01/08/22 20:05 97 H 20 93 Laboratory Results 01/09/22 01/09/22 Range/Units 12:32 10:49 Sodium 135 L (136-145) mmol/L Potassium 5.4 H TNP Chloride 98 (98-107) mmol/L Carbon Dioxide 28 (21-32) mmol/L Anion Gap 9 (3-11) BUN 29 H (6-23) mg/dl Creatinine 0.74 (0.6-1.2) mg/dl Est Cr Clr Drug Dosing 40.0 ml/min Est GFR ( Amer) 97.8 ml/min Est GFR (Non-Af Amer) 84.4 ml/min BUN/Creatinine Ratio 39.2 H (10-20) Glucose 117 H (70-99(Fasting)) mg/dl Calcium 9.5 (8.5-10.1) mg/dl Phosphorus 3.8 (2.5-4.9) mg/dl Magnesium 2.2 (1.7-2.4) mg/dl Medications Administered Current Inpatient Medications Acetaminophen (Acetaminophen 325 Mg Tab) 650 mg PO Q4H PRN PRN Reason: Pain or Fever Stop: 02/01/22 22:15 Last Admin: 01/06/22 20:34 Dose: 650 mg Documented by: Albuterol (Albuterol 0.083% Nebu Soln 3 Ml Vial) 2.5 mg INH Q4 PRN; Protocol PRN Reason: Shortness Of Breath Or Wheezing Stop: 02/01/22 22:15 Last Admin: 01/08/22 11:55 Dose: 2.5 mg Documented by: Atorvastatin Calcium (Atorvastatin 10 Mg Tab) [address] [facility] Stop: 02/02/22 08:59 Last Admin: 01/08/22 09:49 Dose: 10 mg Documented by: Azithromycin (Azithromycin 250 Mg Tab) 250 mg PO MoWeFr@0900 [facility] Stop: 02/17/22 08:59 Last Admin: 01/08/22 09:49 Dose: 250 mg Documented by: Budesonide (Budesonide 0.5 Mg/2 Ml Vial (Pulmicort)) 0.[address] [facility] Stop: 02/04/22 18:59 Last Admin: 01/09/22 07:19 Dose: 0.5 mg Documented by: Famotidine (Famotidine 20 Mg Tab) [address] [facility] Stop: 02/01/22 22:15 Last Admin: 01/08/22 20:29 Dose: 20 mg Documented by: Fluticasone Propionate (Fluticasone Propionate Na Spr 16 Gm Btl) [address] [facility] Stop: 02/05/22 10:59 Last Admin: 01/08/22 20:26 Dose: 2 sprays Documented by: Formoterol Fumarate (Formoterol 20 Mcg/2 Ml Vial) [address] [facility] Stop: 02/04/22 18:59 Last Admin: 01/09/22 07:19 Dose: 20 mcg Documented by: Guaifenesin (Guaifenesin 600 Mg Tabcr) [address] [facility] Stop: 02/07/22 11:29 Last Admin: 01/08/22 20:29 Dose: 600 mg Documented by: Heparin Sodium (Porcine) (Heparin Sod 5,000 Unit/0.5 Ml Vial) 5,000 units SQ Q12 [facility] Stop: 02/01/22 22:15 Last Admin: 01/08/22 20:29 Dose: 5,000 units Documented by: Hydralazine HCl (Hydralazine Hcl 20 Mg/Ml Vial) 5 mg IV Q6H PRN PRN Reason: SBP >170 Stop: 02/04/22 08:29 Last Admin: 01/06/22 11:52 Dose: 5 mg Documented by: Lisinopril (Lisinopril 10 Mg Tab) [address] [facility] Stop: 02/03/22 08:59 Last Admin: 01/07/22 08:22 Dose: 10 mg Documented by: Loratadine (Loratadine 10 Mg Tab) [address] [facility] Stop: 02/02/22 08:59 Last Admin: 01/08/22 09:49 Dose: 10 mg Documented by: Lorazepam (Lorazepam 2 Mg/1 Ml Vial) 0.25 mg IV Q4H PRN PRN Reason: Anxiety Stop: 02/02/22 20:30 Last Admin: 01/08/22 20:36 Dose: 0.25 mg Documented by: Losartan Potassium (Losartan Potassium 25 Mg Tab) [address] [facility] Stop: 02/07/22 08:59 Last Admin: 01/08/22 09:48 Dose: 25 mg Documented by: Miscellaneous (Remove Nicoderm Patch) 1 ea N/A DAILY@0859 [facility] Stop: 02/05/22 08:58 Last Admin: 01/08/22 09:51 Dose: 1 ea Documented by: Nicotine (Nicotine 14 Mg/24 Hr Patch) 14 mg TD DAILY@1500 [facility] Stop: 02/04/22 14:59 Last Admin: 01/08/22 15:52 Dose: 14 mg Documented by: Nitroglycerin (Nitroglycerin Sl 0.4 Mg/Tab Tab) 0.4 mg SL Q5M PRN PRN Reason: Chest Pain Stop: 02/01/22 22:15 Pantoprazole Sodium (Pantoprazole 40 Mg Tab) [address] [facility] Stop: 02/01/22 22:15 Last Admin: 01/08/22 20:28 Dose: 40 mg Documented by: Polyethylene Glycol (Polyethylene (Miralax) 17 Gm Pack) 17 gm PO DAILY PRN PRN Reason: Constipation Stop: 02/01/22 22:15 Prednisone (Prednisone 50 Mg Tab) [address] [facility] Stop: 02/07/22 08:59 Last Admin: 01/08/22 09:48 Dose: 50 mg Documented by: Sodium Chloride (Sodium Chloride 0.65% Na Soln 45 Ml ([place])) [address] [facility] Stop: 02/05/22 10:29 Last Admin: 01/08/22 20:28 Dose: 2 sprays Documented by:
[2022-01-09] MEDS: LORazepam 2 MG/1 ML VIAL IV PRN ×3 (08:16→19:22)
[2022-01-09] MEDS: LOSARTAN POTASSIUM 25 MG TAB PO SCH (08:51)
[2022-01-09] MEDS: PANTOprazole 40 MG TAB PO SCH ×2 (08:51→20:58)
[2022-01-09] MEDS: ATORVASTATIN 10 MG TAB PO SCH (08:51)
[2022-01-09] MEDS: LORATADINE 10 MG TAB PO SCH (08:51)
[2022-01-09] MEDS: guaiFENesin 600 MG TABCR PO SCH ×2 (08:51→20:58)
[2022-01-09] MEDS: FLUTICASONE PROPIONATE NA SPR 16 GM BTL SCH ×2 (08:52→20:57)
[2022-01-09] MEDS: predniSONE 20 MG TAB PO SCH (08:52)
[2022-01-09] MEDS: SODIUM CHLORIDE 0.65% NA SOLN 45 ML (OCEAN) SCH ×4 (08:52→20:57)
[2022-01-09] MEDS: HEPARIN SOD 5,000 UNIT/0.5 ML VIAL SQ SCH ×2 (08:54→20:58)
[2022-01-09 12:08] LABS: Anion Gap 9 (3-11); BUN Creatinine Ratio 39.2 (10-20); Blood Urea Nitrogen 29 mg/dl (6-23); Calcium 9.5 mg/dl (8.5-10.1); Carbon Dioxide 28 mmol/L (21-32); Chloride 98 mmol/L (98-107); Est GFR (African American) 97.8 ml/min; Est GFR (Non-African American) 84.4 ml/min; Glucose 117 mg/dl (70-99(Fasting)); Magnesium 2.2 mg/dl (1.7-2.4); Phosphorus 3.8 mg/dl (2.5-4.9); Sodium 135 mmol/L (136-145)
[2022-01-09] MEDS: ALBUTEROL 0.083% NEBU SOLN 3 ML VIAL INH PRN (13:29)
[2022-01-09] MEDS: CEROVITE ADV FORMULA TAB PO SCH (17:04)
[2022-01-09] MEDS: CHOLECALCIFEROL 400 UNITS 10 MCG TAB PO SCH (17:05)
[2022-01-09] MEDS: NICOTINE 14 MG/24 HR PATCH TD SCH (17:06)
[2022-01-09] MEDS: FAMOTIDINE 20 MG TAB PO SCH (20:58)
[2022-01-10] MEDS: CALCIUM CARBONATE 500 MG CHEWABLE TAB PO PRN ×2 (05:53→16:21)
[2022-01-10 06:03] LABS: BUN Creatinine Ratio 40.5 (10-20); Calcium 9.4 mg/dl (8.5-10.1); Est GFR (African American) 97.8 ml/min; Est GFR (Non-African American) 84.4 ml/min; Magnesium 2.1 mg/dl (1.7-2.4); Phosphorus 3.8 mg/dl (2.5-4.9)
[2022-01-10] MEDS: LORazepam 2 MG/1 ML VIAL IV PRN ×3 (06:43→18:43)
[2022-01-10] MEDS: FORMOTEROL 20 MCG/2 ML VIAL NEB SCH ×2 (07:55→19:10)
[2022-01-10] MEDS: BUDESONIDE 0.5 MG/2 ML VIAL (PULMICORT) NEB SCH ×2 (07:55→19:10)
[2022-01-10] MEDS: ATORVASTATIN 10 MG TAB PO SCH (08:18)
[2022-01-10] MEDS: FLUTICASONE PROPIONATE NA SPR 16 GM BTL SCH ×2 (08:18→21:11)
[2022-01-10] MEDS: guaiFENesin 600 MG TABCR PO SCH ×2 (08:18→21:09)
[2022-01-10] MEDS: CHOLECALCIFEROL 400 UNITS 10 MCG TAB PO SCH (08:18)
[2022-01-10] MEDS: HEPARIN SOD 5,000 UNIT/0.5 ML VIAL SQ SCH ×2 (08:18→21:10)
[2022-01-10] MEDS: LORATADINE 10 MG TAB PO SCH (08:18)
[2022-01-10] MEDS: PANTOprazole 40 MG TAB PO SCH ×2 (08:19→21:09)
[2022-01-10] MEDS: SODIUM CHLORIDE 0.65% NA SOLN 45 ML (OCEAN) SCH ×4 (08:19→21:10)
[2022-01-10] MEDS: CEROVITE ADV FORMULA TAB PO SCH (08:19)
[2022-01-10] MEDS: predniSONE 20 MG TAB PO SCH (08:19)
--- NOTE | 2022-01-10 08:33 | Hospitalist Progress Note ---
Date of Service January 10, 2022 Assessment & Plan (1) COPD with acute exacerbation: Plan: Present on admission with worsening SOB CXR showed no acute cardiopulmonary findings. Doxycycline started on admission Continued IV Solumedrol, will transition to PO prednisone in am Continue neb treatment with duoneb Continue flutter valve and incentive spirometry Pt's daughter would like the pt to be seen by in house pulm Pulmonary medicine consulted Echo ordered Study was technically limited. Grossly normal valvular structure and function. There is mild concentric LVH. LV systolic function is normal. EF 65 to 70%. RV systolic function is moderately reduced. There is no evidence of pulmonary hypertension. The PA systolic pressure is less than 36 mmHg. Start Azithromycin 250 mg M, W, (trial for 6-8 weeks) Pulm changed maintenance inhaler to Perforomist and Budesonide Nebs Flonase + saline nasal spray - for allergic rhinitis Flutter valve, IS, mucinex Continue oxygen supplement , goal 88-92% She may be a candidate for pulmonary rehab when she is out of the acute flare. Pulmonary nodules Prior CT reviewed which demonstrated small multiple pulmonary nodules. She qualifies for low-dose CT lung cancer screening and consents to screening. We will set her up for lung cancer screening with low-dose CT as an outpatient. Hyperlipidemia: Continue statin. Gastroesophageal reflux disease: Continue omeprazole, famotidine. Hypertension: Continued home lisinopril. - may contribute to cough, switched to losartan - cont. to monitor BP and poss. improvement in cough - K elev. stopped losartan, BP at goal DVT prophylaxis on Heparin subq Code status Full code Admission and Anticipated Discharge Date Admission Date: January 02, 2022 Subjective Pt seen in follow up of COPD exacerbation, hypoxia Currently sitting up in bed in NAD Cont. to use suppl. O2 Feels slight improvement, however reports that she is very short of breath even with very mild ambulation, such as to bedside commode Denies fever, chills, chest pain She has some cough, unable to cough anything up though Reports anxiety after neb treatments Pulmonary medicine consulted Patient is worried about going home, and is interested in SNF. Discussed this with patient's over the phone. Review of Systems Review of Systems: All systems reviewed & are unremarkable except as noted in Subjective Physical Exam Physical Exam: General-extremely thin, frail F, + chronically ill-appearing, in no acute distress, on suppl. O2 Head- atraumatic Eyes- PERRL, EOMI, ENT- oropharynx clear Neck- supple, no JVD Lungs- very diminished Breath sounds, no wheezing Heart- regular rhythm; no murmur Abdomen- normal bowel sounds, soft, nontender Extremities- no calf tenderness Neuro- alert, oriented x 3; PERRL, EOMI; no facial palsy; no dysarthria, moves extremities Skin- warm & dry Results & Data Results & [facility] ([facility] Vital Signs (Past 12 Hours) Vital Signs Temp Pulse Pulse Resp BP Pulse Ox 01/10/22 07:55 91 H 20 94 01/10/22 07:44 90 01/10/22 02:43 36.5 C 78 18 111/72 97 01/10/22 01:43 88 01/09/22 23:36 36.4 C L 80 20 111/70 97 Laboratory Results 01/10/22 01/09/22 01/09/22 Range/Units 05:33 14:39 12:32 Sodium 134 L (136-145) mmol/L Potassium 5.0 5.3 H 5.4 H Chloride 98 (98-107) mmol/L Carbon Dioxide 32 (21-32) mmol/L Anion Gap 4 (3-11) BUN 30 H (6-23) mg/dl Creatinine 0.74 (0.6-1.2) mg/dl Est Cr Clr Drug Dosing 40.0 ml/min Est GFR ( Amer) 97.8 ml/min Est GFR (Non-Af Amer) 84.4 ml/min BUN/Creatinine Ratio 40.5 H (10-20) Glucose 89 (70-99(Fasting)) mg/dl Calcium 9.4 (8.5-10.1) mg/dl Phosphorus 3.8 (2.5-4.9) mg/dl Magnesium 2.1 (1.7-2.4) mg/dl 01/09/22 Range/Units 10:49 Sodium 135 L (136-145) mmol/L Potassium TNP Chloride 98 (98-107) mmol/L Carbon Dioxide 28 (21-32) mmol/L Anion Gap 9 (3-11) BUN 29 H (6-23) mg/dl Creatinine 0.74 (0.6-1.2) mg/dl Est Cr Clr Drug Dosing 40.0 ml/min Est GFR ( Amer) 97.8 ml/min Est GFR (Non-Af Amer) 84.4 ml/min BUN/Creatinine Ratio 39.2 H (10-20) Glucose 117 H (70-99(Fasting)) mg/dl Calcium 9.5 (8.5-10.1) mg/dl Phosphorus 3.8 (2.5-4.9) mg/dl Magnesium 2.2 (1.7-2.4) mg/dl Medications Administered Current Inpatient Medications Acetaminophen (Acetaminophen 325 Mg Tab) 650 mg PO Q4H PRN PRN Reason: Pain or Fever Stop: 02/01/22 22:15 Last Admin: 01/06/22 20:34 Dose: 650 mg Documented by: Albuterol (Albuterol 0.083% Nebu Soln 3 Ml Vial) 2.5 mg INH Q4 PRN; Protocol PRN Reason: Shortness Of Breath Or Wheezing Stop: 02/01/22 22:15 Last Admin: 01/09/22 13:29 Dose: 2.5 mg Documented by: Atorvastatin Calcium (Atorvastatin 10 Mg Tab) 10 mg PO QAM [facility] Stop: 02/02/22 08:59 Last Admin: 01/10/22 08:18 Dose: 10 mg Documented by: Azithromycin (Azithromycin 250 Mg Tab) 250 mg PO MoWeFr@0900 [facility] Stop: 02/17/22 08:59 Last Admin: 01/08/22 09:49 Dose: 250 mg Documented by: Budesonide (Budesonide 0.5 Mg/2 Ml Vial (Pulmicort)) 0.5 mg NEB BIDR [facility] Stop: 02/04/22 18:59 Last Admin: 01/10/22 07:55 Dose: 0.5 mg Documented by: Calcium Carbonate (Calcium Carbonate 500 Mg Chewable Tab) 500 mg PO BID PRN PRN Reason: Indigestion Stop: 02/09/22 05:43 Last Admin: 01/10/22 05:53 Dose: 500 mg Documented by: Famotidine (Famotidine 20 Mg Tab) 20 mg PO PM [facility] Stop: 02/01/22 22:15 Last Admin: 01/09/22 20:58 Dose: 20 mg Documented by: Fluticasone Propionate (Fluticasone Propionate Na Spr 16 Gm Btl) 2 sprays NA BID [facility] Stop: 02/05/22 10:59 Last Admin: 01/10/22 08:18 Dose: 2 sprays Documented by: Formoterol Fumarate (Formoterol 20 Mcg/2 Ml Vial) 20 mcg NEB BIDR [facility] Stop: 02/04/22 18:59 Last Admin: 01/10/22 07:55 Dose: 20 mcg Documented by: Guaifenesin (Guaifenesin 600 Mg Tabcr) 600 mg PO Q12 [facility] Stop: 02/07/22 11:29 Last Admin: 01/10/22 08:18 Dose: 600 mg Documented by: Heparin Sodium (Porcine) (Heparin Sod 5,000 Unit/0.5 Ml Vial) 5,000 units SQ Q12 [facility] Stop: 02/01/22 22:15 Last Admin: 01/10/22 08:18 Dose: 5,000 units Documented by: Hydralazine HCl (Hydralazine Hcl 20 Mg/Ml Vial) 5 mg IV Q6H PRN PRN Reason: SBP >170 Stop: 02/04/22 08:29 Last Admin: 01/06/22 11:52 Dose: 5 mg Documented by: Loratadine (Loratadine 10 Mg Tab) 10 mg PO DAILY [facility] Stop: 02/02/22 08:59 Last Admin: 01/10/22 08:18 Dose: 10 mg Documented by: Lorazepam (Lorazepam 2 Mg/1 Ml Vial) 0.25 mg IV Q4H PRN PRN Reason: Anxiety Stop: 02/02/22 20:30 Last Admin: 01/10/22 06:43 Dose: 0.25 mg Documented by: Losartan Potassium (Losartan Potassium 25 Mg Tab) 25 mg PO QAM [facility] Stop: 02/07/22 08:59 Last Admin: 01/09/22 08:51 Dose: 25 mg Documented by: Miscellaneous (Remove Nicoderm Patch) 1 ea N/A DAILY@0859 [facility] Stop: 02/05/22 08:58 Last Admin: 01/10/22 08:20 Dose: 1 ea Documented by: Multivitamins/Minerals (Cerovite Adv Formula Tab) 1 tab PO QAM [facility] Stop: 02/08/22 14:29 Last Admin: 01/10/22 08:19 Dose: 1 tab Documented by: Nicotine (Nicotine 14 Mg/24 Hr Patch) 14 mg TD DAILY@1500 [facility] Stop: 02/04/22 14:59 Last Admin: 01/09/22 17:06 Dose: 14 mg Documented by: Nitroglycerin (Nitroglycerin Sl 0.4 Mg/Tab Tab) 0.4 mg SL Q5M PRN PRN Reason: Chest Pain Stop: 02/01/22 22:15 Pantoprazole Sodium (Pantoprazole 40 Mg Tab) 40 mg PO BID [facility] Stop: 02/01/22 22:15 Last Admin: 01/10/22 08:19 Dose: 40 mg Documented by: Polyethylene Glycol (Polyethylene (Miralax) 17 Gm Pack) 17 gm PO DAILY PRN PRN Reason: Constipation Stop: 02/01/22 22:15 Prednisone (Prednisone 20 Mg Tab) 40 mg PO QAM [facility] Stop: 02/08/22 08:59 Last Admin: 01/10/22 08:19 Dose: 40 mg Documented by: Sodium Chloride (Sodium Chloride 0.65% Na Soln 45 Ml ([place])) 2 sprays NA QID [facility] Stop: 02/05/22 10:29 Last Admin: 01/10/22 08:19 Dose: 2 sprays Documented by: Vitamin D (Cholecalciferol 400 Units 10 Mcg Tab) 400 units PO QAM [facility] Stop: 02/08/22 14:29 Last Admin: 01/10/22 08:18 Dose: 400 units Documented by:
[2022-01-10] MEDS: ALBUTEROL 0.083% NEBU SOLN 3 ML VIAL INH PRN (14:39)
[2022-01-10] MEDS: NICOTINE 14 MG/24 HR PATCH TD SCH (14:58)
[2022-01-10] MEDS: FAMOTIDINE 20 MG TAB PO SCH (21:09)
[2022-01-11] MEDS ORDERED: LOPERAMIDE HCL 2 MG CAP PO STA (00:53)
[2022-01-11] MEDS: LORazepam 2 MG/1 ML VIAL IV PRN ×3 (06:42→18:42)
[2022-01-11 07:19] LABS: BUN Creatinine Ratio 34.2 (10-20); Calcium 9.4 mg/dl (8.5-10.1); Creatinine Clr Calc Pharmacy 37.4 ml/min; Est GFR (African American) 90.4 ml/min; Potassium 5.2 mmol/L (3.5-5.1)
[2022-01-11] MEDS: FORMOTEROL 20 MCG/2 ML VIAL NEB SCH ×2 (07:24→19:09)
[2022-01-11] MEDS: BUDESONIDE 0.5 MG/2 ML VIAL (PULMICORT) NEB SCH ×2 (07:24→19:09)
[2022-01-11] MEDS: FLUTICASONE PROPIONATE NA SPR 16 GM BTL SCH ×2 (08:01→21:13)
[2022-01-11] MEDS: ATORVASTATIN 10 MG TAB PO SCH (08:01)
[2022-01-11] MEDS: guaiFENesin 600 MG TABCR PO SCH ×2 (08:01→21:12)
[2022-01-11] MEDS: AZITHROMYCIN 250 MG TAB PO SCH (08:01)
[2022-01-11] MEDS: CHOLECALCIFEROL 400 UNITS 10 MCG TAB PO SCH (08:01)
[2022-01-11] MEDS: LORATADINE 10 MG TAB PO SCH (08:01)
[2022-01-11] MEDS: predniSONE 10 MG TABLET PO SCH (08:02)
[2022-01-11] MEDS: SODIUM CHLORIDE 0.65% NA SOLN 45 ML (OCEAN) SCH ×4 (08:02→21:13)
[2022-01-11] MEDS: PANTOprazole 40 MG TAB PO SCH ×2 (08:02→21:11)
[2022-01-11] MEDS: CEROVITE ADV FORMULA TAB PO SCH (08:02)
[2022-01-11] MEDS: HEPARIN SOD 5,000 UNIT/0.5 ML VIAL SQ SCH ×2 (08:02→21:14)
--- NOTE | 2022-01-11 09:03 | Communication Note ---
Date of Service: January 11, 2022 Patient to be seen this afternoon for psychiatric consultation. Was seen by psych liason last night and reported worsening depression in context of worsening medical condition from COPD and how this is negatively impacting her quality of life. She may benefit from SSRI trial if Na+ stabilizes.
[2022-01-11] MEDS: ALBUTEROL 0.083% NEBU SOLN 3 ML VIAL INH PRN (13:17)
--- NOTE | 2022-01-11 14:34 | Hospitalist Progress Note ---
Date of Service January 11, 2022 Assessment & Plan (1) COPD with acute exacerbation: Plan: Present on admission with worsening SOB CXR showed no acute cardiopulmonary findings. Doxycycline started on admission Continued IV Solumedrol, will transition to PO prednisone in am Continue neb treatment with duoneb Continue flutter valve and incentive spirometry Pt's daughter would like the pt to be seen by in house pulm Pulmonary medicine consulted Echo ordered Study was technically limited. Grossly normal valvular structure and function. There is mild concentric LVH. LV systolic function is normal. EF 65 to 70%. RV systolic function is moderately reduced. There is no evidence of pulmonary hypertension. The PA systolic pressure is less than 36 mmHg. Start Azithromycin 250 mg M, W, (trial for 6-8 weeks) Pulm changed maintenance inhaler to Perforomist and Budesonide Nebs Flonase + saline nasal spray - for allergic rhinitis Flutter valve, IS, mucinex Continue oxygen supplement , goal 88-92% She may be a candidate for pulmonary rehab when she is out of the acute flare. Pulmonary nodules Prior CT reviewed which demonstrated small multiple pulmonary nodules. She qualifies for low-dose CT lung cancer screening and consents to screening. We will set her up for lung cancer screening with low-dose CT as an outpatient. Hyperlipidemia: Continue statin. Gastroesophageal reflux disease: Continue omeprazole, famotidine. Hypertension: Continued home lisinopril. - may contribute to cough, switched to losartan - cont. to monitor BP and poss. improvement in cough - K elev. stopped losartan, BP at goal DVT prophylaxis on Heparin subq Code status Full code Admission and Anticipated Discharge Date Admission Date: January 02, 2022 Subjective Pt seen in follow up of COPD exacerbation, hypoxia Currently sitting up in bed in NAD Cont. to use suppl. O2 Feels slight improvement, however reports that she is very short of breath even with very mild ambulation, such as to bedside commode Denies fever, chills, chest pain She has some cough, unable to cough anything up though Reports anxiety after neb treatments Pulmonary medicine consulted Patient is worried about going home, and is interested in SNF. Discussed this with patient's over the phone. Review of Systems Review of Systems: All systems reviewed & are unremarkable except as noted in Subjective Physical Exam Physical Exam: General-extremely thin, frail F, + chronically ill-appearing, in no acute distress, on suppl. O2 Head- atraumatic Eyes- PERRL, EOMI, ENT- oropharynx clear Neck- supple, no JVD Lungs- very diminished Breath sounds, no wheezing Heart- regular rhythm; no murmur Abdomen- normal bowel sounds, soft, nontender Extremities- no calf tenderness Neuro- alert, oriented x 3; PERRL, EOMI; no facial palsy; no dysarthria, moves extremities Skin- warm & dry Results & Data Results & Data ([facility]) Vital Signs (Past 12 Hours) Vital Signs Temp Pulse Pulse Resp BP BP Pulse Ox 01/11/22 13:18 18 95 01/11/22 11:24 36.7 C 91 H 16 133/74 90 01/11/22 07:42 36.2 C L 85 86 20 132/75 93 01/11/22 07:25 81 19 94 01/11/22 07:00 36.3 C L 81 20 118/82 94 01/11/22 06:33 89 L 01/11/22 02:57 36.9 C 9 L 18 147/86 H 98 Laboratory Results 01/11/22 Range/Units 06:02 Sodium 134 L (136-145) mmol/L Potassium 5.2 H (3.5-5.1) mmol/L Chloride 96 L (98-107) mmol/L Carbon Dioxide 31 (21-32) mmol/L Anion Gap 7 (3-11) BUN 27 H (6-23) mg/dl Creatinine 0.79 (0.6-1.2) mg/dl Est Cr Clr Drug Dosing 37.4 ml/min Est GFR ( Amer) 90.4 ml/min Est GFR (Non-Af Amer) 78.0 ml/min BUN/Creatinine Ratio 34.2 H (10-20) Glucose 84 (70-99(Fasting)) mg/dl Calcium 9.4 (8.5-10.1) mg/dl Phosphorus 4.0 (2.5-4.9) mg/dl Magnesium 2.0 (1.7-2.4) mg/dl Medications Administered Current Inpatient Medications Acetaminophen (Acetaminophen 325 Mg Tab) 650 mg PO Q4H PRN PRN Reason: Pain or Fever Stop: 02/01/22 22:15 Last Admin: 01/06/22 20:34 Dose: 650 mg Documented by: Albuterol (Albuterol 0.083% Nebu Soln 3 Ml Vial) 2.5 mg INH Q4 PRN; Protocol PRN Reason: Shortness Of Breath Or Wheezing Stop: 02/01/22 22:15 Last Admin: 01/11/22 13:17 Dose: 2.5 mg Documented by: Atorvastatin Calcium (Atorvastatin 10 Mg Tab) 10 mg PO QAM [facility] Stop: 02/02/22 08:59 Last Admin: 01/11/22 08:01 Dose: 10 mg Documented by: Azithromycin (Azithromycin 250 Mg Tab) 250 mg PO MoWeFr@0900 [facility] Stop: 02/17/22 08:59 Last Admin: 01/11/22 08:01 Dose: 250 mg Documented by: Budesonide (Budesonide 0.5 Mg/2 Ml Vial (Pulmicort)) 0.5 mg NEB BIDR [facility] Stop: 02/04/22 18:59 Last Admin: 01/11/22 07:24 Dose: 0.5 mg Documented by: Calcium Carbonate (Calcium Carbonate 500 Mg Chewable Tab) 500 mg PO BID PRN PRN Reason: Indigestion Stop: 02/09/22 05:43 Last Admin: 01/10/22 16:21 Dose: 500 mg Documented by: Famotidine (Famotidine 20 Mg Tab) 20 mg PO PM [facility] Stop: 02/01/22 22:15 Last Admin: 01/10/22 21:09 Dose: 20 mg Documented by: Fluticasone Propionate (Fluticasone Propionate Na Spr 16 Gm Btl) 2 sprays NA BID [facility] Stop: 02/05/22 10:59 Last Admin: 01/11/22 08:01 Dose: 2 sprays Documented by: Formoterol Fumarate (Formoterol 20 Mcg/2 Ml Vial) 20 mcg NEB BIDR [facility] Stop: 02/04/22 18:59 Last Admin: 01/11/22 07:24 Dose: 20 mcg Documented by: Guaifenesin (Guaifenesin 600 Mg Tabcr) 600 mg PO Q12 [facility] Stop: 02/07/22 11:29 Last Admin: 01/11/22 08:01 Dose: 600 mg Documented by: Heparin Sodium (Porcine) (Heparin Sod 5,000 Unit/0.5 Ml Vial) 5,000 units SQ Q12 [facility] Stop: 02/01/22 22:15 Last Admin: 01/11/22 08:02 Dose: 5,000 units Documented by: Hydralazine HCl (Hydralazine Hcl 20 Mg/Ml Vial) 5 mg IV Q6H PRN PRN Reason: SBP >170 Stop: 02/04/22 08:29 Last Admin: 01/06/22 11:52 Dose: 5 mg Documented by: Loratadine (Loratadine 10 Mg Tab) 10 mg PO DAILY [facility] Stop: 02/02/22 08:59 Last Admin: 01/11/22 08:01 Dose: 10 mg Documented by: Lorazepam (Lorazepam 2 Mg/1 Ml Vial) 0.25 mg IV Q4H PRN PRN Reason: Anxiety Stop: 02/02/22 20:30 Last Admin: 01/11/22 12:46 Dose: 0.25 mg Documented by: Losartan Potassium (Losartan Potassium 25 Mg Tab) 25 mg PO QAM [facility] Stop: 02/07/22 08:59 Last Admin: 01/09/22 08:51 Dose: 25 mg Documented by: Miscellaneous (Remove Nicoderm Patch) 1 ea N/A DAILY@0859 [facility] Stop: 02/05/22 08:58 Last Admin: 01/11/22 08:02 Dose: 1 ea Documented by: Multivitamins/Minerals (Cerovite Adv Formula Tab) 1 tab PO [facility] Stop: 02/08/22 14:29 Last Admin: 01/11/22 08:02 Dose: 1 tab Documented by: Nicotine (Nicotine 14 Mg/24 Hr Patch) 14 mg TD DAILY@1500 [facility] Stop: 02/04/22 14:59 Last Admin: 01/10/22 14:58 Dose: 14 mg Documented by: Nitroglycerin (Nitroglycerin Sl 0.4 Mg/Tab Tab) 0.4 mg SL Q5M PRN PRN Reason: Chest Pain Stop: 02/01/22 22:15 Pantoprazole Sodium (Pantoprazole 40 Mg Tab) 40 mg PO BID [facility] Stop: 02/01/22 22:15 Last Admin: 01/11/22 08:02 Dose: 40 mg Documented by: Polyethylene Glycol (Polyethylene (Miralax) 17 Gm Pack) 17 gm PO DAILY PRN PRN Reason: Constipation Stop: 02/01/22 22:15 Prednisone (Prednisone 10 Mg Tablet) 30 mg PO QAM [facility] Stop: 02/10/22 08:59 Last Admin: 01/11/22 08:02 Dose: 30 mg Documented by: Sodium Chloride (Sodium Chloride 0.65% Na Soln 45 Ml ([place])) 2 sprays NA QID [facility] Stop: 02/05/22 10:29 Last Admin: 01/11/22 14:23 Dose: 2 sprays Documented by: Vitamin D (Cholecalciferol 400 Units 10 Mcg Tab) 400 units PO QAM [facility] Stop: 02/08/22 14:29 Last Admin: 01/11/22 08:01 Dose: 400 units Documented by:
[2022-01-11] MEDS: NICOTINE 14 MG/24 HR PATCH TD SCH (15:31)
--- NOTE | 2022-01-11 15:46 | Psychiatric Consultation ---
Date of Consultation January 11, 2022 Impression / Recommendations Impression This is a 66 yo with tobacco use disorder admitted medically for COPD exacerbation. Diagnostically consistent with adjustment disorder with mixed anxiety and depressed mood in the context of worsening COPD. Acute risk of self- harm is low given denial of SI and no prior attempts. They are not interested in nor do they meet criteria for inpatient psychiatric hospitalization at this time. She declines any medication or therapy interventions to help with mood. She declines any medications to help with tobacco use disorder, is considering using a patch after discharge. Motivational interviewing regarding this. -She declines any interventions for her mood at this point but does like ativan prn which is reasonable to help with nebulizer treatments -Consider starting sertraline 25mg qd or mirtazapine 7.5 mg qhs in the future if Na+ stabilizes if she decides she would like to try a medication to help with her mood symptoms -Encourage ongoing motivational interviewing regarding tobacco use and option to consider Wellbutrin or Chantix to help if NRT alone is unsuccessful (1) Adjustment disorder with mixed anxiety and depressed mood: (2) Tobacco use disorder: (3) Pulmonary cachexia due to chronic obstructive pulmonary disease: (4) COPD with acute exacerbation: see above Risk Factors Assessment Do You Have Access To A Gun?: No Psych History Identifying Data 66 yo woman admitted medically for COPD exacerbation and with significantly low BMI. Psychiatry consulted for depression. Chief Complaint "I mostly just a little anxious about the unknown". History of Present Illness Jemal is pleasant and cooperative with interview. She endorses some increased anxiety and depression in the setting of worsening health due to COPD and how this negatively impacts her quality of life and not wanting to burden her family. Endorses stable sleep, appetite has been improving but she finds it very difficult to eat as bigger bites make it hard for her to eat so it takes a long time to eat and finish a meal. Denies hopelessness nor helplessness. She denies any SI. PHQ-9 score was 11 with 0 for q9. Highest scores for low energy and decreased interest. She denies any prior psychiatric history including no hx of prior suicide attempts and no hx psychiatric medications. She is finding ativan prn helpful for anxiety before her nebulizer treatments as these sometimes cause her to SOB and ativan is helping reduce this. She has been using nicotine replacement patch in the hospital and plans to continue to try to avoid tobacco use after discharge. Reviewed other NRT options like using patch and gum and option to try a medication like Chantix or Wellbutrin to help. She wants to gain weight and is trying to eat more, denies any history of restriction or eating disorder. She feels well supported at home. Denies any other concerns or questions. Past Psychiatric History Previous Psych Admissions: n/a Do You Have Access To A Gun?: No History of Previous Suicide Attempt: No Allergies Allergy/AdvReac Type Severity Reaction Status Date / Time latex Allergy Mild blisters Verified 01/02/22 16:21 amoxicillin AdvReac Mild DIARRHEA Verified 01/02/22 16:21 levofloxacin AdvReac Mild Erythema Verified 01/02/22 16:21 at IV site Home Medications Medication Instructions Recorded Confirmed Type famotidine 20 mg tablet (Pepcid) 20 mg PO PM 09/25/19 01/02/22 History atorvastatin 10 mg tablet 10 mg PO QAM 04/13/21 01/02/22 History esomeprazole magnesium 20 mg 20 mg PO BID 04/13/21 01/02/22 History capsule,delayed release albuterol sulfate 2.5 mg INHALATION Q4 PRN 11/15/21 01/02/22 History fluticasone fur. 100 mcg-umeclid 1 ea INHALATION QAM 11/15/21 01/02/22 History 62.5 mcg-vilant 25 mcg inhalat.powder (Trelegy Ellipta) lisinopril 5 mg tablet 5 mg PO QAM 11/17/21 01/02/22 History albuterol sulfate 90 mcg/actuation 2 puff INHALATION Q4 PRN 01/02/22 01/02/22 History aerosol inhaler azithromycin 250 mg tablet 250 mg PO UD PRN 01/02/22 01/02/22 History loratadine 10 mg tablet 10 mg PO DAILY 01/02/22 01/02/22 History prednisone 20 mg tablet 40 mg PO QAM PRN 01/02/22 01/02/22 History Personal History Living Arrangements: Home Marital Status: Number Of Children: 3 daughters who live nearby Beliefs That Will Affect Care: None Patient History Medical History Abdominal pain Allergic rhinitis Chronic cough COPD (chronic obstructive pulmonary disease) inhaler daily/prn GERD (gastroesophageal reflux disease) History of anesthesia reaction DIFFICULT TO AWAKEN, N/V History of nicotine dependence History of osteoporosis HTN (hypertension) Oxygen dependent Pulmonary cachexia due to chronic obstructive pulmonary disease Pulmonary emphysema Severely underweight adult only weighs 69lbs Surgical History H/O colonoscopy 8-21 Dr. Radha Henning H/O: hysterectomy History of cardiac cath NEGATIVE [place] 2014- DR. WE[facility] History of cataract surgery BOTH EYES History of esophagogastroduodenoscopy (EGD) (~07/08/20) Family History Mother Hypertension Sister Epilepsy Family history of reaction to anesthesia nausea/vomiting, difficulty waking Family/Other Osteoporosis Social History Smoking Status: Current every day smoker Tobacco Type: Cigarettes Age Started Using Tobacco: 13; packs per day: 1.0; Years Smoked: 53; Cigarettes Per Day: less than 20 a day; Second Hand Exposure: Yes; Do You Dip or Chew Tobacco: No; Tobacco Cessation Education Requested by Patient: No Hx Alcohol Use: No Hx Substance Use: No Preferred Language: Yi Communication Ability: Effective Assistant Secretary Required: No Beliefs That Will Affect Care: None marital status: Current Living Situation: Spouse current occupational status: retired How many Children do You have: 3 Other Information That Helps Us Care for You: No Feels Safe at Home: Yes Safety Concerns: Feels Safe At This Time Assistive Devices: Oxygen - Continuous Physical Exam Psychiatric: Orientation: alert and oriented x 3 Apperance: appropriately dressed and appropriately groomed Eye Contact: good eye contact Motor Behavior: no abnormal motor movements Speech: normal rate/rhythm/volume of speech Affect: euthymic affect Mood: + depressed mood and + anxious mood Thought Process: goal directed thought process Thought Content: reality based without delusions Suicidal Thoughts: denies suicidal thoughts Homicidal Thoughts: denies homicidal thoughts Hallucinations: no auditory hallucinations and no visual hallucinations Cognition: recent memory grossly intact, remote memory grossly intact, attention grossly intact and language grossly intact Estimated Intelligence: consistent with education level Insight: + fair insight Judgement: + fair judgement Vital Signs (Past 24 Hours): Last Vital Signs Temp 36.9 C 01/11/22 15:10 Pulse 97 H 01/11/22 15:10 Resp 16 01/11/22 15:10 BP 128/73 01/11/22 15:10 Pulse Ox 92 01/11/22 15:10 Review of Systems All systems reviewed & are unremarkable except as noted in HPI & below Results & Data (PSY) Laboratory Results Na+ 134 Medications Administered Acetaminophen (Acetaminophen 325 Mg Tab) 650 mg PO Q4H PRN PRN Reason: Pain or Fever Stop: 02/01/22 22:15 Last Admin: 01/06/22 20:34 Dose: 650 mg Documented by: [id number] Albuterol (Albuterol 0.083% Nebu Soln 3 Ml Vial) 2.5 mg INH Q4 PRN; Protocol PRN Reason: Shortness Of Breath Or Wheezing Stop: 02/01/22 22:15 Last Admin: 01/11/22 13:17 Dose: 2.5 mg Documented by: [id number] Admin: 01/10/22 14:39 Dose: 2.5 mg Documented by: [id number] Admin: 01/09/22 13:29 Dose: 2.5 mg Documented by: [id number] Admin: 01/08/22 11:55 Dose: 2.5 mg Documented by: [id number] Admin: 01/07/22 12:03 Dose: 2.5 mg Documented by: [id number] Admin: 01/06/22 12:45 Dose: 2.5 mg Documented by: [id number] Atorvastatin Calcium (Atorvastatin 10 Mg Tab) 10 mg PO QAM [facility] Stop: 02/02/22 08:59 Last Admin: 01/11/22 08:01 Dose: 10 mg Documented by: [id number] Admin: 01/10/22 08:18 Dose: 10 mg Documented by: [id number] Admin: 01/09/22 08:51 Dose: 10 mg Documented by: [id number] Admin: 01/08/22 09:49 Dose: 10 mg Documented by: [id number] Admin: 01/07/22 08:22 Dose: 10 mg Documented by: [id number] Admin: 01/06/22 09:08 Dose: 10 mg Documented by: [id number] Admin: 01/05/22 09:54 Dose: 10 mg Documented by: [id number] Admin: 01/04/22 08:50 Dose: 10 mg Documented by: [id number] Admin: 01/03/22 09:03 Dose: 10 mg Documented by: [id number] Azithromycin (Azithromycin 250 Mg Tab) 250 mg PO MoWeFr@0900 [facility] Stop: 02/17/22 08:59 Last Admin: 01/11/22 08:01 Dose: 250 mg Documented by: [id number] Admin: 01/08/22 09:49 Dose: 250 mg Documented by: [id number] Admin: 01/06/22 09:05 Dose: 250 mg Documented by: [id number] Budesonide (Budesonide 0.5 Mg/2 Ml Vial (Pulmicort)) 0.5 mg NEB BIDR [facility] Stop: 02/04/22 18:59 Last Admin: 01/11/22 07:24 Dose: 0.5 mg Documented by: [id number] Admin: 01/10/22 19:10 Dose: 0.5 mg Documented by: [id number] Admin: 01/10/22 07:55 Dose: 0.5 mg Documented by: [id number] Admin: 01/09/22 19:52 Dose: 0.5 mg Documented by: [id number] Admin: 01/09/22 07:19 Dose: 0.5 mg Documented by: [id number] Admin: 01/08/22 20:03 Dose: 0.5 mg Documented by: [id number] Admin: 01/08/22 07:25 Dose: 0.5 mg Documented by: [id number] Admin: 01/07/22 19:54 Dose: 0.5 mg Documented by: [id number] Admin: 01/07/22 07:27 Dose: 0.5 mg Documented by: [id number] Admin: 01/06/22 19:42 Dose: 0.5 mg Documented by: [id number] Admin: 01/06/22 07:16 Dose: 0.5 mg Documented by: [id number] Admin: 01/05/22 19:40 Dose: 0.5 mg Documented by: [id number] Calcium Carbonate (Calcium Carbonate 500 Mg Chewable Tab) 500 mg PO BID PRN PRN Reason: Indigestion Stop: 02/09/22 05:43 Last Admin: 01/10/22 16:21 Dose: 500 mg Documented by: [id number] Admin: 01/10/22 05:53 Dose: 500 mg Documented by: [id number] Famotidine (Famotidine 20 Mg Tab) 20 mg PO PM [facility] Stop: 02/01/22 22:15 Last Admin: 01/10/22 21:09 Dose: 20 mg Documented by: [id number] Admin: 01/09/22 20:58 Dose: 20 mg Documented by: [id number] Admin: 01/08/22 20:29 Dose: 20 mg Documented by: [id number] Admin: 01/07/22 19:56 Dose: 20 mg Documented by: [id number] Admin: 01/06/22 20:33 Dose: 20 mg Documented by: [id number] Admin: 01/05/22 20:22 Dose: 20 mg Documented by: [id number] Admin: 01/04/22 21:19 Dose: 20 mg Documented by: [id number] Admin: 01/03/22 21:54 Dose: 20 mg Documented by: [id number] Admin: 01/02/22 23:11 Dose: 20 mg Documented by: [id number] Fluticasone Propionate (Fluticasone Propionate Na Spr 16 Gm Btl) 2 sprays NA BID [facility] Stop: 02/05/22 10:59 Last Admin: 01/11/22 08:01 Dose: 2 sprays Documented by: [id number] Admin: 01/10/22 21:11 Dose: 2 sprays Documented by: [id number] Admin: 01/10/22 08:18 Dose: 2 sprays Documented by: [id number] Admin: 01/09/22 20:57 Dose: 2 sprays Documented by: [id number] Admin: 01/09/22 08:52 Dose: 2 sprays Documented by: [id number] Admin: 01/08/22 20:26 Dose: 2 sprays Documented by: [id number] Admin: 01/08/22 09:50 Dose: 2 sprays Documented by: [id number] Admin: 01/07/22 19:56 Dose: 2 sprays Documented by: [id number] Admin: 01/07/22 08:22 Dose: 2 sprays Documented by: [id number] Admin: 01/06/22 20:34 Dose: 2 sprays Documented by: [id number] Admin: 01/06/22 11:22 Dose: 2 sprays Documented by: [id number] Formoterol Fumarate (Formoterol 20 Mcg/2 Ml Vial) 20 mcg NEB BIDR [facility] Stop: 02/04/22 18:59 Last Admin: 01/11/22 07:24 Dose: 20 mcg Documented by: [id number] Admin: 01/10/22 19:10 Dose: 20 mcg Documented by: [id number] Admin: 01/10/22 07:55 Dose: 20 mcg Documented by: [id number] Admin: 01/09/22 19:52 Dose: 20 mcg Documented by: [id number] Admin: 01/09/22 07:19 Dose: 20 mcg Documented by: [id number] Admin: 01/08/22 20:03 Dose: 20 mcg Documented by: [id number] Admin: 01/08/22 07:25 Dose: 20 mcg Documented by: [id number] Admin: 01/07/22 19:54 Dose: 20 mcg Documented by: [id number] Admin: 01/07/22 07:27 Dose: 20 mcg Documented by: [id number] Admin: 01/06/22 19:42 Dose: 20 mcg Documented by: [id number] Admin: 01/06/22 07:16 Dose: 20 mcg Documented by: [id number] Admin: 01/05/22 19:40 Dose: 20 mcg Documented by: [id number] Guaifenesin (Guaifenesin 600 Mg Tabcr) 600 mg PO Q12 [facility] Stop: 02/07/22 11:29 Last Admin: 01/11/22 08:01 Dose: 600 mg Documented by: [id number] Admin: 01/10/22 21:09 Dose: 600 mg Documented by: [id number] Admin: 01/10/22 08:18 Dose: 600 mg Documented by: [id number] Admin: 01/09/22 20:58 Dose: 600 mg Documented by: [id number] Admin: 01/09/22 08:51 Dose: 600 mg Documented by: [id number] Admin: 01/08/22 20:29 Dose: 600 mg Documented by: [id number] Admin: 01/08/22 12:18 Dose: 600 mg Documented by: [id number] Heparin Sodium (Porcine) (Heparin Sod 5,000 Unit/0.5 Ml Vial) 5,000 units SQ Q12 [facility] Stop: 02/01/22 22:15 Last Admin: 01/11/22 08:02 Dose: 5,000 units Documented by: [id number] Admin: 01/10/22 21:10 Dose: 5,000 units Documented by: [id number] Admin: 01/10/22 08:18 Dose: 5,000 units Documented by: [id number] Admin: 01/09/22 20:58 Dose: 5,000 units Documented by: [id number] Admin: 01/09/22 08:54 Dose: 5,000 units Documented by: [id number] Admin: 01/08/22 20:29 Dose: 5,000 units Documented by: [id number] Admin: 01/08/22 09:50 Dose: 5,000 units Documented by: [id number] Admin: 01/07/22 19:57 Dose: 5,000 units Documented by: [id number] Admin: 01/07/22 08:23 Dose: 5,000 units Documented by: [id number] Admin: 01/06/22 20:33 Dose: 5,000 units Documented by: [id number] Admin: 01/06/22 09:05 Dose: 5,000 units Documented by: [id number] Admin: 01/05/22 20:20 Dose: 5,000 units Documented by: [id number] Admin: 01/05/22 07:51 Dose: 5,000 units Documented by: [id number] Admin: 01/04/22 20:35 Dose: 5,000 units Documented by: [id number] Admin: 01/04/22 08:51 Dose: 5,000 units Documented by: [id number] Admin: 01/03/22 20:56 Dose: 5,000 units Documented by: [id number] Admin: 01/03/22 09:03 Dose: 5,000 units Documented by: [id number] Admin: 01/02/22 23:12 Dose: Not Given Documented by: [id number] Hydralazine HCl (Hydralazine Hcl 20 Mg/Ml Vial) 5 mg IV Q6H PRN PRN Reason: SBP >170 Stop: 02/04/22 08:29 Last Admin: 01/06/22 11:52 Dose: 5 mg Documented by: [id number] Admin: 01/06/22 04:32 Dose: 5 mg Documented by: [id number] Loratadine (Loratadine 10 Mg Tab) 10 mg PO DAILY [facility] Stop: 02/02/22 08:59 Last Admin: 01/11/22 08:01 Dose: 10 mg Documented by: [id number] Admin: 01/10/22 08:18 Dose: 10 mg Documented by: [id number] Admin: 01/09/22 08:51 Dose: 10 mg Documented by: [id number] Admin: 01/08/22 09:49 Dose: 10 mg Documented by: [id number] Admin: 01/07/22 08:22 Dose: 10 mg Documented by: [id number] Admin: 01/06/22 09:05 Dose: 10 mg Documented by: [id number] Admin: 01/05/22 09:54 Dose: 10 mg Documented by: [id number] Admin: 01/04/22 08:50 Dose: 10 mg Documented by: [id number] Admin: 01/03/22 09:03 Dose: 10 mg Documented by: [id number] Lorazepam (Lorazepam 2 Mg/1 Ml Vial) 0.25 mg IV Q4H PRN PRN Reason: Anxiety Stop: 02/02/22 20:30 Last Admin: 01/11/22 12:46 Dose: 0.25 mg Documented by: [id number] Admin: 01/11/22 06:42 Dose: 0.25 mg Documented by: [id number] Admin: 01/10/22 18:43 Dose: 0.25 mg Documented by: [id number] Admin: 01/10/22 12:39 Dose: 0.25 mg Documented by: [id number] Admin: 01/10/22 06:43 Dose: 0.25 mg Documented by: [id number] Admin: 01/09/22 19:22 Dose: 0.25 mg Documented by: [id number] Admin: 01/09/22 14:07 Dose: 0.25 mg Documented by: [id number] Admin: 01/09/22 08:16 Dose: 0.25 mg Documented by: [id number] Admin: 01/08/22 20:36 Dose: 0.25 mg Documented by: [id number] Admin: 01/08/22 12:18 Dose: 0.25 mg Documented by: [id number] Admin: 01/08/22 07:15 Dose: 0.25 mg Documented by: [id number] Admin: 01/07/22 19:45 Dose: 0.25 mg Documented by: [id number] Admin: 01/07/22 11:59 Dose: 0.25 mg Documented by: [id number] Admin: 01/07/22 07:30 Dose: 0.25 mg Documented by: [id number] Admin: 01/06/22 19:24 Dose: 0.25 mg Documented by: [id number] Admin: 01/06/22 13:10 Dose: 0.25 mg Documented by: [id number] Admin: 01/06/22 07:47 Dose: 0.25 mg Documented by: [id number] Admin: 01/05/22 20:03 Dose: 0.25 mg Documented by: [id number] Admin: 01/05/22 07:53 Dose: 0.25 mg Documented by: [id number] Admin: 01/04/22 20:29 Dose: 0.25 mg Documented by: [id number] Admin: 01/04/22 15:24 Dose: 0.25 mg Documented by: [id number] Admin: 01/03/22 20:59 Dose: 0.25 mg Documented by: [id number] Losartan Potassium (Losartan Potassium 25 Mg Tab) 25 mg PO QAM [facility] Stop: 02/07/22 08:59 Last Admin: 01/09/22 08:51 Dose: 25 mg Documented by: [id number] Admin: 01/08/22 09:48 Dose: 25 mg Documented by: [id number] Miscellaneous (Remove Nicoderm Patch) 1 ea N/A DAILY@0859 [facility] Stop: 02/05/22 08:58 Last Admin: 01/11/22 08:02 Dose: 1 ea Documented by: [id number] Admin: 01/10/22 08:20 Dose: 1 ea Documented by: [id number] Admin: 01/09/22 08:57 Dose: 1 ea Documented by: [id number] Admin: 01/08/22 09:51 Dose: 1 ea Documented by: [id number] Admin: 01/07/22 08:23 Dose: 1 ea Documented by: [id number] Admin: 01/06/22 09:06 Dose: 1 ea Documented by: [id number] Multivitamins/Minerals (Cerovite Adv Formula Tab) [facility] [place]: 02/08/22 14:29 Last Admin: 01/11/22 08:02 Dose: 1 tab Documented by: [id number] Admin: 01/10/22 08:19 Dose: 1 tab Documented by: [id number] Admin: 01/09/22 17:04 Dose: 1 tab Documented by: [id number] Nicotine (Nicotine 14 Mg/24 Hr Patch) 14 mg TD DAILY@1500 [facility] Stop: 02/04/22 14:59 Last Admin: 01/11/22 15:31 Dose: 14 mg Documented by: [id number] Admin: 01/10/22 14:58 Dose: 14 mg Documented by: [id number] Admin: 01/09/22 17:06 Dose: 14 mg Documented by: [id number] Admin: 01/08/22 15:52 Dose: 14 mg Documented by: [id number] Admin: 01/07/22 15:14 Dose: 14 mg Documented by: [id number] Admin: 01/06/22 15:23 Dose: 14 mg Documented by: [id number] Admin: 01/05/22 16:00 Dose: 14 mg Documented by: [id number] Pantoprazole Sodium (Pantoprazole 40 Mg Tab) 40 mg PO BID [facility] Stop: 02/01/22 22:15 Last Admin: 01/11/22 08:02 Dose: 40 mg Documented by: [id number] Admin: 01/10/22 21:09 Dose: 40 mg Documented by: [id number] Admin: 01/10/22 08:19 Dose: 40 mg Documented by: [id number] Admin: 01/09/22 20:58 Dose: 40 mg Documented by: [id number] Admin: 01/09/22 08:51 Dose: 40 mg Documented by: [id number] Admin: 01/08/22 20:28 Dose: 40 mg Documented by: [id number] Admin: 01/08/22 09:49 Dose: 40 mg Documented by: [id number] Admin: 01/07/22 19:57 Dose: 40 mg Documented by: [id number] Admin: 01/07/22 08:21 Dose: 40 mg Documented by: [id number] Admin: 01/06/22 20:32 Dose: 40 mg Documented by: [id number] Admin: 01/06/22 09:08 Dose: 40 mg Documented by: [id number] Admin: 01/05/22 20:21 Dose: 40 mg Documented by: [id number] Admin: 01/05/22 09:53 Dose: 40 mg Documented by: [id number] Admin: 01/04/22 21:19 Dose: 40 mg Documented by: [id number] Admin: 01/04/22 08:50 Dose: 40 mg Documented by: [id number] Admin: 01/03/22 20:56 Dose: 40 mg Documented by: [id number] Admin: 01/03/22 09:03 Dose: 40 mg Documented by: [id number] Admin: 01/02/22 23:10 Dose: 40 mg Documented by: [id number] Prednisone (Prednisone 10 Mg Tablet) 30 mg PO QAM [facility] Stop: 02/10/22 08:59 Last Admin: 01/11/22 08:02 Dose: 30 mg Documented by: [id number] Sodium Chloride (Sodium Chloride 0.65% Na Soln 45 Ml (Jeanerette)) 2 sprays NA QID [facility] Stop: 02/05/22 10:29 Last Admin: 01/11/22 14:23 Dose: 2 sprays Documented by: [id number] Admin: 01/11/22 08:02 Dose: 2 sprays Documented by: [id number] Admin: 01/10/22 21:10 Dose: 2 sprays Documented by: [id number] Admin: 01/10/22 16:20 Dose: 2 sprays Documented by: [id number] Admin: 01/10/22 13:09 Dose: 2 sprays Documented by: [id number] Admin: 01/10/22 08:19 Dose: 2 sprays Documented by: [id number] Admin: 01/09/22 20:57 Dose: 2 sprays Documented by: [id number] Admin: 01/09/22 17:11 Dose: 2 sprays Documented by: [id number] Admin: 01/09/22 13:59 Dose: 2 sprays Documented by: [id number] Admin: 01/09/22 08:52 Dose: 2 sprays Documented by: [id number] Admin: 01/08/22 20:28 Dose: 2 sprays Documented by: [id number] Admin: 01/08/22 15:55 Dose: 2 sprays Documented by: [id number] Admin: 01/08/22 12:21 Dose: 2 sprays Documented by: [id number] Admin: 01/08/22 09:50 Dose: 2 sprays Documented by: [id number] Admin: 01/07/22 19:57 Dose: 2 sprays Documented by: [id number] Admin: 01/07/22 16:54 Dose: 2 sprays Documented by: [id number] Admin: 01/07/22 13:10 Dose: Not Given Documented by: [id number] Admin: 01/07/22 08:23 Dose: 2 sprays Documented by: [id number] Admin: 01/06/22 20:35 Dose: 2 sprays Documented by: [id number] Admin: 01/06/22 17:13 Dose: 2 sprays Documented by: [id number] Admin: 01/06/22 13:11 Dose: 2 sprays Documented by: [id number] Admin: 01/06/22 11:22 Dose: 2 sprays Documented by: [id number] Vitamin D (Cholecalciferol 400 Units 10 Mcg Tab) 400 units PO QAM [facility] Stop: 02/08/22 14:29 Last Admin: 01/11/22 08:01 Dose: 400 units Documented by: [id number] Admin: 01/10/22 08:18 Dose: 400 units Documented by: [id number] Admin: 01/09/22 17:05 Dose: 400 units Documented by: [id number] Coding Level of Care Code 69579 Inpt Consult Level 3 Diagnoses Adjustment disorder with mixed anxiety and depressed mood F43.23 Pulmonary cachexia due to chronic obstructive pulmonary disease J44.9; R64 COPD with acute exacerbation J44.1 Tobacco use disorder F17.200
[2022-01-11] MEDS: FAMOTIDINE 20 MG TAB PO SCH (21:13)
[2022-01-12] MEDS: ACETAMINOPHEN 325 MG TAB PO PRN (00:11)
[2022-01-12] MEDS: LORazepam 2 MG/1 ML VIAL IV PRN ×2 (06:36→13:01)
[2022-01-12] MEDS: FORMOTEROL 20 MCG/2 ML VIAL NEB SCH ×2 (07:14→19:31)
[2022-01-12] MEDS: BUDESONIDE 0.5 MG/2 ML VIAL (PULMICORT) NEB SCH ×2 (07:14→19:31)
[2022-01-12] MEDS: PANTOprazole 40 MG TAB PO SCH ×2 (08:30→20:05)
[2022-01-12] MEDS: FLUTICASONE PROPIONATE NA SPR 16 GM BTL SCH ×2 (08:30→20:04)
[2022-01-12] MEDS: guaiFENesin 600 MG TABCR PO SCH ×2 (08:30→20:04)
[2022-01-12] MEDS: HEPARIN SOD 5,000 UNIT/0.5 ML VIAL SQ SCH ×2 (08:30→20:04)
[2022-01-12] MEDS: ATORVASTATIN 10 MG TAB PO SCH (08:30)
[2022-01-12] MEDS: CHOLECALCIFEROL 400 UNITS 10 MCG TAB PO SCH (08:30)
[2022-01-12] MEDS: CEROVITE ADV FORMULA TAB PO SCH (08:30)
[2022-01-12] MEDS: predniSONE 10 MG TABLET PO SCH (08:30)
[2022-01-12] MEDS: LORATADINE 10 MG TAB PO SCH (08:30)
[2022-01-12] MEDS: SODIUM CHLORIDE 0.65% NA SOLN 45 ML (OCEAN) SCH ×4 (08:31→20:05)
[2022-01-12] MEDS: ALBUTEROL 0.083% NEBU SOLN 3 ML VIAL INH PRN (13:28)
--- NOTE | 2022-01-12 14:09 | Hospitalist Progress Note ---
Date of Service January 12, 2022 Assessment & Plan (1) COPD with acute exacerbation: Plan: Present on admission with worsening SOB CXR showed no acute cardiopulmonary findings. Doxycycline started on admission Continued IV Solumedrol, will transition to PO prednisone in am Continue neb treatment with duoneb Continue flutter valve and incentive spirometry Pt's daughter would like the pt to be seen by in house pulm Pulmonary medicine consulted Echo ordered Study was technically limited. Grossly normal valvular structure and function. There is mild concentric LVH. LV systolic function is normal. EF 65 to 70%. RV systolic function is moderately reduced. There is no evidence of pulmonary hypertension. The PA systolic pressure is less than 36 mmHg. Start Azithromycin 250 mg M, W, (trial for 6-8 weeks) Pulm changed maintenance inhaler to Perforomist and Budesonide Nebs Flonase + saline nasal spray - for allergic rhinitis Flutter valve, IS, mucinex Continue oxygen supplement , goal 88-92% She may be a candidate for pulmonary rehab when she is out of the acute flare. Pulmonary nodules Prior CT reviewed which demonstrated small multiple pulmonary nodules. She qualifies for low-dose CT lung cancer screening and consents to screening. We will set her up for lung cancer screening with low-dose CT as an outpatient. Anxiety - seen by psychiatry -recommend considering sertraline 25 daily and/or mirtazapine 7.5 at bedtime. Patient is currently not interested in these medications. She does however feel benefit from Ativan and continues to use it for her anxiety. Hyperlipidemia: Continue statin. Gastroesophageal reflux disease: Continue omeprazole, famotidine. Hypertension: Continued home lisinopril. - may contribute to cough, switched to losartan - cont. to monitor BP and poss. improvement in cough - K elev. stopped losartan, BP at goal DVT prophylaxis on Heparin subq Code status Full code Admission and Anticipated Discharge Date Admission Date: January 02, 2022 Subjective Pt seen in follow up of COPD exacerbation, hypoxia Currently sitting up in bed in NAD Cont. to use suppl. O2 Feels improved Denies fever, chills, chest pain She has some cough, unable to cough anything up though Reports anxiety - psychiatry was consulted Pulmonary medicine consulted Patient was worried about going home, and was interested in SNF. Now, family is arranging for her to come home. Review of Systems 2 Review of Systems: All systems reviewed & are unremarkable except as noted in Subjective Physical Exam Physical Exam: General-extremely thin, frail F, + chronically ill-appearing, in no acute distress, on suppl. O2 Head- atraumatic Eyes- PERRL, EOMI, ENT- oropharynx clear Neck- supple, no JVD Lungs- very diminished Breath sounds, no wheezing Heart- regular rhythm; no murmur Abdomen- normal bowel sounds, soft, nontender Extremities- no calf tenderness Neuro- alert, oriented x 3; PERRL, EOMI; no facial palsy; no dysarthria, moves extremities Skin- warm & dry Results & Data Results & Data ([facility]) Vital Signs (Past 12 Hours) Vital Signs Temp Pulse Pulse Resp BP Pulse Ox 01/12/22 13:28 96 H 16 94 01/12/22 11:43 36.7 C 92 H 18 132/78 92 01/12/22 07:53 36.8 C 80 18 136/71 98 01/12/22 07:16 79 86 18 98 01/12/22 03:20 36.7 C 58 L 17 136/83 97 Medications Administered Current Inpatient Medications Acetaminophen (Acetaminophen 325 Mg Tab) 650 mg PO Q4H PRN PRN Reason: Pain or Fever Stop: 02/01/22 22:15 Last Admin: 01/12/22 00:11 Dose: 650 mg Documented by: Albuterol (Albuterol 0.083% Nebu Soln 3 Ml Vial) 2.5 mg INH Q4 PRN; Protocol PRN Reason: Shortness Of Breath Or Wheezing Stop: 02/01/22 22:15 Last Admin: 01/12/22 13:28 Dose: 2.5 mg Documented by: Atorvastatin Calcium (Atorvastatin 10 Mg Tab) 10 mg PO QAM [facility] Stop: 02/02/22 08:59 Last Admin: 01/12/22 08:30 Dose: 10 mg Documented by: Azithromycin (Azithromycin 250 Mg Tab) 250 mg PO MoWeFr@0900 [facility] Stop: 02/17/22 08:59 Last Admin: 01/11/22 08:01 Dose: 250 mg Documented by: Budesonide (Budesonide 0.5 Mg/2 Ml Vial (Pulmicort)) 0.5 mg NEB BIDR [facility] Stop: 02/04/22 18:59 Last Admin: 01/12/22 07:14 Dose: 0.5 mg Documented by: Calcium Carbonate (Calcium Carbonate 500 Mg Chewable Tab) 500 mg PO BID PRN PRN Reason: Indigestion Stop: 02/09/22 05:43 Last Admin: 01/10/22 16:21 Dose: 500 mg Documented by: Famotidine (Famotidine 20 Mg Tab) 20 mg PO PM [facility] Stop: 02/01/22 22:15 Last Admin: 01/11/22 21:13 Dose: 20 mg Documented by: Fluticasone Propionate (Fluticasone Propionate Na Spr 16 Gm Btl) 2 sprays NA BID [facility] Stop: 02/05/22 10:59 Last Admin: 01/12/22 08:30 Dose: 2 sprays Documented by: Formoterol Fumarate (Formoterol 20 Mcg/2 Ml Vial) 20 mcg NEB BIDR [facility] Stop: 02/04/22 18:59 Last Admin: 01/12/22 07:14 Dose: 20 mcg Documented by: Guaifenesin (Guaifenesin 600 Mg Tabcr) 600 mg PO Q12 [facility] Stop: 02/07/22 11:29 Last Admin: 01/12/22 08:30 Dose: 600 mg Documented by: Heparin Sodium (Porcine) (Heparin Sod 5,000 Unit/0.5 Ml Vial) 5,000 units SQ Q12 [facility] Stop: 02/01/22 22:15 Last Admin: 01/12/22 08:30 Dose: 5,000 units Documented by: Hydralazine HCl (Hydralazine Hcl 20 Mg/Ml Vial) 5 mg IV Q6H PRN PRN Reason: SBP >170 Stop: 02/04/22 08:29 Last Admin: 01/06/22 11:52 Dose: 5 mg Documented by: Loratadine (Loratadine 10 Mg Tab) 10 mg PO DAILY [facility] Stop: 02/02/22 08:59 Last Admin: 01/12/22 08:30 Dose: 10 mg Documented by: Lorazepam (Lorazepam 2 Mg/1 Ml Vial) 0.25 mg IV Q4H PRN PRN Reason: Anxiety Stop: 02/02/22 20:30 Last Admin: 01/12/22 13:01 Dose: 0.25 mg Documented by: Losartan Potassium (Losartan Potassium 25 Mg Tab) 25 mg PO QAM [facility] Stop: 02/07/22 08:59 Last Admin: 01/09/22 08:51 Dose: 25 mg Documented by: Miscellaneous (Remove Nicoderm Patch) 1 ea N/A DAILY@0859 [facility] Stop: 02/05/22 08:58 Last Admin: 01/12/22 08:29 Dose: 1 ea Documented by: Multivitamins/Minerals (Cerovite Adv Formula Tab) [facility] Stop: 02/08/22 14:29 Last Admin: 01/12/22 08:30 Dose: 1 tab Documented by: Nicotine (Nicotine 14 Mg/24 Hr Patch) 14 mg TD DAILY@1500 [facility] Stop: 02/04/22 14:59 Last Admin: 01/11/22 15:31 Dose: 14 mg Documented by: Nitroglycerin (Nitroglycerin Sl 0.4 Mg/Tab Tab) 0.4 mg SL Q5M PRN PRN Reason: Chest Pain Stop: 02/01/22 22:15 Pantoprazole Sodium (Pantoprazole 40 Mg Tab) 40 mg PO BID [facility] Stop: 02/01/22 22:15 Last Admin: 01/12/22 08:30 Dose: 40 mg Documented by: Polyethylene Glycol (Polyethylene (Miralax) 17 Gm Pack) 17 gm PO DAILY PRN PRN Reason: Constipation Stop: 02/01/22 22:15 Prednisone (Prednisone 10 Mg Tablet) [address] [facility] Stop: 02/10/22 08:59 Last Admin: 01/12/22 08:30 Dose: 30 mg Documented by: Sodium Chloride (Sodium Chloride 0.65% Na Soln 45 Ml ([place])) 2 sprays NA QID [facility] Stop: 02/05/22 10:29 Last Admin: 01/12/22 11:13 Dose: 2 sprays Documented by: Vitamin D (Cholecalciferol 400 Units 10 Mcg Tab) 400 units [facility] Stop: 02/08/22 14:29 Last Admin: 01/12/22 08:30 Dose: 400 units Documented by:
[2022-01-12] MEDS: NICOTINE 14 MG/24 HR PATCH TD SCH (17:17)
[2022-01-12] MEDS ORDERED: LORazepam 0.5 MG TAB ONE (18:58)
[2022-01-12] MEDS: LORazepam 0.5 MG TAB PO PRN (19:00)
[2022-01-12] MEDS: FAMOTIDINE 20 MG TAB PO SCH (20:05)
[2022-01-13] MEDS ORDERED: Nursing to Pharmacy Communication SCH (00:45)
[2022-01-13] MEDS: CALCIUM CARBONATE 500 MG CHEWABLE TAB PO PRN (01:06)
[2022-01-13] MEDS: LORazepam 0.5 MG TAB PO PRN ×3 (06:29→18:47)
[2022-01-13] MEDS: BUDESONIDE 0.5 MG/2 ML VIAL (PULMICORT) NEB SCH ×2 (07:26→19:14)
[2022-01-13] MEDS: FORMOTEROL 20 MCG/2 ML VIAL NEB SCH ×2 (07:26→19:14)
[2022-01-13] MEDS: FLUTICASONE PROPIONATE NA SPR 16 GM BTL SCH ×2 (08:49→20:32)
[2022-01-13] MEDS: CHOLECALCIFEROL 400 UNITS 10 MCG TAB PO SCH (08:49)
[2022-01-13] MEDS: ATORVASTATIN 10 MG TAB PO SCH (08:49)
[2022-01-13] MEDS: AZITHROMYCIN 250 MG TAB PO SCH (08:49)
[2022-01-13] MEDS: HEPARIN SOD 5,000 UNIT/0.5 ML VIAL SQ SCH ×2 (08:50→20:33)
[2022-01-13] MEDS: guaiFENesin 600 MG TABCR PO SCH ×2 (08:50→20:33)
[2022-01-13] MEDS: LORATADINE 10 MG TAB PO SCH (08:51)
[2022-01-13] MEDS: predniSONE 10 MG TABLET PO SCH (08:51)
[2022-01-13] MEDS: PANTOprazole 40 MG TAB PO SCH ×2 (08:51→20:33)
[2022-01-13] MEDS: CEROVITE ADV FORMULA TAB PO SCH (08:51)
[2022-01-13] MEDS: SODIUM CHLORIDE 0.65% NA SOLN 45 ML (OCEAN) SCH ×4 (08:56→20:33)
[2022-01-13 09:05] LABS: BUN Creatinine Ratio 27.1 (10-20); Calcium 9.8 mg/dl (8.5-10.1); Creatinine Clr Calc Pharmacy 30.8 ml/min; Est GFR (African American) 71.4 ml/min; Est GFR (Non-African American) 61.6 ml/min; Magnesium 2.1 mg/dl (1.7-2.4); Phosphorus 3.9 mg/dl (2.5-4.9)
[2022-01-13] MEDS: ALBUTEROL 0.083% NEBU SOLN 3 ML VIAL INH PRN (12:40)
[2022-01-13] MEDS: NICOTINE 14 MG/24 HR PATCH TD SCH (16:03)
[2022-01-13] MEDS: FAMOTIDINE 20 MG TAB PO SCH (20:33)
--- NOTE | 2022-01-13 23:25 | Hospitalist Progress Note ---
Date of Service January 13, 2022 Assessment & Plan (1) COPD with acute exacerbation: Plan: Present on admission with worsening SOB CXR showed no acute cardiopulmonary findings. Doxycycline starting on admission Solumedrol 40mg titrate to BID, then transition to PO prednisone Continue neb treatment with duoneb Continue flutter valve and incentive spirometry Pulm consulted Echo showed limited study. Grossly normal valvular structure and function. There is mild concentric LVH. LV systolic function is normal. EF 65 to 70%. RV systolic function is moderately reduced. There isno evidence of pulmonary hypertension. The PA systolic pressure is less than 36 mmHg. pulm changed inhaler to performist and budesonide She was starting on Azithromycin 250 mg M, , (trial for 6-8 weeks) Flonase + saline nasal spray - for allergic rhinitis Continue oxygen supplement with goal 88-92% Pt requires head of the bed to be elevated more than 30 degrees most of the time due to SOB/COPD and has immediate need for change in body position Pulmonary nodules Prior CT reviewed which demonstrated small multiple pulmonary nodules. She qualifies for low-dose CT lung cancer screening and consents to screening. We will set her up for lung cancer screening with low-dose CT as an outpatient. Anxiety seen by psychiatry -recommend considering sertraline 25 daily and/or mirtazapine 7.5 at bedtime. Patient is currently not interested in these medications. She does however feel benefit from Ativan and continues to use it for her anxiety. Hyperlipidemia:Continue statin. Gastroesophageal reflux disease: Continue omeprazole, famotidine. Hyperkalemia Possible due to Losartan Losartan has been on hold Potassium 5 today Continue monitor BMP Hypertension: Lisinopril discontinued due to the cough Losartan on old due to hyperkalemia Continue monitor BP DVT prophylaxis on Heparin subq Code status Full code Admission and Anticipated Discharge Date Admission Date: January 02, 2022 Subjective Pt seen in follow up of SOB and COPD exacerbation Lying in bed with no acute distress She said her breathing is stable Denies fever, chills, chest pain Review of Systems Review of Systems: All systems reviewed & are unremarkable except as noted in Subjective Physical Exam Physical Exam: General- No acute distress Head- atraumatic Eyes- PERRL, EOMI, ENT- oropharynx clear Neck- supple, no JVD Lungs- Diminished Breath sound Heart- regular rhythm; no murmur Abdomen- normal bowel sounds, soft, nontender Extremities- no calf tenderness Neuro- alert, oriented x 3; PERRL, EOMI; no facial palsy; no dysarthria Skin- warm & dry Results & Data Results & Data ([facility]) Vital Signs (Past 12 Hours) Vital Signs Temp Pulse Pulse Resp BP Pulse Ox 01/13/22 19:16 36.9 C 88 22 148/68 H 94 01/13/22 15:19 36.7 C 90 18 128/76 92 01/13/22 15:06 94 H 01/13/22 12:40 88 18 95 01/13/22 11:36 36.7 C 80 19 118/71 100
[2022-01-14] MEDS: LORazepam 0.5 MG TAB PO PRN ×2 (06:36→12:41)
[2022-01-14] MEDS: BUDESONIDE 0.5 MG/2 ML VIAL (PULMICORT) NEB SCH (07:38)
[2022-01-14] MEDS: FORMOTEROL 20 MCG/2 ML VIAL NEB SCH (07:38)
[2022-01-14] MEDS: guaiFENesin 600 MG TABCR PO SCH (08:03)
[2022-01-14] MEDS: ATORVASTATIN 10 MG TAB PO SCH (08:03)
[2022-01-14] MEDS: PANTOprazole 40 MG TAB PO SCH (08:03)
[2022-01-14] MEDS: CHOLECALCIFEROL 400 UNITS 10 MCG TAB PO SCH (08:04)
[2022-01-14] MEDS: CEROVITE ADV FORMULA TAB PO SCH (08:04)
[2022-01-14] MEDS: LORATADINE 10 MG TAB PO SCH (08:04)
[2022-01-14] MEDS: predniSONE 10 MG TABLET PO SCH (08:04)
[2022-01-14] MEDS: HEPARIN SOD 5,000 UNIT/0.5 ML VIAL SQ SCH (08:05)
[2022-01-14] MEDS: FLUTICASONE PROPIONATE NA SPR 16 GM BTL SCH (08:05)
[2022-01-14] MEDS: SODIUM CHLORIDE 0.65% NA SOLN 45 ML (OCEAN) SCH ×2 (08:06→12:41)
[2022-01-14 08:43] LABS: Anion Gap 4 (3-11); BUN Creatinine Ratio 32.9 (10-20); Blood Urea Nitrogen 27 mg/dl (6-23); Calcium 9.3 mg/dl (8.5-10.1); Carbon Dioxide 33 mmol/L (21-32); Chloride 98 mmol/L (98-107); Est GFR (African American) 86.4 ml/min; Est GFR (Non-African American) 74.6 ml/min; Glucose 71 mg/dl (70-99(Fasting)); Sodium 135 mmol/L (136-145)
[2022-01-14] MEDS ORDERED: amLODIPine BESYLATE 5 MG TAB PO SCH (09:00)
[2022-01-14] MEDS: ALBUTEROL 0.083% NEBU SOLN 3 ML VIAL INH PRN (12:55)
--- NOTE | 2022-01-29 00:20 | Discharge Summary ---
Date of Service January 14, 2022 Admission HPI Per Admitting Provider CHIEF COMPLAINT: Shortness of breath. HISTORY OF PRESENT ILLNESS: This is a 66-year-old female with past medical history significant for hyperlipidemia, COPD, chronic respiratory failure, on home oxygen, allergic rhinitis, history of multiple lung nodules, hypertension, aortic valve sclerosis, severe protein-calorie malnutrition, GERD, irritable bowel syndrome with diarrhea, osteoporosis, tobacco use disorder, presents with shortness of breath. The patient says a couple of days ago, she started to get short of breath and progressively it got worse today. She uses oxygen on and off, but since yesterday using oxygen all the time, having dry cough. Denies any fevers, no chest pain, no nausea, no vomiting, no abdominal pain, normal bowel and bladder movements. No swelling in the legs. Walking short distance m aking her short of breath. Denies any headache. No blurred visions, no earache. Has some runny nose and some sore throat from congestion. Feeling hungry, wants to eat. Admission Exam Per Admitting Provider GENERAL: The patient is thin and frail, not in acute distress. VITAL SIGNS: Temperature 37, pulse 89, respiratory rate 22, blood pressure 158/73, oxygen 95% on room air. HEENT: Pupils equal, round and reactive to light. Oral mucosa moist. NECK: No JVD, no neck masses. CARDIOVASCULAR: S1 and S2 heard. Regular rate and rhythm. No murmur, no gallop. RESPIRATORY SYSTEM: Normal AP diameter. No accessory muscle use. Bilateral diminished breath sounds, occasional rhonchi. No wheezing. ABDOMEN: Soft. Bowel sounds are present, nontender, no distention. CENTRAL NERVOUS SYSTEM: Cranial nerves II-XII grossly intact, nonfocal. EXTREMITIES: No edema, no erythema. Principal Diagnosis COPD with acute exacerbation: Pulmonary nodules Anxiety Hyperlipidemia Gastroesophageal reflux disease: Hypertension: Discharge Exam General- No acute distress Head- atraumatic Eyes- PERRL, EOMI, ENT- oropharynx clear Neck- supple, no JVD Lungs- Diminished Breath sound Heart- regular rhythm; no murmur Abdomen- normal bowel sounds, soft, nontender Extremities- no calf tenderness Neuro- alert, oriented x 3; PERRL, EOMI; no facial palsy; no dysarthria Skin- warm & dry Discharge Data Allergies Allergy/AdvReac Type Severity Reaction Status Date / Time latex Allergy Mild blisters Verified 01/02/22 16:21 amoxicillin AdvReac Mild DIARRHEA Verified 01/02/22 16:21 levofloxacin AdvReac Mild Erythema Verified 01/02/22 16:21 at IV site Consultations 01/02/22 19:46 ED Decision to Admit Stat 01/05/22 12:32 Consult Pulmonology Routine 01/10/22 11:38 Consult Psychiatry Routine Ordered Studies XR chest 2V PA/lateral CLINICAL HISTORY: Dyspnea COMPARISON STUDY: Chest CT September 18, 2020. Chest radiograph November 15, 2021. FINDINGS: Lung hyperexpansion with underlying emphysema is noted. There is no pneumothorax or pleural effusion. No consolidation to suggest pneumonia. There is no evidence for pulmonary edema. Nipple shadows project over the chest. Cardiac size is normal. Mediastinal contours are normal. Appearance of the chest is unchanged. IMPRESSION: No acute cardiopulmonary findings. Emphysema. ACT 112: Negative or not required by law. Electronically signed by: Kenny Marks M.D. 01/02/2022 5:35 PM Dictated:01/02/221732 Transcribed: 01/02/221732 Hospital Course (1) COPD with acute exacerbation: Present on admission with worsening SOB CXR showed no acute cardiopulmonary findings. Doxycycline starting on admission Solumedrol 40mg titrate to BID, then transition to PO prednisone Continue neb treatment with duoneb Continue flutter valve and incentive spirometry Pulm consulted Echo showed limited study. Grossly normal valvular structure and function. There is mild concentric LVH. LV systolic function is normal. EF 65 to 70%. RV systolic function is moderately reduced. There isno evidence of pulmonary hypertension. The PA systolic pressure is less than 36 mmHg. pulm changed inhaler to performist and budesonide She was starting on Azithromycin 250 mg M, , (trial for 6-8 weeks) Flonase + saline nasal spray - for allergic rhinitis Continue oxygen supplement with goal 88-92% Pt requires head of the bed to be elevated more than 30 degrees most of the time due to SOB/COPD and has immediate need for change in body position Pulmonary nodules Prior CT reviewed which demonstrated small multiple pulmonary nodules. She qualifies for low-dose CT lung cancer screening and consents to screening. We will set her up for lung cancer screening with low-dose CT as an outpatient. Anxiety seen by psychiatry -recommend considering sertraline 25 daily and/or mirtazapine 7.5 at bedtime. Patient is currently not interested in these medications. She does however feel benefit from Ativan and continues to use it for her anxiety. Hyperlipidemia:Continue statin. Gastroesophageal reflux disease: Continue omeprazole, famotidine. Hyperkalemia Possible due to Losartan Losartan has been on hold Potassium 5 today Continue monitor BMP Hypertension: Lisinopril discontinued due to the cough Losartan on old due to hyperkalemia Continue monitor BP DVT prophylaxis on Heparin subq Code status Full code Total Time Total Time Spent Total Time Spent (In Minutes): 35 minutes Discharge Plan Discharge Items Patient Disposition: Home - Home Health Services Reason For Visit: SOB Discharge Diagnosis: COPD with acute exacerbation: Pulmonary nodules Anxiety Hyperlipidemia Gastroesophageal reflux disease: Hypertension: Activity: Resume your previous activity Non-emergency contact: Primary Care Provider Call non-emergency contact if: you have any medication questions Follow-up/Referrals: Ana Park MD [Primary Care Provider] - Diet: Heart Healthy Addtl Attending Provider Instructions: Follow up with your primary care provider Dr. Park within 1 week Follow up with your pulmonary provider Your provider will need to order a Low dose CT chest to screen for lung cancer as an outpatient Continue oxygen supplement with goal 88-92% Continue Azithromycin 250 mg on Tuesday, Tuesday and Tuesday (trial for 6-8 weeks) Continue flutter valve and incentive spirometry You are a candidate for pulmonary rehab (Your provider will arrange for the referral ) Counseling on smoking cessation fall precaution Continue monitor your blood pressure and bring your blood pressure log at your next appointment with your provider Pending Studies at Discharge: No Stand-Alone Forms: My [facility], Smoking Cessation Medications and DC Order Prescriptions: New azithromycin 250 mg Tablet 250 mg PO MoWeFr@0900 Qty: 20 RF: 0 formoterol fumarate [Perforomist] 20 mcg/2 mL Solution For Nebulization 20 mcg NEB BIDR 30 Days Qty: 60 RF: 0 lorazepam 0.5 mg Tablet 0.25 mg PO Q8H PRN (Reason: anxiety) Qty: 15 RF: 0 budesonide 0.5 mg/2 mL Suspension For Nebulization 0.5 mg NEB BIDR 30 Days Qty: 60 RF: 0 Saline Mist 0.65 % Aerosol,Totz 2 spray NA QID Qty: 1 RF: 0 fluticasone propionate 50 mcg/actuation Totz,Suspension 2 spray NA BID Qty: 1 RF: 0 amlodipine 2.5 mg tablet 2.5 mg PO DAILY Qty: 30 RF: 0 guaifenesin [Mucinex] 600 mg Tablet Extended Release 12hr 600 mg PO Q12 Qty: 30 RF: 0 Continued famotidine [Pepcid] 20 mg tablet 20 mg PO PM RF: 0 albuterol sulfate 2.5 mg /3 mL (0.083 %) solution for nebulization 2.5 mg inhalation Q4 PRN (Reason: Shortness Of Breath Or Wheezing) RF: 0 atorvastatin 10 mg tablet 10 mg PO QAM RF: 0 esomeprazole magnesium 20 mg capsule,delayed release(DR/EC) 20 mg PO BID RF: 0 azithromycin 250 mg tablet 250 mg PO UD PRN (Reason: COPD rescue kit) RF: 0 albuterol sulfate 90 mcg/actuation Hfa Aerosol Inhaler 2 puff INHALATION Q4 PRN (Reason: Shortness Of Breath Or Wheezing) RF: 0 loratadine 10 mg Tablet 10 mg PO DAILY RF: 0 Changed prednisone 20 mg tablet 20 mg PO UD 7 Days Qty: 8 RF: 0 Discontinued Trelegy Ellipta 100-62.5-25 mcg blister with device 1 ea INHALATION QAM RF: 0 lisinopril 5 mg tablet 5 mg PO QAM RF: 0 Discharge Orders: Discharge Order (Routine); Ordered 01/14/22 Ordered By: Vinnie Solano/Other Patient Handouts: Pursed-Lip Breathing Admission Data Admit Date/Time: 01/02/22 19:47 Attending Provider: Vinnie Briscoe Admit Provider: Mick Montes Primary Care Provider: Ana Park Other Providers: Mick Montes ; Parish Herrera ; Micki Loya ; Lavern Paredes ; Vannesa Platt ; Stephon Zelaya Other Interventions: Discharge Summary Assessment (RN) Last Done: 01/14/22 14:19
== END 2022-01-14 15:41 | disposition home health service (06) | DRG 190 ==
LOC: ED 15:33 → 2S 19:47 → SUATTDRO 19:47 → 2S 21:49 → 2W 01-07 00:34

== ENCOUNTER 2022-07-07 20:50 | Inpatient (IN) ==
[2022-07-07] MEDS ORDERED: ONDANSETRON INJ 2 MG/ML 2 ML VIAL IV STA (21:12)
[2022-07-07] MEDS ORDERED: SODIUM CHLORIDE 0.9% 500 ML IV STA (21:12)
[2022-07-07] MEDS: fentaNYL citrate 100 MCG/2 ML VIAL IV PRN ×3 (21:31→23:12)
--- NOTE | 2022-07-07 21:43 | Emergency Department Note ---
Impression & Plan Closed intertrochanteric fracture of right hip, Fall ED Provider Note NAME: YVONNE DENNIS AGE: 67 SEX: F : 1955 ARRIVES VIA: Ambulance INFORMANT: Patient, EMS ED PROVIDER(S): Best Davis DO CHIEF COMPLAINT: Hip Pain HPI: The patient is a 67-year-old female who has a history of COPD who presented to the emergency department for an evaluation of hip pain. The patient had a fall from a standing position. She fell onto her right side. She was moving a stool and she misstepped falling onto her right leg with her right leg underneath her. She has had severe pain in her right thigh. She has been unable to bear weight. She said pain is moderate to severe with any ambulation. She denies having any nausea or vomiting. She denies having any headache. She denies having any neck or back pain. The patient had to call 911 because she could not stand. She was found to have shortening of the right leg. Patient states that she is never injured this hip before. She states she takes no blood thinners. ROS: See above HPI for pertinent positives & negatives. A total of 10 systems reviewed and were otherwise negative. PAST MEDICAL HISTORY: See Below PAST SURGICAL HISTORY: See Below FAMILY HISTORY: See Below SOCIAL HISTORY: See Below HOME MEDICATIONS: See Below ALLERGIES: See Below VITALS: See Below PHYSICAL EXAMINATION: GENERAL: The patient is awake and alert. She is somewhat anxious appearing and appears uncomfortable. EYES: The conjunctivae are clear. The pupils are round and reactive. EARS, NOSE, MOUTH AND THROAT: The nose is without any evidence of any deformity. NECK: The neck is nontender and supple. RESPIRATORY: Normal respiratory effort is noted there is no evidence of wheezing rhonchi or rales CARDIOVASCULAR: Regular rate and rhythm noted there no murmurs rubs or gallops normal S1 normal S2. GASTROINTESTINAL: The abdomen is soft. Abdomen is nontender. MUSCULOSKELETAL/EXTREMITIES: Right lower extremity shortened. There is no significant rotation. Pulses are symmetric in both feet. There is tenderness and pain with range of motion testing of the right hip. SKIN: There is no obvious evidence of any rash. NEUROLOGIC: Patient is awake alert and oriented x3 MEDICAL DECISION MAKING: The patient is a 67-year-old female who presented to the emergency department for an evaluation of right hip pain. She was unable to bear weight. The patient had isolated right hip pain and right hip injury on my physical exam. I discussed the patient's laboratory and radiographic studies with her. She was reevaluated multiple times. X-ray appears to be consistent with a right hip fracture which is displaced. She was feeling much better after pain medication. [facility] have agreed to evaluate the patient in the emergency department for further management and disposition. Triage Nursing notes reviewed. Prior medical records reviewed Vital Signs: reviewed and remarkable for elevated blood pressure. Differential diagnosis: Fracture, dislocation, neurovascular compromise, compartment syndrome, soft tissue injury, as well as other pathologies. ER treatment provided: See below Diagnostics interpreted by me: ECG: EKG was obtained in the emergency department. My interpretation is sinus rhythm at 86 bpm. PACs were noted. Nonspecific ST segment abnormalities were noted. This was compared to a tracing from February 05, 2022. No changes were noted. Cardiac Monitoring: An order was placed for continuous cardiac monitoring. The monitor shows a rate of 84 bpm with sinus rhythm and PACs noted. Laboratory studies: As stated above and show below. Imaging studies: See below Consultation(s): I discussed this case with Dr. Montes who [facility]. Past Med/Surg History Medical History Abdominal pain Advanced COPD COPD (chronic obstructive pulmonary disease) inhaler daily/prn COPD with acute exacerbation GERD (gastroesophageal reflux disease) Hemoptysis History of anesthesia reaction DIFFICULT TO AWAKEN, N/V History of nicotine dependence History of osteoporosis HTN (hypertension) Lung nodule seen on imaging study Pulmonary emphysema Pulmonary nodules Severely underweight adult only weighs 69lbs Therapeutic drug monitoring Surgical History H/O colonoscopy 8-21 Dr. Rad[facility] H/O: hysterectomy History of cardiac cath NEGATIVE [place] 2014- DR. 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: No Beliefs That Will Affect Care: None marital status: Current Living Situation: Spouse current occupational status: retired How many Children do You have: 3 Feels Safe at Home: Yes Assistive Devices: Oxygen - Continuous Allergies Allergies Allergy/AdvReac Type Severity Reaction Status Date / Time latex Allergy Mild blisters Verified 03/17/22 12:20 amoxicillin AdvReac Mild DIARRHEA Verified 03/17/22 12:20 levofloxacin AdvReac Mild Erythema Verified 03/17/22 12:20 at IV site Home Meds Home Medications Medication Instructions Recorded Confirmed atorvastatin 10 mg tablet 10 mg PO QAM 04/13/21 03/17/22 esomeprazole magnesium 20 mg 20 mg PO BID 04/13/21 03/17/22 capsule,delayed release albuterol sulfate 2.5 mg/3 mL 2.5 mg inhalation Q4 PRN Shortness 11/15/21 03/17/22 (0.083 %) solution for nebulization Of Breath Or Wheezing albuterol sulfate 90 mcg/actuation 2 puff inhalation Q4 PRN Shortness 01/02/22 03/17/22 aerosol inhaler Of Breath Or Wheezing loratadine 10 mg tablet 10 mg PO DAILY 01/02/22 03/17/22 buspirone 5 mg tablet 5 mg PO BID 02/03/22 03/17/22 budesonide 0.25 mg/2 mL suspension 0.25 mg inhalation BID 03/17/22 03/17/22 for nebulization (Pulmicort) famotidine 20 mg tablet (Pepcid) 20 mg PO BID 03/17/22 03/17/22 Previous Rx's Medication Instructions Recorded amlodipine 2.5 mg tablet 2.5 mg PO DAILY #30 tabs 01/14/22 fluticasone propionate 50 2 spray NA BID #1 g 01/14/22 mcg/actuation nasal spray,suspension guaifenesin 600 mg tablet, 600 mg PO Q12 #30 tabs 01/14/22 extended release 12 hr (Mucinex) lorazepam 0.5 mg tablet 0.25 mg PO Q8H PRN anxiety #15 tabs 01/14/22 sodium chloride 0.65 % nasal spray 2 spray NA QID #1 mL 01/14/22 aerosol (Saline Mist) tramadol 50 mg tablet (Ultram) 50 mg PO Q6H PRN pain #30 tabs 02/05/22 Portable Oxygen #1 ea 03/23/22 formoterol fumarate 20 mcg/2 mL 2 ml inhalation BID #120 mL 03/23/22 solution for nebulization tiotropium bromide 2.5 2 inh inhalation QAM #4 grams 07/01/22 mcg/actuation mist for inhalation (Spiriva Respimat) Results & Data (ED) Vital Signs Vital Signs - 24 hr 07/07/22 20:51 07/07/22 21:12 Temperature 36.9 C Temperature Source Oral Pulse Rate 72 84 Respiratory Rate 18 18 Blood Pressure 166/87 H Blood Pressure Mean 113 Pulse Oximetry 96 96 Oxygen Delivery Method Nasal Cannula Nasal Cannula Oxygen Flow Rate 2 2 Sepsis Recent Fever Within 48 Hours No Sepsis New/Unexplained Change in Mental Status No Sepsis Action Taken by Nursing No Action Required Home Medications Current Medication List: was personally reviewed by me Laboratory Data Attestation: I reviewed the patient's lab results. Result diagrams: 07/07/22 21:28 07/07/22 21:28 Lab Results 07/07/22 07/07/22 07/07/22 Range/Units 21:28 21:28 21:28 WBC 7.49 (4.8-10.8) K/ul RBC 4.62 (3.93-5.22) M/uL Hgb 14.0 (12.0-16.0) g/dl Hct 42.9 (34.1-44.9) % MCV 92.9 (80.0-100.0) fL MCH 30.3 (25.0-34.0) pg MCHC 32.6 (32.0-36.0) g/dL RDW Std Deviation 43.8 (36.4-46.3) fL RDW Coeff of Millicent 12.9 (11.5-14.5) % Plt Count 208 (130-400) K/uL MPV 9.3 L (9.4-12.3) fL Immature Gran % (Auto) 0.5 % Neut % (Auto) 67.7 % Lymph % (Auto) 19.8 % Rock % (Auto) 8.0 % Eos % (Auto) 3.1 % Baso % (Auto) 0.9 % Neut # (Auto) 5.07 (1.4-6.5) K/uL Lymph # (Auto) 1.48 (1.2-3.4) K/uL Rock # (Auto) 0.60 (0.24-0.82) K/uL Eos # (Auto) 0.23 (0-0.50) K/uL Baso # (Auto) 0.07 (0-0.2) K/uL Immature Gran # (Auto) 0.04 H (0.00-0.02) K/uL PT 11.5 (9.0-12.0) Seconds INR 1.1 (0.9-1.1) APTT 24.0 (21.0-31.0) Seconds PTT Ratio 0.9 Sodium 140 (136-145) mmol/L Potassium 3.9 (3.5-5.1) mmol/L Chloride 105 (98-107) mmol/L Carbon Dioxide 25 (21-32) mmol/L Anion Gap 10 (3-11) BUN 21 (6-23) mg/dl Creatinine 0.91 (0.6-1.2) mg/dl Est Cr Clr Drug Dosing 33.6 ml/min Est GFR ( Amer) 75.7 ml/min Est GFR (Non-Af Amer) 65.3 ml/min BUN/Creatinine Ratio 23.1 H (10-20) Glucose 99 (70-99(Fasting)) mg/dl Calcium 9.2 (8.5-10.1) mg/dl Magnesium 1.8 (1.7-2.4) mg/dl Total Bilirubin 0.4 (0.2-1.0) mg/dl AST 13 (13-39) U/L ALT 7 (7-52) U/L Alkaline Phosphatase 54 (34-104) U/L Troponin I High Sens 3.1 (0-14) pg/ml Total Protein 6.4 (6.0-8.3) gm/dl Albumin 4.1 (3.4-5.0) gm/dl Globulin 2.3 L (2.5-4.0) gm/dl Albumin/Globulin Ratio 1.8 (0.9-2) Lipase 35 (11-82) U/L SARS-CoV-2, RNA, NAAT (NEGATIVE) 07/07/22 Range/Units 21:30 WBC (4.8-10.8) K/ul RBC (3.93-5.22) M/uL Hgb (12.0-16.0) g/dl Hct (34.1-44.9) % MCV (80.0-100.0) fL MCH (25.0-34.0) pg MCHC (32.0-36.0) g/dL RDW Std Deviation (36.4-46.3) fL RDW Coeff of Millicent (11.5-14.5) % Plt Count (130-400) K/uL MPV (9.4-12.3) fL Immature Gran % (Auto) % Neut % (Auto) % Lymph % (Auto) % Rock % (Auto) % Eos % (Auto) % Baso % (Auto) % Neut # (Auto) (1.4-6.5) K/uL Lymph # (Auto) (1.2-3.4) K/uL Rock # (Auto) (0.24-0.82) K/uL Eos # (Auto) (0-0.50) K/uL Baso # (Auto) (0-0.2) K/uL Immature Gran # (Auto) (0.00-0.02) K/uL PT (9.0-12.0) Seconds INR (0.9-1.1) APTT (21.0-31.0) Seconds PTT Ratio Sodium (136-145) mmol/L Potassium (3.5-5.1) mmol/L Chloride (98-107) mmol/L Carbon Dioxide (21-32) mmol/L Anion Gap (3-11) BUN (6-23) mg/dl Creatinine (0.6-1.2) mg/dl Est Cr Clr Drug Dosing ml/min Est GFR ( Amer) ml/min Est GFR (Non-Af Amer) ml/min BUN/Creatinine Ratio (10-20) Glucose (70-99(Fasting)) mg/dl Calcium (8.5-10.1) mg/dl Magnesium (1.7-2.4) mg/dl Total Bilirubin (0.2-1.0) mg/dl AST (13-39) U/L ALT (7-52) U/L Alkaline Phosphatase (34-104) U/L Troponin I High Sens (0-14) pg/ml Total Protein (6.0-8.3) gm/dl Albumin (3.4-5.0) gm/dl Globulin (2.5-4.0) gm/dl Albumin/Globulin Ratio (0.9-2) Lipase (11-82) U/L SARS-CoV-2, RNA, NAAT NEGATIVE (NEGATIVE) Administered Medications Fentanyl Citrate (Fentanyl Citrate 100 Mcg/2 Ml Vial) 50 mcg IV Q15M PRN PRN Reason: Pain Stop: 07/21/22 21:11 Last Admin: 07/07/22 22:05 Dose: 50 mcg Documented By: Admin: 07/07/22 21:31 Dose: 50 mcg Documented By: QGV Discontinued Medications Sodium Chloride (Nss) 500 mls @ 999 mls/hr IV .Q31M STA Stop: 07/07/22 21:42 Last Admin: 07/07/22 22:05 Dose: 999 mls/hr Documented By: QGV Ondansetron HCl (Ondansetron Inj 2 Mg/Ml 2 Ml Vial) 4 mg IV NOW STA Stop: 07/07/22 21:13 Last Admin: 07/07/22 21:31 Dose: 4 mg Documented By: QGV Imaging Data Attestation: I personally reviewed and interpreted this imaging study as follows : My Impression: X-rays of the right hip and pelvis were obtained in the emergency department. My interpretation is intertrochanteric displaced right hip fracture. No pelvic fracture was noted. 1 view chest x-ray was obtained in the emergency department. My interpretation is hyperinflation with signs of COPD, no free air, no acute disease was noted. Discharge Plan Visit Data Chief Complaint: Hip Pain Stated Complaint: GLF R Hip Pain ED Provider: Best Davis Discharge Problem: Closed intertrochanteric fracture of right hip, Fall Patient Disposition: Being Evaluated by Hospitalist Forms Stand Alone Forms: My [facility] Prescriptions Prescriptions: No Action Spiriva Respimat 2.5 mcg/actuation mist 2 inh inhalation QAM Qty: 4 2RF famotidine [Pepcid] 20 mg tablet 20 mg PO BID budesonide [Pulmicort] 0.25 mg/2 mL suspension for nebulization 0.25 mg inhalation BID formoterol fumarate 20 mcg/2 mL solution for nebulization 2 ml inhalation BID Qty: 120 2RF (DME) Portable Oxygen Misc See Rx Instructions .Route Qty: 1 0RF Rx Instructions: Portable oxygen concentrator with oxygen at 2 L/min via nasal cannula. Test for portability. buspirone 5 mg tablet 5 mg PO BID albuterol sulfate 2.5 mg /3 mL (0.083 %) solution for nebulization 2.5 mg inhalation Q4 PRN (Reason: Shortness Of Breath Or Wheezing) atorvastatin 10 mg tablet 10 mg PO QAM esomeprazole magnesium 20 mg capsule,delayed release(DR/EC) 20 mg PO BID albuterol sulfate 90 mcg/actuation Hfa Aerosol Inhaler 2 puff INHALATION Q4 PRN (Reason: Shortness Of Breath Or Wheezing) loratadine 10 mg Tablet 10 mg PO DAILY lorazepam 0.5 mg Tablet 0.25 mg PO Q8H PRN (Reason: anxiety) Qty: 15 0RF Rx Instructions: hold for lethargy and drowsiness Saline Mist 0.65 % Aerosol,[place] 2 spray NA QID Qty: 1 0RF fluticasone propionate 50 mcg/actuation [place],Suspension 2 spray NA BID Qty: 1 0RF amlodipine 2.5 mg tablet 2.5 mg PO DAILY Qty: 30 0RF guaifenesin [Mucinex] 600 mg Tablet Extended Release 12hr 600 mg PO Q12 Qty: 30 0RF tramadol [Ultram] 50 mg tablet 50 mg PO Q6H PRN (Reason: pain) Qty: 30 0RF Referrals Referrals: Ana Park MD [Primary Care Provider] -
[2022-07-07 21:52] LABS: INR 1.1 (0.9-1.1); Partial Thromboplastin Ratio 0.9; Prothrombin Time 11.5 Seconds (9.0-12.0)
[2022-07-07 22:03] LABS: Albumin Globulin Ratio 1.8 (0.9-2); Albumin Level 4.1 gm/dl (3.4-5.0); BUN Creatinine Ratio 23.1 (10-20); Bilirubin,Total 0.4 mg/dl (0.2-1.0); Calcium 9.2 mg/dl (8.5-10.1); Creatinine Clr Calc Pharmacy 33.6 ml/min; Est GFR (African American) 75.7 ml/min; Est GFR (Non-African American) 65.3 ml/min; Globulin 2.3 gm/dl (2.5-4.0); Magnesium 1.8 mg/dl (1.7-2.4); Potassium 3.9 mmol/L (3.5-5.1); Total Protein 6.4 gm/dl (6.0-8.3); Troponin I High Sensitivity 3.1 pg/ml (0-14)
[2022-07-07 22:10] LABS: Basophils # (auto) 0.07 K/uL (0-0.2); Basophils % (auto) 0.9 %; Eosinophils # (auto) 0.23 K/uL (0-0.50); Eosinophils % (auto) 3.1 %; Hematocrit (blood only) 42.9 % (34.1-44.9); Immature Granulocytes # (auto) 0.04 K/uL (0.00-0.02); Immature Granulocytes % (auto) 0.5 %; Lymphocytes # (auto) 1.48 K/uL (1.2-3.4); Lymphocytes % (auto) 19.8 %; Mean Corpuscular Hemoglobin 30.3 pg (25.0-34.0); Mean Corpuscular Hgb Conc 32.6 g/dL (32.0-36.0); Mean Corpuscular Volume 92.9 fL (80.0-100.0); Mean Platelet Volume 9.3 fL (9.4-12.3); Neutrophils # (auto) 5.07 K/uL (1.4-6.5); Neutrophils % (auto) 67.7 %; Platelet Count 208 K/uL (130-400); RDW Coefficient of Variation 12.9 % (11.5-14.5); RDW Standard Deviation 43.8 fL (36.4-46.3); Red Blood Count 4.62 M/uL (3.93-5.22); White Blood Count 7.49 K/ul (4.8-10.8)
[2022-07-07] MEDS ORDERED: ONDANSETRON INJ 2 MG/ML 2 ML VIAL ONE (23:23)
[2022-07-07] MEDS ORDERED: PROMETHAZINE 12.5 MG/50.5 ML BAG IV STA (23:29)
[2022-07-08] MEDS ORDERED: ALBUTEROL 0.083% NEBU SOLN 3 ML VIAL INH PRN (00:34)
[2022-07-08] MEDS ORDERED: ALBUTEROL HFA 8 GM INHALER INH PRN (00:34)
[2022-07-08] MEDS ORDERED: SODIUM CHLORIDE 0.65% NA SOLN 45 ML (OCEAN) PRN (00:34)
[2022-07-08] MEDS ORDERED: POLYETHYLENE (MIRALAX) 17 GM PACK PO PRN (00:34)
[2022-07-08] MEDS: D5W AND NSS 1,000 ML IV SCH ×2 (00:50→13:20)
[2022-07-08] MEDS: HYDROmorphone INJ 0.5 MG/0.5 ML SYR IV PRN ×3 (00:50→09:57)
--- NOTE | 2022-07-08 00:55 | History and Physical Report ---
DATE OF ADMISSION: 07/07/2022. CHIEF COMPLAINT: Status post fall, right hip fracture. HISTORY OF PRESENT ILLNESS: A 67-year-old female with past medical history significant for hyperlipidemia, COPD, chronic respiratory failure on 2 liters home oxygen, allergic rhinitis, history of multiple lung nodules, hypertension, aortic valve sclerosis, severe protein calorie malnutrition, GERD, irritable bowel syndrome with diarrhea, history of iron deficiency, osteoporosis, history of compression fracture of L3 vertebrae, low vitamin B12, history of tobacco use, history of generalized anxiety, who lives at home with her , comes with a fall. The patient says she was trying to move a stool and she fell on the right side and could not get up. Did not hit her head, no loss of consciousness,says it was mechanical fall. Denies any chest pain, no shortness of breath. She has chronic cough, no headache, no blurred visions, no earache, no runny nose. She has some sore throat for the last couple of weeks on and off. Appetite is okay. No difficulty swallowing. No nausea, no vomiting, no abdominal pain. She gets sometimes diarrhea. Denies any blood in the stools. Normal bladder movements. No swelling in the legs. She ambulates with a cane and she says she could not ambulate much because of her respiratory issues. ALLERGIES: LATEX, AMOXICILLIN, LISINOPRIL, LEVAQUIN. PAST MEDICAL HISTORY: As mentioned above. PAST SURGICAL HISTORY: Bilateral breast lesion excision, bilateral breast surgery for fiber lesion, colonoscopy, EGD, partial hysterectomy. MEDICATIONS: The patient is on albuterol 2.5 mg inhalation q. 4 hours p.r.n., amlodipine 2.5 mg p.o. daily, atorvastatin 10 mg p.o. daily, magnesium oxide nebulization 0.5 mg inhalation b.i.d., buspirone 5 mg p.o. b.i.d., esomeprazole 20 mg p.o. b.i.d., famotidine 20 mg p.o. b.i.d., Flonase 2 sprays intranasal b.i.d. p.r.n., formoterol nebulization b.i.d., Mucinex 600 mg p.o. b.i.d., loratadine 10 mg p.o. daily, sodium chloride 2 sprays b.i.d. p.r.n., tiotropium bromide inhalation q.a.m., tramadol 50 mg p.o. q. 8 hours p.r.n. FAMILY HISTORY: Significant for brother has prostate cancer, sister has cervical cancer; mother has hypertension, osteoporosis; father has COPD, osteoporosis, history of epilepsy. SOCIAL HISTORY: Former smoker, quit in 2017, smoked 0.65 pack a day for 50 years. No alcohol use. No drug use. REVIEW OF SYSTEMS: As per HPI. Rest of the systems is negative. PHYSICAL EXAMINATION: GENERAL: The patient is thin and frail, not in acute distress. VITAL SIGNS: Temperature 36.9, pulse 88, respiratory rate 18, blood pressure 161/85, oxygen 97% on room air. HEENT: Pupils equal, round and reactive to light. Oral mucosa dry. NECK: No JVD, no neck masses. CARDIOVASCULAR: S1 and S2 heard. Regular rate and rhythm. No murmur, no gallop. RESPIRATORY SYSTEM: Normal AP diameter. No accessory muscle use. No wheezing, no crackles. ABDOMEN: Soft, bowel sounds present, nontender, no distention. CENTRAL NERVOUS SYSTEM: Alert and oriented. Speech is clear. No facial droop. Insight is okay. Obeys simple commands. EXTREMITIES: Moves upper extremities. Right lower extremity is shortened and externally rotated, and painful movements. No edema or erythema seen. LABORATORY DATA: WBC 7.4, hemoglobin 14, hematocrit 42.9, platelets 208. PT 11.5, INR 1.1, APTT 24. Sodium 140, potassium 3.9, chloride 105, bicarb 25, BUN 21, creatinine 0.9, serum glucose 99, calcium 9.2, magnesium 1.8, total bilirubin 0.4, AST 13, ALT 7, alkaline phosphatase 54. Troponin I high sensitivity 3.1, lipase 35. SARS-CoV-2 rapid test negative. IMAGING DATA: Chest x-ray, no acute findings. Hip and pelvic x-ray, official reading pending, but right hip fracture. EKG: Poor quality interpretation sinus rhythm with PACs in a pattern of bigeminy at rate of 86. ASSESSMENT AND PLAN: This is a 67-year-old female who presents with mechanical fall and right hip fracture. 1. Mechanical fall, right hip fracture. Labs are okay. CXR okay. EKG is of poor quality, we will repeat EKG. IF EKG ok, The patient having poor ambulatory status and chronic respiratory failure, multiple comorbid conditions. Moderate risk for any procedures. Pain control with IV Dilaudid p.r.n. We will keep n.p.o., IV fluids. Consult orthopedics. Monitor in the hospital. Follow the repeat labs in the a.m. 2. History of chronic respiratory failure, chronic obstructive pulmonary disease on 2 L oxygen. Continue home inhalers. Currently stable. 3. History of hyperlipidemia. Continue statin. 4. History of hypertension. Continue amlodipine. We will monitor the blood pressure. 5. Gastroesophageal reflux disease. Continue omeprazole and famotidine. 7. Lung nodules. Following with Pulmonary. 8. History of vitamin B12 deficiency, we will follow levels. 9. Deep venous thrombosis. Currently no anticoagulation because of possible hip surgery.Cannot place Scds because of hip fx. Further anticoagulation as per Orthopedics. DISPOSITION: Closely monitor in medical floor. PT/OT prior to discharge. Social service to help with discharge planning. Level 1 full code. Job ID: [id number] MTDD
[2022-07-08] MEDS: busPIRone 5 MG TAB PO SCH ×3 (00:58→20:35)
[2022-07-08] MEDS: FAMOTIDINE 20 MG TAB PO SCH ×3 (00:58→20:35)
[2022-07-08] MEDS: guaiFENesin 600 MG TABCR PO SCH ×3 (00:59→20:35)
[2022-07-08] MEDS: PANTOprazole 40 MG TAB PO SCH ×3 (00:59→20:35)
[2022-07-08] MEDS: FORMOTEROL 20 MCG/2 ML VIAL INH SCH ×3 (01:27→19:34)
[2022-07-08] MEDS: ONDANSETRON INJ 2 MG/ML 2 ML VIAL IV PRN ×2 (05:40→11:46)
[2022-07-08 06:23] LABS: Basophils # (auto) 0.06 K/uL (0-0.2); Basophils % (auto) 0.6 %; Eosinophils # (auto) 0.04 K/uL (0-0.50); Eosinophils % (auto) 0.4 %; Hematocrit (blood only) 40.1 % (34.1-44.9); Hemoglobin 13.3 g/dl (12.0-16.0); Immature Granulocytes # (auto) 0.06 K/uL (0.00-0.02); Immature Granulocytes % (auto) 0.6 %; Lymphocytes # (auto) 1.05 K/uL (1.2-3.4); Lymphocytes % (auto) 9.9 %; Mean Corpuscular Hemoglobin 30.4 pg (25.0-34.0); Mean Corpuscular Hgb Conc 33.2 g/dL (32.0-36.0); Mean Corpuscular Volume 91.6 fL (80.0-100.0); Mean Platelet Volume 9.4 fL (9.4-12.3); Monocytes # (auto) 0.78 K/uL (0.24-0.82); Monocytes % (auto) 7.4 %; Neutrophils # (auto) 8.62 K/uL (1.4-6.5); Neutrophils % (auto) 81.1 %; Platelet Count 192 K/uL (130-400); RDW Coefficient of Variation 12.7 % (11.5-14.5); RDW Standard Deviation 42.5 fL (36.4-46.3); Red Blood Count 4.38 M/uL (3.93-5.22); White Blood Count 10.61 K/ul (4.8-10.8)
[2022-07-08 06:41] LABS: BUN Creatinine Ratio 19.7 (10-20); Calcium 8.6 mg/dl (8.5-10.1); Creatinine Clr Calc Pharmacy 49.2 ml/min; Est GFR (African American) 105.9 ml/min; Est GFR (Non-African American) 91.4 ml/min; Magnesium 1.7 mg/dl (1.7-2.4); Potassium 3.9 mmol/L (3.5-5.1)
[2022-07-08] MEDS: BUDESONIDE 0.25 MG/2 ML VIAL (PULMICORT) INH SCH ×2 (07:36→19:34)
--- NOTE | 2022-07-08 07:53 | XRay Report ---
SINGLE VIEW CHEST CLINICAL HISTORY: Atypical chest pain. Fall. FINDINGS: An AP, portable, supine chest radiograph is compared to chest x-ray and chest CT dated 02/05. The examination is degraded by portable technique and patient rotation. The top normal for pr ojection noting atherosclerotic calcification of the thoracic aorta. Advanced emphysema and chronic i nterstitial thickening is similar to previous. No airspace consolidation or pleural effusion is ident ified. Foci of parenchymal scarring are seen throughout both lungs. Small pulmonary nodules seen by C T are not apparent on x-ray. Apical pleural-parenchymal change is observed. Nipple shadows project ov er the lower lobes. No pneumothorax is seen. The skeletal structures are osteopenic. The bony thorax is grossly intact. IMPRESSION: Advanced emphysema with no acute cardiopulmonary abnormality identified. ACT 112: Negative or not required by law. Electronically signed by: Alexis Russ M.D. 07/08/2022 7:52 AM
--- NOTE | 2022-07-08 08:00 | XRay Report ---
SINGLE VIEW PELVIS; 2 VIEWS RIGHT HIP CLINICAL HISTORY: Fall. Right hip injury. FINDINGS: An AP the pelvis and AP and crosstable lateral views of the right hip are correlated with p vic CT dated 04/30/2021. The skeletal structures are osteopenic. There is a comminuted and angulated intertrochanteric fracture of the right proximal femur. There is medial displacement of the lesser t rochanter. Overlying soft tissue edema is noted. No additional fracture is seen involving the left hi p or the bony pelvis. Mild arthritic change and joint space narrowing is seen in the hips. IMPRESSION: Intertrochanteric fracture of the right proximal femur as above. Electronically signed by: Alexis Russ M.D. 07/08/2022 7:57 AM
[2022-07-08] MEDS: amLODIPine BESYLATE 5 MG TAB PO SCH (09:45)
[2022-07-08] MEDS: LORATADINE 10 MG TAB PO SCH (09:47)
[2022-07-08] MEDS: ATORVASTATIN 10 MG TAB PO SCH (09:47)
[2022-07-08] MEDS: UMECLIDINIUM BROMIDE 62.5MCG/BLISTER 7 PUFFS/INHALER INH SCH (09:49)
[2022-07-08] MEDS: FLUTICASONE PROPIONATE NA SPR 16 GM BTL SCH ×2 (09:49→20:34)
--- NOTE | 2022-07-08 10:04 | Orthopedic Consultation ---
Date of Consultation July 08, 2022 Assessment & Plan (1) Closed intertrochanteric fracture of right hip: Right intertrochanteric hip fracture. X-rays reviewed. Case discussed with Dr. Mancia. Patient will require a right trochanteric femoral nail. Patient is currently comfortable. Due to minimalized staffing for the operating room today, surgery will be done tomorrow, 07/09/2022. I have discussed this with the the patient and her family. Multiple questions asked and answered to the best of my ability. With patient's medical history, we will let anesthesia know today about her comorbidities to form a plan for her anesthesia tomorrow. I will discuss the case with medicine service as well. History of Present Illness Reason for Consultation: Right intertrochanteric hip fracture Attending Physician: Blanca Sebastian MD History of Present Illness Patient ashish 67-year-old female with past medical history significant for hyperlipidemia, COPD, chronic respiratory failure on 2 liters home oxygen, allergic rhinitis, history of multiple lung nodules, hypertension, aortic valve sclerosis, severe protein calorie malnutrition, GERD, irritable bowel syndrome with diarrhea, history of iron deficiency, osteoporosis, history of compression fracture of L3 vertebrae, low vitamin B12, history of tobacco use, history of generalized anxiety, who lives at home with her . Patient states that she was trying to move a certain stool in her home and ended up losing her balance falling onto her right side. She had immediate pain in her right hip and groin. She states that her lower leg was bent underneath her upper leg and it took some time to get her leg straightened out. She denies hitting her head. She did not lose consciousness. Patient is on home O2 but states that she did not have any increased shortness of breath prior to or after the fall that she noticed. She denies any chest pain or lightheadedness prior to or after the fall as well. She was brought to the emergency room here at [facility] and she was seen by the staff. X-rays were taken and was found t hat she had an intertrochanteric hip fracture of the right hip. She was thusly admitted under the hospitalist service and we have been asked to take care of her right hip fracture. Currently patient is awake and alert and appears comfortable. 2 of her daughters are present as well. Allergies Allergy/AdvReac Type Severity Reaction Status Date / Time latex Allergy Intermediate blisters Verified 07/07/22 22:27 amoxicillin AdvReac Intermediate DIARRHEA Verified 07/07/22 22:27 lisinopril AdvReac Intermediate hyperkalemi Verified 07/07/22 23:17 a levofloxacin AdvReac Mild Erythema Verified 07/07/22 22:27 at IV site Home Medications Medication Instructions Recorded Confirmed Type atorvastatin 10 mg tablet 10 mg PO QAM 04/13/21 07/07/22 History esomeprazole magnesium 20 mg 20 mg PO BID 04/13/21 07/07/22 History capsule,delayed release albuterol sulfate 2.5 mg/3 mL 2.5 mg inhalation Q4 PRN Shortness 11/15/21 07/07/22 History (0.083 %) solution for nebulization Of Breath Or Wheezing albuterol sulfate 90 mcg/actuation 2 puff inhalation Q4 PRN Shortness 01/02/22 07/07/22 History aerosol inhaler Of Breath Or Wheezing loratadine 10 mg tablet 10 mg PO DAILY 01/02/22 07/07/22 History amlodipine 2.5 mg tablet 2.5 mg PO DAILY #30 tabs 01/14/22 07/07/22 Rx guaifenesin 600 mg tablet, 600 mg PO Q12 #30 tabs 01/14/22 07/07/22 Rx extended release 12 hr (Mucinex) buspirone 5 mg tablet 5 mg PO BID 02/03/22 07/07/22 History budesonide 0.25 mg/2 mL suspension 0.25 mg inhalation BID 03/17/22 07/07/22 History for nebulization (Pulmicort) famotidine 20 mg tablet (Pepcid) 20 mg PO BID 03/17/22 07/07/22 History Portable Oxygen #1 ea 03/23/22 03/23/22 Rx formoterol fumarate 20 mcg/2 mL 2 ml inhalation BID #120 mL 03/23/22 07/07/22 Rx solution for nebulization tiotropium bromide 2.5 2 inh inhalation QAM #4 grams 07/01/22 07/07/22 Rx mcg/actuation mist for inhalation (Spiriva Respimat) fluticasone propionate 50 2 spray NA BID PRN Congestion 07/07/22 07/07/22 History mcg/actuation nasal spray,suspension sodium chloride 0.65 % nasal spray 2 spray NA QID PRN NASAL DRYNESS 07/07/22 07/07/22 History aerosol (Saline Mist) tramadol 50 mg tablet 50 mg PO Q8H PRN Pain 07/07/22 07/07/22 History Patient History Medical History Abdominal pain Advanced COPD COPD (chronic obstructive pulmonary disease) inhaler daily/prn COPD with acute exacerbation GERD (gastroesophageal reflux disease) Hemoptysis History of anesthesia reaction DIFFICULT TO AWAKEN, N/V History of nicotine dependence History of osteoporosis HTN (hypertension) Lung nodule seen on imaging study Pulmonary emphysema Pulmonary nodules Severely underweight adult only weighs 69lbs Therapeutic drug monitoring Surgical History H/O colonoscopy - Dr. Radha Henning H/O: hysterectomy History of cardiac cath NEGATIVE [place] 2014- DR. WEST History of cataract surgery BOTH EYES History of esophagogastroduodenoscopy (EGD) (~07/08/20) Family History Mother Hypertension Sister Epilepsy Family history of reaction to anesthesia nausea/vomiting, difficulty waking Family/Other Osteoporosis Social History Smoking Status: Former smoker Tobacco Type: Cigarettes Age Started Using Tobacco: 13; Age Quit Using Tobacco: 66; packs per day: 1.0; Cigarettes Per Day: less than 20 a day; Second Hand Exposure: No; Do You Dip or Chew Tobacco: No; Hx Alcohol Use: No Hx Substance Use: No Preferred Language: Occitan Communication Ability: Effective Tube Coater Required: No Beliefs That Will Affect Care: None marital status: Current Living Situation: Spouse current occupational status: retired How many Children do You have: 3 Other Information That Helps Us Care for You: No Feels Safe at Home: Yes Safety Concerns: Feels Safe At This Time Assistive Devices: Cane, Denture - Upper and Oxygen - Continuous Physical Exam Physical Exam: Patient is a 67-year-old white female, cachectic, oriented x3, no acute distress, pleasant and cooperative. On examination of her right lower extremity, she has her hip flexed to about 60 degrees with a pillow under her right knee. This is the most comfortable position for her at this time. The right lower extremity is externally rotated. She has good range of motion of her right ankle and toes. Range of motion of the knee is deferred secondary to right hip fracture. She is nontender on palpation of the knee and there is no effusion. She has no pain on palpation of the distal femur. She has referred pain from her hip to the knee. She has mild tenderness over the lateral aspect of the hip. There are no areas of bruising or abrasions noted. Range of motion is deferred secondary to fracture. She is nontender over the left hip, knee, ankle and range of motion is intact. She denies pain in the shoulders, elbows, and wrists. Range of motion is within normal limits. Distal pulses are equal bilaterally of the upper and lower extremities. There is no gross motor or sensory loss seen at this time. Results & Data ([facility]) Vital Signs (Past 12 Hours) Vital Signs Temp Pulse Resp BP BP Pulse Ox O2 Del Method 07/08/22 09:40 88 18 174/76 H 96 Nasal Cannula 07/08/22 07:38 86 18 98 Nasal Cannula 07/08/22 07:28 36.6 C 81 16 151/71 H 97 Room Air 07/08/22 05:35 159/74 H 07/08/22 00:10 Nasal Cannula 07/08/22 00:10 36.4 C L 91 H 18 182/77 H 94 Nasal Cannula 07/07/22 23:47 Nasal Cannula 07/07/22 22:45 88 18 161/85 H 97 Room Air O2 Flow Rate 07/08/22 09:40 2 07/08/22 07:38 2 07/08/22 07:28 07/08/22 05:35 07/08/22 00:10 2 07/08/22 00:10 2 07/07/22 23:47 2 07/07/22 22:45 Laboratory Results Laboratory Results WBC 10.61 K/ul (4.8-10.8) 07/08/22 05:52 RBC 4.38 M/uL (3.93-5.22) 07/08/22 05:52 Hgb 13.3 g/dl (12.0-16.0) 07/08/22 05:52 Hct 40.1 % (34.1-44.9) 07/08/22 05:52 MCV 91.6 fL (80.0-100.0) 07/08/22 05:52 MCH 30.4 pg (25.0-34.0) 07/08/22 05:52 MCHC 33.2 g/dL (32.0-36.0) 07/08/22 05:52 RDW Std Deviation 42.5 fL (36.4-46.3) 07/08/22 05:52 RDW Coeff of Millicent 12.7 % (11.5-14.5) 07/08/22 05:52 Plt Count 192 K/uL (130-400) 07/08/22 05:52 MPV 9.4 fL (9.4-12.3) 07/08/22 05:52 Immature Gran % (Auto) 0.6 % 07/08/22 05:52 Neut % (Auto) 81.1 % 07/08/22 05:52 Lymph % (Auto) 9.9 % 07/08/22 05:52 Morrison % (Auto) 7.4 % 07/08/22 05:52 Eos % (Auto) 0.4 % 07/08/22 05:52 Baso % (Auto) 0.6 % 07/08/22 05:52 Neut # (Auto) 8.62 K/uL (1.4-6.5) H 07/08/22 05:52 Lymph # (Auto) 1.05 K/uL (1.2-3.4) L 07/08/22 05:52 Morrison # (Auto) 0.78 K/uL (0.24-0.82) 07/08/22 05:52 Eos # (Auto) 0.04 K/uL (0-0.50) 07/08/22 05:52 Baso # (Auto) 0.06 K/uL (0-0.2) 07/08/22 05:52 Immature Gran # (Auto) 0.06 K/uL (0.00-0.02) H 07/08/22 05:52 PT 11.5 Seconds (9.0-12.0) 07/07/22 21:28 INR 1.1 (0.9-1.1) 07/07/22 21:28 APTT 24.0 Seconds (21.0-31.0) 07/07/22 21:28 PTT Ratio 0.9 07/07/22 21:28 Sodium 137 mmol/L (136-145) 07/08/22 05:52 Potassium 3.9 mmol/L (3.5-5.1) 07/08/22 05:52 Chloride 104 mmol/L (98-107) 07/08/22 05:52 Carbon Dioxide 26 mmol/L (21-32) 07/08/22 05:52 Anion Gap 7 (3-11) 07/08/22 05:52 BUN 13 mg/dl (6-23) 07/08/22 05:52 Creatinine 0.66 mg/dl (0.6-1.2) 07/08/22 05:52 Est Cr Clr Drug Dosing 49.2 ml/min 07/08/22 05:52 Est GFR ( Amer) 105.9 ml/min 07/08/22 05:52 Est GFR (Non-Af Amer) 91.4 ml/min 07/08/22 05:52 BUN/Creatinine Ratio 19.7 (10-20) 07/08/22 05:52 Glucose 129 mg/dl (70-99(Fasting)) H 07/08/22 05:52 Calcium 8.6 mg/dl (8.5-10.1) 07/08/22 05:52 Magnesium 1.7 mg/dl (1.7-2.4) 07/08/22 05:52 Total Bilirubin 0.4 mg/dl (0.2-1.0) 07/07/22 21:28 AST 13 U/L (13-39) 07/07/22 21:28 ALT 7 U/L (7-52) 07/07/22 21:28 Alkaline Phosphatase 54 U/L (34-104) 07/07/22 21:28 Troponin I High Sens 3.1 pg/ml (0-14) 07/07/22 21:28 Total Protein 6.4 gm/dl (6.0-8.3) 07/07/22 21:28 Albumin 4.1 gm/dl (3.4-5.0) 07/07/22 21:28 Globulin 2.3 gm/dl (2.5-4.0) L 07/07/22 21:28 Albumin/Globulin Ratio 1.8 (0.9-2) 07/07/22 21:28 Lipase 35 U/L (11-82) 07/07/22 21:28 SARS-CoV-2, RNA, NAAT NEGATIVE (NEGATIVE) 07/07/22 21:30 Impressions Hip/Pelvis X-Ray 07/07/22 21:12 SINGLE VIEW PELVIS; 2 VIEWS RIGHT HIP CLINICAL HISTORY: Fall. Right hip injury. FINDINGS: An AP the pelvis and AP and crosstable lateral views of the right hip are correlated with pelvic CT dated 04/30/2021. The skeletal structures are osteopenic. There is a comminuted and angulated intertrochanteric fracture of the right proximal femur. There is medial displacement of the lesser trochanter. Overlying soft tissue edema is noted. No additional fracture is seen involving the left hip or the bony pelvis. Mild arthritic change and joint space narrowing is seen in the hips. IMPRESSION: Intertrochanteric fracture of the right proximal femur as above. Electronically signed by: Alexis Russ M.D. 07/08/2022 7:57 AM (1) Closed intertrochanteric fracture of right hip Encounter type: initial encounter Fracture alignment: displaced Qualified Code(s): S72.141A - Displaced intertrochanteric fracture of right femur, initial encounter for closed fracture
--- NOTE | 2022-07-08 10:22 | Anesthesiology Consultation ---
Date of Service July 08, 2022 Assessment & Plan Chart Review Chart Review: Acceptable Risk for Surgery Consults Requested none ASA [id number] Proposed Anesthesia Anesthesia Type: General Risk / Benefits Reviewed With: PT / POA / Parent / Guardian, Accepts Plan and Informed Consent Obtained Additional Comments: pt declines SAB History Surgery Operation Date: 07/09/22 08:50 Proposed Procedures p Right Troch Nail - Juancho AgataMichelle Mancia, DO Height/Weight Height: 5 ft 2 in Weight: 37.7 kg Allergies Allergy/AdvReac Type Severity Reaction Status Date / Time latex Allergy Intermediate blisters Verified 07/07/22 22:27 amoxicillin AdvReac Intermediate DIARRHEA Verified 07/07/22 22:27 lisinopril AdvReac Intermediate hyperkalemi Verified 07/07/22 23:17 a levofloxacin AdvReac Mild Erythema Verified 07/07/22 22:27 at IV site Medications Home Medications Medication Instructions Recorded Confirmed Last Taken atorvastatin 10 mg tablet 10 mg PO QAM 04/13/21 07/07/22 07/07/22 esomeprazole magnesium 20 mg 20 mg PO BID 04/13/21 07/07/22 07/07/22 capsule,delayed release albuterol sulfate 2.5 mg/3 mL 2.5 mg inhalation Q4 PRN Shortness 11/15/21 07/07/22 Unknown (0.083 %) solution for nebulization Of Breath Or Wheezing albuterol sulfate 90 mcg/actuation 2 puff inhalation Q4 PRN Shortness 01/02/22 07/07/22 Unknown aerosol inhaler Of Breath Or Wheezing loratadine 10 mg tablet 10 mg PO DAILY 01/02/22 07/07/22 07/07/22 amlodipine 2.5 mg tablet 2.5 mg PO DAILY #30 tabs 01/14/22 07/07/22 07/07/22 guaifenesin 600 mg tablet, 600 mg PO Q12 #30 tabs 01/14/22 07/07/22 07/07/22 extended release 12 hr (Mucinex) buspirone 5 mg tablet 5 mg PO BID 02/03/22 07/07/22 07/07/22 budesonide 0.25 mg/2 mL suspension 0.25 mg inhalation BID 03/17/22 07/07/22 07/07/22 for nebulization (Pulmicort) famotidine 20 mg tablet (Pepcid) 20 mg PO BID 03/17/22 07/07/22 07/07/22 Portable Oxygen #1 ea 03/23/22 03/23/22 Unknown formoterol fumarate 20 mcg/2 mL 2 ml inhalation BID #120 mL 03/23/22 07/07/22 07/07/22 solution for nebulization tiotropium bromide 2.5 2 inh inhalation QAM #4 grams 07/01/22 07/07/22 07/07/22 mcg/actuation mist for inhalation (Spiriva Respimat) fluticasone propionate 50 2 spray NA BID PRN Congestion 07/07/22 07/07/22 Unknown mcg/actuation nasal spray,suspension sodium chloride 0.65 % nasal spray 2 spray NA QID PRN NASAL DRYNESS 07/07/22 07/07/22 Unknown aerosol (Saline Mist) tramadol 50 mg tablet 50 mg PO Q8H PRN Pain 07/07/22 07/07/22 Unknown Active Medications Generic Name Dose Route Start Last Admin Trade Name Freq PRN Reason Stop Dose Admin Amlodipine Besylate 2.5 mg 07/08/22 09:00 07/08/22 09:45 Amlodipine Besylate 5 Mg Tab PO 08/07/22 08:59 2.5 mg DAILY MARIANNE Administration Atorvastatin Calcium 10 mg 07/08/22 09:00 07/08/22 09:47 Atorvastatin 10 Mg Tab PO 08/07/22 08:59 10 mg QAM MARIANNE Administration Budesonide 0.25 mg 07/08/22 07:00 07/08/22 07:36 Budesonide 0.25 Mg/2 Ml Vial (Pulmicort) INH 08/07/22 06:59 0.25 mg BIDR MARIANNE Administration Buspirone HCl 5 mg 07/08/22 00:34 07/08/22 09:46 Buspirone 5 Mg Tab PO 08/07/22 00:33 5 mg BID MARIANNE Administration Famotidine 20 mg 07/08/22 00:34 07/08/22 09:47 Famotidine 20 Mg Tab PO 08/07/22 00:33 20 mg BID MARIANNE Administration Fluticasone Propionate 2 sprays 07/08/22 09:00 07/08/22 09:49 Fluticasone Propionate Na Spr 16 Gm Btl NA 08/07/22 08:59 2 sprays BID MARIANNE Administration Formoterol Fumarate 20 mcg 07/08/22 00:34 07/08/22 07:36 Formoterol 20 Mcg/2 Ml Vial INH 08/07/22 00:33 20 mcg BIDR MARIANNE Administration Guaifenesin 600 mg 07/08/22 00:34 07/08/22 09:48 Guaifenesin 600 Mg Tabcr PO 08/07/22 00:33 600 mg Q12 MARIANNE Administration Hydromorphone HCl 0.5 mg 07/08/22 00:34 07/08/22 09:57 Hydromorphone Inj 0.5 Mg/0.5 Ml Syr IV 07/22/22 00:33 0.5 mg Q3H PRN Administration Pain Dextrose/Sodium Chloride 1,000 mls @ 80 mls/hr 07/08/22 00:34 07/08/22 13:20 D5w And Nss IV 08/07/22 00:33 80 mls/hr .[id number] MARIANNE Administration Loratadine 10 mg 07/08/22 09:00 07/08/22 09:47 Loratadine 10 Mg Tab PO 08/07/22 08:59 10 mg DAILY MARIANNE Administration Ondansetron HCl 4 mg 07/08/22 00:34 07/08/22 11:46 Ondansetron Inj 2 Mg/Ml 2 Ml Vial IV 08/07/22 00:33 4 mg Q6H PRN Administration Nausea Pantoprazole Sodium 40 mg 07/08/22 00:34 07/08/22 09:48 Pantoprazole 40 Mg Tab PO 08/07/22 00:33 40 mg BID MARIANNE Administration Tramadol HCl 50 mg 07/08/22 00:34 07/08/22 15:32 Tramadol Hcl 50 Mg Tablet PO 08/07/22 00:33 50 mg Q8H PRN Administration Pain Umeclidinium [place] 1 puffs 07/08/22 09:00 07/08/22 09:49 Umeclidinium [place] 62.5mcg/Blister 7 Puffs/Inhaler INH 08/07/22 08:59 1 puffs QAM MARIANNE Administration NPO Date Last Intake of Fluids: 07/08/22 Time Last Intake of Fluids: 23:59 Last Intake of Fluids Comment: advised Date Last Intake of Solids: 07/08/22 Time Last Intake of Solids: 23:59 Last Intake of Solids Comment: advised Past Medical History Medical History Abdominal pain Advanced COPD COPD (chronic obstructive pulmonary disease) inhaler daily/prn COPD with acute exacerbation GERD (gastroesophageal reflux disease) Hemoptysis History of anesthesia reaction DIFFICULT TO AWAKEN, N/V History of nicotine dependence History of osteoporosis HTN (hypertension) Lung nodule seen on imaging study Pulmonary emphysema Pulmonary nodules Severely underweight adult only weighs 69lbs Therapeutic drug monitoring 2L O2 continuous at all times Exercise / Class Metabolic Activity III < 4 Walking/Shop/Light housework Past Family History Family History Mother Hypertension Sister Epilepsy Family history of reaction to anesthesia nausea/vomiting, difficulty waking Family/Other Osteoporosis Past Surgical History Surgical History H/O colonoscopy 8- Dr. Radha Henning H/O: hysterectomy History of cardiac cath NEGATIVE [place] 2014- DR. WEST History of cataract surgery BOTH EYES History of esophagogastroduodenoscopy (EGD) (~07/08/20) Past Anesthesia History No Hx of Anesthesia Complications and No Family Hx of Anesthesia Complications History of PONV No Hx of PONV and No Hx of Motion Sickness Social History Smoking Status: Former smoker tobacco type: cigarettes Smoking cigarettes per day: less than 20 a day Do You Dip or Chew Tobacco: No Hx Alcohol Use: No Hx Substance Use: No substance use type: does not use Physical Exam Vital Signs Last Vital Signs Temp 36.5 C 07/08/22 15:32 Pulse 82 07/08/22 15:32 Resp 16 07/08/22 15:32 BP 153/72 H 07/08/22 15:32 Pulse Ox 95 07/08/22 15:32 O2 Del Method 07/08/22 15:32 O2 Flow Rate 4 07/08/22 15:32 Constitutional + cachectic ENMT Mouth: + dentition abnormality (4 lower teeth remain, none loose), + dentures (upper) and + small oral opening; no TMJ abnormality Thyromental Distance: > or= 3.5 Finger Breadths Mallampati Class: II Neck normal visual inspection and trachea midline; neck extension not limited Respiratory normal respiratory effort Auscultation: + diminished lung sounds and + wheezes Cardiovascular Rate/Rhythm: regular rate and regular rhythm Heart Sounds: no murmur Musculoskeletal Spine: normal cervical ROM Extremities: + limited ROM of extremities (troch fx) Psychiatric Orientation: alert and oriented x 3 Testing Laboratory Results 07/08/22 05:52 07/08/22 05:52 PT 11.5 Seconds (9.0-12.0) 07/07/22 21:28 INR 1.1 (0.9-1.1) 07/07/22 21:28 APTT 24.0 Seconds (21.0-31.0) 07/07/22 21:28 Electrocardiogram Date: 07/08/22 Findings: + AFIB @ (75) Chest X-Ray Date: 07/07/22 Findings: + NAD Advanced emphysema with no acute cardiopulmonary abnormality identified. Echocardiogram Date: 01/06/22 EF: 65=70 LV Function: normal RWMA: + none Other Findings: + LVH (mild concen) Valvular Disease: + no significant valvular disease RV fxn moderately reduced no pulm HTN noted Pulmonary Function Test Date: 02/18/22 Findings: + DLCO (severely reduced) very severe obstruction with no sig postbronchodilator response.
--- NOTE | 2022-07-08 10:25 | Electrocardiogram Report ---
Test Reason : Blood Pressure : / mmHG Vent. Rate : 090 BPM Atrial Rate : 090 BPM P-R Int : 128 ms QRS Dur : 086 ms QT Int : 372 ms P-R-T Axes : 079 068 063 degrees QTc Int : 455 ms Poor data quality, interpretation may be adversely affected Normal sinus rhythm with sinus arrhythmia Normal ECG When compared with ECG of 05-FEB-2022 13:12, Criteria for Septal infarct are no longer Present Confirmed by Wilder Gamino ([id number]) on 07/08/2022 10:25:15 AM Referred By: REFERRED SELF Confirmed By:Wilder Gamino
--- NOTE | 2022-07-08 10:40 | Electrocardiogram Report ---
Test Reason : Blood Pressure : / mmHG Vent. Rate : 075 BPM Atrial Rate : 077 BPM P-R Int : 000 ms QRS Dur : 088 ms QT Int : 418 ms P-R-T Axes : 000 067 064 degrees QTc Int : 466 ms Sinus rhythm with frequent Premature atrial complexes Abnormal ECG When compared with ECG of 07-JUL-2022 21:26, No significant change Confirmed by Wilder Gamino ([id number]) on 07/08/2022 10:39:39 AM Referred By: REFERRED SELF Confirmed By:Wilder Gamino
--- NOTE | 2022-07-08 12:02 | Hospitalist Progress Note ---
Date of Service July 08, 2022 Assessment & Plan (1) Closed intertrochanteric fracture of right hip: (2) Fall: Plan: Patient had a mechanical fall at home Denied LOC Hip XR noted Right proximal femor intertrochanteric fracture Pain control Patient has poor exercise tolerance at baseline due to chronic exertional dyspnea from COPD This is unchanged. She denied any chest pain. Reviewed EKG with [facility] Att[facility]. No ST changes, some PAC. Patient is at moderate risk for surgery from her chronic COPD. She understands this. Discussed with ortho Will keep NPO past midnight for surgery in AM (3) HTN (hypertension): Plan: Continue amlodipine home dose for now. BP mildly elevated now, likely due to pain Optimize pain control (4) GERD (gastroesophageal reflux disease): Plan: Continue PPI (5) Chronic obstructive pulmonary disease: Plan: Continue home inhalers. Continue oxygen supplementation At baseline 2L NC. Will do incentive spirometry and monitor closely after surgery. DVT ppx- hold off pharm agent for today in view of planned surgery Admission and Anticipated Discharge Date Admission Date: July 07, 2022 Subjective Patient seen and examined Reports right hip pain Reports nausea Denied vomiting, abd pain, diarrhea/constipation Denied cough, chest pain, shortness of breath, palpitations Denied fever, chills Physical Exam Constitutional: + well hydrated and + thin; no acute distress Eyes: PERRL, conjunctivae normal, anicteric sclerae ENMT: external ear and nose normal, oropharynx normal Respiratory: normal respiratory effort; no respiratory distress Auscultation: + diminished lung sounds Cardiovascular: Rate/Rhythm: regular rate and regular rhythm S1 S2 Gastrointestinal (Abdomen): normal bowel sounds, soft, nontender, no hepatosplenomegaly Musculoskeletal: Right hip mildly flexed and externally rotated Neurologic: PERRL, EOMI, accommodation nl, no face palsy, no dysarthria Psychiatric: A+Ox3, euthymic affect Genitourinary: Holden in situ Results & Data Results & Data ([facility]) Vital Signs (Past 12 Hours) Vital Signs Temp Pulse Resp BP BP Pulse Ox O2 Del Method 07/08/22 09:40 88 18 174/76 H 96 Nasal Cannula 07/08/22 07:38 86 18 98 Nasal Cannula 07/08/22 07:28 36.6 C 81 16 151/71 H 97 Room Air 07/08/22 05:35 159/74 H 07/08/22 00:10 Nasal Cannula 07/08/22 00:10 36.4 C L 91 H 18 182/77 H 94 Nasal Cannula O2 Flow Rate 07/08/22 09:40 2 07/08/22 07:38 2 07/08/22 07:28 07/08/22 05:35 07/08/22 00:10 2 07/08/22 00:10 2 Laboratory Results Abnormal lab results 07/07/22 07/07/22 07/08/22 Range/Units 21:28 21:28 05:52 MPV 9.3 L (9.4-12.3) fL Neut # (Auto) 8.62 H (1.4-6.5) K/uL Lymph # (Auto) 1.05 L (1.2-3.4) K/uL Immature Gran # (Auto) 0.04 H 0.06 H (0.00-0.02) K/uL BUN/Creatinine Ratio 23.1 H (10-20) Glucose (70-99(Fasting)) mg/dl Globulin 2.3 L (2.5-4.0) gm/dl 07/08/22 Range/Units 05:52 MPV (9.4-12.3) fL Neut # (Auto) (1.4-6.5) K/uL Lymph # (Auto) (1.2-3.4) K/uL Immature Gran # (Auto) (0.00-0.02) K/uL BUN/Creatinine Ratio (10-20) Glucose 129 H (70-99(Fasting)) mg/dl Globulin (2.5-4.0) gm/dl (1) Closed intertrochanteric fracture of right hip Encounter type: initial encounter Fracture alignment: displaced Qualified Code(s): S72.141A - Displaced intertrochanteric fracture of right femur, initial encounter for closed fracture (2) Fall Encounter type: initial encounter Qualified Code(s): W19.XXXA - Unspecified fall, initial encounter (3) Chronic obstructive pulmonary disease COPD type: unspecified COPD Qualified Code(s): J44.9 - Chronic obstructive pulmonary disease, unspecified
[2022-07-08] MEDS: traMADol HCL 50 MG TABLET PO PRN ×2 (15:32→23:32)
[2022-07-08] MEDS: ACETAMINOPHEN 325 MG TAB PO PRN ×2 (17:55→22:02)
[2022-07-09] MEDS: D5W AND NSS 1,000 ML IV SCH ×2 (01:49→14:17)
[2022-07-09] MEDS: HYDROmorphone INJ 0.5 MG/0.5 ML SYR IV PRN (07:16)
[2022-07-09] MEDS: ONDANSETRON INJ 2 MG/ML 2 ML VIAL IV PRN (07:16)
[2022-07-09 07:35] LABS: Hematocrit (blood only) 39.5 % (34.1-44.9); Hemoglobin 12.7 g/dl (12.0-16.0); Mean Corpuscular Hemoglobin 30.9 pg (25.0-34.0); Mean Corpuscular Hgb Conc 32.2 g/dL (32.0-36.0); Mean Corpuscular Volume 96.1 fL (80.0-100.0); Mean Platelet Volume 9.6 fL (9.4-12.3); Platelet Count 176 K/uL (130-400); RDW Coefficient of Variation 12.9 % (11.5-14.5); RDW Standard Deviation 45.5 fL (36.4-46.3); Red Blood Count 4.11 M/uL (3.93-5.22); White Blood Count 8.11 K/ul (4.8-10.8)
[2022-07-09] MEDS: FORMOTEROL 20 MCG/2 ML VIAL INH SCH ×2 (07:36→20:29)
[2022-07-09] MEDS: BUDESONIDE 0.25 MG/2 ML VIAL (PULMICORT) INH SCH ×2 (07:36→20:29)
[2022-07-09 07:58] LABS: BUN Creatinine Ratio 12.7 (10-20); Calcium 8.5 mg/dl (8.5-10.1); Creatinine Clr Calc Pharmacy 51.6 ml/min; Est GFR (African American) 107.6 ml/min; Est GFR (Non-African American) 92.8 ml/min; Potassium 4.3 mmol/L (3.5-5.1)
[2022-07-09] MEDS ORDERED: ALBUT/IPRATROP 3MG/0.5MG NEB 3 ML VIAL NEB ONE (08:00)
[2022-07-09] MEDS: amLODIPine BESYLATE 5 MG TAB PO SCH (08:40)
[2022-07-09] MEDS: ATORVASTATIN 10 MG TAB PO SCH (08:40)
[2022-07-09] MEDS: busPIRone 5 MG TAB PO SCH ×2 (08:41→20:54)
[2022-07-09] MEDS: FAMOTIDINE 20 MG TAB PO SCH ×2 (08:41→20:54)
[2022-07-09] MEDS: FLUTICASONE PROPIONATE NA SPR 16 GM BTL SCH ×2 (08:41→20:53)
[2022-07-09] MEDS: PANTOprazole 40 MG TAB PO SCH ×2 (08:42→20:54)
[2022-07-09] MEDS: UMECLIDINIUM BROMIDE 62.5MCG/BLISTER 7 PUFFS/INHALER INH SCH (08:42)
[2022-07-09] MEDS: guaiFENesin 600 MG TABCR PO SCH ×2 (08:42→20:54)
[2022-07-09] MEDS: LORATADINE 10 MG TAB PO SCH (08:42)
--- NOTE | 2022-07-09 09:48 | History & Physical Bridge Note ---
Date of Service July 09, 2022 History & Physical Bridge Note I have examined the patient, reviewed the History & Physical and in the interval since the performance of the History & Physical I have noted the following changes of clinical significance: no changes noted Patient seen and examined. We do lengthy discussion regarding treatment of her right intertrochanteric femur fracture with a right hip cephalomedullary nail. Risk and benefits were discussed which include but are not limited to: Infection , neurovascular injury, malunion, nonunion, DVT and need for subsequent surgical procedures. After reviewing these she has elected proceed with surgical intervention and written consent was obtained.
[2022-07-09] MEDS ORDERED: ONDANSETRON INJ 2 MG/ML 2 ML VIAL IV STA (10:26)
[2022-07-09] MEDS ORDERED: ROCURONIUM BROMIDE 10 MG/ML 5 ML VIAL IV ONE (10:51)
[2022-07-09] MEDS ORDERED: ONDANSETRON INJ 2 MG/ML 2 ML VIAL ONE (10:51)
[2022-07-09] MEDS ORDERED: fentaNYL citrate 100 MCG/2 ML VIAL ONE (10:51)
[2022-07-09] MEDS ORDERED: PROPOFOL IV EMULSION 10 MG/ML 20 ML VIAL IV ONE (10:51)
[2022-07-09] MEDS ORDERED: DEXAMETHASONE SOD INJ 4 MG/ML VIAL ONE (10:51)
[2022-07-09] MEDS ORDERED: oxyCODONE HCL IR 5 MG TAB (IMMEDIATE RELEASE) PO PRN (11:07)
--- NOTE | 2022-07-09 11:07 | Hospitalist Progress Note ---
Date of Service July 09, 2022 Assessment & Plan (1) Closed intertrochanteric fracture of right hip: (2) Fall: Plan: Patient had a mechanical fall at home Denied LOC Hip XR noted Right proximal femor intertrochanteric fracture Pain control Stop dilaudid for now as patient reports a lot of nausea from it. She also stated that she does not tolerate morphine well. Scheduled tylenol, prn tramadol and oxycodone Patient has poor exercise tolerance at baseline due to chronic exertional dyspnea from COPD Planned for OR this AM Will get PT/OT afterwrds (3) HTN (hypertension): Plan: Continue amlodipine home dose for now. Optimize pain control (4) GERD (gastroesophageal reflux disease): Plan: Continue PPI (5) Chronic obstructive pulmonary disease: Plan: Continue home inhalers. Continue oxygen supplementation At baseline 2L NC. Will do incentive spirometry and monitor closely after surgery. DVT ppx- hold off pharm agent for today in view of planned surgery Admission and Anticipated Discharge Date Admission Date: July 07, 2022 Subjective Patient seen and examined Reports right hip pain Reports nausea especially after getting dilaudid She reports tylenol and tramadol controls the pain well Denied vomiting, abd pain, diarrhea/constipation Denied cough, chest pain, shortness of breath, palpitations Denied fever, chills Physical Exam Constitutional: + well hydrated and + thin; no acute distress Eyes: PERRL, conjunctivae normal, anicteric sclerae ENMT: external ear and nose normal, oropharynx normal Respiratory: normal respiratory effort; no respiratory distress Auscultation: + diminished lung sounds Cardiovascular: Rate/Rhythm: regular rate and regular rhythm S1 S2 Gastrointestinal (Abdomen): normal bowel sounds, soft, nontender, no hepatosplenomegaly Musculoskeletal: Right hip mildly flexed and externally rotated Neurologic: PERRL, EOMI, accommodation nl, no face palsy, no dysarthria Psychiatric: A+Ox3, euthymic affect Results & Data Results & Data ([facility]) Vital Signs (Past 12 Hours) Vital Signs Temp Pulse Pulse Resp BP Pulse Ox O2 Del Method 07/09/22 10:51 36.8 C 85 16 189/87 H 95 Nasal Cannula 07/09/22 07:37 82 16 96 Nasal Cannula 07/09/22 07:25 36.8 C 89 16 146/70 H 96 Nasal Cannula O2 Flow Rate 07/09/22 10:51 2 07/09/22 07:37 2 07/09/22 07:25 2 (1) Closed intertrochanteric fracture of right hip Encounter type: initial encounter Fracture alignment: displaced Qualified Code(s): S72.141A - Displaced intertrochanteric fracture of right femur, initial encounter for closed fracture (2) Fall Encounter type: initial encounter Qualified Code(s): W19.XXXA - Unspecified fall, initial encounter (3) Chronic obstructive pulmonary disease COPD type: unspecified COPD Qualified Code(s): J44.9 - Chronic obstructive pulmonary disease, unspecified
[2022-07-09] MEDS ORDERED: ATROPINE SULFATE 0.1 MG/ML 10ML SYR IV PRN (11:13)
[2022-07-09] MEDS ORDERED: PROMETHAZINE HCL 12.5 MG in SODIUM CHLORIDE 0.9% 50 ML IV PRN (11:13)
[2022-07-09] MEDS ORDERED: MEPERIDINE HCL 25 MG/ML CARP/VIAL IV PRN (11:13)
[2022-07-09] MEDS ORDERED: DEXAMETHASONE SOD INJ 4 MG/ML VIAL IV PRN (11:13)
[2022-07-09] MEDS ORDERED: ePHEDrine sulfate 50 MG/ML AMP IV PRN (11:13)
[2022-07-09] MEDS ORDERED: ONDANSETRON INJ 2 MG/ML 2 ML VIAL IV PRN (11:13)
[2022-07-09] MEDS ORDERED: HYDROmorphone INJ 1 MG/ML SYRINGE IV PRN (11:13)
[2022-07-09] MEDS ORDERED: BUPIVACAINE 0.25% 30 ML VIAL ONE (11:27)
[2022-07-09] MEDS ORDERED: ceFAZolin 330 MG/ML 1 GM VIAL ONE (11:57)
[2022-07-09] MEDS ORDERED: ceFAZolin 1000MG 1,000 MG/7.5 ML SYR IV ONE (12:24)
--- NOTE | 2022-07-09 12:32 | Post Operative Brief Note ---
Immediate Post Op Note v1 Date of Surgery July 09, 2022 Pre & Post Diagnosis Operation Date: 07/09/22 08:50 Pre-Op Diagnosis: Right Intertrochanteric Hip Fracture Post-Op Diagnosis: Right Intertrochanteric Hip Fracture I identified the patient and participated in the time-out.: Yes Procedure Operation Date: 07/09/22 08:50 Actual Procedures p Right Troch Nail(Right) - Juancho Mancia DO Surgeon Juancho Mancia, Vending Machine Attendant none Estimated Blood Loss 50 Findings Consistent with Post-Op Diagnosis see dictation Drains Holden Catheter Complications none
--- NOTE | 2022-07-09 12:38 | Operative Report ---
Post Operative Report Pre & Post Diagnosis Operation Date: 07/09/22 08:50 Pre-Op Diagnosis: Right Intertrochanteric Hip Fracture Post-Op Diagnosis: Right Intertrochanteric Hip Fracture I identified the patient and participated in the time-out.: Yes Procedure Operation Date: 07/09/22 08:50 Actual Procedures p Right Troch Nail(Right) - Juancho Mancia DO Surgeon Juancho Mancia DO Forex Trader none Estimated Blood Loss 50 Findings Consistent with Post-Op Diagnosis See dictation Specimens None Complications None Indications 67-year-old female presenting to [facility] after sustaining a ground-level fall onto her right hip. In the emergency department radiographs were obtained demonstrating a displaced right intertrochanteric femur fracture. She was admitted to medical service and orthopedics was consulted for operative management. I met with the patient preoperatively and we had a discussion regarding treatment of her right intertrochanteric femur fracture with a right hip cephalomedullary nail. Risk and benefits of surgical intervention were discussed include but are not limited to: Infection, neurovascular injury, DVT, nonunion, malunion, hardware failure and need for future surgery. After reviewing these she elected proceed with surgical intervention and written consent was obtained. Description of Procedure Implants: Synthes TFNA 10 mm x 170 mm 130 degree, 80 mm TFNA fenestrated lag screw, 5 mm x 28 mm*Drive locking screw Patient was appropriate identified in the preoperative holding area and the right lower extremity was marked. She was then taken to the operative suite where she received general anesthesia. She received antibiotics per protocol. She was transferred over to the manual fracture table. Using the assistance of C-arm fluoroscopy her fracture was reduced to near anatomic position. She was then prepped and draped in the standard orthopedic fashion a timeout was then performed. A 3 cm incision superior to the tip of the trochanter was then made with a scalpel and carried out down through the subcutaneous tissue and gluteal fascia. A threaded guidewire was then inserted into the tip of the greater trochanter and advanced into the medullary canal. Its position was confirmed on AP and lateral fluoroscopy. Canal opening reamer was then used to open the proximal canal. Canal was noted to be tight therefore a ball-tipped guidewire was inserted and a reamer was used to over ream to an 11.5 mm reamer to accommodate a 10 mm intramedullary nail. A 10 mm x 170 mm intramedullary nail was then inserted over the ball-tipped guidewire into the medullary canal. Guidewire was then removed. Proximal outrigger was then attached and incision was made through the skin subcutaneous tissue and IT band fascia for lag screw. Threaded guidewire was then inserted through the lateral cortex and advanced into the femoral head and a center center position just beneath the subchondral bone. Length was then measured and determined to be 80 mm. A lateral cortical reamer followed by a tapered reamer set to 80 mm was then used. A 80 mm fenestrated screw was then inserted over the guidewire the implant was then slightly compressed and locked statically at the proximal aspect. Guidewire was then removed as well as proximal outrigger. That demonstrated good reduction of the fracture and position of the implant. Attention was then turned to the distal interlock. Incision was made through the skin subcutaneous tissue and IT band fascia. Guide was then placed down to bone a drill was used to drill bicortically and a 28 mm locking screw was then placed. Final radiographs were then obtained demonstrating good reduction of the fracture as well as positioning of components. Wounds were then copiously irrigated using normal saline solution. Deep fascia was closed using 0 Vicryl suture. Subcutaneous tissues were then closed using 2-0 Vicryl suture followed by iesha for the skin. Sterile dressings of Xeroform 4 x 4 gauze and Tegaderm were then placed. Patient tolerated the procedure well and was taken the recovery room in hemodynamically stable condition. I attest to the content of the Intraoperative Record and any orders documented therein. Any exceptions are noted below.
[2022-07-09] MEDS ORDERED: SUGAMMADEX SODIUM 200 MG/2 ML VIAL IV ONE (12:46)
[2022-07-09] MEDS: fentaNYL citrate 100 MCG/2 ML VIAL IV PRN ×3 (12:51→13:01)
--- NOTE | 2022-07-09 13:02 | Fluoroscopy Report ---
INTRAOPERATIVE RADIOGRAPHS CLINICAL HISTORY: Open reduction and internal fixation of the right femur. Fluoroscopy time: 71 seconds. FINDINGS: 4 spot fluoroscopic views of the right femur are correlated with radiographs dated 07/07/20. Intertrochanteric and intramedullary nails have been placed transfixing an intertrochanteric frac ture. Near anatomic alignment is restored. There is persistent medial displacement of the lesser troc hanter. A single cortical lag screw transfixes the distal end of the intramedullary nail. IMPRESSION: Intraoperative images from open reduction and internal fixation of the right proximal fem ur as above. Electronically signed by: Alexis Russ M.D. 07/09/2022 1:00 PM
--- NOTE | 2022-07-09 13:24 | Anesthesiology Progress Note ---
Date of Service July 09, 2022 Anesthesia Post Procedure Vital Signs Vital Signs: Temp Pulse Pulse Resp BP Pulse Ox O2 Del Method 07/09/22 13:20 36.6 C 93 H 13 164/80 H 95 Nasal Cannula 07/09/22 13:10 102 H 15 154/86 H 96 Oxymask 07/09/22 13:00 102 H 22 165/82 H 98 Oxymask 07/09/22 12:50 111 H 22 132/76 100 Oxymask 07/09/22 12:43 36.2 C L 110 H 14 172/148 H 94 Oxymask 07/09/22 08:00 07/09/22 10:51 36.8 C 85 16 189/87 H 95 Nasal Cannula 07/09/22 07:37 82 16 96 Nasal Cannula 07/09/22 07:25 36.8 C 89 16 146/70 H 96 Nasal Cannula 07/08/22 22:00 36.7 C 79 16 145/73 H 99 Nasal Cannula 07/08/22 20:30 Nasal Cannula 07/08/22 19:36 85 20 98 Nasal Cannula 07/08/22 15:32 36.5 C 82 16 153/72 H 95 Nasal Cannula O2 Flow Rate 07/09/22 13:20 2 07/09/22 13:10 4 07/09/22 13:00 6 07/09/22 12:50 8 07/09/22 12:43 10 07/09/22 08:00 2 07/09/22 10:51 2 07/09/22 07:37 2 07/09/22 07:25 2 07/08/22 22:00 2 07/08/22 20:30 2 07/08/22 19:36 2 07/08/22 15:32 4 Pain Intensity Right Hip: Pain Intensity: 4 Transfer of Care Handoff Completed per policy Notes Mental Status: alert / awake / arousable Patient Amnestic to Procedure: Yes Nausea / Vomiting: adequately controlled Pain: adequately controlled Airway Patency, RR, SpO2: stable & adequate BP & HR: stable & adequate Hydration State: stable & adequate Anesthetic Complications: no major complications apparent and Pt Satisfied with anesthetic care
[2022-07-09] MEDS: ACETAMINOPHEN 325 MG TAB PO SCH ×3 (13:26→20:54)
[2022-07-09] MEDS: traMADol HCL 50 MG TABLET PO PRN (18:44)
[2022-07-10] MEDS: traMADol HCL 50 MG TABLET PO PRN ×4 (01:02→21:45)
[2022-07-10] MEDS: ACETAMINOPHEN 325 MG TAB PO SCH ×4 (03:28→20:35)
[2022-07-10 06:04] LABS: Basophils # (auto) 0.04 K/uL (0-0.2); Basophils % (auto) 0.4 %; Eosinophils # (auto) 0.04 K/uL (0-0.50); Eosinophils % (auto) 0.4 %; Hematocrit (blood only) 33.7 % (34.1-44.9); Hemoglobin 11.1 g/dl (12.0-16.0); Immature Granulocytes # (auto) 0.08 K/uL (0.00-0.02); Immature Granulocytes % (auto) 0.7 %; Lymphocytes # (auto) 1.18 K/uL (1.2-3.4); Lymphocytes % (auto) 10.7 %; Mean Corpuscular Hemoglobin 30.7 pg (25.0-34.0); Mean Corpuscular Hgb Conc 32.9 g/dL (32.0-36.0); Mean Corpuscular Volume 93.4 fL (80.0-100.0); Mean Platelet Volume 9.6 fL (9.4-12.3); Monocytes # (auto) 1.11 K/uL (0.24-0.82); Monocytes % (auto) 10.1 %; Neutrophils # (auto) 8.57 K/uL (1.4-6.5); Neutrophils % (auto) 77.7 %; Platelet Count 200 K/uL (130-400); RDW Coefficient of Variation 12.5 % (11.5-14.5); RDW Standard Deviation 43.5 fL (36.4-46.3); Red Blood Count 3.61 M/uL (3.93-5.22); White Blood Count 11.02 K/ul (4.8-10.8)
[2022-07-10 06:34] LABS: Calcium 8.8 mg/dl (8.5-10.1); Creatinine Clr Calc Pharmacy 46.4 ml/min; Est GFR (African American) 103.9 ml/min; Est GFR (Non-African American) 89.7 ml/min; Potassium 4.3 mmol/L (3.5-5.1)
[2022-07-10] MEDS: FORMOTEROL 20 MCG/2 ML VIAL INH SCH ×2 (07:57→20:49)
[2022-07-10] MEDS: BUDESONIDE 0.25 MG/2 ML VIAL (PULMICORT) INH SCH ×2 (07:57→20:49)
[2022-07-10] MEDS: guaiFENesin 600 MG TABCR PO SCH ×2 (09:00→20:37)
[2022-07-10] MEDS: FLUTICASONE PROPIONATE NA SPR 16 GM BTL SCH ×2 (09:00→20:36)
[2022-07-10] MEDS ORDERED: ERGOCALCIFEROL 50,000 UNITS 1250 MCG CAP PO SCH (09:00)
[2022-07-10] MEDS: APIXABAN 2.5 MG TAB PO SCH ×2 (09:01→20:37)
[2022-07-10] MEDS: ATORVASTATIN 10 MG TAB PO SCH (09:02)
[2022-07-10] MEDS: busPIRone 5 MG TAB PO SCH ×2 (09:02→20:36)
[2022-07-10] MEDS: FAMOTIDINE 20 MG TAB PO SCH ×2 (09:03→20:35)
[2022-07-10] MEDS: amLODIPine BESYLATE 5 MG TAB PO SCH (09:03)
[2022-07-10] MEDS: LORATADINE 10 MG TAB PO SCH (09:04)
[2022-07-10] MEDS: PANTOprazole 40 MG TAB PO SCH ×2 (09:04→20:36)
[2022-07-10] MEDS: UMECLIDINIUM BROMIDE 62.5MCG/BLISTER 7 PUFFS/INHALER INH SCH (09:07)
--- NOTE | 2022-07-10 09:48 | Orthopedic Progress Note ---
Date of Service July 10, 2022 Assessment & Plan (1) Closed intertrochanteric fracture of right hip: Plan: POD 1 s/p Right TFN PT/OT. 50% WB DVT prophylaxis - Apixaban bid, SCD's Pain management as written. DC planning - [facility] vs services depending on how well pt does with PT. Admission and Anticipated Discharge Date Admission Date: July 07, 2022 Subjective POD 1 Pt sitting in chair at bedside. OT present working with the patient currently. Pt without complaints this AM. Occupational therapist states patient is doing quite well. Pt states pain is controlled currently. Physical Exam Physical Exam: Dressings C/D/I. Calves soft, NT. NV intact. Toes mobile. Minimal swelling around dressings. Results & Data ([facility]) Vital Signs (Past 12 Hours) Vital Signs Temp Pulse Pulse Resp BP Pulse Ox O2 Del Method 07/10/22 07:57 87 16 98 Nasal Cannula 07/10/22 07:44 36.7 C 80 16 122/70 97 Nasal Cannula 07/10/22 03:28 36.8 C 88 16 120/66 97 Nasal Cannula 07/09/22 22:33 36.9 C 83 16 139/73 98 Nasal Cannula O2 Flow Rate 07/10/22 07:57 2 07/10/22 07:44 2 07/10/22 03:28 2 07/09/22 22:33 2 Laboratory Results Laboratory Results WBC 11.02 K/ul (4.8-10.8) H 07/10/22 05:34 RBC 3.61 M/uL (3.93-5.22) L 07/10/22 05:34 Hgb 11.1 g/dl (12.0-16.0) L 07/10/22 05:34 Hct 33.7 % (34.1-44.9) L 07/10/22 05:34 MCV 93.4 fL (80.0-100.0) 07/10/22 05:34 MCH 30.7 pg (25.0-34.0) 07/10/22 05:34 MCHC 32.9 g/dL (32.0-36.0) 07/10/22 05:34 RDW Std Deviation 43.5 fL (36.4-46.3) 07/10/22 05:34 RDW Coeff of Millicent 12.5 % (11.5-14.5) 07/10/22 05:34 Plt Count 200 K/uL (130-400) 07/10/22 05:34 MPV 9.6 fL (9.4-12.3) 07/10/22 05:34 Immature Gran % (Auto) 0.7 % 07/10/22 05:34 Neut % (Auto) 77.7 % 07/10/22 05:34 Lymph % (Auto) 10.7 % 07/10/22 05:34 [place] % (Auto) 10.1 % 07/10/22 05:34 Eos % (Auto) 0.4 % 07/10/22 05:34 Baso % (Auto) 0.4 % 07/10/22 05:34 Neut # (Auto) 8.57 K/uL (1.4-6.5) H 07/10/22 05:34 Lymph # (Auto) 1.18 K/uL (1.2-3.4) L 07/10/22 05:34 [place] # (Auto) 1.11 K/uL (0.24-0.82) H 07/10/22 05:34 Eos # (Auto) 0.04 K/uL (0-0.50) 07/10/22 05:34 Baso # (Auto) 0.04 K/uL (0-0.2) 07/10/22 05:34 Immature Gran # (Auto) 0.08 K/uL (0.00-0.02) H 07/10/22 05:34 PT 11.5 Seconds (9.0-12.0) 07/07/22 21:28 INR 1.1 (0.9-1.1) 07/07/22 21:28 APTT 24.0 Seconds (21.0-31.0) 07/07/22 21:28 PTT Ratio 0.9 07/07/22 21:28 Sodium 135 mmol/L (136-145) L 07/10/22 05:34 Potassium 4.3 mmol/L (3.5-5.1) 07/10/22 05:34 Chloride 101 mmol/L (98-107) 07/10/22 05:34 Carbon Dioxide 30 mmol/L (21-32) 07/10/22 05:34 Anion Gap 4 (3-11) 07/10/22 05:34 BUN 14 mg/dl (6-23) 07/10/22 05:34 Creatinine 0.70 mg/dl (0.6-1.2) 07/10/22 05:34 Est Cr Clr Drug Dosing 46.4 ml/min 07/10/22 05:34 Est GFR ( Amer) 103.9 ml/min 07/10/22 05:34 Est GFR (Non-Af Amer) 89.7 ml/min 07/10/22 05:34 BUN/Creatinine Ratio 20.0 (10-20) 07/10/22 05:34 Glucose 101 mg/dl (70-99(Fasting)) H 07/10/22 05:34 Calcium 8.8 mg/dl (8.5-10.1) 07/10/22 05:34 Magnesium 1.7 mg/dl (1.7-2.4) 07/08/22 05:52 Total Bilirubin 0.4 mg/dl (0.2-1.0) 07/07/22 21:28 AST 13 U/L (13-39) 07/07/22 21:28 ALT 7 U/L (7-52) 07/07/22 21:28 Alkaline Phosphatase 54 U/L (34-104) 07/07/22 21:28 Troponin I High Sens 3.1 pg/ml (0-14) 07/07/22 21:28 Total Protein 6.4 gm/dl (6.0-8.3) 07/07/22 21:28 Albumin 4.1 gm/dl (3.4-5.0) 07/07/22 21:28 Globulin 2.3 gm/dl (2.5-4.0) L 07/07/22 21:28 Albumin/Globulin Ratio 1.8 (0.9-2) 07/07/22 21:28 Lipase 35 U/L (11-82) 07/07/22 21:28 25-OH Vitamin D Total < 7.0 ng/ml (30-100) L 07/10/22 05:34 SARS-CoV-2, RNA, NAAT NEGATIVE (NEGATIVE) 07/07/22 21:30 Impressions Hip/Pelvis X-Ray 07/07/22 21:12 SINGLE VIEW PELVIS; 2 VIEWS RIGHT HIP CLINICAL HISTORY: Fall. Right hip injury. FINDINGS: An AP the pelvis and AP and crosstable lateral views of the right hip are correlated with pelvic CT dated 04/30/2021. The skeletal structures are osteopenic. There is a comminuted and angulated intertrochanteric fracture of th e right proximal femur. There is medial displacement of the lesser trochanter. Overlying soft tissue edema is noted. No additional fracture is seen involving the left hip or the bony pelvis. Mild arthritic change and joint space narrowing is seen in the hips. IMPRESSION: Intertrochanteric fracture of the right proximal femur as above. Electronically signed by: Alexis Russ M.D. 07/08/2022 7:57 AM Hip X-Ray 07/09/22 00:00 INTRAOPERATIVE RADIOGRAPHS CLINICAL HISTORY: Open reduction and internal fixation of the right femur. Fluoroscopy time: 71 seconds. FINDINGS: 4 spot fluoroscopic views of the right femur are correlated with radiographs dated 07/07/2022. Intertrochanteric and intramedullary nails have been placed transfixing an intertrochanteric fracture. Near anatomic alignment is restored. There is persistent medial displacement of the lesser trochanter. A single cortical lag screw transfixes the distal end of the intramedullary nail. IMPRESSION: Intraoperative images from open reduction and internal fixation of the right proximal femur as above. Electronically signed by: Alexis Russ M.D. 07/09/2022 1:00 PM (1) Closed intertrochanteric fracture of right hip Encounter type: initial encounter Fracture alignment: displaced Qualified Code(s): S72.141A - Displaced intertrochanteric fracture of right femur, initial encounter for closed fracture
--- NOTE | 2022-07-10 13:01 | Hospitalist Progress Note ---
Date of Service July 10, 2022 Assessment & Plan (1) Closed intertrochanteric fracture of right hip: (2) Fall: Plan: Patient had a mechanical fall at home Hip XR noted Right proximal femor intertrochanteric fracture S/p Right troch nail POD#1 Continue scheduled tylenol and prn tramadol PT/OT eval Currently on eliquis 2.5mg bid for DVT ppx. Educated about this Avoid NSAIDS while on eliquis Remove hernadez Vitamin D deficiency Vit D is <7 Started on Vit D 50,000U weekly Patient needs to follow up with PCP who will recheck in some weeks (3) HTN (hypertension): Plan: Continue amlodipine home dose for now. BP is controlled (4) GERD (gastroesophageal reflux disease): Plan: Continue PPI (5) Chronic obstructive pulmonary disease: Plan: Continue home inhalers. Continue oxygen supplementation At baseline 2L NC. DVT ppx- Eliquis Admission and Anticipated Discharge Date Admission Date: July 07, 2022 Subjective Patient seen and examined S/p Right troch nail yesterday Reports pain is well controlled on tylenol and tramadol Denied nausea, vomiting, abd pain, diarrhea Yet to move her bowel Denied cough, chest pain, shortness of breath at rest, palpitations. Has chronic exertional dyspnea Denied fever, chills Physical Exam Constitutional: + well hydrated and + thin; no acute distress Eyes: PERRL, conjunctivae normal, anicteric sclerae ENMT: external ear and nose normal, oropharynx normal Respiratory: normal respiratory effort; no respiratory distress Auscultation: + diminished lung sounds Cardiovascular: Rate/Rhythm: regular rate and regular rhythm S1 S2 Gastrointestinal (Abdomen): normal bowel sounds, soft, nontender, no hepatosplenomegaly Musculoskeletal: Clean dressing over surgical site Neurologic: PERRL, EOMI, accommodation nl, no face palsy, no dysarthria Psychiatric: A+Ox3, euthymic affect Genitourinary: Hernadez in situ Results & Data Results & Data ([facility]) Vital Signs (Past 12 Hours) Vital Signs Temp Pulse Pulse Resp BP Pulse Ox Pulse Ox 07/10/22 12:22 97 07/10/22 11:09 36.6 C 77 16 106/63 97 07/10/22 09:05 07/10/22 07:57 87 16 98 07/10/22 07:44 36.7 C 80 16 122/70 97 07/10/22 03:28 36.8 C 88 16 120/66 97 O2 Del Method O2 Flow Rate O2 Flow Rate 07/10/22 12:22 2 07/10/22 11:09 Nasal Cannula 2 07/10/22 09:05 Nasal Cannula 2 07/10/22 07:57 Nasal Cannula 2 07/10/22 07:44 Nasal Cannula 2 07/10/22 03:28 Nasal Cannula 2 Laboratory Results Abnormal lab results 07/10/22 07/10/22 07/10/22 Range/Units 05:34 05:34 05:34 WBC 11.02 H (4.8-10.8) K/ul RBC 3.61 L (3.93-5.22) M/uL Hgb 11.1 L (12.0-16.0) g/dl Hct 33.7 L (34.1-44.9) % Neut # (Auto) 8.57 H (1.4-6.5) K/uL Lymph # (Auto) 1.18 L (1.2-3.4) K/uL [place] # (Auto) 1.11 H (0.24-0.82) K/uL Immature Gran # (Auto) 0.08 H (0.00-0.02) K/uL Sodium 135 L (136-145) mmol/L Glucose 101 H (70-99(Fasting)) mg/dl 25-OH Vitamin D Total < 7.0 L (30-100) ng/ml (1) Chronic obstructive pulmonary disease COPD type: unspecified COPD Qualified Code(s): J44.9 - Chronic obstructive pulmonary disease, unspecified (2) Fall Encounter type: initial encounter Qualified Code(s): W19.XXXA - Unspecified fall, initial encounter (3) Closed intertrochanteric fracture of right hip Encounter type: initial encounter Fracture alignment: displaced Qualified Code(s): S72.141A - Displaced intertrochanteric fracture of right femur, initial encounter for closed fracture
[2022-07-11] MEDS: ACETAMINOPHEN 325 MG TAB PO SCH ×4 (04:35→21:08)
[2022-07-11 06:15] LABS: Hematocrit (blood only) 31.5 % (34.1-44.9); Hemoglobin 10.4 g/dl (12.0-16.0); Mean Corpuscular Hemoglobin 30.4 pg (25.0-34.0); Mean Corpuscular Volume 92.1 fL (80.0-100.0); Mean Platelet Volume 9.5 fL (9.4-12.3); Platelet Count 191 K/uL (130-400); RDW Coefficient of Variation 12.8 % (11.5-14.5); RDW Standard Deviation 43.4 fL (36.4-46.3); Red Blood Count 3.42 M/uL (3.93-5.22); White Blood Count 8.29 K/ul (4.8-10.8)
[2022-07-11 06:38] LABS: BUN Creatinine Ratio 31.8 (10-20); Calcium 8.5 mg/dl (8.5-10.1); Creatinine Clr Calc Pharmacy 49.2 ml/min; Est GFR (African American) 105.9 ml/min; Est GFR (Non-African American) 91.4 ml/min; Potassium 4.4 mmol/L (3.5-5.1)
[2022-07-11] MEDS: BUDESONIDE 0.25 MG/2 ML VIAL (PULMICORT) INH SCH ×2 (07:26→20:18)
[2022-07-11] MEDS: FORMOTEROL 20 MCG/2 ML VIAL INH SCH ×2 (07:27→20:18)
[2022-07-11] MEDS: APIXABAN 2.5 MG TAB PO SCH ×2 (08:56→21:09)
[2022-07-11] MEDS: FAMOTIDINE 20 MG TAB PO SCH ×2 (08:57→21:08)
[2022-07-11] MEDS: busPIRone 5 MG TAB PO SCH ×2 (08:57→21:08)
[2022-07-11] MEDS: ATORVASTATIN 10 MG TAB PO SCH (08:57)
[2022-07-11] MEDS: LORATADINE 10 MG TAB PO SCH (08:58)
[2022-07-11] MEDS: guaiFENesin 600 MG TABCR PO SCH ×2 (08:58→21:08)
[2022-07-11] MEDS: FLUTICASONE PROPIONATE NA SPR 16 GM BTL SCH ×2 (08:58→21:09)
[2022-07-11] MEDS: UMECLIDINIUM BROMIDE 62.5MCG/BLISTER 7 PUFFS/INHALER INH SCH (08:59)
[2022-07-11] MEDS: PANTOprazole 40 MG TAB PO SCH ×2 (08:59→21:08)
[2022-07-11] MEDS: traMADol HCL 50 MG TABLET PO PRN ×2 (09:03→15:43)
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
[2022-07-11] MEDS: amLODIPine BESYLATE 5 MG TAB PO SCH (10:04)
[2022-07-11] MEDS: DOCUSATE SODIUM/SENNA 50/8.6MG TAB PO SCH (10:41)
[2022-07-11] MEDS: POLYETHYLENE (MIRALAX) 17 GM PACK PO SCH (10:41)
--- NOTE | 2022-07-11 11:11 | Hospitalist Progress Note ---
Date of Service July 11, 2022 Assessment & Plan (1) Closed intertrochanteric fracture of right hip: (2) Fall: Plan: Patient had a mechanical fall at home Hip XR noted Right proximal femor intertrochanteric fracture S/p Right troch nail POD#2 Continue scheduled tylenol and prn tramadol PT/OT eval - rehab recommended Currently on eliquis 2.5mg bid for DVT ppx. Avoid NSAIDS while on eliquis Vitamin D deficiency Vit D is <7 Was started on Vit D 50,000U weekly on 07/10/22 Patient needs to follow up with PCP who will recheck in some weeks (3) HTN (hypertension): Plan: Continue amlodipine home dose for now. BP is controlled (4) GERD (gastroesophageal reflux disease): Plan: Continue PPI (5) Chronic obstructive pulmonary disease: Plan: Continue home inhalers. Continue oxygen supplementation At baseline 2L NC. DVT ppx- Eliquis CM working on dispo Admission and Anticipated Discharge Date Admission Date: July 07, 2022 Subjective Patient seen and examined Pain is controlled Denied nausea, vomiting, abd pain, diarrhea Reports constipation Denied cough, chest pain, shortness of breath at rest, palpitations. Has chronic exertional dyspnea Denied fever, chills Physical Exam Constitutional: + well hydrated and + thin; no acute distress Eyes: PERRL, conjunctivae normal, anicteric sclerae ENMT: external ear and nose normal, oropharynx normal Respiratory: normal respiratory effort; no respiratory distress Auscultation: + diminished lung sounds Cardiovascular: Rate/Rhythm: regular rate and regular rhythm S1 S2 Gastrointestinal (Abdomen): normal bowel sounds, soft, nontender, no hepatosplenomegaly Musculoskeletal: Clean dressing over surgical site Neurologic: PERRL, EOMI, accommodation nl, no face palsy, no dysarthria Psychiatric: A+Ox3, euthymic affect Results & Data Results & Data ([facility]) Vital Signs (Past 12 Hours) Vital Signs Temp Pulse Resp BP Pulse Ox O2 Del Method O2 Flow Rate 07/11/22 08:55 114/64 07/11/22 07:40 36.8 C 86 16 110/68 95 Nasal Cannula 2 07/11/22 07:28 90 18 92 Nasal Cannula 2 Laboratory Results Abnormal lab results 07/11/22 07/11/22 Range/Units 06:01 06:01 RBC 3.42 L (3.93-5.22) M/uL Hgb 10.4 L (12.0-16.0) g/dl Hct 31.5 L (34.1-44.9) % Sodium 135 L (136-145) mmol/L BUN/Creatinine Ratio 31.8 H (10-20) (1) Closed intertrochanteric fracture of right hip Encounter type: initial encounter Fracture alignment: displaced Qualified Code(s): S72.141A - Displaced intertrochanteric fracture of right femur, initial encounter for closed fracture (2) Fall Encounter type: initial encounter Qualified Code(s): W19.XXXA - Unspecified fall, initial encounter (3) Chronic obstructive pulmonary disease COPD type: unspecified COPD Qualified Code(s): J44.9 - Chronic obstructive pulmonary disease, unspecified
--- NOTE | 2022-07-11 11:40 | XRay Report ---
XR knee RT 1 or 2V routine HISTORY: 67 years-old Female Right knee pain, fall acute pain of the right knee status post fall COMPARISON: None TECHNIQUE: 2 views of the right knee FINDINGS: Demineralized appearance of the bones. No acute fracture, dislocation, osseous erosion or significant joint space narrowing. Subcentimeter calcification projects over the posterior intercondylar tissues . Mild soft tissue swelling within the suprapatellar tissues. IMPRESSION: No acute fracture or dislocation. ACT 112: Negative or not required by law. The above report was generated using voice recognition software. It may contain grammatical, syntax o r spelling errors. Electronically signed by: Juancho Rosario M.D. 07/11/2022 11:39 AM
[2022-07-12] MEDS: traMADol HCL 50 MG TABLET PO PRN ×3 (00:41→22:29)
[2022-07-12] MEDS: ACETAMINOPHEN 325 MG TAB PO SCH ×4 (03:19→20:59)
[2022-07-12] MEDS: BUDESONIDE 0.25 MG/2 ML VIAL (PULMICORT) INH SCH ×2 (07:41→19:22)
[2022-07-12] MEDS: FORMOTEROL 20 MCG/2 ML VIAL INH SCH ×2 (07:41→19:22)
[2022-07-12] MEDS: PANTOprazole 40 MG TAB PO SCH ×2 (08:31→21:00)
[2022-07-12] MEDS: guaiFENesin 600 MG TABCR PO SCH ×2 (08:32→20:59)
[2022-07-12] MEDS: LORATADINE 10 MG TAB PO SCH (08:32)
[2022-07-12] MEDS: FAMOTIDINE 20 MG TAB PO SCH ×2 (08:32→21:00)
[2022-07-12] MEDS: APIXABAN 2.5 MG TAB PO SCH ×2 (08:33→20:59)
[2022-07-12] MEDS: busPIRone 5 MG TAB PO SCH ×2 (08:33→21:00)
[2022-07-12] MEDS: ATORVASTATIN 10 MG TAB PO SCH (08:33)
[2022-07-12] MEDS: DOCUSATE SODIUM/SENNA 50/8.6MG TAB PO SCH (08:33)
[2022-07-12] MEDS: UMECLIDINIUM BROMIDE 62.5MCG/BLISTER 7 PUFFS/INHALER INH SCH (08:34)
[2022-07-12] MEDS: amLODIPine BESYLATE 5 MG TAB PO SCH (08:34)
[2022-07-12] MEDS: FLUTICASONE PROPIONATE NA SPR 16 GM BTL SCH ×2 (08:35→20:59)
[2022-07-12] MEDS: POLYETHYLENE (MIRALAX) 17 GM PACK PO SCH ×2 (08:35→18:49)
[2022-07-12] MEDS: ONDANSETRON INJ 2 MG/ML 2 ML VIAL IV PRN (10:55)
--- NOTE | 2022-07-12 11:14 | Hospitalist Progress Note ---
Date of Service July 12, 2022 Assessment & Plan (1) Closed intertrochanteric fracture of right hip: (2) Fall: Plan: Patient had a mechanical fall at home Hip XR noted Right proximal femor intertrochanteric fracture S/p Right troch nail POD#3 Continue scheduled tylenol and prn tramadol PT/OT eval - rehab recommended Currently on eliquis 2.5mg bid for DVT ppx. Avoid NSAIDS while on eliquis Continue bowel regimen Vitamin D deficiency Vit D is <7 Was started on Vit D 50,000U weekly on 07/10/22 Patient needs to follow up with PCP who will recheck in some weeks (3) HTN (hypertension): Plan: Continue amlodipine home dose for now. BP is controlled (4) GERD (gastroesophageal reflux disease): Plan: Continue PPI (5) Chronic obstructive pulmonary disease: Plan: Continue home inhalers. Continue oxygen supplementation At baseline 2L NC. DVT ppx- Eliquis CM working on placement Medically stable for discharge Admission and Anticipated Discharge Date Admission Date: July 07, 2022 Subjective Patient seen and examined Pain is well controlled Denied nausea, vomiting, abd pain, diarrhea at this time Reports constipation since surgery. Passing flatus Denied cough, chest pain, shortness of breath at rest, palpitations. Has chronic exertional dyspnea Denied fever, chills Physical Exam Constitutional: + well hydrated and + thin; no acute distress Eyes: PERRL, conjunctivae normal, anicteric sclerae ENMT: external ear and nose normal, oropharynx normal Respiratory: normal respiratory effort; no respiratory distress Auscultation: + diminished lung sounds Cardiovascular: Rate/Rhythm: regular rate and regular rhythm S1 S2 Gastrointestinal (Abdomen): normal bowel sounds, soft, nontender, no hepatosplenomegaly Musculoskeletal: No pedal edema Neurologic: PERRL, EOMI, accommodation nl, no face palsy, no dysarthria Psychiatric: A+Ox3, euthymic affect Results & Data Results & Data ([facility]) Vital Signs (Past 12 Hours) Vital Signs Temp Pulse Resp BP Pulse Ox O2 Del Method O2 Flow Rate 07/12/22 08:55 36.3 C L 91 H 16 125/65 93 Nasal Cannula 2 07/12/22 07:41 99 H 16 Nasal Cannula 2 07/12/22 07:33 36.7 C 91 H 16 129/72 93 Nasal Cannula 2 (1) Closed intertrochanteric fracture of right hip Encounter type: initial encounter Fracture alignment: displaced Qualified Code(s): S72.141A - Displaced intertrochanteric fracture of right femur, initial encounter for closed fracture (2) Fall Encounter type: initial encounter Qualified Code(s): W19.XXXA - Unspecified fall, initial encounter (3) Chronic obstructive pulmonary disease COPD type: unspecified COPD Qualified Code(s): J44.9 - Chronic obstructive pulmonary disease, unspecified
[2022-07-13] MEDS: ACETAMINOPHEN 325 MG TAB PO SCH ×3 (03:18→15:14)
[2022-07-13] MEDS: traMADol HCL 50 MG TABLET PO PRN ×2 (05:23→12:26)
[2022-07-13] MEDS: BUDESONIDE 0.25 MG/2 ML VIAL (PULMICORT) INH SCH (07:17)
[2022-07-13] MEDS: FORMOTEROL 20 MCG/2 ML VIAL INH SCH (07:17)
[2022-07-13] MEDS: ONDANSETRON INJ 2 MG/ML 2 ML VIAL IV PRN (08:43)
[2022-07-13] MEDS: UMECLIDINIUM BROMIDE 62.5MCG/BLISTER 7 PUFFS/INHALER INH SCH (10:02)
[2022-07-13] MEDS: FLUTICASONE PROPIONATE NA SPR 16 GM BTL SCH (10:03)
[2022-07-13] MEDS: FAMOTIDINE 20 MG TAB PO SCH (10:03)
[2022-07-13] MEDS: DOCUSATE SODIUM/SENNA 50/8.6MG TAB PO SCH (10:04)
[2022-07-13] MEDS: PANTOprazole 40 MG TAB PO SCH (10:04)
[2022-07-13] MEDS: guaiFENesin 600 MG TABCR PO SCH (10:04)
[2022-07-13] MEDS: APIXABAN 2.5 MG TAB PO SCH (10:05)
[2022-07-13] MEDS: ATORVASTATIN 10 MG TAB PO SCH (10:05)
[2022-07-13] MEDS: busPIRone 5 MG TAB PO SCH (10:05)
[2022-07-13] MEDS: LORATADINE 10 MG TAB PO SCH (10:06)
[2022-07-13] MEDS: amLODIPine BESYLATE 5 MG TAB PO SCH (10:06)
[2022-07-13] MEDS: POLYETHYLENE (MIRALAX) 17 GM PACK PO SCH (10:08)
--- NOTE | 2022-07-13 16:49 | Discharge Summary ---
Date of Service July 13, 2022 Admission HPI Per Admitting Provider A 67-year-old female with past medical history significant for hyperlipidemia, COPD, chronic respiratory failure on 2 liters home oxygen, allergic rhinitis, history of multiple lung nodules, hypertension, aortic valve sclerosis, severe protein calorie malnutrition, GERD, irritable bowel syndrome with diarrhea, history of iron deficiency, osteoporosis, history of compression fracture of L3 vertebrae, low vitamin B12, history of tobacco use, history of generalized anxiety, who lives at home with her , comes with a fall. The patient says she was trying to move a stool and she fell on the right side and could not get up. Did not hit her head, no loss of consciousness,says it was mechanical fall. Denies any chest pain, no shortness of breath. She has chronic cough, no headache, no blurred visions, no earache, no runny nose. She has some sore throat for the last couple of weeks on and off. Appetite is okay. No difficulty swallowing. No nausea, no vomiting, no abdominal pain. She gets sometimes diarrhea. Denies any blood in the stools. Normal bladder movements. No swelling in the legs. She ambulates with a cane and she says she could not ambulate much because of her respiratory issues. Admission Exam Per Admitting Provider GENERAL: The patient is thin and frail, not in acute distress. VITAL SIGNS: Temperature 36.9, pulse 88, respiratory rate 18, blood pressure 161/85, oxygen 97% on room air. HEENT: Pupils equal, round and reactive to light. Oral mucosa dry. NECK: No JVD, no neck masses. CARDIOVASCULAR: S1 and S2 heard. Regular rate and rhythm. No murmur, no gallop. RESPIRATORY SYSTEM: Normal AP diameter. No accessory muscle use. No wheezing, no crackles. ABDOMEN: Soft, bowel sounds present, nontender, no distention. CENTRAL NERVOUS SYSTEM: Alert and oriented. Speech is clear. No facial droop. Insight is okay. Obeys simple commands. EXTREMITIES: Moves upper extremities. Right lower extremity is shortened and externally rotated, and painful movements. No edema or erythema seen. Principal Diagnosis Intertrochanteric fracture of right proximal femur Discharge Exam Constitutional + thin; no acute distress Respiratory normal respiratory effort, lungs clear to auscultation Cardiovascular Rate/Rhythm: regular rate and regular rhythm Vessels: normal peripheral pulses Extremities: no edema Gastrointestinal (Abdomen) Percussion/Palpation: abdomen soft; abdomen nontender Musculoskeletal S/p right hip surgery, dressing CDI, CSM checks intact to RLE Skin no rashes, warm and dry Neurologic no focal motor deficits Psychiatric A+Ox3, euthymic affect Discharge Data Allergies Allergy/AdvReac Type Severity Reaction Status Date / Time latex Allergy Intermediate blisters Verified 07/07/22 22:27 amoxicillin AdvReac Intermediate DIARRHEA Verified 07/07/22 22:27 lisinopril AdvReac Intermediate hyperkalemi Verified 07/07/22 23:17 a levofloxacin AdvReac Mild Erythema Verified 07/07/22 22:27 at IV site Consultations 07/08/22 08:00 Consult Orthopedic Surgery Routine Procedures Performed Operation Date: 07/09/22 08:50 Actual Procedures p Right Troch Nail(Right) - Juancho Mancia DO Ordered Studies Laboratory Results WBC 8.29 K/ul (4.8-10.8) 07/11/22 06:01 RBC 3.42 M/uL (3.93-5.22) L 07/11/22 06:01 Hgb 10.4 g/dl (12.0-16.0) L 07/11/22 06:01 Hct 31.5 % (34.1-44.9) L 07/11/22 06:01 MCV 92.1 fL (80.0-100.0) 07/11/22 06:01 MCH 30.4 pg (25.0-34.0) 07/11/22 06:01 MCHC 33.0 g/dL (32.0-36.0) 07/11/22 06:01 RDW Std Deviation 43.4 fL (36.4-46.3) 07/11/22 06:01 RDW Coeff of Millicent 12.8 % (11.5-14.5) 07/11/22 06:01 Plt Count 191 K/uL (130-400) 07/11/22 06:01 MPV 9.5 fL (9.4-12.3) 07/11/22 06:01 Immature Gran % (Auto) 0.7 % 07/10/22 05:34 Neut % (Auto) 77.7 % 07/10/22 05:34 Lymph % (Auto) 10.7 % 07/10/22 05:34 [place] % (Auto) 10.1 % 07/10/22 05:34 Eos % (Auto) 0.4 % 07/10/22 05:34 Baso % (Auto) 0.4 % 07/10/22 05:34 Neut # (Auto) 8.57 K/uL (1.4-6.5) H 07/10/22 05:34 Lymph # (Auto) 1.18 K/uL (1.2-3.4) L 07/10/22 05:34 Win[place] # (Auto) 1.11 K/uL (0.24-0.82) H 07/10/22 05:34 Eos # (Auto) 0.04 K/uL (0-0.50) 07/10/22 05:34 Baso # (Auto) 0.04 K/uL (0-0.2) 07/10/22 05:34 Immature Gran # (Auto) 0.08 K/uL (0.00-0.02) H 07/10/22 05:34 PT 11.5 Seconds (9.0-12.0) 07/07/22 21:28 INR 1.1 (0.9-1.1) 07/07/22 21:28 APTT 24.0 Seconds (21.0-31.0) 07/07/22 21:28 PTT Ratio 0.9 07/07/22 21:28 Sodium 135 mmol/L (136-145) L 07/11/22 06:01 Potassium 4.4 mmol/L (3.5-5.1) 07/11/22 06:01 Chloride 100 mmol/L (98-107) 07/11/22 06:01 Carbon Dioxide 31 mmol/L (21-32) 07/11/22 06:01 Anion Gap 4 (3-11) 07/11/22 06:01 BUN 21 mg/dl (6-23) 07/11/22 06:01 Creatinine 0.66 mg/dl (0.6-1.2) 07/11/22 06:01 Est Cr Clr Drug Dosing 49.2 ml/min 07/11/22 06:01 Est GFR ( Amer) 105.9 ml/min 07/11/22 06:01 Est GFR (Non-Af Amer) 91.4 ml/min 07/11/22 06:01 BUN/Creatinine Ratio 31.8 (10-20) H 07/11/22 06:01 Glucose 87 mg/dl (70-99(Fasting)) 07/11/22 06:01 Calcium 8.5 mg/dl (8.5-10.1) 07/11/22 06:01 Magnesium 1.7 mg/dl (1.7-2.4) 07/08/22 05:52 Total Bilirubin 0.4 mg/dl (0.2-1.0) 07/07/22 21:28 AST 13 U/L (13-39) 07/07/22 21:28 ALT 7 U/L (7-52) 07/07/22 21:28 Alkaline Phosphatase 54 U/L (34-104) 07/07/22 21:28 Troponin I High Sens 3.1 pg/ml (0-14) 07/07/22 21:28 Total Protein 6.4 gm/dl (6.0-8.3) 07/07/22 21:28 Albumin 4.1 gm/dl (3.4-5.0) 07/07/22 21:28 Globulin 2.3 gm/dl (2.5-4.0) L 07/07/22 21:28 Albumin/Globulin Ratio 1.8 (0.9-2) 07/07/22 21:28 Lipase 35 U/L (11-82) 07/07/22 21:28 25-OH Vitamin D Total < 7.0 ng/ml (30-100) L 07/10/22 05:34 SARS-CoV-2, RNA, NAAT NEGATIVE (NEGATIVE) 07/13/22 11:15 Impressions Chest X-Ray 07/07/22 21:12 SINGLE VIEW CHEST CLINICAL HISTORY: Atypical chest pain. Fall. FINDINGS: An AP, portable, supine chest radiograph is compared to chest x-ray and chest CT dated 02/05/2022. The examination is degraded by portable technique and patient rotation. The top normal for projection noting atherosclerotic calcification of the thoracic aorta. Advanced emphysema and chronic interstitial thickening is similar to previous. No airspace consolidation or pleural effusion is identified. Foci of parenchymal scarring are seen throughout both lungs. Small pulmonary nodules seen by CT are not apparent on x-ray. Apical pleural- parenchymal change is observed. Nipple shadows project over the lower lobes. No pneumothorax is seen. The skeletal structures are osteopenic. The bony thorax is grossly intact. IMPRESSION: Advanced emphysema with no acute cardiopulmonary abnormality identified. ACT 112: Negative or not required by law. Electronically signed by: Alexis Russ M.D. 07/08/2022 7:52 AM Hip/Pelvis X-Ray 07/07/22 21:12 SINGLE VIEW PELVIS; 2 VIEWS RIGHT HIP CLINICAL HISTORY: Fall. Right hip injury. FINDINGS: An AP the pelvis and AP and crosstable lateral views of the right hip are correlated with pelvic CT dated 04/30/2021. The skeletal structures are osteopenic. There is a comminuted and angulated intertrochanteric fracture of the right proximal femur. There is medial displacement of the lesser trochanter. Overlying soft tissue edema is noted. No additional fracture is seen involving the left hip or the bony pelvis. Mild arthritic change and joint space narrowing is seen in the hips. IMPRESSION: Intertrochanteric fracture of the right proximal femur as above. Electronically signed by: Alexis Russ M.D. 07/08/2022 7:57 AM Hip X-Ray 07/09/22 00:00 INTRAOPERATIVE RADIOGRAPHS CLINICAL HISTORY: Open reduction and internal fixation of the right femur. Fluoroscopy time: 71 seconds. FINDINGS: 4 spot fluoroscopic views of the right femur are correlated with radiographs dated 07/07/2022. Intertrochanteric and intramedullary nails have been placed transfixing an intertrochanteric fracture. Near anatomic alignment is restored. There is persistent medial displacement of the lesser trochanter. A single cortical lag screw transfixes the distal end of the intramedullary nail. IMPRESSION: Intraoperative images from open reduction and internal fixation of the right proximal femur as above. Electronically signed by: Alexis Russ M.D. 07/09/2022 1:00 PM Knee X-Ray 07/11/22 11:07 XR knee RT 1 or 2V routine HISTORY: 67 years-old Female Right knee pain, fall acute pain of the right knee status post fall COMPARISON: None TECHNIQUE: 2 views of the right knee FINDINGS: Demineralized appearance of the bones. No acute fracture, dislocation, osseous erosion or significant joint space narrowing. Subcentimeter calcification projects over the posterior intercondylar tissues. Mild soft tissue swelling within the suprapatellar tissues. IMPRESSION: No acute fracture or dislocation. ACT 112: Negative or not required by law. The above report was generated using voice recognition software. It may contain grammatical, syntax or spelling errors. Electronically signed by: Juancho Rosario M.D. 07/11/2022 11:39 AM Hospital Course (1) Closed intertrochanteric fracture of right hip: (2) Fall: Patient had a mechanical fall at home Hip XR noted intertrochanteric fracture of the right proximal femur S/p right trochanteric nailing on 07/[address] Mancia Will need Eliquis 2.5 mg twice daily for DVT prophylaxis x 4 weeks Pain control with bowel regimen (3) Age-related osteoporosis with current pathological fracture: Vitamin D deficiency Vit D is <7 Was started on Vit D 50,000U weekly on 07/10/22 Follow-up vitamin D level (4) HTN (hypertension): BP controlled, home dose amlodipine continued (5) GERD (gastroesophageal reflux disease): Continue PPI (6) Chronic obstructive pulmonary disease: Continue home inhalers. Continue oxygen supplementation At baseline 2L NC. (7) Severe protein-calorie malnutrition: Recommend benefits manager evaluation, consider nutritional supplement Total Time Total Time Spent Total Time Spent (In Minutes): 40 Discharge Plan Discharge Items Patient Disposition: Transfer [facility] Reason For Visit: Fall, Right Hip Pain Discharge Diagnosis: Right Intertrochanteric Hip Fracture Activity: Per Instructions section Weightbearing: Right partial Weightbearing Comment: 50% weightbearing with walker Non-emergency contact: Primary Care Provider and Surgeon Call non-emergency contact if: you have any medication questions, your pain is not controlled, you have a fever, your wound has increased redness and your wound has increased drainage Follow-up/Referrals: Ana Park MD [Primary Care Provider] - Juancho Mancia DO [Surgeon] - (Follow up with Dr Mancia in 2 weeks from the day of your surgery for your first post operative visit) Diet: Regular Addtl Attending Provider Instructions: Patient presented with fall and right hip pain. Found to have intertrochanteric fracture of the right proximal femur. S/p right trochanteric nailing on 07/[address] Mancia. Take Eliquis 2.5 mg twice daily until 12/24 for DVT prophylaxis Patient was also started on vitamin D replacement with 50,000 units weekly. Recommend continuing for an additional 7 weeks, take on Saturdays. Please note Ortho discharge instructions as below. Addtl Inserting Operator Provider Instructions: [facility] DISCHARGE INSTRUCTIONS: HIP FRACTURE SELF CARE INSTRUCTIONS: A. You are to ambulate with a walker or crutches for approximately 6 weeks. B. You are PARTIAL WEIGHT BEARING on your operative lower extremity for at least 6 weeks. C. Wear low heeled shoes with non-slip soles D. Be sure that your floors are free of things that could trip you throw rugs, electrical cords, and small objects. Avoid wet and waxed floors, especially with crutches/walker/cane. E. Try to walk several times a day with rest periods between. F. You may shower 48 hours after surgery and get the incision area wet, but DO NOT soak or submerge incision area in water. (No baths, swimming pools, hot tubs) G. Dressing changes daily for 7 days or if there is continued drainage. After 7 days, Dressing changes every other day if wound remains dry.. You CAN shower with this on. If incision is leaking through the dressing, please call the office . H. Do NOT apply soap or any ointment/lotions directly over incision. I. You may use ice as needed to operative site. SPECIAL CARE INSTRUCTIONS: VERY IMPORTANT TO READ AND REVIEW A. You may be at risk for phlebitis or blood clots. a. Wear surgical stockings (ALFONSO hose) for 2 weeks after surgery to improve circulation and reduce swelling. b. Take ELIQUIS 2.5MG ORALLY TWICE A DAY OR DIRECTED. This is your blood thinner.. B. There are a few signs you need to watch for after you are home. Call [facility] [place] at [phone] if you experience any of the following: a. If you have a temperature of 101 degrees or higher. b. Sudden increase in pain in your hip not relieved by rest or pain medication. c. Any fluid or drainage from the incision; redness of the incision. d. Shortness of breath or chest pain. C. Call your physician if: a. Temperature is greater than 101 degrees (F). b. Pain is not relieved by prescribed pain medications . c. Increase drainage or redness from incision. d. Unanswered questions or concerns. D. Pain Medication: a. You will be prescribed pain medication upon discharge that should last till your first post-operative appointment. b. If you experience nausea and/or skin rash, discontinue this medication and contact our office for an alternative medication. c. Caution- narcotic pain medication can cause constipation. E. DRESSING - Daily dressing changes for 7 days or if there is continued drainage. Dressing changes every other day if wound remains dry. FOLLOW UP VISIT: Please call [facility] [place] at [phone] to schedule a follow up appointment 10-14 days from the date of your surgery date. Pending Studies at Discharge: No Stand-Alone Forms: [facility] Skilled Items Patient informed of condition?: Yes DNR: No Discharge Level of Care: Skilled Communicable Disease: No Discharge Prognosis: Stable Lines: None Urinary Catheter: No Medications and DC Order Prescriptions: New Eliquis 2.5 mg Tablet 2.5 mg PO BID 24 Days Qty: 48 0RF polyethylene glycol 3350 [Miralax] 17 gram Powder In Packet 17 g PO DAILY Qty: 14 0RF sennosides-docusate sodium [Senokot-S] 8.6-50 mg Tablet 1 tab PO QAM Qty: 1 0RF ergocalciferol (vitamin D2) 1,250 mcg (50,000 unit) capsule 50,000 unit PO Q7D Qty: 7 0RF Continued Spiriva Respimat 2.5 mcg/actuation mist 2 inh inhalation QAM Qty: 4 2RF famotidine [Pepcid] 20 mg tablet 20 mg PO BID budesonide [Pulmicort] 0.25 mg/2 mL suspension for nebulization 0.25 mg inhalation BID formoterol fumarate 20 mcg/2 mL solution for nebulization 2 ml inhalation BID Qty: 120 2RF (DME) Portable Oxygen Misc See Rx Instructions .Route Qty: 1 0RF Rx Instructions: Portable oxygen concentrator with oxygen at 2 L/min via nasal cannula. Test for portability. buspirone 5 mg tablet 5 mg PO BID albuterol sulfate 2.5 mg /3 mL (0.083 %) solution for nebulization 2.5 mg inhalation Q4 PRN (Reason: Shortness Of Breath Or Wheezing) Saline Mist 0.65 % aerosol,spray 2 spray NA QID PRN (Reason: NASAL DRYNESS) fluticasone propionate 50 mcg/actuation spray,suspension 2 spray NA BID PRN (Reason: Congestion) tramadol 50 mg tablet 50 mg PO Q8H PRN (Reason: Pain) Qty: 10 0RF atorvastatin 10 mg tablet 10 mg PO QAM esomeprazole magnesium 20 mg capsule,delayed release(DR/EC) 20 mg PO BID albuterol sulfate 90 mcg/actuation Hfa Aerosol Inhaler 2 puff INHALATION Q4 PRN (Reason: Shortness Of Breath Or Wheezing) loratadine 10 mg Tablet 10 mg PO DAILY amlodipine 2.5 mg tablet 2.5 mg PO DAILY Qty: 30 0RF guaifenesin [Mucinex] 600 mg Tablet Extended Release 12hr 600 mg PO Q12 Qty: 30 0RF Discharge Orders: Discharge Order (Routine); Ordered 07/13/22 Ordered By: Tiarra Amato Admission Data Admit Date/Time: 07/07/22 22:59 Attending Provider: Blanca Sebastian I. Admit Provider: Mick Montes Primary Care Provider: Ana Park Other Providers: Cherri Ch ; Mick Montes ; Marcello Nelson ; Blaze Rios ; Adryan Duarte ; Savi Crenshaw Thomas J ; Fany Verma ; Lawrence Metcalf ; Osmar Camara ; Bart Alanis Andrew J. ; Osmar Storey ; Abhinav Arrieta ; Rambo Lombardo ; Ye Emmanuel ; Hernan Pardo ; Fany Arias ; Bashir Arnold ; Catherine Huff John ; Tiarra Nichols ; Juancho Mancia ; Tanika Marmolejo Other Interventions: Discharge Summary Assessment (RN) Last Done: 07/13/22 15:18
== END 2022-07-13 15:49 | DRG 480 ==
LOC: ED 20:50 → 3N 22:59